=== PATIENT | female | born 2000 | race Caucasian/White ===

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

== ENCOUNTER 2019-06-21 15:04 | Inpatient (IN) | payer OTHER ==
[~2019-06-21] VITALS: Ht 175.3 cm; Wt 56.8 kg
[2019-06-21 15:46] LABS: BASO # 0.1 10^3/uL (0.0-0.2); BASO % 0.6 % (0.0-1.0); EOS % 0.4 % (0.0-3.0); HEMATOCRIT 42.9 % (36.0-47.0); HEMOGLOBIN 14.2 g/dl (12.0-15.5); LYMPH # 2.6 10^3/uL (1.5-5.0); MEAN CORPUSCULAR HEMOGLOBIN 29.5 pg (27.0-33.0); MEAN CORPUSCULAR HGB CONC 33.1 g/dl (32.0-36.5); MEAN CORPUSCULAR VOLUME 89.2 fl (80.0-96.0); MONO # 0.9 10^3/uL (0.0-0.8); MONO % 8.4 % (0.0-5.0); NEUTROPHILS # 6.8 10^3/uL (1.5-8.5); NEUTROPHILS % 65.1 % (36.0-66.0); PLATELET COUNT, AUTOMATED 367 10^3/uL (150-450); RED BLOOD COUNT 4.81 10^6/uL (4.00-5.40); WHITE BLOOD COUNT 10.5 10^3/uL (4.0-10.0)
[2019-06-21] MEDS: NS 1,000 ML IV SCH ×2 (16:05→22:29)
[2019-06-21 16:07] LABS: HCG, SERUM QUALITATIVE NEGATIVE (NEGATIVE)
[2019-06-21 16:08] LABS: AMPHETAMINES LEVEL URINE NEGATIVE (NEGATIVE); BARBITURATES URINE NEGATIVE (NEGATIVE); BENZODIAZEPINES URINE NEGATIVE (NEGATIVE); CANNABINOIDS URINE NEGATIVE (NEGATIVE); COCAINE METABOLITE URINE NEGATIVE (NEGATIVE); METHADONE URINE NEGATIVE (NEGATIVE); OPIATES URINE NEGATIVE (NEGATIVE); PHENCYCLIDINE URINE NEGATIVE (NEGATIVE)
[2019-06-21 16:16] LABS: ACETAMINOPHEN LEVEL 42.1 UG/ML (10.0-30.0); ALBUMIN 4.3 GM/DL (3.2-5.2); ALT/SGPT 31 U/L (12-78); BILIRUBIN,DIRECT 0.1 MG/DL (0.0-0.2); BILIRUBIN,TOTAL 0.5 MG/DL (0.2-1.0); BLOOD UREA NITROGEN 8 MG/DL (7-18); CALCIUM LEVEL 9.6 MG/DL (8.5-10.1); CARBON DIOXIDE LEVEL 18 MEQ/L (21-32); CHLORIDE LEVEL 109 MEQ/L (98-107); CPK CREATINE PHOSPHOKINASE 53 U/L (26-192); CREATININE FOR GFR 1.16 MG/DL (0.55-1.30); ETHYL ALCOHOL (ETHANOL) < 0.003 % (0.000-0.010); GLUCOSE, FASTING 132 MG/DL (70-100); POTASSIUM SERUM 3.2 MEQ/L (3.5-5.1); SALICYLATE LEVEL 22.9 MG/DL (5.0-30.0); SODIUM LEVEL 141 MEQ/L (136-145); TOTAL PROTEIN 8.1 GM/DL (6.4-8.2)
[2019-06-21 17:23] LABS: ACETAMINOPHEN LEVEL 32.8 UG/ML (10.0-30.0); SALICYLATE LEVEL 20.3 MG/DL (5.0-30.0)
[2019-06-21] MEDS ORDERED: POTASSIUM CHLORIDE 10 MEQ SR TABLET PO ONE (17:45)
[2019-06-21] MEDS ORDERED: ONDANSETRON 4MG/2ML VIAL (J2405) As Ordered ONE (18:15)
--- NOTE | 2019-06-21 20:17 | ECGEPIP ---
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
[2019-06-21] MEDS ORDERED: traZODone 50 MG TAB PO PRN (22:30)
[2019-06-21] MEDS ORDERED: ACETAMINOPHEN TAB 650MG DOSE (2X325MG) PO PRN (22:30)
[2019-06-21] MEDS ORDERED: MOM 30ML SUSPENSION UDC PO PRN (22:30)
[2019-06-21] MEDS ORDERED: MAALOX 30 ML SUSP *UDC PO PRN (22:30)
[2019-06-22 00:18] VITALS: BP 132/85
[2019-06-22 06:26] VITALS: BP 146/78
--- NOTE | 2019-06-22 10:50 | MHHPEPDOC ---
[facility] History & Physical History and Physical DATE OF ADMISSION: Jun 21, 2019 at 22:20 New Patient Evelyn Thornton MRN: N/A Date of : N/A Date of Service: 06/22/2019 Chief Complaint "I guess I overdosed." History of Present Illness The patient is a 18-year-old young woman presents after overdosing on ibuprofen, she is unable to identify any stressors other than that she has had an overdose 2 years ago on the same day. She reports that she has not felt necessarily any different than her normal state of health and reports that she wasn't sure what came over her at the time. The patient reports otherwise no stressors and that she had taken it and subsequently sought care. She wasn't sure whether this would injure her, but regretted immediately and sought care. Review Of Systems Depression: The patient denies any episodes of unprovoked depressed mood associated with neurovegetative symptoms lasting longer than 2 weeks with symptoms present nearly everyday. Anxiety: The patient denies any excessive worry associated with physical symptoms. They deny any experience of discreet panic in the past. Leela: The patient denies any episodes of euphoria/dysphoria associated with decreased need for sleep, hedonism, talkatively or impulsivity lasting longer than 5 days. Psychotic: The patient denies any experiences of auditory or visual hallucinations. They deny any episodes of paranoia or delusional thinking in the past Trauma: The patient denies any traumatic events associated with nightmares or intrusive thoughts. Borderline: Screen is positive for some borderline characteristics. Past Psychiatric History Reports an overdose that was not medically treated 2 years ago. Denies any current psychiatric followup, currently is in the process to see Dr. Petty at [facility]. On no current psychiatric medications. Allergies Please see below. Family Psychiatric History Reports father has mental health problems, have been admitted to the in the past. No history of suicide or addiction. Social History The patient is a never woman with no children who identifies as bisexual. She currently resides by herself in her apartment. 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 She reports she graduated high school without issues and did some college. She reports growing up with parents and a good relationship with both her 2 siblings with additional good relationship. Substance Abuse History The patient denies any excessive alcohol use, tobacco or illicit drug use, denies history of substance use treatment. Medical History Patient has no significant past medical history. Mental Status Examination General: Well dressed with good hygiene Speech: Spontaneous and fluid Thought processes: Linear and logical MSK: Smooth and coordinated gait, no signs of tremors or involuntary orofacial movements Thought content: Future orientated Abstract reasoning, and computation: Intact Description of associations: Intact Description of abnormal or psychotic thoughts: Denies any suicidal or homicidal ideation. Denies any auditory or visual hallucinations. Does not appear to be responding to internal stimuli. Does not appear to be endorsing any bizarre or paranoid ideation. Judgment: fair Insight: fair Orientation: Alert and orientated 3 Cognition: Grossly normal Recent and remote memory: Intact Attention span and concentration: Intact Fund of knowledge: Adequate Mood: "okay" Affect: Euthymic with a full range Diagnoses Unspecified depression. Assessment and Plan The patient a 18-year-old young woman presents after reportedly overdosing on ibuprofen. She did not require any significant medical treatment and was subsequently treated on the medical site of the ER before coming to psychiatry. Her situations are unusual and she has no significant signs of depression, she generally denies most symptoms other than depressive thoughts just prior, she does qualify for some cluster B personality traits, but generally denies most symptoms. She will be observed for 48 hours until the 9.39 legal status runs out. If she is no longer citing any suicidal ideation, I will not have cause to continue to hold her against her will. Disposition Discharge tomorrow if continues to exhibit no signs of suicidal thinking or behavioral problems. Problem List 1. Risk for suicide. 2. Ineffective coping. Initial Treatment Plan 1. Patient was admitted on a 9.39 legal status. 2. Complete history was obtained. 3. With patients permission, family will be contacted and database will be expanded. 4. Patients medication regimen will be reviewed and changed accordingly. 5. Patient will be provided with protected environment. 6. Patient will be treated with individual, group, and milieu therapies. 7. Patient will receive supportive psych-education. 8. Discharge planning will commence immediately. 9. Outpatient follow-up treatment will be strongly recommended. 10. The initial treatment plan will focus initially on: Estimated Length Of Stay 2 days. Time Spent 70 minutes with greater than 50% time on counseling/coordination of care. Thursday Vital Signs Vital Signs Date Time Temp Pulse Resp B/P (MAP) Pulse Ox O2 Delivery O2 Flow Rate FiO2 06/22/19 07:57 Room Air 06/22/19 06:26 99.1 75 16 146/78 (100) 06/22/19 00:18 95 Laboratory Data 24H Labs Laboratory Tests 2 06/21/19 15:32: Immature Granulocyte % (Auto) 0.5, Neutrophils (%) (Auto) 65.1, Lymphocytes (%) (Auto) 25.0, Monocytes (%) (Auto) 8.4H, Eosinophils (%) (Auto) 0.4, Basophils (%) (Auto) 0.6, Neutrophils # (Auto) 6.8, Lymphocytes # (Auto) 2.6, Monocytes # (Auto) 0.9H, Eosinophils # (Auto) 0.0, Basophils # (Auto) 0.1, Nucleated Red Blood Cells % (auto) 0.0, Anion Gap 14, Calcium Level 9.6, Total Bilirubin 0.5, Direct Bilirubin 0.1, Aspartate Amino Transf (AST/SGOT) 20, Alanine Aminotransferase (ALT/SGPT) 31, Alkaline Phosphatase 69, Total Creatine Kinase 53, Total Protein 8.1, Albumin 4.3, Albumin/Globulin Ratio 1.13, Thyroid Stimulating Hormone (TSH) 1.430, Human Chorionic Gonadotropin, Qual NEGATIVE, Salicylates Level 22.9, Urine Opiates Screen NEGATIVE, Urine Methadone Screen NEGATIVE, Acetaminophen Level 42.1H, Urine Barbiturates Screen NEGATIVE, Urine Phencyclidine Screen NEGATIVE, Urine Amphetamines Screen NEGATIVE, Urine Benzodiazepines Screen NEGATIVE, Urine Cocaine Metabolite Screen NEGATIVE, Urine Cannabinoids Screen NEGATIVE, Ethyl Alcohol Level < 0.003 06/21/19 15:50: Bedside Glucose (Misc Panel) 109H 06/21/19 16:50: Salicylates Level 20.3, Acetaminophen Level 32.8H 06/21/19 19:40: Salicylates Level 15.1 CBC/BMP Laboratory Tests 06/21/19 15:32 FSBS Laboratory Tests Test 06/21/19 15:50 Range/Units Bedside Glucose (Misc Panel) 109 70-105 MG/DL Medications No Active Prescriptions or Reported Meds Allergies Coded Allergies: No Known Allergies (Verified Allergy, Unknown, 06/21/19) A-FIB/CHADSVASC A-FIB History Current/History of A-Fib/PAF?: No MICHAEL AKERS DO Jun 22, 2019 10:50
--- NOTE | 2019-06-22 12:25 | HPEPDOC ---
General Date of Admission Jun 21, 2019 at 22:20 Date of Service: Jun 22, 2019 Chief Complaint The patient is a 18-year-old female admitted with a reason for visit of Unspecified Depressive Disorder. Source: Patient Exam Limitations: No limitations Associated Symptoms: Denies Symptoms History of Present Illness Patient is a 18-year-old female who was admitted to the behavioral health unit due to suicide attempt. Patient reported that she was brought to the [facility] ED by a friend as she had taken an unknown number of Excedrin. When asked what prompted her to do this, patient reported "because it is two years to the day when I last did it." 2 years ago. Patient had attempted suicide. She reported there hasn't been any upheaval in her personal life, she seems unaware of unwilling to share the reason she recently attempted suicide. At this time she denies any HI/SI. In fact, she states that it was a "stupid thing" for her to have done. Her cousin is coming to spend some time with her on Thursday. Patient denied a history of mental health disorders; has an new patient appointment with psychiatry on 07/03. Home Medications No Active Prescriptions or Reported Meds Allergies Coded Allergies: No Known Allergies (Verified Allergy, Unknown, 06/21/19) Past Medical History Medical History Unremarkable Surgical History None Family History Significant Family History: Hypertension Social History * Smoker: Denies Alcohol: occationally Drugs: marijuana (occasionally) A-FIB/CHADSVASC A-FIB History Current/History of A-Fib/PAF?: No Current PO Anticoag Therapy: No Review of Systems Constitutional: Denies: Chills, Fever, Night Sweats Eyes: Denies: Pain ENT: Denies: Head Aches Skin: Denies: Rash Pulmonary: Denies: Dyspnea, Cough Cardiovascular: Reports: Paroxysmal Noc. Dyspnea; Denies: Chest Pain, Palpitations Gastrointestinal: Denies: Nausea, Vomiting, Abdominal Pain, Diarrhea, Constipation Genitourinary: Denies: Dysuria, Frequency Hematologic: Denies: Bruising Musculoskeletal: Denies: Neck Pain, Back Pain, Joint Pain, Muscle Pain, Spasms Neurological: Denies: Weakness, Numbness Psych: Reports: Thoughts of Self Harm; Denies: Depression, Memory Issues, Thoughts of Harming Other Physical Examination General Exam: Positive: Alert, No Acute Distress Eye Exam: Positive: PERRLA, Conjunctiva & lids normal, EOMI; Negative: Sclera icteric ENT Exam: Positive: Atraumatic, Mucous membr. moist/pink, Pharynx Normal Neck Exam: Positive: Supple, JVD; Negative: thyromegaly Chest Exam: Positive: Clear to auscultation, Normal air movement Heart Exam: Positive: Rate Normal, Regular Rhythm, Normal S1, Normal S2; Negative: Murmurs, Rubs Telemetry: Positive: No significant arrhythmia Abdomen Exam: Positive: Normal bowel sounds, Soft; Negative: Tenderness Extremity Exam: Positive: Normal pulses; Negative: Clubbing, Cyanosis, Edema Skin Exam: Positive: Nl turgor and temperature Neuro Exam: Positive: Normal Gait, Normal Speech, Strength at 5/5 X4 ext, Cranial Nerves 3-12 NL Psych Exam: Positive: Mood NL Vital Signs Vital Signs Date Time Temp Pulse Resp B/P (MAP) Pulse Ox O2 Delivery O2 Flow Rate FiO2 06/22/19 07:57 Room Air 06/22/19 06:26 99.1 75 16 146/78 (100) 06/22/19 00:18 95 Laboratory Data Labs 24H Laboratory Tests 2 06/21/19 15:32: Immature Granulocyte % (Auto) 0.5, Neutrophils (%) (Auto) 65.1, Lymphocytes (%) (Auto) 25.0, Monocytes (%) (Auto) 8.4H, Eosinophils (%) (Auto) 0.4, Basophils (%) (Auto) 0.6, Neutrophils # (Auto) 6.8, Lymphocytes # (Auto) 2.6, Monocytes # (Auto) 0.9H, Eosinophils # (Auto) 0.0, Basophils # (Auto) 0.1, Nucleated Red Blood Cells % (auto) 0.0, Anion Gap 14, Calcium Level 9.6, Total Bilirubin 0.5, Direct Bilirubin 0.1, Aspartate Amino Transf (AST/SGOT) 20, Alanine Aminotransferase (ALT/SGPT) 31, Alkaline Phosphatase 69, Total Creatine Kinase 53, Total Protein 8.1, Albumin 4.3, Albumin/Globulin Ratio 1.13, Thyroid Stimulating Hormone (TSH) 1.430, Human Chorionic Gonadotropin, Qual NEGATIVE, S alicylates Level 22.9, Urine Opiates Screen NEGATIVE, Urine Methadone Screen NEGATIVE, Acetaminophen Level 42.1H, Urine Barbiturates Screen NEGATIVE, Urine Phencyclidine Screen NEGATIVE, Urine Amphetamines Screen NEGATIVE, Urine Benzodiazepines Screen NEGATIVE, Urine Cocaine Metabolite Screen NEGATIVE, Urine Cannabinoids Screen NEGATIVE, Ethyl Alcohol Level < 0.003 06/21/19 15:50: Bedside Glucose (Misc Panel) 109H 06/21/19 16:50: Salicylates Level 20.3, Acetaminophen Level 32.8H 06/21/19 19:40: Salicylates Level 15.1 CBC/BMP Laboratory Tests 06/21/19 15:32 Assessment/Plan Patient is a 18-year-old female who was admitted to the behavioral health unit due to suicide attempt. Patient reported that she was brought to the [facility] ED by a friend as she had taken an unknown number of Excedrin. When asked what prompted her to do this, patient reported "because it is two years to the day when I last did it." 2 years ago. Patient had attempted suicide. She reported there hasn't been any upheaval in her personal life, she seems unaware of unwilling to share the reason she recently attempted suicide. At this time she denies any HI/SI. In fact, she states that it was a "stupid thing" for her to have done. Her cousin is coming to spend some time with her on Thursday. Patient denied a history of mental health disorders; has an new patient appointment with psychiatry on 07/03. #1. Suicide attempt. Management per psychiatry Medicine will sign off on this patient at this time. Please feel free to re- consult as needed. Plan / VTE VTE Prophylaxis Ordered?: No ÓSCAR BILLY PA-C Jun 22, 2019 12:25
[2019-06-22 16:04] VITALS: BP 125/83
[2019-06-23 06:30] VITALS: BP 125/81
--- NOTE | 2019-06-23 11:08 | MHDSPDOC ---
[facility] Discharge Summary Discharge Summary DATE OF ADMISSION: Jun 21, 2019 at 22:20 DATE OF DISCHARGE: 06/23/19 Discharge Evelyn Thornton MRN: N/A Date of : N/A Date of Service: 06/23/2019 Diagnoses Unspecified depression. History of Present Illness The patient is a 18-year-old young woman presents after overdosing on ibuprofen, she is unable to identify any stressors other than that she has had an overdose 2 years ago on the same day. She reports that she has not felt necessarily any different than her normal state of health and reports that she wasn't sure what came over her at the time. The patient reports otherwise no stressors and that she had taken it and subsequently sought care. She wasn't sure whether this would injure her, but regretted immediately and sought care. Consultants Involved Hospitalist/PCP screening Treatment and Progress On The Unit The patient was admitted after reported overdose of Tylenol versus ibuprofen, she was observed for 48 hours where she was friendly and amenable, she did not demonstrate any signs or symptoms of depression. She was not able to identify the exact rationale for her overdose, however was able to improve to some level fair insight into her behavior and her stress management. She attended groups at times and denied any suicidal ideation through the entirety of her 48 hours of observation, where she did not meet involuntary criteria for further extension. Discussed with patient about medications and the patient reported that she was open to the idea but wanted to try it in outpatient after discussion of the risks, benefits and other alternatives. She had no behavioral problems and behaved well. Discharge Assessment 18-year-old young woman with a history of what appears to be depression, possibly cluster B personality traits presents after overdose. She is observed for 48 hours and does not meet criteria in my opinion to be extended past that point and primarily wants to pursue psychotherapy for her treatment after discussion of the risks and benefits related to medications as well as alternatives. The patient at the time of discharge did not meet criteria for involuntary admission/extension due to having a normal mental status exam, fair insight into the situation, They are engaged in the discharge process, as well as being friendly and amenable in behavioral control and havent been engaging in any o bserved concerning behavior or ideation recently. They decline voluntary extension/admission at this time and must be discharged in good liliam, as Im unable to make a case for holding the patient against their will. They may have historical risk factors of admissions and other interactions with psychiatry however, those are not modifiable from a clinical perspective. The patient will need to be discharged in good liliam. Mental Status Examination General: Well dressed with good hygiene Speech: Spontaneous and fluid Thought processes: Linear and logical MSK: Smooth and coordinated gait, no signs of tremors or involuntary orofacial movements Thought content: Future orientated Abstract reasoning, and computation: Intact Description of associations: Intact Description of abnormal or psychotic thoughts: Denies any suicidal or homicidal ideation. Denies any auditory or visual hallucinations. Does not appear to be responding to internal stimuli. Does not appear to be endorsing any bizarre or paranoid ideation. Judgment: fair Insight: fair Orientation: Alert and orientated 3 Cognition: Grossly normal Recent and remote memory: Intact Attention span and concentration: Intact Fund of knowledge: Adequate Mood: "okay" Affect: Euthymic with a full range Follow Up The social work team worked during the predischarge meeting in order to evaluate for further issues of lethality address them fully before discharge. They worked on safety planning with the patient's family members in order to ensure that the patient will have a safe and effective discharge. Time Spent The amount of time spent in the coordination of care for this patient was approximately 40 minutes. Vital Signs/I&Os Vital Signs Date Time Temp Pulse Resp B/P (MAP) Pulse Ox O2 Delivery O2 Flow Rate FiO2 06/23/19 06:30 98.3 71 16 125/81 (96) 06/22/19 07:57 Room Air 06/22/19 00:18 95 Medications No Active Prescriptions or Reported Meds Allergies Coded Allergies: No Known Allergies (Verified Allergy, Unknown, 06/21/19) MICHAEL AKERS DO Jun 23, 2019 11:08
== END 2019-06-23 11:37 | disposition home or self-care (01) | DRG 881 ==
LOC: M ED 15:04 → M ED INP 22:20 → M PSY 23:50
PROVIDERS: ADMIT Psychiatry & Neurology Psychiatry; ATTEND Psychiatry & Neurology Addiction Medicine
DX: F32.9 Major depressive disorder, single episode, unspecified (principal); T39.1X2A Poisoning by 4-Aminophenol derivatives, intentional self-harm, initial encounter; Z91.5 Personal history of self-harm; Z81.8 Family history of other mental and behavioral disorders

== ENCOUNTER 2020-07-15 18:41 | Emergency (ER) | payer OTHER ==
[~2020-07-15] VITALS: Ht 177.8 cm; Wt 63.6 kg
[2020-07-15 18:42] VITALS: BP 163/84
== END 2020-07-15 19:36 | disposition left against medical advice (07) ==
LOC: M ED 18:41
DX: R07.9 Chest pain, unspecified (principal); R06.02 Shortness of breath; Z53.9 Procedure and treatment not carried out, unspecified reason; F41.0 Panic disorder [episodic paroxysmal anxiety]; F32.9 Major depressive disorder, single episode, unspecified

== ENCOUNTER 2020-07-16 10:05 | Emergency (ER) | payer OTHER ==
[~2020-07-16] VITALS: Ht 177.8 cm; Wt 63.6 kg
[2020-07-16 11:15] LABS: HEMATOCRIT 32.8 % (36.0-47.0); HEMOGLOBIN 10.6 g/dl (12.0-15.5); MEAN CORPUSCULAR HEMOGLOBIN 30.9 pg (27.0-33.0); MEAN CORPUSCULAR HGB CONC 32.3 g/dl (32.0-36.5); MEAN CORPUSCULAR VOLUME 95.6 fl (80.0-96.0); PLATELET COUNT, AUTOMATED 210 10^3/uL (150-450); RED BLOOD COUNT 3.43 10^6/uL (4.00-5.40); WHITE BLOOD COUNT 9.4 10^3/uL (4.0-10.0)
[2020-07-16 11:21] LABS: AMORPHOUS SEDIMENT SMALL (NEGATIVE); APPEARANCE, URINE CLOUDY (CLEAR); BACTERIA, URINE AUTO 2+ (NEGATIVE); BILIRUBIN, URINE AUTO NEGATIVE (NEGATIVE); BLOOD, URINE BLOOD NEGATIVE (NEGATIVE); COLOR, URINE YELLOW (YELLOW); GLUCOSE, URINE (UA) AUTO NEGATIVE (NEGATIVE); KETONE, URINE AUTO NEGATIVE (NEGATIVE); LEUKOCYTE ESTERASE, URINE AUTO NEGATIVE (NEGATIVE); MUCUS, URINE SMALL (NEGATIVE); NITRITE, URINE AUTO NEGATIVE (NEGATIVE); PROTEIN, URINE AUTO NEGATIVE (NEGATIVE); RBC, URINE AUTO 2 /HPF (0-3); SPECIFIC GRAVITY URINE AUTO 1.013 (1.002-1.035); SQUAMOUS EPITHELIAL CELL UR AU 5 /HPF (0-6); WBC, URINE AUTO 6 /HPF (0-3)
[2020-07-16 11:27] LABS: INR 0.92; PROTHROMBIN TIME 12.5 SECONDS (12.5-14.3)
[2020-07-16 11:28] LABS: PARTIAL THROMBOPLASTIN TIME 24.8 SECONDS (24.2-38.5)
[2020-07-16 11:59] LABS: ACETAMINOPHEN LEVEL < 2.0 UG/ML (10.0-30.0); ALBUMIN 3.2 GM/DL (3.2-5.2); ALT/SGPT 15 U/L (12-78); BILIRUBIN,DIRECT < 0.1 MG/DL (0.0-0.2); BILIRUBIN,TOTAL 0.4 MG/DL (0.2-1.0); BLOOD UREA NITROGEN 6 MG/DL (7-18); CALCIUM LEVEL 8.6 MG/DL (8.5-10.1); CARBON DIOXIDE LEVEL 25 MEQ/L (21-32); CHLORIDE LEVEL 109 MEQ/L (98-107); CREATININE FOR GFR 0.41 MG/DL (0.55-1.30); ETHYL ALCOHOL (ETHANOL) < 0.003 % (0.000-0.010); GLUCOSE, FASTING 80 MG/DL (70-100); MAGNESIUM LEVEL 2.1 MG/DL (1.8-2.4); POTASSIUM SERUM 3.7 MEQ/L (3.5-5.1); SALICYLATE LEVEL < 1.7 MG/DL (5.0-30.0); SODIUM LEVEL 140 MEQ/L (136-145); THYROID STIMULATING HORMONE 0.948 uIU/ML (0.463-3.98); TOTAL PROTEIN 6.6 GM/DL (6.4-8.2); URIC ACID 2.8 MG/DL (2.6-6.0)
[2020-07-16 11:59] LABS: AMPHETAMINES LEVEL URINE NEGATIVE (NEGATIVE); BARBITURATES URINE NEGATIVE (NEGATIVE); BENZODIAZEPINES URINE NEGATIVE (NEGATIVE); CANNABINOIDS URINE POSITIVE (NEGATIVE); COCAINE METABOLITE URINE NEGATIVE (NEGATIVE); METHADONE URINE NEGATIVE (NEGATIVE); OPIATES URINE NEGATIVE (NEGATIVE); PHENCYCLIDINE URINE NEGATIVE (NEGATIVE)
[2020-07-16 13:38] VITALS: BP 131/69
== END 2020-07-16 13:40 | disposition home or self-care (01) ==
LOC: M ED 10:05
DX: O99.343 Other mental disorders complicating pregnancy, third trimester (principal); F43.0 Acute stress reaction; F33.9 Major depressive disorder, recurrent, unspecified; F41.9 Anxiety disorder, unspecified; Z3A.30 30 weeks gestation of pregnancy

== ENCOUNTER 2021-01-29 16:55 | Inpatient (IN) | payer OTHER ==
[~2021-01-29] VITALS: Ht 177.8 cm; Wt 57.1 kg
--- OUTSIDE RECORDS SUMMARY | 2021-01-29 17:01 | CCD | Continuity of Care Document ---
Author Author Beverly BELLA Organization Unknown Address [address] [place] [id number] Phone [phone] Care Team Providers Care Information Systems Architect Name Role Phone Naif Naranjo M.D. [facility] [phone] Problems Description No Information Available Social History Type Date Description Comments Sex Unknown Allergies and adverse reactions Description No Information Available Medications Description No Information Available Immunizations Description No Information Available Vital Signs Description No Information Available Results Description No Information Available Procedures Description No Information Available Medical Devices Description No Information Available Encounters Description No Information Available Assessments Description No Information Available Plan of Treatment Future Appointment(s):* 02/27/2021 9:00 am - Nestor Delgadillo M.D. at Main office - [place] Functional Status Description No Information Available Mental Status Description No Information Available Referrals Description No Information Available
--- OUTSIDE RECORDS SUMMARY | 2021-01-29 17:01 | CCD ---
Author Author [facility] Organization [facility] Address Unknown Phone Unavailable Care Team Providers Care Electrical Mechanic Name Role Phone SYSTEM IN, NOT IN PROVIDER Unavailable Unavailable JOIS SOLIZ Unavailable Unavailable Bailey VALDIVIA MD Unavailable Unavailable Bailey VALDIVIA MD Unavailable Unavailable Bailey VALDIVIA MD Unavailable Unavailable Bailey VALDIVIA MD Unavailable Unavailable Bailey VALDIVIA MD Unavailable Unavailable Bailey VALDIVIA MD Unavailable Unavailable Bailey VALDIVIA MD Unavailable Unavailable Bailey VALDIVIA MD Unavailable Unavailable Bailey VALDIVIA MD Unavailable Unavailable Bailey VALDIVIA MD Unavailable Unavailable Bailey VALDIVIA MD Unavailable Unavailable Bailey VALDIVIA MD Unavailable Unavailable Bailey VALDIVIA MD Unavailable Unavailable Bailey VALDIVIA MD Unavailable Unavailable Bailey VALDIVIA MD Unavailable Unavailable Bailey VALDIVIA MD Unavailable Unavailable Bailey VALDIVIA MD Unavailable Unavailable Bailey VALDIVIA MD Unavailable Unavailable Bailey VALDIVIA MD Unavailable Unavailable Bailey VALDIVIA MD Unavailable Unavailable Bailey VALDIVIA MD Unavailable Unavailable Bailey VALDIVIA MD Unavailable Unavailable Bailey VALDIVIA MD Unavailable Unavailable Bailey VALDIVIA MD Unavailable Unavailable Bailey VALDIVIA MD Unavailable Unavailable Bailey VALDIVIA MD Unavailable Unavailable Bailey VALDIVIA MD Unavailable Unavailable Bailey VALDIVIA MD Unavailable Unavailable Bailey VALDIVIA MD Unavailable Unavailable BAKARI ROBERTSZABETH Unavailable Unavailable [facility]85, [id number] Unavailable [phone] [facility]85, [id number] Unavailable [phone] [facility], [id number] Unavailable [phone] [facility], [id number] Unavailable [phone] [facility], [id number] Unavailable [phone] [facility], [id number] Unavailable [phone] [facility], [id number] Unavailable [phone] [facility], [id number] Unavailable [phone] [facility], [id number] Unavailable [phone] [facility], [id number] Unavailable [phone] [facility], [id number] Unavailable [phone] [facility]85, [id number] Unavailable [phone] [facility]85, [id number] Unavailable [phone] [facility]85, [id number] Unavailable [phone] [facility]85, [id number] Unavailable [phone] [facility]85, [id number] Unavailable [phone] Mavis SANCHEZ MD Unavailable Unavailable Mavis SANCHEZ MD Unavailable Unavailable Mavis SANCHEZ MD Unavailable Unavailable Mavis SANCHEZ MD Unavailable Unavailable Mavis SANCHEZ MD Unavailable Unavailable Mavis SANCHEZ MD Unavailable Unavailable Mavis SANCHEZ MD Unavailable Unavailable Mavis SANCHEZ MD Unavailable Unavailable Mavis SANCHEZ MD Unavailable Unavailable Mavis SANCHEZ MD Unavailable Unavailable Mavis SANCHEZ MD Unavailable Unavailable Mavis SANCHEZ MD Unavailable Unavailable Mavis SANCHEZ MD Unavailable Unavailable Mavis SANCHEZ MD Unavailable Unavailable Mavis SANCHEZ MD Unavailable Unavailable Mavis SANCHEZ MD Unavailable Unavailable Mavis SANCHEZ MD Unavailable Unavailable Mavis SANCHEZ MD Unavailable Unavailable Mavis SANCHEZ MD Unavailable Unavailable Mavis SANCHEZ MD Unavailable Unavailable Mavis SANCHEZ MD Unavailable Unavailable Mavis SANCHEZ MD Unavailable Unavailable Mavis SANCHEZ MD Unavailable Unavailable Mavis SANCHEZ MD Unavailable Unavailable Mavis SANCHEZ MD Unavailable Unavailable Mavis SANCHEZ MD Unavailable Unavailable Mavis SANCHEZ MD Unavailable Unavailable Mavis SANCHEZ MD Unavailable Unavailable Mavis SANCHEZ MD Unavailable Unavailable Maring, Ciro PA Unavailable Unavailable Maring, Ciro PA Unavailable Unavailable Maring, Ciro PA Unavailable Unavailable Maring, Ciro PA Unavailable Unavailable Maring, Ciro PA Unavailable Unavailable Maring, Ciro PA Unavailable Unavailable Maring, Ciro PA Unavailable Unavailable Maring, Ciro PA Unavailable Unavailable Maring, Ciro PA Unavailable Unavailable Maring, Ciro PA Unavailable Unavailable Maring, Ciro PA Unavailable Unavailable Maring, Ciro PA Unavailable Unavailable Maring, Ciro PA Unavailable Unavailable Maring, Ciro PA Unavailable Unavailable Maring, Ciro PA Unavailable Unavailable Maring, Ciro PA Unavailable Unavailable CHUY RAM Unavailable Unavailable MarMiles PA-C Unavailable Zaid Miles PA-C Unavailable Mar, Miles PA-C Unavailable Mar Miles PA-C Unavailable Mar Miles PA-C Unavailable MINA PELAEZ Unavailable Unavailable ADITI HOBSON Unavailable Unavailable Rosa GUTIERRES JR, MD Unavailable Unavailable Rosa GUTIERRES JR, MD Unavailable Unavailable Rosa GUTIERRES JR, MD Unavailable Unavailable Rosa GUTIERRES JR, MD Unavailable Unavailable Rosa GUTIERRES JR, MD Unavailable Unavailable NOSOVITCH Rosa GAMBINO MD Unavailable Unavailable NOSOVITCH Rosa GAMBINO MD Unavailable Unavailable NOSOVITCH Rosa GAMBINO MD Unavailable Unavailable NOSOVITCH Rosa GAMBINO MD Unavailable Unavailable NOSOVITCH Rosa GAMBINO MD Unavailable Unavailable NOSOVITCH Rosa GAMBINO MD Unavailable Unavailable NOSOVITCH Rosa GAMBINO MD Unavailable Unavailable NOSOVITCH Rosa GAMBINO MD Unavailable Unavailable NOSOVITCH Rosa GAMBINO MD Unavailable Unavailable NOSOVITCH Rosa GAMBINO MD Unavailable Unavailable NOSOVITCH Rosa GAMBINO MD Unavailable Unavailable NOSOVITCH Rosa GAMBINO MD Unavailable Unavailable NOSOVITCH Rosa GAMBINO MD Unavailable Unavailable NOSOVITCH Rosa GAMBINO MD Unavailable Unavailable NOSOVITCH Rosa GAMBINO MD Unavailable Unavailable NOSOVITCH Rosa GAMBINO MD Unavailable Unavailable NOSOVITCH Rosa GAMBINO MD Unavailable Unavailable NOSOVITCH Rosa GAMBINO MD Unavailable Unavailable NOSOVITCH Rosa GAMBINO MD Unavailable Unavailable NOSOVITCH Rosa GAMBINO MD Unavailable Unavailable NOSOVITCH Rosa GAMBINO MD Unavailable Unavailable NOSOVITCH Rosa GAMBINO MD Unavailable Unavailable NOSOVITCH Rosa GAMBINO MD Unavailable Unavailable NOSOVITCH Rosa GAMBINO MD Unavailable Unavailable NOSOVITCH Rosa GAMBINO MD Unavailable Unavailable NOSOVITCH Rosa AGMBINO MD Unavailable Unavailable BYRON, C NIDA TRANSPORTATION SUPERINTENDENT Unavailable Unavailable BYRON, C NIDA TRANSPORTATION SUPERINTENDENT Unavailable Unavailable BYRON, C NIDA TRANSPORTATION SUPERINTENDENT Unavailable Unavailable BYRON, C NIDA TRANSPORTATION SUPERINTENDENT Unavailable Unavailable BYRON, C NIDA TRANSPORTATION SUPERINTENDENT Unavailable Unavailable BYRON, C NIDA TRANSPORTATION SUPERINTENDENT Unavailable Unavailable BYRON, C NIDA TRANSPORTATION SUPERINTENDENT Unavailable Unavailable BYRON, C NIDA TRANSPORTATION SUPERINTENDENT Unavailable Unavailable BYRON, C NIDA TRANSPORTATION SUPERINTENDENT Unavailable Unavailable BYRON, C NIDA TRANSPORTATION SUPERINTENDENT Unavailable Unavailable BYRON, C NIDA TRANSPORTATION SUPERINTENDENT Unavailable Unavailable BYRON, C NIDA TRANSPORTATION SUPERINTENDENT Unavailable Unavailable BYRON, C NIDA TRANSPORTATION SUPERINTENDENT Unavailable Unavailable BYRON, C NIDA TRANSPORTATION SUPERINTENDENT Unavailable Unavailable BYRON, C NIDA TRANSPORTATION SUPERINTENDENT Unavailable Unavailable BYRON, C NIDA TRANSPORTATION SUPERINTENDENT Unavailable Unavailable BYRON, C NIDA TRANSPORTATION SUPERINTENDENT Unavailable Unavailable BYRON, C NIDA TRANSPORTATION SUPERINTENDENT Unavailable Unavailable BYRON, C NIDA TRANSPORTATION SUPERINTENDENT Unavailable Unavailable BYRON, C NIDA TRANSPORTATION SUPERINTENDENT Unavailable Unavailable BYRON, C NIDA TRANSPORTATION SUPERINTENDENT Unavailable Unavailable BYRON, C NIDA TRANSPORTATION SUPERINTENDENT Unavailable Unavailable BYRON, C NIDA TRANSPORTATION SUPERINTENDENT Unavailable Unavailable BYRON, C NIDA TRANSPORTATION SUPERINTENDENT Unavailable Unavailable BYRON, C NIDA TRANSPORTATION SUPERINTENDENT Unavailable Unavailable BYRON C NIDA TRANSPORTATION SUPERINTENDENT Unavailable Unavailable FOLK, J KASI MD Unavailable Unavailable FOLK, J KASI MD Unavailable Unavailable FOLK, J KASI MD Unavailable Unavailable FOLK, J KASI MD Unavailable Unavailable FOLK, J KASI MD Unavailable Unavailable FOLK, J KASI MD Unavailable Unavailable FOLK, J KASI MD Unavailable Unavailable FOLK, J KASI MD Unavailable Unavailable FOLK, J KASI MD Unavailable Unavailable FOLK, J KASI MD Unavailable Unavailable FOLK, J KASI MD Unavailable Unavailable FOLK, J KASI MD Unavailable Unavailable FOLK, J KASI MD Unavailable Unavailable FOLK, J KASI MD Unavailable Unavailable FOLK, J KASI MD Unavailable Unavailable FOLK, J KASI MD Unavailable Unavailable FOLK, J KASI MD Unavailable Unavailable FOLK, J KASI MD Unavailable Unavailable FOLK, J KASI MD Unavailable Unavailable FOLK, J KASI MD Unavailable Unavailable FOLK, J KASI MD Unavailable Unavailable FOLK, J KASI MD Unavailable Unavailable FOLK, J KASI MD Unavailable Unavailable FOLK, J KASI MD Unavailable Unavailable FOLK, J KASI MD Unavailable Unavailable FOLK, J KASI MD Unavailable Unavailable FOLK, J KASI MD Unavailable Unavailable FOLK, J KASI MD Unavailable Unavailable FOLK, J KASI MD Unavailable Unavailable Re-disclosure Warning The records that you are about to access may contain information from federally-assisted alcohol or drug abuse programs. If such information is present, then the following federally mandated warning applies: This information has been disclosed to you from records protected by federal confidentiality rules (42 CFR part 2). The federal rules prohibit you from making any further disclosure of this information unless further disclosure is expressly permitted by the written consent of the person to whom it pertains or as otherwise permitted by 42 CFR part 2. A general authorization for the release of medical or other information is NOT sufficient for this purpose. The Federal rules restrict any use of the information to criminally investigate or prosecute any alcohol or drug abuse patient.The records that you are about to access may contain highly sensitive health information, the redisclosure of which is protected by Article 27-F of the [facility] Public Health law. If you continue you may have access to information: Regarding HIV / AIDS; Provided by facilities licensed or operated by the [facility] Office of Mental Health; or Provided by the [facility] Office for People With Developmental Disabilities. If such information is present, then the following [facility] mandated warning applies: This information has been disclosed to you from confidential records which are protected by state law. State law prohibits you from making any further disclosure of this information without the specific written consent of the person to whom it pertains, or as otherwise permitted by law. Any unauthorized further disclosure in violation of state law may result in a fine or fpc sentence or both. A general authorization for the release of medical or other information is NOT sufficient authorization for further disc losure. Allergies and Adverse Reactions Type Description Substance Reaction Status Data Source(s ) Propensity to adverse reactions NO KNOWN ALLERGIES NO KNOWN ALLERGIES [facility] Encounters Encounter Providers Location Date Indications Data Source(s ) Outpatient Attender: NIDA MATTHEWS NP 10/15/2020 12:00:0 0 AM [facility] Outpatient Attender: NIDA MATTHEWS NP 09/14/2020 12:00:0 0 AM [facility] Outpatient 09/13/2020 12:00:00 AM [facility] Outpatient 09/13/2020 12:00:00 AM [facility] Inpatient Attender: KASI VALDIVIA MD 09/04/2020 12:47:51 AM E DT Lab [facility] Inpatient Attender: KASI VALDIVIA MDAdmitter: KASI VALDIVIA MD 09/04/2020 12:00:00 AM EDT - 09/06/2020 01:57:00 PM EDT 36 WKS WITH RUPTURED MEMBRANES HIGH RISK [facility] 36 WKS WITH RUPTURED MEMBRANES HIGH RISK Patient discharged. Outpatient Referrer: PROVIDER SYSTEM IN 09/03/2020 0 8:44:00 PM EDT 36 week preg, water broke. [facility] 36 week preg, water [place]ake. Emergency Attender: Miles DOBBS-CReferrer: [id number] [facility] 09/03/2020 08:10:00 PM EDT - 09/03/2020 10:20:00 PM EDT [facility] Patient discharged. Outpatient Attender: KASI GUTIERRES JRReferrer: FRANCISCA Gamble ICAMPLI [id number] 08/24/2020 12:00:00 AM EDT - 08/24/2020 03:16:22 PM EDT Maternal care for other (suspected) abnormality and damage, not applicable or unspecified [facility] Maternal care for other (suspected) feta l abnormality and damage, not applicable or unspecified Outpatient Attender: MINA PELAEZ 08/24/2020 12:00:00 AM [facility] Outpatient Attender: NIDA BLUMeferrer: Bailey GUTIERRES JR [id number] 08/22/2020 12:00:00 AM EDT - 08/22/2020 03:36:42 PM [facility] Outpatient Attender: KASI GUTIERRES JRReferrer: FRANCISCA Gamble ICAMPLI [id number] 07/27/2020 12:00:00 AM EDT - 07/27/2020 03:34:51 PM EDT Maternal care for other (suspected) abnormality and damage, not applicable or unspecified [facility] Maternal care for other (suspected) feta l abnormality and damage, not applicable or unspecified Outpatient Attender: ADITI HOBSON 07/27/2020 12:00:00 AM [facility] Outpatient 07/27/2020 12:00:00 AM [facility] Outpatient Attender: CHUY RAM 07/27/2020 12:00:00 AM [facility] Outpatient Attender: KASI Brownerrer: FRANCISCA Gamble ICAMPLI [id number] 06/28/2020 12:00:00 AM EDT - 06/28/2020 04:03:02 PM EDT Maternal care for other (suspected) abnormality and damage, not applicable or unspecified [facility] Maternal care for other (suspected) feta l abnormality and damage, not applicable or unspecified Outpatient Attender: JOSI SOLIZ 06/28/2020 12:00:00 AM [facility] Outpatient Attender: KASI GUTIERRES JRReferrer: FRANCISCA Gamble ICAMPLI [id number] 06/08/2020 12:00:00 AM EST - 06/08/2020 12:22:05 PM EST Maternal care for (suspected) abnormality and damage, unspecified, not applicable or unspecified [facility] Maternal care for (suspected) abno rmality and damage, unspecified, not applicable or unspecified Outpatient Attender: CHUY RAMReferrer: FRANCISCA CALVO YOLIS 06/08/2020 12:00:00 AM [facility] Outpatient Attender: Ciro DOBBS 05/06/19 12:00:54 PM EST - 05/06/2020 12:48:01 PM EST [facility] ([facility] ) Immunizations Vaccine Date Status Description Data Source(s) COVID-19 VACCINE Pfizer 12/24/2020 12:00:00 AM EDT completed [facility] Vaccine Series Complete: YESThis Data wa s Submitted to [facility] Via [employer]. COVID-19 VACCINE Pfizer 12/03/2020 12:00:00 AM EDT completed [facility] Vaccine Series Complete: NOThis Data was Submitted to [facility] Via [employer]. 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 UTERINE CRAMPING TAKE ONE TABLET BY MOUTH EVERY 6 HOURS A S NEEDED FOR UTERINE CRAMPING SOLD: 09/06/2020 [facility] Insurance Providers Payer name Policy type / Coverage type Policy ID Covered constitution party ID Covered constitution party's relationship to resendiz Policy Resendiz Plan Information U [id number] Self [id number] U [id number] Self [id number] [facility] [id number] CHILD [id number] Parent [id number] RPR- Needs Payer Match [id number] Self [id number] U [id number] Self [id number] MEDICAID [id number] [place] [id number] MEDICAID UNAVAILABLE S UNAVAILA BLE HEA [id number] P [id number] [place] WPS [id number] CHILD [id number] [employer] [place] [id number] PARENT [id number] MEDICAID HEA [id number] S [id number] N REGIONAL CLAIMS PANCHO -O/P [id number] 19 [id number] ANSI-Not a Secondary Insurance [id number] Problems, Conditions, and Diagnoses Code Display Name Description Problem Type Effective Dates Data Source(s) 36 week preg, water broke. 36 week preg, water broke. 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 O THER DETENTION (CURRENT) DRUG THERAPY Diagnosis 09/03/2020 08:10:00 PM [facility] Z3A.36 36 weeks gestation of 36 WEEKS GESTATI ON OF Diagnosis 09/03/2020 08:10:00 PM [facility] Z20.822 CONTACT WITH AND (SUSPECTED) EXPOSURE TO COVID-19 CONTACT WITH AND (SUSPECTED) EXPOSURE TO COVID-19 Diagnosis 09/03/2020 08:10:00 PM [facility] O42.113 premature rupture of membranes, onset of labor more than 24 hours following rupture, third trimester PRETRM CHERYLE ROM, ONSET LABOR > 24 HOURS FOL RUPT, THIRD TRI Diagnosis 09/03/2020 08:10:00 PM [facility] l O35.8XX0 Maternal care for other (kerry pected) abnormality and damage, not applicable or unspecified Maternal care for other (suspected) feta l abnormality and damage, not applicable or unspecified Diagnosis 06/08/2020 07:10:1 5 PM [facility] O35.9XX0 Maternal care for (suspected ) abnormality and damage, unspecified, not applicable or unspecified Maternal care for (suspected) abnormality and damage, unspecified, not applicable or unspecified Diagnosis 06/08/2020 09:38:28 AM [facility] Surgeries/Procedures Procedure Description Date Indications Data Source(s) MRI Brain W/O Contrast, Followed By Contrast 12:00:00 AM EDT [facility] ([facility], ) MRI Brain W/O Contrast, Followed By Contrast 12:00:00 AM [facility] Results ID Date Data Source [id number] 09/04/2020 03:42:02 PM EDT [facility] Name Value Range Interpretation Code Description Data Maria Isabel rce(s) Supporting Document(s) Progress Note [facility] RCMOQk5xHfTSGgVb35/BQXnyWWKyz5UaSHbzFQp8JNoqDHYyJ7WsGME8bW8rCKJ6RNsRTnVtJjZsStOd lbm [file] ICAgICAgICAgICAgICAgICAgICAgICAgICAgICAgIC AgICAgICAgICAgICAgICAgICAgICAgICAgICAgICAgICAgICAgICAgICANCiAgICAgICAgICAgICAgIC AgICAgICAgICAgICAgICAgICAgICAgICAgICAgICAgICAgICAgICAgICAgICAgICAgICAgICAgICAgIC AgICAgICAgICAgICAgICAgICAgICAgICANCiAgICAg ICAgICAgICAgICAgICAgICAgICAgICAgICAgICAgICAgICAgICAgICAgICAgICAgICAgICAgICAgICAg ICAgICAgICAgICAgICAgICAgICAgICAgICAgICAgICAgICANCiAgICAgICAgICAgICAgICAgICAgICAg ICAgICAgICAgICAgICAgICAgICAgICAgICAgICAgIC AgICAgICAgICAgICAgICAgICAgICAgICAgICAgICAgICAgICAgICAgICAgICANCiAgICAgICAgICAgIC AgICAgICAgICAgICAgICAgICAgICAgICAgICAgICAgICAgICAgICAgICAgICAgICAgICAgICAgICAgIC AgICAgICAgICAgICAgICAgICAgICAgICAgICANCiAg ICAgICAgICAgICAgICAgICAgICAgICAgICAgICAgICAgICAgICAgICAgICAgICAgICAgICAgICAgICAg ICAgICAgICAgICAgICAgICAgICAgICAgICAgICAgICAgICAgICANCiAgICAgICAgICAgICAgICAgICAg ICAgICAgICAgICAgICAgICAgICAgICAgICAgICAgIC AgICAgICAgICAgICAgICAgICAgICAgICAgICAgICAgICAgICAgICAgICAgICAgICANCiAgICAgICAgIC AgICAgICAgICAgICAgICAgICAgICAgICAgICAgICAgICAgICAgICAgICAgICAgICAgICAgICAgICAgIC AgICAgICAgICAgICAgICAgICAgICAgICAgICAgICAN CiAgICAgICAgICAgICAgICAgICAgICAgICAgICAgICAgICAgICAgICAgICAgICAgICAgICAgICAgICAg ICAgICAgICAgICAgICAgICAgICAgICAgICAgICAgICAgICAgICAgICANCiAgICAgICAgICAgICAgICAg ICAgICAgICAgICAgICAgICAgICAgICAgICAgICAgIC AgICAgICAgICAgICAgICAgICAgICAgICAgICAgICAgICAgICAgICAgICAgICAgICAgICANCjw/eHBhY2 zxuMLozaM7N7cvBp2AMf0CLZ9bb8VqGBVoBTheqtZqBkuZPaQkPSXwAsxSCve0QSiuXS5EeYQvC2ZyT4 PbCTahYU1HPUYhQCBskQYkFXFgXPMbIaK2GISxVXrs XJ6EoNPlHDsjXOLuZXNhHdZuHFWgHJ0WMGVuO761vsQcOu2BYa6WVvAkAM2imm9QTwKsBITtLfaYCnp0 ZImvHN0RrVNdqSIlIzIgHKOJXoYrP7aph6AyZrLqZKTTMBylPN1Xk5SsrHXqPUs+Pr4WYU2lc6HvKNud LgMgAW9sjh8BISpFVoCpA6AbnGtqEQLal0iaDFUbYV 5puYSjBEV9HLaoqk2uNnPvQABbO2KdikfulfgiQEAaGIUnWF9tAT2tSGLwOVFjRjVtVVYDFW4ELITgUN AvxCEjGDZgIEVJFD0VQVfsYKU0TQUjgdZrpNWsPPbdYH3NHEPklkXfWbKiZKIDPMc+Hh5ILG1gm2VeDJ pwOgTwGZ4pht4ZTOqEDpRpA5R6sIMxD0O0PPpyJo2E GWOfOZWsYJgiMJHYQWquGX9DDZ5kaaZ2IH0ZrIWxUYUrDJKdpPAqDXg5O64diLXrULglAE3BSLO+Sayra+ Ao2MPXOcXEGcTSExTuYtPLPFQqWkR0GjL3LNc8TdG5HzJW29vCinnoKcOGvyEC5XMB2kUOXaXZWFHY4C mJFlzJ5fuvEaTIXyISLGSzYjW04kiVLhQNYxWEXsBH TjSw3CSFMhD3BznaIqxUvxlpEjHWRlELCLLV2BBClvaqUvnAAvrPbfTW35jHurKK6KEq7CTgGrSG1ksl 4DkULjZp3UHNAxKN9BLYZhWZIzQDDuRKK2QSLmFuHgSLkaBLXhZAAsSCL2OEQyKCKgGR1RHwQcLPYoTm BfQGTsZTOiEYBfcb8XDNFxIXPdLqL7GjFjNIHlAGHx GFftHGAdDSHaEPC0RIXlAEFsYH3OYkOsPZQmRRT0KfTwFZJyDITzju8PVCHfVQMiHGVnXBLoCVMkXIUj DPibCWYtMSZ0GZO0YTVeUGPnBJ0LIlUnMNZkXQGzFeUpTCBzENTwyv7IRNJhSUScDuMxMDNkKPCsCREz ZTskLMVbNHS1ZDD2KFJrMCWvWV4BKqVqTTEqECI3VG hqWTSvPKCjtc7BDMZuNVBnIgO6RgGuHSDbDNYmCHpzYJUuGTN0RWG4QVGvJFJrAA8ZFeHcUSEuVHfpWU HtUPDoQVYvvr8PYBOeTOOhUNTwXIImAVMfCEOsNNsuSRGkIYB5HbU1ZNHkQHBjQR4YGaSvRNBnOAe8Jj JsREBuYJPmqd3EYFSuFKCjREA8QyCyYQHsCPHsLByx RBCdDZUfKlDcBBJhWYLeMT1AKoHbXKOqJwA4QtDeNXRwTTXnva9TDMUcVFMoWjY9NoViPKIkIFBqNXbh KOKxZPNxCtG0ORUnZOQoGA6FOxUhANRcRnOiRPAiTILwWXSgba9OpBRptUvkyk5HZDrHGb4FqAohMEK4 ZPhzUk2tuAEnQkLiJUNSDt3MtrXyTKYoSXKAGUldQS BnWTHzOGq7EKG6WMBwRBnoUjSwAZl8ZnAwZJIzYYH0VPHsJjK4AIMcSOVkUPbuIxCcTqKxMOWfAMa3QR S0TMXiOOlmTKN+KL9fJOz+Cj6Pv8CmwrN8zcBgMPqkQvQcNW3UVNRVY1KEYm== ID Date Data Source [id number] 09/05/2020 02:47:23 PM EDT [facility] [address] [id number]# SURGICAL PATHOLOGY REPORTPatient Name:SOFIA BEVERLY Roberts:2000Received:09/04/2020ccession #:[id number](s) Received: A: PlacentaClinical Diagnosis and History: Gestational age 36 weeks, PPROM, possible abruption.DIAGNOSIS:PLACENTA 435 GM IMMATURE PLACENTA SHOWING FOCI OF INFARCTION ANDPERIVILLOUS FIBRIN DEPOSITION; THREE VESSEL UMBILICAL CORD. GROSS DESCRIPTION: Placenta, received in formalin: *Weight 435 grams, between 25th and 50th percentile. Measurement 15.5 x 14.0 x up to 4.0 cm. Umbilical cord: Insertion Paracentral, located 6.0 cm from the closestmargin. Measurement 19.0 cm in length, 1.2 cm in diameter. Number of vessels Three. Appearance Hypocoiled right to left twist. Membranes: Insertion Focally circummarginate with up to 3.5 cm ofextrachorialis. Site of rupture Located 6.5 cm from the closest margin. Appearance Slightly thickened, peterson-lawler with anabundant amount of loosely adherent bloodclot. Comments: The amnionic membrane is almost entirely stripped from the fetalsurface. In addition, there is a moderate amount of loosely adherentblood clot within the stripped portion. The surface ranges frompurple to lawler with radiating vasculature to a moderate amount ofsubchorionic fibrin deposition at the periphery. The maternal surfaceranges from intact to slightly fragmented, red to brown spongy lobules andminimal loosely adherent blood clot. The cut surface consists of severalintramural central areas of well circumscribed fibrin. The subchorionicfibrin deposition measures up to 0.4 cm in thickness and the fibrinaccounts for approximately 20% of the total cut surface. Sections aresubmitted for microscopic examination to include based area ofsubchorionic fibrin deposition in block 2. (4 blocks) *Note: Weight given is after formalin fixation. Post fixation weightsare higher than the true wet tissue weight. [email or web address]: 09/05/2020Electronically Signed Out By Yung Leal MD [email or web address] Associates [place] [address]Technical component performed at [facility], Histopathology, [address] [place] [address], [facility].Reported at [facility], [address] [place] [address], [facility].This report may include immunohistochemical or in-situ hybridizationresults. Testing was developed and the performance characteristicsdetermined by [facility], [facility], as required byCLIA '88. The FDA has determined that approval for specific use is notnecessary for clinical use. The quality of Hematoxylin and Eosin stainsand as applicable, for all immunohistochemical and/or special stains,including positive and negative controls, were reviewed and consideredappropriate.ICD codes: O43.292KPN2 codes: A: [id number] Name Value Range Interpretation Code Description Data Maria Isabel rce(s) Supporting Document(s) ID Date Data Source [id number] 09/05/2020 12:17:19 PM EDT [facility] DUMONT SPECIMEN DESCRIPTION VAGINAL/RECT ALCULTURE RESULTS NEGATIVE: BETA HEMOLYTIC STREPTOCOCCI GROUP B B Y PCRREPORT STATUS FINAL 09/05/2020 Name Value Range Interpretation Code Description Data Maria Isabel rce(s) Supporting Document(s) ID Date Data Source [id number] 09/04/2020 10:08:20 AM EDT [facility] JULIA Name Value Range Interpretation Code Description Data Maria Isabel rce(s) Supporting Document(s) TREPONEMA IGG/IGM @ (NEG) Lab [facility] JULIA ID Date Data Source [id number] 09/04/2020 01:36:33 AM EDT [facility] DUMONT SPEC EXP DATE 09/07/2020ATI ENT ABO/Rh O POSITIVEANTIBODY SCREEN NEGATIVETESTING SITE PERFORMED AT [address] [place] [address] Name Value Range Interpretation Code Description Data Maria Isabel rce(s) Supporting Document(s) ID Date Data Source [id number] 09/04/2020 12:47:51 AM EDT [facility] JULIA Name Value Range Interpretation Code Description Data Maria Isabel rce(s) Supporting Document(s) WBC 12.3 10*3/uL (4.1-11.0) H [facility] JULIA RBC 3.44 10*6/uL (4.00-5.40) L [facility] JULIA HGB 9.9 g/dL (12.0-16.0) L [facility] CYNTHIA [place]ongo HCT 30.3 % (36.0-47.0) L [facility] MCV 88.2 fL (80.0-95.0) [facility] MCH 28.7 pg (27.0-32.0) [facility] MCHC 32.6 g/dL (32.0-36.0) [facility] RDW 13.5 % (10.5-14.5) [facility] PLT 185 10*3/uL (150-450) [facility] MPV 10.0 fL (7.1-10.7) [facility] ID Date Data Source [id number] 09/03/2020 10:24:00 PM EDT [facility] BEVERLY THORNTON Observatio n Report - [facility].VisitID: [id number] [place] [address] [phone], FRegistration Date/Time: 09/03/2020 19:06 Weight:65.7 kg (S). Height/Length:70 inches (S). BMI:20.8 PAST HISTORYProblems: Care.Anxiety Reaction.Pineal Cyst .Pharyngitis. Additional Surgeries:no known surgeries. Medications: Formula Oral.busPIRone HCl Oral 20 mg, 2x a day, last dose yesterday. Allergies:No Known Drug Allergy. FAMILY HISTORYNo significant family medical history. (Electronically signed by Miles Mar PA-C 09/03/2020 22:23) Name Value Range Interpretation Code Description Data Maria Isabel rce(s) Supporting Document(s) ID Date Data Source [id number] 09/03/2020 08:10:00 PM EDT [facility] Name Value Range Interpretation Code Description Data Maria Isabel rce(s) Supporting Document(s) COVID-19 NEGATIVE [facility] This lab was ordered by [facility] arlene Lab and reported by [facility]. ID Date Data Source [id number] 09/03/2020 08:34:00 PM EDT [facility] TSYSORDER [id number] Name Value Range Interpretation Code Description Data Maria Isabel rce(s) Supporting Document(s) COVID-19 NEGATIVE NEGATIVE [facility] Negative results should be treated as pr esumptive and, ifinconsistent with clinical signs and symptoms or necessaryfor patient management, should be tested with differentauthorized or cleared molecular tests.Negative results do not preclude SARS-CoV-2 infection andshould not be used as the sole basis for patient managementdecisions.This is a rapid molecular isothermal nucleic acidamplification technology (NAAT) in vitro diagnostic testutilizing a loop mediated isothermal amplification (LAMP)test with nicking endonuclease amplification reaction(NEAR) intended for the qualitative detection of nucleica kylie from the SARS-CoV-2 viral RNA in direct nasal,nasopharyngeal or throat swabs from individuals who aresuspected of COVID-19.Results are for the indentification of SARS-CoV-2 RNA. MkcTPYP-DpD-6 RNA is generally detectable in respiratorysamples during the actue phase of infection. ID Date Data Source [id number] 08/24/2020 05:19:43 PM EDT [facility] Name Value Range Interpretation Code Description [facility] Document(s) Progress Note [facility] WSFEAe9oRdHHNkNd14/WZIlhHYCym4SmTUwzUKg3EZstVKIbW4GjAOE8bQ9gTLI0KDjCWeTwPfTqFNGj [facility] [file] DYZBO0AHHq== ID Date Data Source [id number] 08/03/2020 05:42:46 PM EDT [facility] Name Value Range Interpretation Code Description Data Maria Isabel rce(s) Supporting Document(s) Progress Note [facility] WYXAWq8hBdYUWcNp34/FQAynKZAhy9ZsZFvyWUi0WQelTDYqZ9PhSIR3rF5iWZO7SGpLGqIaPnJrOSYe lbm [file] qIWVSK2JLZQcXPvCyCuCfff1D6XdLF1JSpmg// [file] A1MTQ+LX0tSTr+Zq0Kr3KcieA8pvWxSQcbSPdnJQ2FOCWFC6DLBn== ID Date Data Source [id number] 06/29/2020 06:08:40 PM EDT [facility] Name Value Range Interpretation Code Description Data Maria Isabel rce(s) Supporting Document(s) Progress Note [facility] UWGMSi0hGnRLIxEm40/DFXgtWJJbk2KvYJgyXHe9MAlxAWLhB7UmCKG9lX3lZHO4NPyGHgBwQzKzFoS4 lbm [file] AgICAgICAgICAgICAgICAgICAgICAgICAgICAgICAg CRKnFKKqHLYsBUZlPLTkPWQwDJJvXDOtMPTmWPCiJXEoLMVvBUIbLDRtJNTdDP7PGTHlUBYnPYSjYCGc ICAgICAgICAgICAgICAgICAgICAgICAgICAgICAgICAgICAgICAgICAgICAgICAgICAgICAgICAgICAg AHTfNVSlBAStNIGvDBNkJTRfUWFcPULzVRIvTX9PYL AgICAgICAgICAgICAgICAgICAgICAgICAgICAgICAgICAgICAgICAgICAgICAgICAgICAgICAgICAgIC EmDSGtOQWoOSZlMUQxNIIfOCDiDXClICYlTPZlCJJeSZRgKHVwTD4LDNFcSLBvGPDwNTLhFGNyFESpIA AgICAgICAgICAgICAgICAgICAgICAgICAgICAgICAg WRZfQNAsXQCxOMBvPWKoJSRiZMHvHASkBCExAARcXPBaHELgQAUyZFFkTHGiYUBiLK5HOQIsKMBbOPOy ICAgICAgICAgICAgICAgICAgICAgICAgICAgICAgICAgICAgICAgICAgICAgICAgICAgICAgICAgICAg ICAgICAgICAgICAgICAgICAgICAgICAgICAgICAgIA 0KICAgICAgICAgICAgICAgICAgICAgICAgICAgICAgICAgICAgICAgICAgICAgICAgICAgICAgICAgIC AsHVRwBGOyDSYyUECoBDHvRAXaAHVuBMWtNNQjPUGkMIOqBPVzXHEwRK9EPIRjARXjFIKpRFJaFHOxPG AgICAgICAgICAgICAgICAgICAgICAgICAgICAgICAg PUCrDQFxELFxTWGrQAWqOWYoLVFtCRDsHMTwVLVoMEIrMOSnQGPoIHKpDPDuCIHsWKNjMQ7QQRLwGCEk ICAgICAgICAgICAgICAgICAgICAgICAgICAgICAgICAgICAgICAgICAgICAgICAgICAgICAgICAgICAg ICAgICAgICAgICAgICAgICAgICAgICAgICAgICAgIC IaCH6IGQIiBQKeAOVgGWMeQWVzTJUqAGYgSQRyCAEpZGKeQSJpYMFmPBNmBDWzCMYnGEUyTOQuRLEqFL ShCHKfRHSdJYUoGVKrFGBlMSRzBHJmCBItSYAoXDJtIYInALGzUKRpIRNcQY3BPYCpRTEmBHYpIWCcHG AgICAgICAgICAgICAgICAgICAgICAgICAgICAgICAg LLQjZHErEFNmBRUlOSPjORXoONAgDNBxROMuKFOqWTMfCSGpMXApGKBsMHWoTEKiDNHmFYXsKD5XBB62 uAQdp6H2UPMsRO1rpox/Em7QIJyqrlTgvNCrVA7ALwGsXT0val0EKyCeLO0izh1BOTaKWzIuD0Z9yPFe DOCiMGIXYkQtX12aHNbhNf96PCwsLVQgYkKqURx9Ai 0IOeQqH0wpQASsEoS8XATeLbNjYCkxYN3Ey7EfwSXqOWi+Wf8VRR4zj3JgZZatQbItNC8zms6AZBuQNs MdT0XqqfN4LQVzXPTeUp6VWYVaNWRstSZiRmSrQFOERhJpV0LliR43TDUAMl9+DQplbmRvYmoNCjIzID Foe6JvWEo3DZ8DAJBeSDi6pMStPNDoK0Pwy7QvMx60 RHTuUmcdAg8zrdGGKG2pa629yDVvjFmaTAItJPTkNq6lLS5mXUTqBSJlFiTuEILXVE1RTFVxOTHfnDEj ZUStGPBIUN1TYGhfOFY1LWIboyEnbZBcJIyeWL1ENFImrrIlUlKtBXUKHEd+Bk3XSG6kb6EeONgtHIYq HK1anp2ALRwIMjAkB8O3fTKlQ8I1JJrdAo0XMKDwAE RgHyOxVDLPYRtlZZ3TTS1lczW7CY1EpGUuRBLoNNWqyDRcYKq1F14imVKrQIljRN4ZJZZ+Sayra+Pg0KIC ZmREPwJHTcOmWlSTTAKjLhY0UbC3HZw8OsL9PoPZ81tIfqznNzGEtrCV9QLS0kNEXmLAIIQM1MoBUkrP 3cgzCxSnFdRNPWCuRiT19zmDKpRXTeFYMmPALtTm0O ZZCoY6KoedYibGilbqHdBNAfLFFBLT9ZINprxhYznSXzvHifVR78wVtpGD8EXo0SHsMuPO5gkm6ZcVMh Id0TIGMgPS9XMCWhXGZvZIJpMTZ7RXEjNiYtGAxjRUAeDUSlBWJ8ONVfQNRbKM0DPfOyLQAsJGs7Vxsr HPAwVJTpmt7AVYKgPSUwNVIyVsXwAVWbGGPvSIrgTX HeWCOqXNY3LTPlDHNpRB6JOgZpDIHiIEM0OScsTMZmYZLanc7QZJOlIQAnHkYkHaUlOMPeEGNsZGroME QiIIV1JEarBZFlDGSeSM8ROzIfDCJzPSW9UugkBUIcSSZucx7FJXEzEBCjOGs0OaOfHILmVYQhYTcvDI QkGDN7ESY8NGHiRTGoHE8PNeCtRAUqLQRsYPwbWFHc DCBacc6AHVCzPXXkDxC7CTSmKOMtRIRaZPrtDEUbEAO1RmF4LYMbATXlAX7FOqYjQJOeHUa5JtFeEJGy SXCzem2NXNDkXIVvMZM9NHWtRFVqKMTbZXzwNKWkBCP2BRS1UDNkXVMvLI8SSuGuSLJiWQq5ObZhWWLg RIOosp5SPTUdYWTiYHOdJACsFIQhRBAbQTsxNCVkBA J7Ivn4IPGxOAMeJD6JVcCuYEVePBi9RKBmDRTaVGXyfl4KMPWtCKKvKGZ5ApZqDDHhHRYtICluORRhTG HcCtKyYSLrTNTeGO8RWwVqGRAeYdM5XQVcCQUlUHOrjt1KOSEnEMOgYJqzWxItSAFwCHQzMCv5wkGkxQ LlKWp5PV4MD6RrheOdZvCNNm7Hb705SZS6JXKcRa3O M8epJi6pLSNyRVWVFh1TEXd1AeP5KQidBoUqDGGiE2T4ByNzOoJ6XxQ1CyIfSVLkSIw+YGd0DKudX1Dt QnH7Y1DtMCoqPcItRAT6SlwcOYE7CyAhPf5zKZQKLp7+KMekaOEwtIxkBTZHCyKxCEt1NQktWKZMPz2M ID Date Data Source [id number] 06/08/2020 07:32:[address] [facility] Name Value Range Interpretation Code Description Data Maria Isabel rce(s) Supporting Document(s) Progress Note [facility] XZGRFh2nUoHYXiCn47/QCOsnNZYaw4YvTSimXLa6WCozLNIxX6HbJNN2qS2lEAZ4NMkJSxSvSxXfVcD8 lbm [file] [employer]GET[employer] HARVE[employer] WORKER+La4NQHHnYEx3O9W1ETRaYYb9G6VDJ8LMVPHbPQgtFMkiSVUuALq9H7K9URTdA6QCQ0Dyiqytws2+ SZ7XB35DDSLzPUg9I0E3rPApL5N2dCoRuQO3BY2GOG5IsFa8oGLthK9+XH3CN6ORBdDcISa1D0J9yETy W4H1yObGuHA9QP8WBO6DtDZhQGIcofLtOi6xE4OEAD cQQaKCIUN6OM1GxIWsIJ1ErHOPG2PdfNXsAg1jRIrsmTLzbC8oQx3tUIgxBB7MQqHIAMeFNVN5KU6JpA WrZV7VnBNGC7JzbGQgEb4gJWgcrPTzvv3+AH1OOOOaQn1VUq6+TAodknLgXkkSAvT2RHBkl5AaXEq3JA 7DPT0xdQlbSIP2Ce0PmJG3kAVnS2nZIX9QyUXzN20l aVBaAWJyVa5OXmX3ibHghZ3ZXQ82yQCib0F7BLEbA7lcTBocm73sQBmyVFpWAJ6uQNWPVSgxOLozIYS5 WvYbwndaUUCeIq0MSvTcGHt8hQ8rtMK1HND9DjrxiSKmRJkkYiLyLmHiKnX0tSanuti5LIawRK4xWAiq czptZXRhLyc+OEspGRXfXJJnCvzCLPZgwA4zbwA7pd MjBLmbwCKaWe8ko4c8JnhhQd7pCf1lHIe4IeQsItBpGQAsKn3czD39WEelwlXzKd5DEcTlJMV6U2LuWq pSREY+DBzbQHusdYr5tFSvFNVhEh0NLBCvHQIiANJxGIWnJWWqERNcYPPkYWZbBHJnGHNdDDUcDRYvYY AgICAgICAgICAgICAgICAgICAgICAgICAgICAgICAg ZJZwTZTwQQFlPTMkISZcVXSfSYZtCJYzRHVhCIOxME7IMSKxXSXsEERkGPFrRYMzZKPsENTaRLWiPQLr ICAgICAgICAgICAgICAgICAgICAgICAgICAgICAgICAgICAgICAgICAgICAgICAgICAgICAgICAgICAg WQAbIWDrMJQkIWQjOG1FCEPqBGUxQQZaHVCwBJFvAI AgICAgICAgICAgICAgICAgICAgICAgICAgICAgICAgICAgICAgICAgICAgICAgICAgICAgICAgICAgIC MqKWJzBITqORBfIDIdHWXiGHBvOAChXZ9GXSZiIXBiZZCzSRHgBSCgHLIxQRRjQNVnOSDjBRAtVTCuWF AgICAgICAgICAgICAgICAgICAgICAgICAgICAgICAg LYZfDZEvXJMjUEXgUKRzEOXhONPcPGRgZIGqQZVgUUXwOV5TIBZgAQIsKAMhNBWcQJBvLCNxBAGtRQPx ICAgICAgICAgICAgICAgICAgICAgICAgICAgICAgICAgICAgICAgICAgICAgICAgICAgICAgICAgICAg SMJcXGIdGXHzKCQnJPJtXI7JAAPjWCEkKGZcMXKcAW AgICAgICAgICAgICAgICAgICAgICAgICAgICAgICAgICAgICAgICAgICAgICAgICAgICAgICAgICAgIC ReGKZzEMLsDUSrLKFiQBMaHZGaWVIfRDLuLP4DLFFeIDRiEYHtKHFxKMIxUKAsFRKrZSYgYVRhNFRtJX AgICAgICAgICAgICAgICAgICAgICAgICAgICAgICAg CJLgFATzKESmSRKaEVJxKQPnWXThDZDfPUReJFMrWYLoDFUpMP8KKMXhQIDzNVOxAHVxWHCrKRWySODz ICAgICAgICAgICAgICAgICAgICAgICAgICAgICAgICAgICAgICAgICAgICAgICAgICAgICAgICAgICAg DGCtSNIeSCBcVZYyGTAsUOIlNM2UENSfXJRaPKYtKQ AgICAgICAgICAgICAgICAgICAgICAgICAgICAgICAgICAgICAgICAgICAgICAgICAgICAgICAgICAgIC WzKNSsRFQvSHPcEJAbAQRqYGBxAHXpYXMwUDKeSN6GLCUzOCEkJZDkJUFnLGOrJJMgOIHeYORzIRKvWL AgICAgICAgICAgICAgICAgICAgICAgICAgICAgICAg UUPzWCDaLUKpYMYvLIXmMRQfHMCcNFVtBALpRBSjBXWcNSZcDEMwZA8FYE84mVUwt1R9MDNjFZ2btdm/ Th9MPRithiQdlMAzUZ8JMmPwAF6mtx8AEdDlBN9ytn0KWPtURqVbZ6Y1uCCkABVuHIQQSjMjQ51sPZmt Yd52ZEbhYPWqGcRsAJu2Fr7ZLzYvX5nwWJWnAvL7RD TzAfM1QKDhRqN6XVXxBmGpNTwhIS9Pi5HjyAJfHXu+Fy7QDH4rm9UwNPiqCoEvSH0xyi1ULLhHRnVgV4 AqgjT8ERY5HMCkKj7AUHGnVSKhhNEeFoMaUOSBRoHgI1SbtF34CGSRAc8+KHnicwRoEaoDAiT5JDGdi7 HrTSi0SL9MNMLxUSu0bAPxVYJcZ9Gpd0ZaKt53ZNCa WxttEd0swiWTYU0gt792eKAtgSamWGPuMXQcLl71RqZpLuNnTYZ9GYIiFR1zPSmrYW0JCLY0YYhoCOVh DDPaK5eOPlVhXOQkWWFyxAxxYM0MSbHcS1MhtrXowXKkMfPyVKTUEw9+PNwygvEeTojQJzC2ZZAbl1Iq BTb2DV3NKMCnTQqwJC2CQMRlcC8mVVzjSX7NExLiZA JeABLXXtFsD89sjCKiCRa3G8TaVwBrBLVbQerxGWAjRJicXzMjPQRyTxZaTMfdPY1+ID4+PAwiYL9VFH mhhlHjRVJiTq6JFICbQLCpJQ6fPJTfXQMsM5R4iPtqAUMZUwGnM3ocxioxPD4mCBPcC948kRihqvDfCL V2MXCtYy5EYZDbKYV4WKCziUSmLdEcFTMBCYpyCS7B fXFqBMA8fQ4rIZgcUSZaYNAzQ5pXBmVfuUqeEP26oVuxhvYlsDLyZXq+Pt9SEE0hd6XdQTy9ihJjXUbk GRS5WIrnXCCtYIVrAGFrJZG0CZG7XZGMZvHgDLKdGKPvGVppJZFkFFRxtt6XHLPcQXPaHyZgCaTtSRZr MKHqCGcfKKSoQVT7VNzhQNHsQQTxOW6AMwUuCVOyPO FdEDrcNBZbRHVjxo5PXKMmBGHpQnI0UEOcTIPdVSLdIHecVOGsRKQvRNI8WNCfRCMwVY0ZDaZpYNAdHP s7KaAqUZSvSOOgdv7MUDBdRAYwHWR0DIJhJSJgMBGuHWfkXEWaBWDjEGSsEATnZUOtOK1HWvIqTIRtXD PmCZTgBDIyUNGycw2CRFIgWKXwBgOmMsFmEQEbTAJr VQfsWWAyQCUeLtCbXWZjEKTpAG8JUxZwHRHkZCPiXNTjUDHaPUIrdy8QFBEkZUJlZuD2WGMhLJDrHXVn CZygCOMuGUPjATL9JJChXYLcQQ9LAoZkIYHiCYT3NUXpVKRwHCVgqz6NKEOeFSXtNBG1QFWjENExYAHj LXcbTTIoJQK8TCEtODYtRXOkPN8EVvIiYMEgAyD7SB ylBJFhLUDjau5TLWOjHAGsBHh0UAZyVOEfJSXuQEarACQlNJT8PRQ1CTEwFJJuMI3QLrXiTPWyLhcaNR sdWURwCULkie2SPLDvFHYaUpLxEpQfKZSeZMEmCMvhIORvYBY6MEL4MTXrYZHcLY2JJnNfGVLpYds9Mt JnNTAeZDKyfx4CZVLaXDXuPXN8XaRmBVQvIIKjIXef UJZjEGV0ZqKhRSJnOTGzUP5VOlFkOBXeVgn6BTLqROWsEIKgyu3NsIAjlWntjy1ZWOgNXq8LtBzkKAI6 CGwpBo2roYJnBXRyIKBWXe1MycItBSClVYPXRPrtGBJkPIGwQ3ZiSDUnN7ZyULHaORD2IKXwXESjHIV4 KzF3ZCG1BpO7R2TlXmKbOkN7OdUzNPQ6IYehBOZ1LD ZhZjVmZjRhZjk+LV0iSRs+Rh4Ul8GseuA5opNlPDfyKXh9Fk0ZRRPIM8RMTk== ID Date Data Source [id number] 05/06/2020 12:00:00 AM EST [facility] Name Value Range Interpretation Code Description Data Maria Isabel rce(s) Supporting Document(s) SARS coronavirus 2 RNA [Presence] in Res piratory specimen by SONIDO with probe detection NEGATIVE [facility] This lab was ordered by Deshawn Shay and reported by [facility]. ID Date Data Source [id number] 05/06/2020 12:00:00 AM EST [facility] Name Value Range Interpretation Code Description Data Maria Isabel rce(s) Supporting Document(s) Carestart Rapid COVID Antigen Test Negative [facility] This lab was reported by Deshawn laguerre. Procedure Social History Code Duration Value Status Description Data Source(s ) Smoking 09/04/2020 12:04:00 AM EDT Denies Ever Smoked complete d Denies Ever Smoked [facility] Alcohol intake 08/24/2020 12:00:00 AM EDT Current non-d bianka of alcohol (finding) completed Current non-drinker of alcohol (finding) [facility] Tobacco use and exposure 08/24/2020 12:00:00 AM EDT Never used co mpleted Never used [facility] Smoking 08/24/2020 12:00:00 AM EDT Never smoker completed Never s [facility] Alcohol intake 06/08/2020 12:00:00 AM EST Current non-d bianka of alcohol (finding) completed Current non-drinker of alcohol (finding) [facility] 01/10/2020 12:00:00 AM EDT completed [facility] Vital Signs ID Date Data Source UNK Name Value Range Interpretation Code Description Data Source(s) Systolic blood pressure 118 mm[Hg] Normal (applies t o non-numeric results) 118 mm[Hg] [facility] Diastolic blood pressure 71 mm[Hg] Normal (applies to non-numeric results) 71 mm[Hg] [facility] Heart rate 83 min Normal (applies to non-numeric resul ts) 83 min [facility] Body height 176.784 cm Normal (applies to non-numeric resu lts) 176.784 cm [facility] Respiratory rate 18 min Normal (applies to non-numeric results) 18 min [facility] Body temperature 36.3 rubina Normal (applies to non-numeric results) 36.3 rubina [facility] Body mass index (BMI) [Ratio] 20.81 kg/m2 No rmal (applies to non-numeric results) 20.81 kg/m2 [facility] Body weight Measured 65.771 kg Normal (applies to n on-numeric results) 65.771 kg [facility] ID Date Data Source [id number] 09/03/2020 08:44:18 PM EDT [facility] Name Value Range Interpretation Code Description Data Source(s) TRANSFER FROM [facility] ID Date Data Source [id number] 08/24/2020 05:19:43 PM EDT [facility] Value Range Interpretation Code Description Data Source(s) WEIGHT RECORDED 144.4 lb 144.4 lb [facility] ID Date Data Source [id number] 08/03/2020 05:42:46 PM EDT [facility] Name Value Range Interpretation Code Description Data Source(s) WEIGHT RECORDED 141 lb 141 lb [facility] ID Date Data Source [id number] [facility] Code Description Data Source(s) WEIGHT RECORDED 135 lb 135 lb [facility] ID Date Data Source [id number] 06/08/2020 07:32:10 PM EST [facility] Value Range Interpretation Code Description Data Source(s) Body height Measured 70 in 70 in [facility] WEIGHT RECORDED 132.4 lb 132.4 lb [facility]
--- OUTSIDE RECORDS SUMMARY | 2021-01-29 17:01 | CCD | Continuity of Care Document ---
Author Author Beverly BELLA Organization Unknown Address [address] [place] [address] Phone [phone] Care Team Providers Care Nuclear Physician Name Role Phone Naif Naranjo M.D. AUTM [phone] Problems Description No Information Available Social History Type Date Description Comments Sex Unknown Allergies and adverse reactions Description No Information Available Medications Description No Information Available Immunizations Description No Information Available Vital Signs Description No Information Available Results Description No Information Available Procedures Date Code Description Status 01/21/2021 78196 MRI Brain W/O Contrast, Followed By Contrast Completed 01/21/2021 45347 MRI Brain W/O Contrast, Followed By Contrast Completed Medical Devices Description No Information Available Encounters Description No Information Available Assessments Date Code Description Provider 01/21/2021 R42 Dizziness and giddiness Villa Wills M.D. 01/21/2021 R42 Dizziness and giddiness MRI Plan of Treatment Future Appointment(s):* 02/27/2021 9:00 am - Nestor Delgadillo M.D. at Main office - [place] Functional Status Description No Information Available Mental Status Description No Information Available Referrals Refer to Reason for Referral Status Appt Date Villa Card M.D. Created [facility] [address] [place] [address] [phone]
[2021-01-29] MEDS ORDERED: ZOLO100T (17:05)
[2021-01-29] MEDS ORDERED: CLON0.5T2 (17:05)
[2021-01-29 19:25] LABS: HEMATOCRIT 38.1 % (36.0-47.0); HEMOGLOBIN 11.8 g/dl (12.0-15.5); MEAN CORPUSCULAR HEMOGLOBIN 27.1 pg (27.0-33.0); MEAN CORPUSCULAR VOLUME 87.4 fl (80.0-96.0); PLATELET COUNT, AUTOMATED 341 10^3/uL (150-450); RED BLOOD COUNT 4.36 10^6/uL (4.00-5.40); WHITE BLOOD COUNT 9.8 10^3/uL (4.0-10.0)
[2021-01-29 19:47] LABS: RSV AMPLIFICATION NEGATIVE (NEGATIVE)
--- OUTSIDE RECORDS SUMMARY | 2021-01-29 19:52 | CCD ---
Author Author [facility] Organization [facility] Address Unknown Phone Unavailable Care Team Providers Care Seamer Name Role Phone SYSTEM IN, NOT IN PROVIDER Unavailable Unavailable JOSI SOLIZ Unavailable Unavailable Bailey VALDIVIA MD Unavailable [...] Unavailable Unavailable BAKARI ROBERTSZABETH Unavailable Unavailable [facility]_4785, [id number] Unavailable [phone] [facility]4785, [id number] Unavailable [phone] [facility]4785, [id number] Unavailable [phone] [facility]4785, [id number] Unavailable [phone] [facility]4785, [id number] Unavailable [phone] [facility]4785, [id number] Unavailable [phone] [facility]4785, [id number] Unavailable [phone] [facility]4785, [id number] Unavailable [phone] [facility]_4785, [id number] Unavailable [phone] [facility]4785, [id number] Unavailable [phone] [facility]4785, [id number] Unavailable [phone] [facility]4785, [id number] Unavailable [phone] [facility]4785, [id number] Unavailable [phone] [facility]4785, [id number] Unavailable [phone] [facility]4785, [id number] Unavailable [phone] [facility]_4785, [id number] Unavailable [phone] Mavis SANCHEZ MD Unavailable [...] Unavailable NOSOVITCH Rosa GAMBINO MD Unavailable Unavailable BYRON, C NIDA IRRIGATING PUMP OPERATOR Unavailable Unavailable BYRON, C NIDA IRRIGATING PUMP OPERATOR Unavailable Unavailable BYRON, C NIDA IRRIGATING PUMP OPERATOR Unavailable Unavailable BYRON, C NIDA IRRIGATING PUMP OPERATOR Unavailable Unavailable BYRON, C NIDA IRRIGATING PUMP OPERATOR Unavailable Unavailable BYRON, C NIDA IRRIGATING PUMP OPERATOR Unavailable Unavailable BYRON, C NIDA IRRIGATING PUMP OPERATOR Unavailable Unavailable BYRON, C NIDA IRRIGATING PUMP OPERATOR Unavailable Unavailable BYRON, C NIDA IRRIGATING PUMP OPERATOR Unavailable Unavailable BYRON, C NIDA IRRIGATING PUMP OPERATOR Unavailable Unavailable BYRON, C NIDA IRRIGATING PUMP OPERATOR Unavailable Unavailable BYRON, C NIDA IRRIGATING PUMP OPERATOR Unavailable Unavailable BYRON, C NIDA IRRIGATING PUMP OPERATOR Unavailable Unavailable BYRON, C NIDA IRRIGATING PUMP OPERATOR Unavailable Unavailable BYRON, C NIDA IRRIGATING PUMP OPERATOR Unavailable Unavailable BYRON, C NIDA IRRIGATING PUMP OPERATOR Unavailable Unavailable BYRON, C NIDA IRRIGATING PUMP OPERATOR Unavailable Unavailable BYRON, C NIDA IRRIGATING PUMP OPERATOR Unavailable Unavailable BYRON, C NIDA IRRIGATING PUMP OPERATOR Unavailable Unavailable BYRON, C NIDA IRRIGATING PUMP OPERATOR Unavailable Unavailable BYRON, C NIDA IRRIGATING PUMP OPERATOR Unavailable Unavailable BYRON, C NIDA IRRIGATING PUMP OPERATOR Unavailable Unavailable BYRON, C NIDA IRRIGATING PUMP OPERATOR Unavailable Unavailable BYRON, C NIDA IRRIGATING PUMP OPERATOR Unavailable Unavailable BYRON, C NIDA IRRIGATING PUMP OPERATOR Unavailable Unavailable BYRON C NIDA IRRIGATING PUMP OPERATOR Unavailable Unavailable FOLK, J KASI MD Unavailable [...] is protected by Article 27-F of the [facility] Public Health law. If you continue you may have access to information: Regarding HIV / AIDS; Provided by facilities licensed or operated by the [facility] Office of Mental Health; or Provided by the [facility] Office for People With Developmental Disabilities. If such information is present, then the following [facility] mandated warning applies: This information has been [...] law may result in a fine or retirement sentence or both. A general authorization for the release of medical or other information is NOT sufficient authorization for further disc losure. Allergies and Adverse Reactions Type Description Substance Reaction Status Data Source(s ) Propensity to adverse reactions NO KNOWN ALLERGIES NO KNOWN ALLERGIES [facility] Encounters Encounter Providers Location Date Indications Data Source(s ) Outpatient Attender: NIDA MATTHEWS NP 10/15/2020 12:00:0 0 AM [facility] Outpatient Attender: NIDA MATTHEWS NP 09/14/2020 12:00:0 0 AM [facility] Outpatient 09/13/2020 12:00:00 AM [facility] Outpatient 09/13/2020 12:00:00 AM [facility] Inpatient Attender: KASI VALDIVIA MD 09/04/2020 12:47:51 AM E DT Lab [facility] Inpatient Attender: KASI VALDIVIA MDAdmitter: KASI VALDIVIA MD 09/04/2020 12:00:00 AM EDT - 09/06/2020 01:57:00 PM EDT 36 WKS WITH RUPTURED MEMBRANES HIGH RISK [facility] 36 WKS WITH RUPTURED MEMBRANES HIGH RISK Patient discharged. Outpatient Referrer: PROVIDER SYSTEM IN 09/03/2020 0 8:44:00 PM EDT 36 week preg, water broke. [facility] 36 week preg, water karolinake. Emergency Attender: Miles DOBBS-CReferrer: [id number] [facility] 09/03/2020 08:10:00 PM EDT - 09/03/2020 10:20:00 PM EDT [facility] Patient discharged. Outpatient Attender: KASI GUTIERRES JRReferrer: FRANCISCA Gamble ICAMPLI [id number] 08/24/2020 12:00:00 AM EDT - 08/24/2020 03:16:22 PM EDT Maternal care for other (suspected) abnormality and damage, not applicable or unspecified [facility] Maternal care for other (suspected) feta l abnormality and damage, not applicable or unspecified Outpatient Attender: MINA PELAEZ 08/24/2020 12:00:00 AM [facility] Outpatient Attender: NIDA BLUMeferrer: Bailey GUTIERRES JR [id number] 08/22/2020 12:00:00 AM EDT - 08/22/2020 03:36:42 PM [facility] Outpatient Attender: KASI GUTIERRES JRReferrer: FRANCISCA Gamble ICAMPLI [id number] 07/27/2020 12:00:00 AM EDT - 07/27/2020 03:34:51 PM EDT Maternal care for other (suspected) abnormality and damage, not applicable or unspecified [facility] Maternal care for other (suspected) feta l abnormality and damage, not applicable or unspecified Outpatient Attender: ADITI HOBSON 07/27/2020 12:00:00 AM [facility] Outpatient 07/27/2020 12:00:00 AM [facility] Outpatient Attender: CHUY RAM 07/27/2020 12:00:[address] [facility] Outpatient Attender: KASI Brownerrer: FRANCISCA Gamble ICAMPLI [id number] 06/28/2020 12:00:00 AM EDT - 06/28/2020 04:03:02 PM EDT Maternal care for other (suspected) abnormality and damage, not applicable or unspecified [facility] Maternal care for other (suspected) feta l abnormality and damage, not applicable or unspecified Outpatient Attender: JOSI SOLIZ 06/28/2020 12:00:00 AM [facility] Outpatient Attender: KASI GUTIERRES JRReferrer: FRANCISCA Gamble ICAMPLI [id number] 06/08/2020 12:00:00 AM EST - 06/08/2020 12:22:05 PM EST Maternal care for (suspected) abnormality and damage, unspecified, not applicable or unspecified [facility] Maternal care for (suspected) abno rmality and damage, unspecified, not applicable or unspecified Outpatient Attender: CHUY RAMReferrer: FRANCISCA CALVO YOLIS 06/08/2020 12:00:00 AM [facility] Outpatient Attender: Ciro DOBBS 05/06/19 12:00:54 PM EST - 05/06/2020 12:48:01 PM EST [facility] ([facility] ) Immunizations Vaccine Date Status Description Data Source(s) COVID-19 VACCINE Pfizer 12/24/2020 12:00:00 AM EDT completed [facility] Vaccine Series Complete: YESThis Data wa s Submitted to [facility]. COVID-19 VACCINE Pfizer 12/03/2020 12:00:00 AM EDT completed [facility] Vaccine Series Complete: NOThis Data was Submitted to [facility]. Medications Medication Brand Name Start Date Product [...] type / Coverage type Policy ID Covered republican ID Covered republican's relationship to resendiz Policy Resendiz Plan Information U [id number] Self [id number] U [id number] Self [id number] [facility] [id number] CHILD [id number] / [id number] Parent 00 [id number] RPR- Needs Payer Match [id number] Self [id number] U [id number] Self [id number] MEDICAID [id number] S [id number] N REGIONAL CLAIMS PANCHO -O/P [id number] 19 [id number] [facility] [id number] CHILD [id number] MEDICAID HEA [id number] S [id number] HEA [id number] P [id number] MEDICAID UNAVAILABLE S UNAVAILA BLE [facility] [id number] FA2 [id number] ANSI-Not a Secondary Insurance [id number] [facility]/[place] [id number] [place] [id number] Problems, Conditions, and Diagnoses Code Display Name Description Problem Type Effective Dates Data Source(s) 36 week preg, water broke. 36 week preg, water broke. 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 (current) drug therapy O THER FPC (CURRENT) DRUG THERAPY Diagnosis 09/03/2020 08:10:00 PM [facility] Z3A.36 36 weeks gestation of 36 WEEKS GESTATI ON OF Diagnosis 09/03/2020 08:10:00 PM [facility] Z20.822 CONTACT WITH AND (SUSPECTED) EXPOSURE TO COVID-19 CONTACT WITH AND (SUSPECTED) EXPOSURE TO COVID-19 Diagnosis 09/03/2020 08:10:00 PM [facility] O42.113 premature rupture of membranes, onset of labor more than 24 hours following rupture, third trimester PRETRM CHERYLE ROM, ONSET LABOR > 24 HOURS FOL RUPT, THIRD TRI Diagnosis 09/03/2020 08:10:00 PM [facility] l O35.8XX0 Maternal care for other (kerry pected) abnormality and damage, not applicable or unspecified Maternal care for other (suspected) feta l abnormality and damage, not applicable or unspecified Diagnosis 06/08/2020 07:10:1 5 PM [facility] O35.9XX0 Maternal care for (suspected ) abnormality and damage, unspecified, not applicable or unspecified Maternal care for (suspected) abnormality and damage, unspecified, not applicable or unspecified Diagnosis 06/08/2020 09:38:28 AM [facility] Surgeries/Procedures Procedure Description Date Indications Data Source(s) MRI Brain W/O Contrast, Followed By Contrast 12:00:00 AM EDT [facility] ([facility], ) MRI Brain W/O Contrast, Followed By Contrast 12:00:00 AM EDT [facility] ([facility], ) Results ID Date Data Source [id number] 09/04/2020 03:42:02 PM EDT [facility] Name Value Range Interpretation Code Description Data Maria Isabel rce(s) Supporting Document(s) Progress Note [facility] MVDDAi8iSbEXYzKb77/GZMpyISArd8GnKZtyOMe7XOmwZTWfG1CbDDD3oV1vEDJ5VHbKUhHyJoOfGvLv lbm [file] ICAgICAgICAgICAgICAgICAgICAgICAgICAgICAgIC AgICAgICAgICAgICAgICAgICAgICAgICAgICAgICAgICAgICAgICAgICANCiAgICAgICAgICAgICAgIC AgICAgICAgICAgICAgICAgICAgICAgICAgICAgICAgICAgICAgICAgICAgICAgICAgICAgICAgICAgIC AgICAgICAgICAgICAgICAgICAgICAgICANCiAgICAg ICAgICAgICAgICAgICAgICAgICAgICAgICAgICAgICAgICAgICAgICAgICAgICAgICAgICAgICAgICAg ICAgICAgICAgICAgICAgICAgICAgICAgICAgICAgICAgICANCiAgICAgICAgICAgICAgICAgICAgICAg ICAgICAgICAgICAgICAgICAgICAgICAgICAgICAgIC AgICAgICAgICAgICAgICAgICAgICAgICAgICAgICAgICAgICAgICAgICAgICANCiAgICAgICAgICAgIC AgICAgICAgICAgICAgICAgICAgICAgICAgICAgICAgICAgICAgICAgICAgICAgICAgICAgICAgICAgIC AgICAgICAgICAgICAgICAgICAgICAgICAgICANCiAg ICAgICAgICAgICAgICAgICAgICAgICAgICAgICAgICAgICAgICAgICAgICAgICAgICAgICAgICAgICAg ICAgICAgICAgICAgICAgICAgICAgICAgICAgICAgICAgICAgICANCiAgICAgICAgICAgICAgICAgICAg ICAgICAgICAgICAgICAgICAgICAgICAgICAgICAgIC AgICAgICAgICAgICAgICAgICAgICAgICAgICAgICAgICAgICAgICAgICAgICAgICANCiAgICAgICAgIC AgICAgICAgICAgICAgICAgICAgICAgICAgICAgICAgICAgICAgICAgICAgICAgICAgICAgICAgICAgIC AgICAgICAgICAgICAgICAgICAgICAgICAgICAgICAN CiAgICAgICAgICAgICAgICAgICAgICAgICAgICAgICAgICAgICAgICAgICAgICAgICAgICAgICAgICAg ICAgICAgICAgICAgICAgICAgICAgICAgICAgICAgICAgICAgICAgICANCiAgICAgICAgICAgICAgICAg ICAgICAgICAgICAgICAgICAgICAgICAgICAgICAgIC AgICAgICAgICAgICAgICAgICAgICAgICAgICAgICAgICAgICAgICAgICAgICAgICAgICANCjw/eHBhY2 ixdGPqdmZ1R7owEz5XAh9ZTP7ru9CaHJVyKAsaoiQeOtdYIkKrWSDuWabJZpn2AFnuDW7JlLFkN7YeS6 BrKIqnGE5ZMOSjNNDdoBCzKXKdSVIaRiP7GMTmZFyk TA0XdMUpRJzuJGWcEHAcMmNoOEBcQR9IDCNuD898cfVgJo4VNr4CGlOiUW4zoz6HHqZnPYTlZnlBKrb3 WUwvFU0PrXVkfSGcVdGhBRUQRjGtD9oet2HyJcSlTQKMGTkzDH5Zi6XueRCkFDk+Pr5DHW2ex0TwPZgo JlZyIY6mhh4NGTcUOsOnS8QlvPuiCIAml0yiEWHfFW 4asCZsNHI3AUnslg5aWaBmHWXlA9EqjwkwexvtTRYfEVBhOQ0oII9fJOMkUEDkTuMjUJRGRP2QLOXeQY WunPQmCGStIREOOB8FUBcqRDI8SKXktrTmnBHnLFeaOC2GPNTyjxOwJdLeUJBOXUk+Zd2KHD4ss2XnRA lmVmKqLZ3wsi2EKYzQXtOaB0Y7lHJbY9A8WKpcQq7H UQXzLAIoLOizAYKCIWdhKM2ZYS7jstE4YF8QpAGeUSRfGMKyjSSaOMv4W13xmNUqSJkrBH9BQBC+Sayra+ Vn8PEMNcPSNyVRVuJhPpNCOXMgSeM2YfZ8IFl1FnR8XhIX84vRnbizFyZVhxEM1UWH1xTGEuSCWKCQ6F kQExmH5jhaDyMJFtWOFDOkBxL47xaGSgNUGfFXYdHQ RhAt3KFRHxA4RwfqCffNlrjdJoISNpUXTXMW4FUKpqudYyqGQenDvzZR17aHtsQJ0LUb7ANxIvAA5axz 0KoEUiTa9MDPIbQL3XSQRjLEDeLNKiVXA9LUDaWyOdGAzbKNUvYAYdZFL0PYXlDUPbJQ3DAtKzMHXdPa KxBKJaYJKjVPIoho6TTXGbCRDwPhP1QfZsWZTjSDWe FNyjTTDgTZByLEA4CNDkEGPvIH3ORqBkDONrJEA6BcJpYWOiXUTclr2UOPIiFMAeREXgXCMiLBOwFMHa KSubWBZmJAL4QFP8KPIkGGTnTI8ZVaJaGKKrYYHmChNfJCGiYOUqiz4LMYBuLWYzIpSpYTAnWWCeKRDf ROucHYTvSGL9LUZ6OXUlUYWzRS2GPqEmDYKfDKF0UP rzRWZyEPGspw1RSKApILJeOnZ0EvIfINVcADKlXMxiPAWaCLW2BTP4MPZeGWWeSO0NCoTcKAXfWIftYT XrNCFfGZMvda8NAAUaIYJlTIBrRJCkFFTjSIImWWtvKRYvJAU4PzM6BPOhDSOoWB9YDlVxSJYtQCm8Jw EqXDGaLQMkpf9JDGQdAYNyEHR3CrGbTRRvTBAfDEsp HRBtYXCpZeBnHXKpFQIwXB2NSiQkTCLgUwB6EwNzDAMbZBGezc0JDMHlWDJfKrW4XyYhPTTuGDZbZLyn IEHlPZCxZyT3WFXtPMYoGO9LZqUyVILqElZdYENaCVNrKKMhlu1UlKFziZewbm7CPHkNSm7WpRbhPZL9 GHvtDy5qqFPaYwOqOBLMOm9QpkMtUNOoMMQGGSrrYG MsSVQpOEb9XNP8ESLrVGsjIvBmOXz2YpYcBUOfVUB1DQGxVmE1PETvBPGpSAijXgDkCuDjTTQpJZn1HS T9VSOkEUylIJC+MW1tNBq+Wj6Te9EzlbJ7xqXlZKpiVuBxGU7AWKFPP7OSAw== ID Date Data Source [id number] 09/05/2020 02:47:23 PM EDT Lab [facility] [address] [address]Rom# SURGICAL PATHOLOGY REPORTPatient Name:SOFIA AIDAN Roberts:2000Received:09/04/2020ccession #:[id number](s) Received: A: PlacentaClinical Diagnosis [...] By Yung Leal MD jzwPathology Associates [place] [address]Technical component performed at [facility], Histopathology, [address] [place] [address], [facility].Reported at [facility], [address] [place] [address], [facility].This report may include immunohistochemical or in-situ hybridizationresults. Testing was developed and the performance characteristicsdetermined by [facility], [facility], as required byCLIA '88. The FDA has determined that approval for specific use is notnecessary for clinical use. The quality of Hematoxylin and Eosin stainsand as applicable, for all immunohistochemical and/or special stains,including positive and negative controls, were reviewed and consideredappropriate.ICD codes: O43.981HJN1 codes: A: 75200R Name Value Range Interpretation Code Description Data Maria Isabel rce(s) Supporting Document(s) ID Date Data Source [id number] 09/05/2020 12:17:19 PM EDT [facility]en DUMONT SPECIMEN DESCRIPTION VAGINAL/RECT ALCULTURE RESULTS NEGATIVE: BETA HEMOLYTIC STREPTOCOCCI GROUP B B Y PCRREPORT STATUS FINAL 09/05/2020 Name Value Range Interpretation Code Description Data Maria Isabel rce(s) Supporting Document(s) ID Date Data Source [id number] 09/04/2020 10:08:20 AM EDT [facility] JULIA Name Value Range Interpretation Code Description Data Maria Isabel rce(s) Supporting Document(s) TREPONEMA IGG/IGM @ (NEG) Lab [facility] JULIA ID Date Data Source [id number] 09/04/2020 01:36:33 AM EDT [facility] eden DUMONT SPEC EXP DATE 09/07/2020ATI ENT ABO/Rh O POSITIVEANTIBODY SCREEN NEGATIVETESTING SITE PERFORMED AT [address] [place] [address] Name Value Range Interpretation Code Description Data Maria Isabel rce(s) Supporting Document(s) ID Date Data Source [id number] 09/04/2020 12:47:51 AM EDT [facility] JULIA Name Value Range Interpretation Code Description Data Maria Isabel rce(s) Supporting Document(s) WBC 12.3 10*3/uL (4.1-11.0) H [facility] JULIA RBC 3.44 10*6/uL (4.00-5.40) L [facility] JULIA HGB 9.9 g/dL (12.0-16.0) L [facility] CYNTHIA [place] HCT 30.3 % (36.0-47.0) L [facility] MCV 88.2 fL (80.0-95.0) [facility] MCH 28.7 pg (27.0-32.0) [facility] MCHC 32.6 g/dL (32.0-36.0) [facility] RDW 13.5 % (10.5-14.5) [facility] PLT 185 10*3/uL (150-450) [facility] MPV 10.0 fL (7.1-10.7) [facility] ID Date Data Source [id number] 09/03/2020 10:24:00 PM [facility]IDAN BLACK Observatio n Report - [facility].VisitID: [id number] [place] [address] [phone], FRegistration Date/Time: 09/03/2020 19:06 Weight:65.7 kg (S). [...] rce(s) Supporting Document(s) ID Date Data Source [id number] 09/03/2020 08:10:00 PM EDT [facility] Name Value Range Interpretation Code Description Data Maria Isabel rce(s) Supporting Document(s) COVID-19 NEGATIVE [facility] This lab was ordered by [facility] arlene Lab and reported by [facility] Laboratory. ID Date Data Source [id number] 09/03/2020 08:34:00 PM EDT [facility] [id number] Name Value Range Interpretation Code Description Data Maria Isabel rce(s) Supporting Document(s) COVID-19 NEGATIVE NEGATIVE [facility] Negative results should be treated as pr [...] are for the indentification of SARS-CoV-2 RNA. FenJMEE-NcP-0 RNA is generally detectable in respiratorysamples during the actue phase of infection. ID Date Data Source [id number] 08/24/2020 05:19:43 PM EDT [facility] Name Value Range Interpretation Code Description Data [facility] Supporting Document(s) Progress Note [facility] PKTUYd6zMvGMWxWy95/TIEepMBVco8MgEDqlSVo5WMplGNAhT3SlDLE6rD1pGDI1MEwZPtZvRuBuNDQi [facility] [file] FJDHJ3UOCj== ID Date Data Source [id number] 08/03/2020 05:42:46 PM EDT [facility] Name Value Range Interpretation Code Description Data Maria Isabel rce(s) Supporting Document(s) Progress Note [facility] INKXVs5vOqDNYiFx25/HEXbwAJLva2PzDHlcMKy6CLyeYBAqU0EcTDF6aN0iJJB7XNiAFlFkEsNnWUTv lbm [file] rCHSQY9WRSAqHKbXxBnAwet3I0HdXR3DFnuw// [file] A1MTQ+FS7hOCq+Dg9Kl8TpagE9fmPuYPyoUPehFH8SPDDKG1ZZNw== ID Date Data Source [id number] 06/29/2020 06:08:40 PM EDT [facility] Name Value Range Interpretation Code Description Data Maria Isabel rce(s) Supporting Document(s) Progress Note [facility] FLPZQk2kQxSTIrDm16/PBDfeCTSna8OpPKhbCGg9RYciZTOrS0YgRFB7aI7mKQU5ZXvOQrOrLvLiJgE8 lbm [file] AgICAgICAgICAgICAgICAgICAgICAgICAgICAgICAg VUFfRPDuCREvYIQsUTEqAIJzUFHiZENaPPRzBYWrUXMxKQDiEVGfHMBgCWWuMS2PJVJqHMAyVNGrWPWq ICAgICAgICAgICAgICAgICAgICAgICAgICAgICAgICAgICAgICAgICAgICAgICAgICAgICAgICAgICAg JGDvUWLsWDAeEMZwSMUoOYFtOFXkBUOwTKGxGZ3DXO AgICAgICAgICAgICAgICAgICAgICAgICAgICAgICAgICAgICAgICAgICAgICAgICAgICAgICAgICAgIC QmCJYePPAyEDVlYKZsDLFmAIQsABWnKSGhJJAeGLSnTVOwDSAtWN5BIJMmPMVpWJZfIUNfBHVvSTUrWH AgICAgICAgICAgICAgICAgICAgICAgICAgICAgICAg FQXzSAWbZLSoWZRpGFUrNJDjRVTeUXQlDDVnSQVeWFRnJUYuWPTvOMGlFZSbYCRmTH5TLWKdNQDkDRGo ICAgICAgICAgICAgICAgICAgICAgICAgICAgICAgICAgICAgICAgICAgICAgICAgICAgICAgICAgICAg ICAgICAgICAgICAgICAgICAgICAgICAgICAgICAgIA 0KICAgICAgICAgICAgICAgICAgICAgICAgICAgICAgICAgICAgICAgICAgICAgICAgICAgICAgICAgIC MaNUCvUZNlXICsZKPpYJTyYUHpHOQtBVZsORXrVDYuMFOaCAWkKMAyZY0CAEAjJELsBTUvRNQeXJKfSV AgICAgICAgICAgICAgICAgICAgICAgICAgICAgICAg BEZgXOCkPVNnOKHcKZWnUZDhRMYhLUPaCPSqVQBjRFVxAXNhAMQwWQQrENFdOHBbOPCqCD6XRASxDAAy ICAgICAgICAgICAgICAgICAgICAgICAgICAgICAgICAgICAgICAgICAgICAgICAgICAgICAgICAgICAg ICAgICAgICAgICAgICAgICAgICAgICAgICAgICAgIC AwUX9IUGKhSQKqJJCvBPAyEXOsHHLqPHNcJIDsJCUbDOToAFGxBJVbXYJzTTJuPDCuYKUlWWBmZRJzFR BlAAShIJGmKUWcDZNpIWWzNBBpZGSrXYFvWCKeLFZiTNRpROBrRNEbLTSjNJ3DJSOhMAXnTVCtLGSfGU AgICAgICAgICAgICAgICAgICAgICAgICAgICAgICAg WFGdKQBqRLWsPJQuSAYkEPMuNTGlIAFyAPEwATAuPLPrJILfJOXwKFOeOCEiJCKyBHFvWCMzOQ7MYY98 xFHha4Z7MUDdFZ2qodu/Zt4VTXnxarRxmZTyCU2YGzPfOG5ehi0ZGnGuFN9ufm4JTFsNQmKhL5Y5gJKy TVQuAPTJUcBsW50uECxjWa09MOkzKSAhOxAyGYg8Dw 3MSkNzO1ntZMQdGnG3SRTpAjDaPSgtCD1Yq2UskERvZSv+Wx5NAS3sk2GnNGgcYhVuIJ3ehb4NWAeYEy ZhD2HxgzF4GPJiPJWaXs0TSIRuXMPcrNOnXsLqCVLEOmTiI2UioH95FFHQPz1+DQplbmRvYmoNCjIzID Jdk3IsPHc9SP1MKEMhPLq2sZKkUOMoK4Oth4JcMd62 PCIkKxauLr0tpsGQKX5qp491cSZjxKlsXJZfNSNoMy3fKD4aOJYiUIFrBgHdAYFRCC8YCQJbVNMhdWCh RIUtMHRRIP6RYFicJAG1QQPtklOpxDUaTUgpYU8QZRImicPfQzZcGQOXSGz+Qt7ZOT6eq5VnMYmbXRQe BW0maj6YHGwWCcKoA1F2uTBfX1I1ZCdjNl7NEGLlXO PrHwWhAUGCAUswCW9WMJ8wrvG7HH0ArVGhWUKmXABryYFqAAl3A60krFLqXTtmHB3JDOM+Sayra+Pg0KIC HxORIoNTGnEaQqGSIKEoAvI2EzL6DFu2DrI3VdYU33iIdmuzGjCBtaXY1SLX1tBZBaNUIBKS4IgWMplA 8zdwQdTgGeFZAWWaAnF27dcOLvWXIxHOSaGBNqBg7Z JPSaP9VahmQckTvjabLvOEWtQKAJHT0PINbzapPydEHqkDxpNG09nAymWO6QTy1HRsJlTT3ojk8DjKIt Jp3WMGLqRK5PEANbBLYuCCIzJDW7IFFlApNbSBglZWWzLQTxZQM7ZBIlYPLgON2FFfMiOYRtROg1Rfew RBNvSCVxej9YEQAhNYNjGKRwNeDnZKZbZMWcGCaqNI YzQHWyPJX2GDIkPVAxLJ4NDnFxOVBoPOK1QIsgQDTkTEKbdl3MFZPpYHWpIfPoYkRtDPJzUREoTGmoPL NmQTE4KQejJJBmUMSjYW1HFrQlEXMeDKM8WmgeHAWjUIYhjs0YVUHwQWRsWVa5HdMqLPCrMYYrBElyQR IrSLD1LQF3KUXmIBHiEJ5CEsGkFNPqVDCdUFbgKOUd XJGczd7BDVBcWIKrYfB1JXAuSKXdJVUsKMkfPZXhBBS0UfH7UDJeDENwKG6FXbSdGTGpAEv3QbXbTNJq ONHwtz2USVSaXNCkWXQ5UDXjNQYvYMObHPfhQLXhBEG3IYI6TPSyYTGdJO1PSgSdBFZhNHo3RrHuUQYr GISnkn7NGJAqSGAdRBJoSXGgFLEbICQaZWufGXRjIS J4Dio6SDMuXIJeHA1CEsFyWROdIRs9DZZsGWTvBERtrw7FTHSiKBNuJWG6KuPuLPUlAHZaAHuvIRYpHT ElYwQmQNIaTEYkHO3HApNbFZAgCsU6WXOySENiMUJgfv0ECEEtSVDlNCptBaSpCBNtLDSwUJp6ueIuqB NqRTh9SW6RS7ZcirLoOjEZYl4Vp123EHS8UJDhQy4Q F9rhDv9sQUBnZTVAUv5QZZq6BiQ1UGcxKnKkCEWjE0B0IbRiQmU0HaF9AxQrQSOzBOt+BTt9PZpqO3Lm ArK2F1KqYAktNvXmRNS4HvedEWN8XuGrQc5gSCXQVf8+OLwtfUAayBtqUFIHLeRyJCe7OLvtIHSJHv3F ID Date Data Source [id number] 06/08/2020 07:32:[address] [facility] Name Value Range Interpretation Code Description Data Maria Isabel rce(s) Supporting Document(s) Progress Note [facility] WKIGJd6mWxTSHaDz74/AEZedOWDpe2TvYXalBBo2SBacUXTxK8CgQAB0aK0wYRM4ASmBCeXrDnPeHsD5 lbm [file] SENIOR AUDIT MANAGER+Mo7JSYIkRHi7E3V2GAMeJYd1R1WAP6OSQDKuAUkfKXpvVBJuSPp9F3A4OWEfS8HNQ5Rphcorrc0+ OT0GY35MWVNaZBo3I5Q1lGBoI8Z0pWgHjAR1JX7JPQ5KvXa6gJAjzL6+CS4PP6COCdHuHOt1V3U7zFKr W8D1qKoHsCW0JG2WON1RfNFoCZBofdJlAb1cG6DDLX yMXgNPWRH3RO4ChEDlAS1KhHUPV7RktOFmZn2xFDobeAKmsW1cZn0vERmmIR0OGgBFIJsTEWF5MI8QpN XfRI1VkIVSF1SqaAUaEl6xUKfkkXGmcu8+HU6TSIGeQt4QYs7+UHgecgFmIuvDLbZ1XQEzb1QiCYa7FT 7NAR0hmGoiNTA5Oe1BxXJ1kWWkO3bSYG3TcCOwX69q bJJiHCWfMb8QCjH0dqKysU0IFB00cYQkh9L1PNCrD4zcSZfbn04vQPczLCaGJK5pMXCYGDudEFmhNNJ6 PyEvedxfYRVlZt2EHbHuDKs6tL7qeBG9HYT6QuvdtAJlXOyzMgJrPoZiIcJ1iCtdtih1SJjjQK2tDTfy czptZXRhLyc+BPuoVHKlKGJgCavDIXMfiD5fvnU9zh CwFYrkoUEhXw3rp3j7WpkaLo8hPd6dOJm2TjPhOjIhXDFnKi0xpU68DRgvybMwVv1VSfWvDDA1C0UxTx pSREY+WGtaLKhudEf4xIEbDPXaZy1FTTHtJVAiWUIhTHLoZUGlGXRlTAXlKMDhVNFaVGYlPMXnJLNgXD AgICAgICAgICAgICAgICAgICAgICAgICAgICAgICAg IMPeTQOkFEVtFBPcJSQhMAFuTVXeNYTxDWKcBZTtBH7QCFXxNZIvBCShWMGlTYTkAWNpKUPxVUNhKSEj ICAgICAgICAgICAgICAgICAgICAgICAgICAgICAgICAgICAgICAgICAgICAgICAgICAgICAgICAgICAg AJZuITViCADdPDWmEM3ZAKVdUIOuDGFeKOSqNMScLP AgICAgICAgICAgICAgICAgICAgICAgICAgICAgICAgICAgICAgICAgICAgICAgICAgICAgICAgICAgIC HiHSPnBZKuGVPtOIAdMQKiAMJdNVUvOU0ZDBRlUWNmDRWfOKHwJVWtZFPyJDDhOUPgYZHgPIFyIVSrDB AgICAgICAgICAgICAgICAgICAgICAgICAgICAgICAg CQQoJLSmYHRcURKhIGIdGGVoVHEuXQLtTASfCVJsQQMhGN0CMHWdIJSvGOCySFRvPSYpYQMzQGQpOWGo ICAgICAgICAgICAgICAgICAgICAgICAgICAgICAgICAgICAgICAgICAgICAgICAgICAgICAgICAgICAg YNXvAOOjRRKqLFTwWRBqKA0CFMXyRIIcIFAzTGVfGB AgICAgICAgICAgICAgICAgICAgICAgICAgICAgICAgICAgICAgICAgICAgICAgICAgICAgICAgICAgIC HsTNCsCHDnGYHhYFVbCNYtYUKcSWVzRCXcZT2ZMPVmLCFkVPUuYUDqSIXvDOXnWVMoWGMhKKBmYEAsVJ AgICAgICAgICAgICAgICAgICAgICAgICAgICAgICAg DBObOKUtGLUuIGGaHBXyXZRiENKsQWNvAWOmOMWtCZOwBSMqNZ8SYVKlCBJkZOYcLAToWLDuWNLxKCNn ICAgICAgICAgICAgICAgICAgICAgICAgICAgICAgICAgICAgICAgICAgICAgICAgICAgICAgICAgICAg DRUhTUVwXCCgPWLoLKEuFJHhOV2DCAHfTYDbUQIeLL AgICAgICAgICAgICAgICAgICAgICAgICAgICAgICAgICAgICAgICAgICAgICAgICAgICAgICAgICAgIC FjZYPuZXSdNFGdMIMhTDBnEVHsFKMaAXAmYSRqWE3HEMQtHPEhTAMvNZNkTTQrKQEmSNTwBJTdALRzVW AgICAgICAgICAgICAgICAgICAgICAgICAgICAgICAg DJVzBUVjUOQdFZAgGWNnDGIzBNVeGAOqJFUuEIKsPFCfSSSdOAVuAW8GVJ43jOXqg9J8GZIsQB8arde/ Rl1OOJycarKcsOLjBI2JUpCaTD7uqo5KLjKhRN0zox6ONFqCHdWzF4A5qZObHAOhWZDNHwPoD71uABge Ww74RPevBXYzClXaHMc2Tl5SYeXwZ8oqFLNaNcE4ZQ InGhZ1WDBzCbA9GXFkVrJvTUdsSL6Bm2RzfOIdJPq+On9TRT5ob8YoUTicCpZgVA4nxa4OCYiULqUiS8 AffgL5WPD2DGBnSz4VRVDmAGQaoZLjKfBfCHKLJqEwW6ZrzA40JPFWVc5+VPwyikNqKblFGhH1WUUtj6 YtBGw6UQ0CTIQaQMx0vNFfYXPhI1Jro4RoKu24GPCe YnpeRh1omwJAPO1ta111qITraZmpJKTyQWErRl92YlKkZtXlRXZ2BHBqNL2cPYsoSE8JWLV9ARslJTYv SJOrC8qHLcQtDOGzLNVfwTslUN7XZnOzO8FrnuTjvBAoBuOzYQEKFa8+YYrhgiKuGfkOZvS4NEBtw5An LHn7TG0PLQVjRTdmXL9QGNLsbG3uRUchHC6GWsVsGD NlOYNNYdBcB62fmXEsJNo6Z1KjUlEbAJSsKslfTCUhRNkrYaHkVZKjIdOgTXwpEL6+ID4+DSnrYH2UFX hdhsZzBYLoLy8ATKJnBRKiKX6lNLDePZSbN1T0gJcqKMCTRcJdX1hyfaecUS4eJRIoT021gNpxqbCdTO W3MGBgOp4YRLVjJBL0JROtdWVeRyEjMRYAUHqpJE5I cPQfKPW0zC4oMCrbWTMaCENmG5bLTeChqNaiLI39qPnyaaAlyHRqYOe+Zm0XSA2gw8PhJLe1qiEpGNbo NHQ2WQsqGXTcOFQlUVMyQNM5WYW2IEIFYeBwFQXeRVVoLFqeATFxZKUgei1WYNDkMWLaQfTtMhCqXUQz XLUbYOkrKKEaALD3CMqpLLHpALMaFF4KLcWhEIRlED IgNCjsVXKnQKBoqr1PVCOfDQIsRzI9GSCzMNGgCCPaGLhxLQCsRDDcCEH6VOCjJENkHG9UGoWcOCSnYT g7XaPfAAFzJACxng9BWBUbCVLcKII3YQQaKQMbAISfVKbnEZInFPCySEQmYAYuSUYnDC4XBdEsTDXmGA RrMCRhMEGiMAMjkc5KYCIaOLZxFbWzZdJpVQYbPMDu PFtaXTLlKVPpLoLmDRKnTZLnTH1FHtQlPHBvRLWfLYErARSsTHZvmu2DHSDiLLVvJtD2QAAwEYLmXWLl NKulGXZjBARlCOJ6IWJjHINoWH6DKdVhARDmAEZ8CVKqIWNzQRTgqu3VQDCjYOWlOQK3CLGwOWHaEUAa SOlwFYKtKOB7PQNfQJVfBVHxNC5QIpJkWKYvZvB8RF fwPCNiKCJimb0UPCCtELIxCTx1HONkYGPmREPdJMtwPBNxLIF3PQV5OIXxVZFvEV7JNiBcUXLkDxyvIT hjOMRzOVCklw3MLZZbYVQqDfPbBkMnCLQiQHQqQYcuJAOiEBQ9QVD5OEKbHYLqKQ5PJgClIZLvLlz7Jj UsSCFhTCApqw2RXROpFIOlIFG4IgEoGGFyGKOwOEaw GBUdGST7XcJdIWCaLPIcNK6FYzBzCPSsQce8GHVyCSApOIYboo6TmGDtuJumvn4RVDoRBe1KlPjhJHH2 QZqhBc1cxAFnPXVmACMGCt5VncXeYFTvPLCMIUhfPGFbFVUgA4JxTZToL7VgCVNrXXI3CLDaOZXgFKQ1 UeG4XYC2XpG7I1KqDfUzZzI8IeWtJHA0REsuAAA8VZ ZhZjVmZjRhZjk+TO6mWGp+[id number]== ID Date Data Source [id number] 05/06/2020 12:00:00 AM EST [facility] Name Value Range Interpretation Code Description Data Maria Isabel rce(s) Supporting Document(s) SARS coronavirus 2 RNA [Presence] in Res piratory specimen by SONIDO with probe detection NEGATIVE [facility] This lab was ordered by Deshawn Shay and reported by [facility]. ID Date Data Source [id number] 05/06/2020 12:00:00 AM EST [facility] Name Value Range Interpretation Code Description Data Maria Isabel rce(s) Supporting Document(s) [facility] Rapid COVID Antigen Test Negative [facility] This lab was reported by Deshawn laguerre. Procedure Social History Code Duration Value Status Description Data Source(s ) Smoking 09/04/2020 12:04:00 AM EDT Denies Ever Smoked complete d Denies Ever Smoked [facility] Alcohol intake 08/24/2020 12:00:00 AM EDT Current non-d bianka of alcohol (finding) completed Current non-drinker of alcohol (finding) [facility] Tobacco use and exposure 08/24/2020 12:00:00 AM EDT Never used co mpleted Never used [facility] Smoking 08/24/2020 12:00:00 AM EDT Never smoker completed Never s [facility] Alcohol intake 06/08/2020 12:00:00 AM EST Current non-d bianka of alcohol (finding) completed Current non-drinker of alcohol (finding) [facility] 01/10/2020 12:00:00 AM EDT completed [facility] Vital Signs ID Date Data Source UNK Name Value Range Interpretation Code Description Data Source(s) Systolic blood pressure 118 mm[Hg] Normal (applies t o non-numeric results) 118 mm[Hg] [facility] Diastolic blood pressure 71 mm[Hg] Normal (applies to non-numeric results) 71 mm[Hg] [facility] Heart rate 83 min Normal (applies to non-numeric resul ts) 83 min [facility] Body height 176.784 cm Normal (applies to non-numeric resu lts) 176.784 cm [facility] Respiratory rate 18 min Normal (applies to non-numeric results) 18 min [facility] Body temperature 36.3 rubina Normal (applies to non-numeric results) 36.3 rubina [facility] Body mass index (BMI) [Ratio] 20.81 kg/m2 No rmal (applies to non-numeric results) 20.81 kg/m2 [facility] Body weight Measured 65.771 kg Normal (applies to n on-numeric results) 65.771 kg [facility] ID Date Data Source [id number] 09/03/2020 08:44:18 PM EDT [facility] Name Value Range Interpretation Code Description Data Source(s) TRANSFER FROM [facility] ID Date Data Source [id number] 08/24/2020 05:19:43 PM EDT [facility] Value Range Interpretation Code Description Data Source(s) WEIGHT RECORDED 144.4 lb 144.4 lb [facility] ID Date Data Source [id number] 08/03/2020 05:42:46 PM EDT [facility] Name Value Range Interpretation Code Description Data Source(s) WEIGHT RECORDED 141 lb 141 lb [facility] ID Date Data Source [id number] [facility] Description Data Source(s) WEIGHT RECORDED 135 lb 135 lb [facility] ID Date Data Source [id number] 06/08/2020 07:32:10 PM EST [facility] Value Range Interpretation Code Description Data Source(s) Body height Measured 70 in 70 in [facility] WEIGHT RECORDED 132.4 lb 132.4 lb [facility]
[2021-01-29 19:56] LABS: AMPHETAMINES LEVEL URINE NEGATIVE (NEGATIVE); BARBITURATES URINE NEGATIVE (NEGATIVE); BENZODIAZEPINES URINE NEGATIVE (NEGATIVE); CANNABINOIDS URINE POSITIVE (NEGATIVE); COCAINE METABOLITE URINE NEGATIVE (NEGATIVE); METHADONE URINE NEGATIVE (NEGATIVE); OPIATES URINE NEGATIVE (NEGATIVE); PHENCYCLIDINE URINE NEGATIVE (NEGATIVE)
[2021-01-29 20:01] LABS: HCG, SERUM QUALITATIVE NEGATIVE (NEGATIVE)
[2021-01-29] MEDS ORDERED: VITATAB74 PO (20:19)
[2021-01-29 20:20] LABS: ACETAMINOPHEN LEVEL < 2.0 UG/ML (10.0-30.0); ALBUMIN 4.2 GM/DL (3.2-5.2); ALT/SGPT 20 U/L (12-78); BILIRUBIN,DIRECT 0.1 MG/DL (0.0-0.2); BILIRUBIN,TOTAL 0.5 MG/DL (0.2-1.0); BLOOD UREA NITROGEN 14 MG/DL (7-18); CALCIUM LEVEL 9.5 MG/DL (8.5-10.1); CARBON DIOXIDE LEVEL 26 MEQ/L (21-32); CHLORIDE LEVEL 105 MEQ/L (98-107); CREATININE FOR GFR 0.85 MG/DL (0.55-1.30); ETHYL ALCOHOL (ETHANOL) < 0.003 % (0.000-0.010); GLOMERULAR FILTRATION RATE > 60.0 (>60); GLUCOSE, FASTING 85 MG/DL (70-100); SALICYLATE LEVEL < 1.7 MG/DL (5.0-30.0); SODIUM LEVEL 138 MEQ/L (136-145); TOTAL PROTEIN 7.7 GM/DL (6.4-8.2)
[2021-01-29] MEDS ORDERED: MOM 30ML SUSPENSION UDC PO PRN (21:00)
[2021-01-29] MEDS ORDERED: ACETAMINOPHEN TAB 650MG DOSE (2X325MG) PO PRN (21:00)
[2021-01-29] MEDS ORDERED: MAALOX 30 ML SUSP *UDC PO PRN (21:00)
[2021-01-29] MEDS ORDERED: clonazePAM 0.5 MG TAB PO ONE (21:10)
--- OUTSIDE RECORDS SUMMARY | 2021-01-29 21:12 | CCD ---
Author Author [facility] Organization [facility] Address Unknown Phone Unavailable Care Team Providers Care Clinic Office Coordinator Name Role Phone SYSTEM IN, NOT IN [...] Unavailable Unavailable BAKARI ROBERTSZABETH Unavailable Unavailable [facility]_4785, [id number] Unavailable [phone] [facility]4785, [id number] Unavailable [phone] [facility]85, [id number] Unavailable [phone] [facility]85, [id number] Unavailable [phone] [facility]4785, [id number] Unavailable [phone] [facility]85, [id number] Unavailable [phone] [facility]4785, [id number] Unavailable [phone] [facility]85, [id number] Unavailable [phone] [facility]4785, [id number] Unavailable [phone] [facility]85, [id number] Unavailable [phone] [facility]85, [id number] Unavailable [phone] [facility]4785, [id number] Unavailable [phone] [facility]4785, [id number] Unavailable [phone] [facility]4785, [id number] Unavailable [phone] [facility]4785, [id number] Unavailable [phone] [facility]4785, [id number] Unavailable [phone] Mavis SANCHEZ MD Unavailable [...] Unavailable NOSOVITCH Rosa GAMBINO MD Unavailable Unavailable BYORN, C NIDA FELT HAT STEAMER Unavailable Unavailable BYRON, C NIDA FELT HAT STEAMER Unavailable Unavailable BYRON, C NIDA FELT HAT STEAMER Unavailable Unavailable BYRON, C NIDA FELT HAT STEAMER Unavailable Unavailable BYRON, C NIDA FELT HAT STEAMER Unavailable Unavailable BYRON, C NIDA FELT HAT STEAMER Unavailable Unavailable BYRON, C NIDA FELT HAT STEAMER Unavailable Unavailable BYRON, C NIDA FELT HAT STEAMER Unavailable Unavailable BYRON, C NIDA FELT HAT STEAMER Unavailable Unavailable BYRON, C NIDA FELT HAT STEAMER Unavailable Unavailable BYRON, C NIDA FELT HAT STEAMER Unavailable Unavailable BYRON, C NIDA FELT HAT STEAMER Unavailable Unavailable BYRON, C NIDA FELT HAT STEAMER Unavailable Unavailable BYRON, C NIDA FELT HAT STEAMER Unavailable Unavailable BYRON, C NIDA FELT HAT STEAMER Unavailable Unavailable BYRON, C NIDA FELT HAT STEAMER Unavailable Unavailable BYRON, C NIDA FELT HAT STEAMER Unavailable Unavailable BYRON, C NIDA FELT HAT STEAMER Unavailable Unavailable BYRON, C NIDA FELT HAT STEAMER Unavailable Unavailable BYRON, C NIDA FELT HAT STEAMER Unavailable Unavailable BYRON, C NIDA FELT HAT STEAMER Unavailable Unavailable BYRON, C NIDA FELT HAT STEAMER Unavailable Unavailable BYRON, C NIDA FELT HAT STEAMER Unavailable Unavailable BYRON, C NIDA FELT HAT STEAMER Unavailable Unavailable BYRON, C NIDA FELT HAT STEAMER Unavailable Unavailable BYRON C NIDA FELT HAT STEAMER Unavailable Unavailable FOLK, J KASI MD Unavailable [...] J KASI MD Unavailable Unavailable FOLK, J AKSI MD Unavailable Unavailable FOLK, J KASI MD [...] is protected by Article 27-F of the [facility] Public Health law. If you continue you may have access to information: Regarding HIV / AIDS; Provided by facilities licensed or operated by the [facility] Office of Mental Health; or Provided by the [facility] Office for People With Developmental Disabilities. If such information is present, then the following [facility] mandated warning applies: This information has [...] law may result in a fine or intermediate sentence or both. A general authorization for the release of medical or other information is NOT sufficient authorization for further disc losure. Allergies and Adverse Reactions Type Description Substance Reaction Status Data Source(s ) Propensity to adverse reactions NO KNOWN ALLERGIES NO KNOWN ALLERGIES [facility] Encounters Encounter Providers Location Date Indications Data Source(s ) Outpatient Attender: NIDA MATTHEWS NP 10/15/2020 12:00:0 0 AM [facility] Outpatient Attender: NIDA MATTHEWS NP 09/14/2020 12:00:0 0 AM [facility] Outpatient 09/13/2020 12:00:00 AM [facility] Outpatient 09/13/2020 12:00:00 AM [facility] Inpatient Attender: KASI VALDIVIA MD 09/04/2020 12:47:51 AM E DT Lab [facility] Inpatient Attender: KASI VALDIVIA MDAdmitter: KASI VALDIVIA MD 09/04/2020 12:00:00 AM EDT - 09/06/2020 01:57:00 PM EDT 36 WKS WITH RUPTURED MEMBRANES HIGH RISK [facility] 36 WKS WITH RUPTURED MEMBRANES HIGH RISK Patient discharged. Outpatient Referrer: PROVIDER SYSTEM IN 09/03/2020 0 8:44:00 PM EDT 36 week preg, water broke. [facility] 36 week preg, water [place]. Emergency Attender: Miles DOBBS-CReferrer: [phone] [facility] BILOX[facility]85 EMERGENCY ROOM-ER 09/03/2020 08:10:00 PM EDT - 09/03/2020 10:20:00 PM EDT [facility] Patient discharged. Outpatient Attender: KASI GUTIERRES JRReferrer: FRANCISCA Gamble ICAMPLI [id number] 08/24/2020 12:00:00 AM EDT - 08/24/2020 03:16:22 PM EDT Maternal care for other (suspected) abnormality and damage, not applicable or unspecified [facility] Maternal care for other (suspected) feta l abnormality and damage, not applicable or unspecified Outpatient Attender: MINA PELAEZ 08/24/2020 12:00:00 AM [facility] Outpatient Attender: NIDA BLUMeferrer: Bailey GUTIERRES JR [id number] 08/22/2020 12:00:00 AM EDT - 08/22/2020 03:36:42 PM [facility] Outpatient Attender: KASI GUTIERRES JRReferrer: FRANCISCA Gamble ICAMPLI [id number] 07/27/2020 12:00:00 AM EDT - 07/27/2020 03:34:51 PM EDT Maternal care for other (suspected) abnormality and damage, not applicable or unspecified [facility] Maternal care for other (suspected) feta l abnormality and damage, not applicable or unspecified Outpatient Attender: ADITI HOBSON 07/27/2020 12:00:00 AM [facility] Outpatient 07/27/2020 12:00:00 AM [facility] Outpatient Attender: CHUY RAM 07/27/2020 12:00:00 AM [facility] Outpatient Attender: KASI Brownerrer: FRANCISCA Gamble ICAMPLI [id number] 06/28/2020 12:00:00 AM EDT - 06/28/2020 04:03:02 PM EDT Maternal care for other (suspected) abnormality and damage, not applicable or unspecified [facility] Maternal care for other (suspected) feta l abnormality and damage, not applicable or unspecified Outpatient Attender: JOSI SOLIZ 06/28/2020 12:00:00 AM [facility] Outpatient Attender: KASI GUTIERRES JRReferrer: FRANCISCA Gamble ICAMPLI [id number] 06/08/2020 12:00:00 AM EST - 06/08/2020 12:22:05 PM EST Maternal care for (suspected) abnormality and damage, unspecified, not applicable or unspecified [facility] Maternal care for (suspected) abno rmality and damage, unspecified, not applicable or unspecified Outpatient Attender: CHUY RAMReferrer: FRANCISCA CALVO YOLIS 06/08/2020 12:00:00 AM [facility] Outpatient Attender: Ciro DOBBS 05/06/19 12:00:54 PM EST - 05/06/2020 12:48:01 PM EST [facility] ([facility] ) Immunizations Vaccine Date Status Description Data Source(s) COVID-19 VACCINE Pfizer 12/24/2020 12:00:00 AM EDT completed [facility] Vaccine Series Complete: YESThis Data wa s Submitted to [facility] Via Apportable. COVID-19 VACCINE Pfizer 12/03/2020 12:00:00 AM EDT completed [facility] Vaccine Series Complete: NOThis Data was Submitted to [facility] Via Apportable. Medications Medication Brand Name Start Date Product [...] type / Coverage type Policy ID Covered alliance party ID Covered alliance party's relationship to resendiz Policy Resendiz Plan Information U [id number] Self [id number] U [id number] Self [id number] [facility] [id number] CHILD [id number] Parent 00 [id number] RPR- Needs Payer Match [id number] Self [id number] U [id number] Self [id number] MEDICAID [id number] S [id number] N REGIONAL CLAIMS PANCHO -O/P [id number] 19 [id number] [facility] [id number] CHILD [id number] MEDICAID HEA [id number] S [id number] HEA [id number] P [id number] MEDICAID UNAVAILABLE S UNAVAILA BLE [facility] [id number] FA2 [id number] ANSI-Not a Secondary Insurance [id number] [facility] [id number] PARENT [id number] Problems, Conditions, and Diagnoses Code Display Name Description Problem Type Effective Dates Data Source(s) 36 week preg, water broke. 36 week preg, water broke. 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 THER USP (CURRENT) DRUG THERAPY Diagnosis 09/03/2020 08:10:00 PM [facility] Z3A.36 36 weeks gestation of 36 WEEKS GESTATI ON OF Diagnosis 09/03/2020 08:10:00 PM [facility] Z20.822 CONTACT WITH AND (SUSPECTED) EXPOSURE TO COVID-19 CONTACT WITH AND (SUSPECTED) EXPOSURE TO COVID-19 Diagnosis 09/03/2020 08:10:00 PM [facility] O42.113 premature rupture of membranes, onset of labor more than 24 hours following rupture, third trimester PRETRM CHERYLE ROM, ONSET LABOR > 24 HOURS FOL RUPT, THIRD TRI Diagnosis 09/03/2020 08:10:00 PM [facility] O35.8XX0 Maternal care for other (kerry pected) abnormality and damage, not applicable or unspecified Maternal care for other (suspected) feta l abnormality and damage, not applicable or unspecified Diagnosis 06/08/2020 07:10:1 5 PM [facility] O35.9XX0 Maternal care for (suspected ) abnormality and damage, unspecified, not applicable or unspecified Maternal care for (suspected) abnormality and damage, unspecified, not applicable or unspecified Diagnosis 06/08/2020 09:38:28 AM [facility] Surgeries/Procedures Procedure Description Date Indications Data Source(s) MRI Brain W/O Contrast, Followed By Contrast 12:00:00 AM EDT [facility] ([facility], ) MRI Brain W/O Contrast, Followed By Contrast 12:00:00 AM EDT [facility] ([facility], ) Results ID Date Data Source [id number] 09/04/2020 03:42:02 PM EDT [facility] Name Value Range Interpretation Code Description Data Maria Isabel rce(s) Supporting Document(s) Progress Note [facility] AHAIUu0rMeDDWuVb23/VDZtrTKRsl2BwNOjpRVo3RLobMQVaW4WhWNI7kN0uQMY0MOnZAqFcOpFtMxEo lbm [file] ICAgICAgICAgICAgICAgICAgICAgICAgICAgICAgIC AgICAgICAgICAgICAgICAgICAgICAgICAgICAgICAgICAgICAgICAgICANCiAgICAgICAgICAgICAgIC AgICAgICAgICAgICAgICAgICAgICAgICAgICAgICAgICAgICAgICAgICAgICAgICAgICAgICAgICAgIC AgICAgICAgICAgICAgICAgICAgICAgICANCiAgICAg ICAgICAgICAgICAgICAgICAgICAgICAgICAgICAgICAgICAgICAgICAgICAgICAgICAgICAgICAgICAg ICAgICAgICAgICAgICAgICAgICAgICAgICAgICAgICAgICANCiAgICAgICAgICAgICAgICAgICAgICAg ICAgICAgICAgICAgICAgICAgICAgICAgICAgICAgIC AgICAgICAgICAgICAgICAgICAgICAgICAgICAgICAgICAgICAgICAgICAgICANCiAgICAgICAgICAgIC AgICAgICAgICAgICAgICAgICAgICAgICAgICAgICAgICAgICAgICAgICAgICAgICAgICAgICAgICAgIC AgICAgICAgICAgICAgICAgICAgICAgICAgICANCiAg ICAgICAgICAgICAgICAgICAgICAgICAgICAgICAgICAgICAgICAgICAgICAgICAgICAgICAgICAgICAg ICAgICAgICAgICAgICAgICAgICAgICAgICAgICAgICAgICAgICANCiAgICAgICAgICAgICAgICAgICAg ICAgICAgICAgICAgICAgICAgICAgICAgICAgICAgIC AgICAgICAgICAgICAgICAgICAgICAgICAgICAgICAgICAgICAgICAgICAgICAgICANCiAgICAgICAgIC AgICAgICAgICAgICAgICAgICAgICAgICAgICAgICAgICAgICAgICAgICAgICAgICAgICAgICAgICAgIC AgICAgICAgICAgICAgICAgICAgICAgICAgICAgICAN CiAgICAgICAgICAgICAgICAgICAgICAgICAgICAgICAgICAgICAgICAgICAgICAgICAgICAgICAgICAg ICAgICAgICAgICAgICAgICAgICAgICAgICAgICAgICAgICAgICAgICANCiAgICAgICAgICAgICAgICAg ICAgICAgICAgICAgICAgICAgICAgICAgICAgICAgIC AgICAgICAgICAgICAgICAgICAgICAgICAgICAgICAgICAgICAgICAgICAgICAgICAgICANCjw/eHBhY2 thgEIuteQ8H2kdKs0CJx7CGG1ua7OzMWLbQDpqsbQlHsoUBiFlEVMvGoiVWjy9MRrkMZ5YsODlN6GeW9 SxLYocLS6PQAIiFOCmsUCkEXRaMVQaBjK3OTZwUVch IR5GbRScXEiaESHlRCWoGiWhPBCaOT6LAEZhI024giYwZx4TCw3IWaCbXU8yua0VHjQdJXGsFdbYMpz7 AUlnOX0PqXZktQOmNeJwVOCFYzTbG3lfs0ZxNnGzLKFNHCdlZF7Ne7DvqZMxOVb+Rl8PRE8bb5CkFIxf ArAkPN5ybs0AYLyWUvQkT1KhlQebCFRoq6byPEMlPW 3mlTIgHYZ6VZffns7nZqPjBBDkX7PsxpiftcziDCSiOPNhDK7tCE2pAFMvTBSuGjXgSOAAAN0HNGOlIE IoeHQqMAZmQCXRAE0YFDcrFFS8ZQAvfpXjwRPcJMmwVE5GYHRnukYwQyMkBMSRHFl+Dy4EKM5ha5RuMA lkDjBvKU5nlg3UMXuSFsBqV3O0yNYrX3X0ZCgiOk9Q HOOfBJIvNBzhSKOPDJipAL0YPD1xluA7XZ5YpBJrZUSpVLPowIWoXBq7M17jbLTkMTkqUV8QFUE+Sayra+ Qy6LJZJxAGLjOWMlAtDcXVBCQvSnS8TiO4QMc1CrY7CiQH97qHoxaiLyINpoLA6NAI8vAFEpXVTXAZ7R nKAbjR9saoZwPHAmGZNBAmVhU88qkGGjHOEjOUVtNW WzXm1JJJHcA9VppsNwlUbadoGnQNYnCWWMBI3VIEmdsyFllZAynPfxRC17pZoxHB9FWf4ZIyAbUS2ukr 3JoLYdSv2YXXXkWX3IXKWqGTLsFUStACN8FKSrNrRsZAluLGKwTOXbDFO6IWMoPNFtDX1SMsPbPIGbVy KxVELcDRGtWQWlwv7QATEiWORaKoM1SvAaSTLmZLJs LEidXVFtOPAbXCU0DIMgHUAcWW6ISyBvXWXsGQC5LvJfBQXxKKEcoz7USZFlZBPaGFMwGCPoSUZiPMBv IXcbTRExFYI1KAM7ODBpMOUkNP0EKiXzXWWpDQHmMvJiOSEuNYEzfv0XSDFwBRExDzDnHMQkUUXrKSPk SPjsTBTgPLK9ZZF2BEUfDHHpLH2IIhLnVKLjSZP0EP vyQJUhROTxcp2UYMCzWCKcXnF4SgTbOVTtETItLFxuWCCdBTQ7GNV6LYWgGWFyFO4KJgVnJNEnXOdqYB EjPXVxDEObhy1YUZOhHTPvNTHyPLBrTZRxTRAbEEsjLGXcRSL1McK5PYIkQGCaXA2PYbQvEOQjZNu8An FoIXShOEPwem0KRCXqVTWjQYC2XdRzJBIxXIMsUGyb BIBaXESyDyByXHWcSZOjAW5ARsCeGXVjMmV7OqRtOBTtRFRhwv1HZJKiCUWbZdJ5LsTpYRRzPGFnLNqy WPBaUEOzPwS5DVSaGTSnFZ9DPwZpKXQwEgOcKCVfFDJnGEEist5JtFZwzSowmt4QUVvZHv9AwEqmTDQ4 ENtpGj7xdLJdXhSqFJADWu7BtaPaDGNlOBWAFQdfME ZjLEMvJMq0OMY0WYVxLNinBgSzGVo6CtTdNNBjWGH2BFFvKbD6HTYtYFJuUZxvYlRuHdGsJAQoIAo6IJ F1BVLqWJygWGJ+TX4wPIc+Tq5Rk8DftrE1obCaBSteXrHgDM2XYULGF3ZMZr== ID Date Data Source [id number] 09/05/2020 02:47:23 PM EDT [facility] [address] [address]Y[place]# SURGICAL PATHOLOGY REPORTPatient Name:SOFIA AIDAN Roberts:2000Received:09/04/2020ccession #:[id number] By Yung Leal MD jzwPathology Associates of [place], [place] [address]Technical component performed at ,[facility], Histopathology, [address] [place] [address], [facility].Reported at [facility], [address] [place] [address], [facility].This report may include immunohistochemical or in-situ hybridizationresults. Testing was developed and the performance characteristicsdetermined by , [facility], as required byCLIA '88. The FDA has determined that approval for specific use is notnecessary for clinical use. The quality of Hematoxylin and Eosin stainsand as applicable, for all immunohistochemical and/or special stains,including positive and negative controls, were reviewed and consideredappropriate.ICD codes: O43.959HSL8 codes: A: 72644E Name Value Range Interpretation Code Description Data Maria Isabel rce(s) Supporting Document(s) ID Date Data Source [id number] 09/05/2020 12:17:19 PM EDT [facility] [place] DUMONT SPECIMEN DESCRIPTION VAGINAL/RECT ALCULTURE RESULTS NEGATIVE: BETA HEMOLYTIC STREPTOCOCCI GROUP B B Y PCRREPORT STATUS FINAL 09/05/2020 Name Value Range Interpretation Code Description Data Maria Isabel rce(s) Supporting Document(s) ID Date Data Source [id number] 09/04/2020 10:08:20 AM EDT [facility] JULIA Name Value Range Interpretation Code Description Data Maria Isabel rce(s) Supporting Document(s) TREPONEMA IGG/IGM @ (NEG) Lab [facility] JULIA ID Date Data Source [id number] 09/04/2020 01:36:33 AM EDT [facility] [place] DUMONT SPEC EXP DATE 09/07/2020ATI ENT ABO/Rh O POSITIVEANTIBODY SCREEN NEGATIVETESTING SITE PERFORMED AT [address] [place] [address] Name Value Range Interpretation Code Description Data Maria Isabel rce(s) Supporting Document(s) ID Date Data Source [id number] 09/04/2020 12:47:51 AM EDT [facility] JULIA Name Value Range Interpretation Code Description Data Maria Isabel rce(s) Supporting Document(s) WBC 12.3 10*3/uL (4.1-11.0) H [facility] JULIA RBC 3.44 10*6/uL (4.00-5.40) L [facility] JULIA HGB 9.9 g/dL (12.0-16.0) L [facility] CYNTHIA Montelongo HCT 30.3 % (36.0-47.0) L [facility] MCV 88.2 fL (80.0-95.0) [facility] MCH 28.7 pg (27.0-32.0) [facility] MCHC 32.6 g/dL (32.0-36.0) [facility] RDW 13.5 % (10.5-14.5) [facility] PLT 185 10*3/uL (150-450) [facility] MPV 10.0 fL (7.1-10.7) [facility] ID Date Data Source [id number] 09/03/2020 10:24:[facility] PM [facility]ID[facility] BLACK Observatio n Report - [facility]VisitID: [id number] [place] [address] [id number], FRegistration Date/Time: 09/03/2020 19:06 Weight:65.7 kg (S). [...] rce(s) Supporting Document(s) ID Date Data Source [id number] 09/03/2020 08:10:00 PM EDT [facility] Name Value Range Interpretation Code Description Data Maria Isabel rce(s) Supporting Document(s) COVID-19 NEGATIVE [facility] This lab was ordered by [facility] arlene Lab and reported by [facility]. ID Date Data Source [id number] 09/03/2020 08:34:00 PM EDT [facility] [id number] Name Value Range Interpretation Code Description Data Maria Isabel rce(s) Supporting Document(s) COVID-19 NEGATIVE NEGATIVE [facility] Negative results should be treated as [...] are for the indentification of SARS-CoV-2 RNA. PmdHGXP-HmU-3 RNA is generally detectable in respiratorysamples during the actue phase of infection. ID Date Data Source [id number] 08/24/2020 05:19:43 PM EDT [facility] Name Value Range Interpretation Code Description Data [facility](s) Progress Note [facility] NMKUPa1qUxRPGvWe85/OZCltAJSxa5OmAYzwGGm9IUywMDKkJ2MnDJK4aM3dTIO0FUoZMwLoSdCnFGYu [facility] [file] VVKCS3BCAu== ID Date Data Source [id number] 08/03/2020 05:42:46 PM EDT [facility] Name Value Range Interpretation Code Description Data Maria Isabel rce(s) Supporting Document(s) Progress Note [facility] SOOKZo4aEnJJAeFn63/ABMddSRWuv2DnXBnzDMs3XHsoUBCtP5LkPII7iB5bEQG2RAsUZjRaOrBtYSQp lbm [file] wGJITM5KLHMdZKgUtImIqxa7V5IeIY3YZhzh// [file] A1MTQ+OJ9lZEz+Ev7Xg4AzodB0meUbGDtzBNreXY8SCEROV1SLGf== ID Date Data Source [id number] 06/29/2020 06:08:40 PM EDT [facility] Name Value Range Interpretation Code Description Data Maria Isabel rce(s) Supporting Document(s) Progress Note [facility] NVWMId2gFxIPDhYb69/OZFpoLHLsu5UrVIfgYUv1QFaiVDUoN9AdUYO9oC4yJEB5GXhCIiQsQpJzWoI9 lbm [file] AgICAgICAgICAgICAgICAgICAgICAgICAgICAgICAg TLJaAERaOMGcSLWcKIApOJRiPHBbVGGqNEZxFXDrOXScCQUrUXTsHALwAAOnGT8MMZRdPNFjXBLdKSHi ICAgICAgICAgICAgICAgICAgICAgICAgICAgICAgICAgICAgICAgICAgICAgICAgICAgICAgICAgICAg JLAeLNAeCJLzIFDiXKDaKYRkJDWpYOSfIRYiQC2GKT AgICAgICAgICAgICAgICAgICAgICAgICAgICAgICAgICAgICAgICAgICAgICAgICAgICAgICAgICAgIC DxZFIbGVXnDYYlWRMkUFYjBEKyENMgKTMhNDTsUDMzTKQcAYTzVP0CZZZsDECuNRAsEGBbFWPeSGEnWA AgICAgICAgICAgICAgICAgICAgICAgICAgICAgICAg NWQjANNpEPWrQYUsUPDfNPTyYCIoNFJxVDGlUMUhVXMeTLGaAMJfVGZhNYKbUUReYU3IQOQlCQXuCAAz ICAgICAgICAgICAgICAgICAgICAgICAgICAgICAgICAgICAgICAgICAgICAgICAgICAgICAgICAgICAg ICAgICAgICAgICAgICAgICAgICAgICAgICAgICAgIA 0KICAgICAgICAgICAgICAgICAgICAgICAgICAgICAgICAgICAgICAgICAgICAgICAgICAgICAgICAgIC OhSKQeDMUiJDWyCYZySQAxIRKwZSXhHCQdXDEuUDHlUXFrMLBdWHVyBR6FPVNsIRAhLZHgIGDdYIOsLM AgICAgICAgICAgICAgICAgICAgICAgICAgICAgICAg PVBnIXAlAIEsOCJnBBDjPQCiBKKhJYPrIBAbUCDjFJGmRWJmOLKnXHJsDMNyUDFjBBEvGX0JPIXjPHZy ICAgICAgICAgICAgICAgICAgICAgICAgICAgICAgICAgICAgICAgICAgICAgICAgICAgICAgICAgICAg ICAgICAgICAgICAgICAgICAgICAgICAgICAgICAgIC HiST7GUTSyTOUnMSGaYSAbKKQgCQHsZBYzEEZdTALgHUOrDCOeVMBbFZGoZKNrTFIpPTDwPPDeRJGuYE XaUESbZVKrTHXgPGDiPIBkUXZmVKLnRALdAVDlKDHhQWYmPCLdLQZeEBHlAV4KHTFbJAVnZJIhCBJjGW AgICAgICAgICAgICAgICAgICAgICAgICAgICAgICAg FHTzOLDoTAFhZMEaLYVrAWRjXOTzYXHlDHHdXJHeNTOnJCCcPYZyDPDbHZUpLMBgSZTeRKFtRP6FUA85 xHFzw4N3FELmWK9ozfb/Tx9ZTUndjrFkkIUtVM7NXtAkUI5ril9HFiRbXB3ith6VQHwCUuBdZ2R1iXSx DGYvQBYUKdOuZ55uLXjnEp48JImqGKQeQdPuFLy3Ah 6TAxPsT0sjLBUnZtM3ASCkLzVwNBtlLZ0Qb3CjgGYfODa+Uz5IYZ9ga1RjBRrpXpMaBD2dtb8UYFlINc SdM8PsjwC0WJCxFUJcYv3UPMJsHNUchBRcBtJvDEMVFxElD6VjzS15ZAWCMa6+DQplbmRvYmoNCjIzID Qzy4DiKEf5HD3VKZJdEDb3lAYgQWIrD0Bpl9TyBt79 BHBiNgzuYm3qasROCJ5mz895jXLgtXbtCNIaVNLbJa6iJA9eDUVcTQWhPrEnLCORUW0VZEMfWMBonUAf AXNwBTQNLH4FJNbxBFN9GJVcghUmnULkUHgjGB9LIXNvkmPhObFnZUTKJDa+Rh0FUS0yv8QiOIqyJNNp RG9msz9OTFlIIdWyD8V7rDZrB2W8WOgkKd6MYZVmOA DzRvCwBLJIOYhoRX4PCC4apeG2WE2QjPHbPMObMMMwpCWgBRc6H96rqJRvEZouTS8IETK+Sayra+Pg0KIC WhDMTsCXAhQbItDIGRBzMfK2LwR6VQo0JqG8EfRK31bEtaahHkNAevEF8PVL3xPXVpFLGIGI7XiRKxkX 2uzbObBsPsQBSLViMkA00icEQnUUNlQLSkTRFmWc2Z TOSzL9HnzkMuaRveodZzIAVrVTNOUM6PHFeqfdKeiAYlnDcuVN66mZilZB7ZZr1TPmRyFL0xuc1IlPNf Jm6OCGPwPB6UQYJiLVRuIMEvIYA4YTXfApOkHEhrKWDpHTClJWL6MEAfASQuKT8QVlRaTHTwUFm5Lpdz STGmMGBcrf1SOYKzJTSbBTIyEuAqESRmHMTdSSowGD DzOCOiATY7GNMmECUyUC5OHaAkFRZcPDA1NHuuKLVlXLRzjt9BEGEhIZFqVfLqVnElFQBpEWClDGhmXG SfCPF2ACezLTQmLXZhRT8WPbTcXECeTPW5IxokYQXoTYWxdg8RUUNyYTAxCIn4MkQaQWCtIJAjSZboWW JuGVS9KWC1GJFsEPRzWI1NXcYfWBGwNENfMVmsNEBb XBKdru0JHBIgWEJqFjG0PADgVQFgDCLnYRwbOFZcVHJ9EnA2VCXgOQAdNX3WTiKeZQMmRXm2XiPpTXEm CLRerd7HNTFyJDHzECS6UVWoEJDhDUBiYPnqUTIfSQA0ZMT0PHPpASVkPG7OGsQtVFIyRHl3ToTjRJFz HDYfjm4DFXJfHBAiZMOwXXXrQMNlZBZqXAdzZPSbMV L4Ita4HPXpMZBoIR2AYqOvPXCnSHo2QIJkCLMqIVPmzf8QUEDtNSMcIQU7XdCpHJXyAKFeZQmhHQRkRP GoUsKwRCGlDQNpSE9POvYdJMNwVzG1UZEhWQBvBHHvma1YDLPlYCCuANkyLuExIUZpCADbFAz6uuXsyC QbKZp3FV1SQ6EofsNlYoZYHk5Ty807BMR8SQKsFk7R B4rfCy7fRWTzSJCOFy4FVCe0NiW3GBkvNxUwUPAlZ0D9DgAjAhR5FtW7JbTaFMPbUFv+SIz9MNspP5Vk LgC4Z8RhLDltMpMpAMU9OxigCCP5NxQnBu5zDHXEDq2+THacnWMlfCfbICVJKvOpMJf0NRrjEBHFHq2P ID Date Data Source [id number] 06/08/2020 07:32:[address] [facility] Name Value Range Interpretation Code Description Data Maria Isabel rce(s) Supporting Document(s) Progress Note [facility] NBGDBe4dViSJQjOr00/JEQlqKSPcy8FeTWdlJIi6RMljUTHdG7MoGRE5eK5fKGO4EEcUMvAqOvZpNwE7 lbm [file] BODILY INJURY ADJUSTER+Vu2BIDXaMKe0D8V2TNWtIJw2Y4SQY2RIXENfYApaFVzfPSJoGJz7D6H7ZHQaK3OEO0Qfqggvrv7+ ML4TJ16WXPLfNXk7J7S1zJTnN3W7xCoOnZR1ZE6PQQ9CqCx2nSXvlG8+JL6XE6RONbIzRKh4U0N3iYHt L1E3hXjZiDN6IQ8HYT0FwPYcDZHvawEiMm7pL6JFME oCKtALGCB7ZG3VuESsJX1NcSCWF7VndDVdEj1zHFvzfVMxgD3iCx5cWYjqJO9DWtIAAVhDWTF2UM7FxR BvCK1XmGHUD4RylQEjOe8aVSldrAMcyx8+WV6IEZXcDv0DHd2+PHtejaFmErfJJsH1CNNbx0SjVBz1EA 4RYF7fzAxfPBO9Tq6MzKA9gJObX8mRVC2OjQSqV41g mABrFYAyCw8DXaG3krMnnW1YOO89iFXrt7S1FAZeZ5daQAfxg03mYLpgRSuVSD6ySYZUNQakCJovGSH3 DnXnexhcFSBqLj9BRhRhECm7mP7nhZJ6DFR4SuegjTSxXSpfUnSnRmBnUmD3hHezgdr0CJgoYE5oLGxq czptZXRhLyc+ZRflSRNpYYCnNidDPTHwoF8gigT3rr GpDErndEFaBh8ih4h0OdesWl6qRh0lFIz4FyPlRlTjIVIaAi7maG64NOtkpbRqHh4DUuYbYGX7Q5GeNt pSREY+WYqyDZxhhXs3mIYeHTDqUl8FDBOoHDDrYFDkTBAxYRNtSFYkHOKmBGKkXATtFGTaIMDaCONdCW AgICAgICAgICAgICAgICAgICAgICAgICAgICAgICAg ELXsXYUoCLQtTODkCPSkSTEeEHIjFNFyTPPiJPOlDZ1KDNHgZTYmPDQqNVCvJKXbWEZxPXHnZPDbOASm ICAgICAgICAgICAgICAgICAgICAgICAgICAgICAgICAgICAgICAgICAgICAgICAgICAgICAgICAgICAg SVDtPAWhAHHuWHTbCL8OZWUyLWZjIBPyPPLiXNWiQT AgICAgICAgICAgICAgICAgICAgICAgICAgICAgICAgICAgICAgICAgICAgICAgICAgICAgICAgICAgIC SkFRQuQXDpTUOnJQDjFMApSCVhHNMsOY5FLYCgYYQcULYfHZUjLVJuFFTiLLQyQOVoGOSoOSWjGBNlUK AgICAgICAgICAgICAgICAgICAgICAgICAgICAgICAg EHEzTLYiCWEdKVWhMTZeIYEdOUFeBIIrPNGnQGEmNAYuNG9YUIKbRVGwLBBaPEVpTBAqBTEpYNGqYRSm ICAgICAgICAgICAgICAgICAgICAgICAgICAgICAgICAgICAgICAgICAgICAgICAgICAgICAgICAgICAg VSVpCGIwMQPjPDPcCYQcVC0HCOKcUJLbFEOkADLmLO AgICAgICAgICAgICAgICAgICAgICAgICAgICAgICAgICAgICAgICAgICAgICAgICAgICAgICAgICAgIC BjQYRvEKXsNGUvCLNiRYGwZWRyFKDcSXGsRO2UDDYuCBTiDRBjBYTnCPRuXINuZXYlQOAaMGRqUFLvZG AgICAgICAgICAgICAgICAgICAgICAgICAgICAgICAg CQPkIGMtZSBcHHNfISQaJFBbKCPjTMQnLQJcCBNuMFNfTZPiKX8FXCRjSLUcIEEiMWIxPJZmEJNnKCCg ICAgICAgICAgICAgICAgICAgICAgICAgICAgICAgICAgICAgICAgICAgICAgICAgICAgICAgICAgICAg LXErBFAqNWXyMYRbSUOlLNDfKL0YBDJwYRSiLNQoGH AgICAgICAgICAgICAgICAgICAgICAgICAgICAgICAgICAgICAgICAgICAgICAgICAgICAgICAgICAgIC KvFNRbSLMjOIFwTBQdDIFlALSrKXDtTOOzFZQmMR8GVALfOJZtMHZpYDSnVCObDUBcIKLxIKNuUTPoOZ AgICAgICAgICAgICAgICAgICAgICAgICAgICAgICAg FZDdWQHxMGXgTJAdSSSvNAKfVWIrSQGjWQDcZIXqRCKpOUYkKYCfBZ9TKK47pEFql4I3IPFyTQ1rnql/ Mu2NZJqranJngZRnWE5ZCiXxNP9akz0UWmXsRL1cys6AFHnPVnViD6M0fFZvDYJlMTMGSgIoB68eSNxd Uw88EGhdOONjJpDeSPx2Ro3YFdZvG8znZFHeAnH5IJ HgAoQ7JZDrAdO7NGCcRuCjFMbxIR8Mc4JcvAMhDSc+Yl2DFU4gt2DwLPbiZfUqIR8fjd9JSSlPTeHoP6 WmkcP1JHB0PMLaIl9DAKXdHWHtfTPoCoMeQSNDHrOiB4EzgR17KZIAAe5+OKxhqxYwTgpRBsL0GCGeh8 BwIXe5WU8OHYPtKOn2lABiFYSaV4Gmi3FfKe43ILWp QhrkWz3nkdLEQQ1mv729aBYxzTkaMVQcMOSfGm22KnNjNkRwGEL9TYAcUT2kVZbeEX2TOWU9DXwgPYGl TZWmX4lCDuUdLKGnOLGztWbrII2WNgCeD2UclnHoiNCxMfLkBWBGIm1+FVyrqdXvKziYOeU9UNWve6Xu OOy6NV4VZOUrCNbbJA0TUGQkxF1wVCezXS0RZtCoCT RjCSSEFeAsK82zkPJuWVl0X0OgOnTdERJjIdziNXFlPJajDuAfVCQlTgGoIEbjIE5+ID4+VEnjJT4IXC haazMrAOBaTh6NXMXwOEEeAZ1bEFGnKIPvI6I3zHjmUAUIWeUpU8fxpjjyUK6jJEKpI085fFwjcmOyPG N9XBIkPs6NTIMdWRB0ZBAlcDGkNwQaZYAELOwxKD0S nODdRXP3xD6xAFnpSHJwWILkQ5lYQjSuqPajKN66fFrpyuNpiNLqWPs+Vh3DAS3bm8JbCQq4paUeSLcx NWZ9CAjlEDOaBLTcFMJdHHL7YAA1KGTNSgSlKLRjLZHsCJhfIALcOZEjwo8IUHPhBRLePzKzAgClBGKl JDDeGDkxMNBrWKS1OLrfXIYoUOQoDA1VCqXhFESaXL JcPNdqDYYbUHNefh2WEVZvKIZvWwZ9IUEqTYHjRTDjUNkyTNKxIELcEYB7CHEtDYZdKR1TWdFmBOCiSI p4XiQpMRAaYIJfxm8RUURoROWaINI0EFFcMCCePLIeNTwkLEUhVDFoZOPrMIKpKUFsMI4BWrAxAYRxAU WeVFCvJUUzTOTdfe2HNNVnYSViTiAgXtStFCCqOAJe HHbkSCNfLKDbXuXtSWTzWNYnLF5MAhEeIFVxVHKkDRRfVGRzOMGklm2FFGUpCSZeUxC3RPNzCPIuXMYr JOdzSZXuYABsTPY8LBEbYTEkUK5JLuYpQUNaZKW7COTeRFBlDPHatt6YEPUnTQUmVUV1ELGoLBImYZRt TAieWUVhALN0WYTfETOiRPHpWN5QCxHuQNAyGhO6WY jdZNCgOOXdff3TXVQnTEXyCBa5XLYiSMPiJLRdBLybTFSlEGO7TRV1RCOpJTVqZK3UNzLzGICpMgpeNX oiZCReHUFtgz2QSRYbYSFiZyUuNcMwPYXzZHSeGCijPXCmNGD3FYV1RRPqQAZbXU1WEsScSNFdMdj6Bq ZbEIWsFDQyjk4CGUTsLGMtFNH9LfQaCPLgFTPbNGlh UPNxAFP2FuRkIPWsLSLhCB4CXoTqXJIkWzx2YZCfMGEvRMLeic4FiWOgoHeetw8RYMfFRn0BvIrnZPX7 LXgiNh2nbNYjQZBaHZQKRt5FeaBbFQFmUCRBFUisGJKvNOXxX7MvWUNpH0CcSKZpVTC9MOPjXVAiDRL1 SfQ5JZJ6OaI7O6OqJaHrLkX8VkDiYEY3DBmtFRD9UB ZhZjVmZjRhZjk+AZ3pXGx+Vw2Bj6LpufT0ldQeOXxxCMj6Ke3LHASNI1EWTu== ID Date Data Source [id number] 05/06/2020 12:00:00 AM EST [facility] Name Value Range Interpretation Code Description Data Maria Isabel rce(s) Supporting Document(s) SARS coronavirus 2 RNA [Presence] in Res piratory specimen by SONIDO with probe detection NEGATIVE [facility] This lab was ordered by Deshawn Shay and reported by [employer]. ID Date Data Source [id number] 05/06/2020 12:00:00 AM EST [facility] Name Value Range Interpretation Code Description Data Maria Isabel rce(s) Supporting Document(s) Carestart Rapid COVID Antigen Test Negative [facility] This lab was reported by Deshawn laguerre. Procedure Social History Code Duration Value Status Description Data Source(s ) Smoking 09/04/2020 12:04:00 AM EDT Denies Ever Smoked complete d Denies Ever Smoked [facility] Alcohol intake 08/24/2020 12:00:00 AM EDT Current non-d bianka of alcohol (finding) completed Current non-drinker of alcohol (finding) [facility] Tobacco use and exposure 08/24/2020 12:00:00 AM EDT Never used co mpleted Never used [facility] Smoking 08/24/2020 12:00:00 AM EDT Never smoker completed Never s [facility] Alcohol intake 06/08/2020 12:00:00 AM EST Current non-d bianka of alcohol (finding) completed Current non-drinker of alcohol (finding) [facility] 01/10/2020 12:00:00 AM EDT completed [facility] Vital Signs ID Date Data Source UNK Name Value Range Interpretation Code Description Data Source(s) Systolic blood pressure 118 mm[Hg] Normal (applies t o non-numeric results) 118 mm[Hg] [facility] Diastolic blood pressure 71 mm[Hg] Normal (applies to non-numeric results) 71 mm[Hg] [facility] Heart rate 83 min Normal (applies to non-numeric resul ts) 83 min [facility] Body height 176.784 cm Normal (applies to non-numeric resu lts) 176.784 cm [facility] Respiratory rate 18 min Normal (applies to non-numeric results) 18 min [facility] Body temperature 36.3 rubina Normal (applies to non-numeric results) 36.3 rubina [facility] Body mass index (BMI) [Ratio] 20.81 kg/m2 No rmal (applies to non-numeric results) 20.81 kg/m2 [facility] Body weight Measured 65.771 kg Normal (applies to n on-numeric results) 65.771 kg [facility] ID Date Data Source [id number] 09/03/2020 08:44:18 PM EDT [facility] Name Value Range Interpretation Code Description Data Source(s) TRANSFER FROM [facility] ID Date Data Source [id number] 08/24/2020 05:19:43 PM EDT [facility] Value Range Interpretation Code Description Data Source(s) WEIGHT RECORDED 144.4 lb 144.4 lb [facility] ID Date Data Source [id number] 08/03/2020 05:42:46 PM EDT [facility] Name Value Range Interpretation Code Description Data Source(s) WEIGHT RECORDED 141 lb 141 lb [facility] ID Date Data Source [id number] [facility] Interpret[facility] Code Description Data Source(s) WEIGHT RECORDED 135 lb 135 lb [facility] ID Date Data Source [id number] 06/08/2020 07:32:10 PM EST [facility] Value Range Interpretation Code Description Data Source(s) Body height Measured 70 in 70 in [facility] WEIGHT RECORDED 132.4 lb 132.4 lb [facility]
[2021-01-29] MEDS ORDERED: CLON0.5T2 PO (21:20)
[2021-01-29] MEDS ORDERED: ZOLO100T PO (21:20)
[2021-01-29] MEDS ORDERED: D31000TA2 PO (21:20)
[2021-01-29] MEDS ORDERED: HOME MED LIST COMPLETE! XX SCH (21:25)
[2021-01-29 23:12] VITALS: BP 140/88
[2021-01-29] MEDS ORDERED: NICOTINE 21MG/24HR 1 EA TRANSDERMAL TD PRN (23:20)
[2021-01-30] MEDS: traZODone 50 MG TAB PO PRN ×2 (00:18→20:10)
[2021-01-30] MEDS: clonazePAM 0.5 MG TAB PO PRN ×2 (00:18→20:10)
[2021-01-30] MEDS ORDERED: INFLUENZA QUADRIVALENT PF VACCINE 0.5ML SYRINGE IM ONE (09:00)
[2021-01-30] MEDS: VITAMIN D 1,000 INTERNATIONAL UNITS TABLET PO SCH (09:18)
[2021-01-30] MEDS: SERTRALINE 100 MG TAB PO SCH (09:19)
--- NOTE | 2021-01-30 14:41 | MHHPEPDOC ---
General Date Of Admission: Jan 29, 2021 Legal Status: 9.39 Chief Complaint "Have High Anxiety." History of Present Illness HISTORY OF THE PRESENT ILLNESS: This is the first psychiatric admission for a patient who is 20 -year-old Single, Unemployed, Domiciled, , female, who reports anxiety increasing over the past week. She states, "I fixed most of the problems yesterday because school was a big stressor and I decided to take the semester off. " Patient has the paperwork to fill out the withdrawal from school. She reports recently having of daughter 4 months ago. Stated that she had some depression for short period of time was started back on Zoloft a little over a month ago currently sees Dr. Nixon at [facility]. She reports that she had mild depressive symptoms but was not suicidal at the time. Per ED REPORT: Pt was brought to the ED by Dr. Saucedo(Psychologist at [facility])after she contacted him while she was in the [facility] parking lot and expressed SI. Yesterday, she informed him she was feeling suicidal, no plan or intent and planned to come to the ED today. Pt allegedly had been in her car for the past hour and couldn't get out due to her anxiety, therefore contacted Dr. Saucedo for help. During phone conversation today, pt. felt she could not keep herself safe and would attempt suicide "soon" if she did not come into the ED. Pt denies SI and HI upon arrival... Pt states, "I'm not suicidal, I just had an anxiety attack." Pt reports suffering from high anxiety for the past week, no specific stressors but felt she needed to come to the ED to "get some help for my anxiety." While waiting in the ED she reports feeling silly and states "maybe I thought it was more severe in the moment.' Currently, she is smiling and is requesting to be discharged at this time. Spoke to Dr. Thompson who reports pt has a hx of Depression, Anxiety, and Rule out Borderline Personality Disorder. He reports feeling very concerned regarding her safety. States he met with her in the office about one week ago where she expressed vague SI due to feeling overwhelmed with some recent stressors. 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 She also has a 4 month old son at home who is in the care of her boyfriend currently. Pt contacted him yesterday and expressed SI, but denied a plan or intent and assured Dr. Saucedo she would present to the ED today. Dr. Saucedo spoke to pt again today while pt was sitting in her vehicle in the parking garage and she s tated she was unable to keep herself safe and she feared she would attempt suicide again if she did come get treated. Pt does have a previous suicide attempt by OD about one year ago. Psychiatric Review of Systems Depression (2 or more weeks): insomnia/hypersomnia (always had had insomnia but has a 4 month) Leela (4 or more days of): denies Psychosis: denies PTSD: denies Anxiety: gen/non-specific anxiety, situational anxiety, stressor related anxiety, panic attacks Anxiety/ 6 months or more of: restlessness, keyed up, difficulty concentrating, sleep disturbance Past Psychiatric History Previous Psychiatric Diagnosis: Panic Disorder, Anxiety and Depression. Previous Psychiatric Admissions: Was hospitalized a year ago in [facility] Suicide Attempts: Overdose on Excedrin on last hospitalization Psychiatric Follow-up: Dr. Nixon Psychiatric medications: Zoloft, Clonazepam Vitamin D. Past Medical History Medical Problems Had Baby 4 months ago - vaginal delivery Surgeries - NOne cyst on pineal gland - current No Drug allergies, no food allergies Head Injury: No Seizures: No Hospitalizations: Yes Surgeries: No Family Medical/Psychiatric HX Medical Problems No contributory medical issues Psychiatric Disorders: Yes (Fatherbipolar) Addiction: Yes (Dad, history of EtOH) Suicide Attemps/Completions: No Addiction History nicotine (Occasional), alcohol (Occasional), other (Cannabissometimes) Social History Childhood: Born in [facility] to both parents still , has 2 younger brothers. Did well in school. 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 Social Support: Boyfriend and best friend Legal: Denies Marital: Single currently living with boyfriend has a 4-month-old baby Mental Status Examination General Appearance: well groomed, appears stated age, hospital scubs/clothing Build: thin, tall Demeanor: average Eye Contact: average Activity: average Behavior: cooperative Speech: clear Mood: anxious Affect: full Thought Process: logical/linear Thought Content (Delusions): none reported Thought Content (Other): none reported Thought Content (Aggressive): none reported Perception (Hallucinations): none reported Perception (Other): none reported Cognition (Impairment of): none reported Cognition(Intelligence Est.): above average Oriented: Awake, Alert, Oriented times three Insight: good Judgment: Good Psychosis: Denies Diagnoses Unspecified depressive disorder Generalized anxiety Disorder Panic disorder A-FIB/CHADSVASC A-FIB History Current/History of A-Fib/PAF?: No Current PO Anticoag Therapy: No Assessment This is the first psychiatric admission for a patient who is 20 -year-old Sin gle, Unemployed, Domiciled, , female, who reports anxiety increasing over the past week. She states, "I fixed most of the problems yesterday because school was a big stressor and I decided to take the semester off. " On interview patient denied suicidal ideations, per the ED she had made statements about not being able to stay safe. The patient to be afforded the following treatment modalities : 1) Individual Therapy 2) Group Therapy 3) Medication Management 4) Milieu Therapy 5) Safe Environment The patient reporting that her crisis is over today today states she is in need of continued hospitalization is requesting that she be discharged tomorrow. Initial Treatment Plan 1. Patient was admitted on a [9.39] status. 2. Complete history was obtained. 3. With patients permission, family will be contacted and database will be expa nded. 4. Patients medication regimen will be reviewed and changed accordingly. 5. Patient will be provided with protected environment. 6. Patient will be treated with individual, group, and milieu therapies. 7. Patient will receive supportive psych-education. 8. Discharge planning will commence immediately. 9. Outpatient follow-up treatment will be strongly recommended. 10. The initial treatment plan will focus initially on: * Depression. * Risk for suicide * Anxiety ESTIMATED LENGTH OF STAY: 3-5 DAYS. TIME SPENT COUNSELING AND COORDINATING INITIAL CARE: 60 minutes. Tobacco Cessation Screen If Patient is a Smoker Patient smokes occasionally Tobacco Cessation Tx Ordered?: Yes N/A-No Antipsychotics Vital Signs Vital Signs Date Time Temp Pulse Resp B/P (MAP) Pulse Ox O2 Delivery O2 Flow Rate FiO2 01/29/21 23:12 97.6 86 16 140/88 (105) 100 Room Air Laboratory Data 24H Labs Laboratory Tests 2 01/29/21 18:09: Nucleated Red Blood Cells % (auto) 0.0, Anion Gap 7L, Glomerular Filtration Rate > 60.0, Calcium Level 9.5, Total Bilirubin 0.5, Direct Bilirubin 0.1, Aspartate Amino Transf (AST/SGOT) 12, Alanine Aminotransferase (ALT/SGPT) 20, Alkaline Phosphatase 65, Total Protein 7.7, Albumin 4.2, Albumin/Globulin Ratio 1.2, Thyroid Stimulating Hormone (TSH) 1.570, Human Chorionic Gonadotropin, Qual NEGATIVE, Salicylates Level < 1.7L, Urine Opiates Screen NEGATIVE, Urine Methadone Screen NEGATIVE, Acetaminophen Level < 2.0L, Urine Barbiturates Screen NEGATIVE, Urine Phencyclidine Screen NEGATIVE, Urine Amphetamines Screen NEGATIVE, Urine Benzodiazepines Screen NEGATIVE, Urine Cocaine Metabolite Screen NEGATIVE, Urine Cannabinoids Screen POSITIVEH, Ethyl Alcohol Level < 0.003, Coronavirus (COVID-19)(PCR) NEGATIVE, Influenza Type A (RT-PCR) NEGATIVE, Influenza Type B (RT-PCR) NEGATIVE, Respiratory Syncytial Virus (PCR) NEGATIVE CBC/BMP Laboratory Tests 01/29/21 18:09 Medications Scheduled Cholecalciferol (Vitamin D3) (Vitamin D3) 1,000 Unit Tablet, 1,000 UNITS PO DAILY, (Reported) Sertraline Hcl (Zoloft) 100 Mg Tablet, 100 MG PO DAILY, (Reported) Scheduled PRN Clonazepam (Clonazepam) 0.5 Mg Tablet, 0.5 MG PO DAILY PRN for ANXIETY, (Reported) Allergies Coded Allergies: No Known Allergies (Verified Allergy, Unknown, 06/21/19) JAISON LEON NP Jan 30, 2021 11:43
[2021-01-30] MEDS ORDERED: clonazePAM 0.5 MG TAB PO ONE (16:00)
--- NOTE | 2021-01-30 16:16 | HPEPDOC ---
[facility] Medical History & Physical Date of Admission Jan 29, 2021 Date of Service: Jan 30, 2021 History and Physical CHIEF COMPLAINT: Anxiety depression HISTORY OF PRESENT ILLNESS: 20-year-old female admitted to the inpatient mental health unit due to depression and anxiety. Patient otherwise denies weight gain weight loss headaches changes in vision ear discharge tinnitus vertigo chest pain pressure tightness lightheadedness dizziness shortness of breath cough fever chills sputum production hematemesis bright red blood per rectum melena black tarry stools nausea vomiting diarrhea abdominal pain dysuria urgency frequency flank pain polyuria polyphagia polydipsia joint pains muscle pains rash. She admits to having insomnia depressive mood and severe anxiety. PAST MEDICAL HISTORY: Depression Anxiety PAST SURGICAL HISTORY: None Vaginal delivery SOCIAL HISTORY: Denies alcohol recreational drug use Admits to smoking once or twice a month FAMILY HISTORY: Father: Bipolar disorder, alcohol abuse Mother: Alive and well ALLERGIES: Please see below. REVIEW OF SYSTEMS: 10 point system negative aside from positive findings in HPI HOME MEDICATIONS: Please see below. PHYSICAL EXAMINATION: VITAL SIGNS: See below GENERAL APPEARANCE: Awake alert oriented to person place and time answering questions appropriately no pallor cyanosis or icterus HEENT: Moist mucous membranes no thyromegaly or cervical lymphadenopathy no stridor CARDIOVASCULAR: S1-S2 regular rate rhythm LUNGS: Clear to auscultation no wheezing rales or rhonchi ABDOMEN: Positive bowel sounds soft nontender nondistended no rebound or guardi ng no CVA tenderness EXTREMITIES: No cyanosis clubbing or pitting edema LABORATORY DATA: See below. MICROBIOLOGY: Please see below. ASSESSMENT: 20-year-old female admitted for severe anxiety depression. Anxiety/depression: -Management per primary psychiatric team Tobacco abuse: -Tobacco cessation counseling. Nicotine gum as needed Hospitalist will sign off please reconsult for any acute medical issues Vital Signs Vital Signs Date Time Temp Pulse Resp B/P (MAP) Pulse Ox O2 Delivery O2 Flow Rate FiO2 01/29/21 23:12 97.6 86 16 140/88 (105) 100 Room Air Laboratory Data Labs 24H Laboratory Tests 2 01/29/21 18:09: Nucleated Red Blood Cells % (auto) 0.0, Anion Gap 7L, Glomerular Filtration Rate > 60.0, Calcium Level 9.5, Total Bilirubin 0.5, Direct Bilirubin 0.1, Aspartate Amino Transf (AST/SGOT) 12, Alanine Aminotransferase (ALT/SGPT) 20, Alkaline Phosphatase 65, Total Protein 7.7, Albumin 4.2, Albumin/Globulin Ratio 1.2, Thyroid Stimulating Hormone (TSH) 1.570, Human Chorionic Gonadotropin, Qual NEGATIVE, Salicylates Level < 1.7L, Urine Opiates Screen NEGATIVE, Urine Met hadone Screen NEGATIVE, Acetaminophen Level < 2.0L, Urine Barbiturates Screen NEGATIVE, Urine Phencyclidine Screen NEGATIVE, Urine Amphetamines Screen NEGATIVE, Urine Benzodiazepines Screen NEGATIVE, Urine Cocaine Metabolite Screen NEGATIVE, Urine Cannabinoids Screen POSITIVEH, Ethyl Alcohol Level < 0.003, Coronavirus (COVID-19)(PCR) NEGATIVE, Influenza Type A (RT-PCR) NEGATIVE, Influenza Type B (RT-PCR) NEGATIVE, Respiratory Syncytial Virus (PCR) NEGATIVE CBC/BMP Laboratory Tests 01/29/21 18:09 Home Medications Scheduled Cholecalciferol (Vitamin D3) (Vitamin D3) 1,000 Unit Tablet, 1,000 UNITS PO DAILY Sertraline Hcl (Zoloft) 100 Mg Tablet, 100 MG PO DAILY Scheduled PRN Clonazepam (Clonazepam) 0.5 Mg Tablet, 0.5 MG PO DAILY PRN for ANXIETY Allergies Coded Allergies: No Known Allergies (Verified Allergy, Unknown, 06/21/19) A-FIB/CHADSVASC A-FIB History Current/History of A-Fib/PAF?: No Current PO Anticoag Therapy: No Age/Risk Factor Scoring CHADSVASC: CHADSVASC Response (Comments) Value Age Risk Factor Age < 65 years old 0 Gender Risk Factor Female 1 Hx of CHF No 0 Hx of HTN No 0 Hx of Stroke/TIA/or VTE No 0 Hx of Diabetes No 0 Hx of Vascular Disease No 0 Total 1 Treatment Treatment ordered: NONE KYRIE MENDOZA MD Jan 30, 2021 16:16
[2021-01-30 16:31] VITALS: BP 117/79
[2021-01-31 07:12] VITALS: BP 105/62
[2021-01-31] MEDS ORDERED: NICO21PAT TD (08:26)
[2021-01-31] MEDS: SERTRALINE 100 MG TAB PO SCH (09:22)
[2021-01-31] MEDS: VITAMIN D 1,000 INTERNATIONAL UNITS TABLET PO SCH (09:22)
--- NOTE | 2021-01-31 12:35 | MHDSPDOC ---
[facility] Discharge Summary Discharge Summary DATE OF ADMISSION: Jan 29, 2021 at 20:57 DATE OF DISCHARGE: Jan 31, 2021 at 11:35 DISCHARGE DIAGNOSES: Unspecified depressive disorder Generalized anxiety Disorder Panic disorder REASON FOR ADMISSION: This is the first psychiatric admission for a patient who is 20 -year-old Single, Unemployed, Domiciled, , female, who reports anxiety increasing over the past week. She states, "I fixed most of the problems yesterday because school was a big stressor and I decided to take the semester off. " Patient has the paperwork to fill out the withdrawal from school. She reports recently having of daughter 4 months ago. Stated that she had some depression for short period of time was started back on Zoloft a little over a month ago currently sees Dr. Nixon at [facility]. She reports that she had mild depressive symptoms but was not suicidal at the time. Per ED REPORT: Pt was brought to the ED by Dr. Saucedo(Psychologist at [facility])after she contacted him while she was in the [facility] parking lot and expressed SI. Yesterday, she inform ed him she was feeling suicidal, no plan or intent and planned to come to the ED today. Pt allegedly had been in her car for the past hour and couldn't get out due to her anxiety, therefore contacted Dr. Saucedo for help. During phone conversation today, pt. felt she could not keep herself safe and would attempt suicide "soon" if she did not come into the ED. Pt denies SI and HI upon arrival... Pt states, "I'm not suicidal, I just had an anxiety attack." Pt reports suffering from high anxiety for the past week, no specific stressors but felt she needed to come to the ED to "get some help for my anxiety." While waiting in the ED she reports feeling silly and states "maybe I thought it was more severe in the moment.' Currently, she is smiling and is requesting to be discharged at this time. Spoke to Dr. Thompson who reports pt has a hx of Depression, Anxiety, and Rule out Borderline Personality Disorder. He reports feeling very concerned regarding her safety. States he met with her in the office about one week ago where she expressed vague SI due to feeling overwhelmed with some recent stressors. 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 She also has a 4 month old son at home who is in the care of her boyfriend currently. Pt contacted him yesterday and expressed SI, but denied a plan or intent and ass ured Dr. Saucedo she would present to the ED today. Dr. Saucedo spoke to pt again today while pt was sitting in her vehicle in the parking garage and she stated she was unable to keep herself safe and she feared she would attempt suicide again if she did come get treated. Pt does have a previous suicide attempt by OD about one year ago. REASON FOR ADMISSION VITAL SIGNS: See below. CONSULTANTS INVOLVED: See Medical H + P by Hospitalist TREATMENT AND PROGRESS ON THE UNIT: Patient was admitted to the [facility] on a legal status was afforded the following treatment modalities: 1) Individual Therapy 2) Group Therapy 3) Medication Management 4) Milieu Therapy 5) Safe Environment HOSPITAL COURSE: Patient was admitted to [facility] on a legal status. Patient was resumed on her home medication - she found medications beneficial and tolerated them well. She reported no side effects or adverse reactions. Her mood, anxiety, and intrusive thoughts improved with treatment. Pt attended groups during stay. Pts symptoms improved with treatment. On day of discharge pt. denied depression, anxiety, insomnia, SI/HI, hallucinations, delusions. Pt was discharged home with follow-up with [facility]. Pt felt safe for discharge. DISCHARGE ASSESSMENT: In today's interview, patient is alert and oriented, pt.s dress is appropriate. Hygiene and grooming is well-kempt. In today's discharge interview patient appeared mildly blunted and flat. Reviewed with patient her discharge diagnoses. Provider reviewed with her that her diagnosis was unclear as she had denied most depressive symptoms the day before. She also had denied suicidal ideations, but reported to the ED that she did. Provider attempted to clarify this and patient appeared to vacillate between ignoring the conversation or telling the truth. She stated that she was not suicidal at the time that she was interviewed by this provider and currently denies depression and anxiety. Denies suicidal and homicidal ideation, planning or intent. Denies and is not observed with lexi, psychotic symptoms of delusions, bizarre thinking, obsessions, paranoia, ruminations illogical thoughts, flight of ideas or having poor insight and judgement. Reinforced with patient need to abstain from alcohol and drugs. At discharge patient has normal mentation, declines further hospitalization on a voluntary status and meets criteria for discharge today. Discussed indications of medications, potential benefits and risks, alternatives (including no treatment) and questions were encouraged and answered. Patient encouraged to return to hospital if symptoms worsen or change and encouraged to call unit if he/she/they needs to speak to provider for questions regarding medications or care. Later in the morning patient asked to speak to the provider again. The patient admitted that she had suicidal ideations yesterday. When asked if she has them today she denies. When asked what would stop her from hurting herself, she states "I would never hurt myself because of my baby. "She again denied any further suicidal thinking or planning and denies any intent of self-harm. States that her biggest stressor was school and that since she has withdrawn from the semester she feels much better about her decision, has less anxiety, her depression is improving. MENTAL STATUS EXAMINATION ON DISCHARGE: This is the first psychiatric admission for a patient who is 20 -year-old Single, Unemployed, Domiciled, , female, who reports anxiety increasing over the past week. Speech: Is fluid, conversant, normal rate, tone and volume Language skills are intact Thought processes including: linear and goal oriented Thought content: denies depression and anxiety. Denies suicidal/homicidal ideation, planning or intent. Abstract reasoning, and computation: fair Description of associations: denies, none observed Description of abnormal or psychotic thoughts: denies, none observed. Judgment: fair Insight: fair Orientation: alert and oriented to person, place, time and situation Recent and remote memory: intact Attention span and concentration: good Language: expansive Fund of knowledge: average Mood: Euthymic Mood Affect: reactive Suicide Risk Assessment: 1) Does the patient wish to be ? Sometimes 2) Since your admission, have you had any actual thought of killing yourself? Sometimes 3) Since your admission, have you been thinking about how you might do this? No 4) Since your admission, have you had these thoughts and had some intention of acting on them? No 5) Since your admission, have you started to work out or worked out the details of how to kill yourself? No 5A) Do you intent to carry out this plan? No and NA 6) Have you ever done anything, started anything, or prepared to do anything with any intent to ? No 6A) How long since your admission did you do any of these? NA MEDICATIONS ON DISCHARGE: See Medication Reconciliation PLAN/FOLLOWUP ARRANGEMENTS: Pt was discharged home with follow-up with [facility]. Pt felt safe for discharge. The amount of time spent in the coordination of care for this patient was approximately 25 minutes. ETOH/Disorder Med Rx ETOH/DRUG DISORDER RX: N/A Vital Signs/I&Os Vital Signs Date Time Temp Pulse Resp B/P (MAP) Pulse Ox O2 Delivery O2 Flow Rate FiO2 01/31/21 07:12 98.5 70 18 105/62 (76) 99 Room Air Medications Scheduled Cholecalciferol (Vitamin D3) (Vitamin D3) 1,000 Unit Tablet, 1,000 UNITS PO DAILY, (Reported) Sertraline Hcl (Zoloft) 100 Mg Tablet, 100 MG PO DAILY, (Reported) Scheduled PRN Clonazepam (Clonazepam) 0.5 Mg Tablet, 0.5 MG PO DAILY PRN for ANXIETY, (Reported) Nicotine (Nicotine Patch) 21 Mg Patch.td24, 1 PATCH TD DAILYPRN PRN for NICOTINE WITHDRAWAL, #7 Allergies Coded Allergies: No Known Allergies (Verified Allergy, Unknown, 06/21/19) JAISON LEON NP Jan 31, 2021 12:35
== END 2021-01-31 11:35 | disposition home or self-care (01) | DRG 881 ==
LOC: M ED 16:55 → M ED INP 20:57 → M PSY 23:28
PROVIDERS: ADMIT Psychiatry & Neurology Psychiatry; ATTEND Psychiatry & Neurology Psychiatry
DX: F32.9 Major depressive disorder, single episode, unspecified (principal); R45.851 Suicidal ideations; F41.1 Generalized anxiety disorder; F41.0 Panic disorder [episodic paroxysmal anxiety]; Z56.0 Unemployment, unspecified; F17.200 Nicotine dependence, unspecified, uncomplicated; Z79.899 Other long term (current) drug therapy; Z20.822 Contact with and (suspected) exposure to COVID-19

== ENCOUNTER 2021-02-13 16:36 | Inpatient (IN) | payer OTHER ==
[~2021-02-13] VITALS: Ht 177.8 cm; Wt 51.2 kg
[~2021-02-13 16:36] MED LIST: CLON0.5T2; CLON0.5T2 PO; D31000TA2 PO; NICO21PAT TD; VITATAB74 PO; ZOLO100T; ZOLO100T PO
--- OUTSIDE RECORDS SUMMARY | 2021-02-13 16:42 | CCD ---
Author Author [facility] Organization [facility] Address Unknown Phone Unavailable Care Team Providers Care Watch Repairer Apprentice Name Role Phone SYSTEM IN, NOT IN PROVIDER Unavailable Unavailable JOSI SOLIZ Unavailable Unavailable Bailey VADLIVIA MD Unavailable Unavailable Bailey VALDIVIA MD Unavailable [...] Unavailable Unavailable BAKARI ROBERTSZABETH Unavailable Unavailable [facility]_4785, [id number] Unavailable [phone] [facility]4785, [id number] Unavailable [phone] [facility]4785, [id number] Unavailable [phone] [facility]4785, [id number] Unavailable [phone] [facility]4785, [id number] Unavailable [phone] [facility]4785, [id number] Unavailable [phone] [facility]4785, [id number] Unavailable [phone] [facility]4785, [id number] Unavailable [phone] [facility]4785, [id number] Unavailable [phone] [facility]4785, [id number] Unavailable [phone] [facility]4785, [id number] Unavailable [phone] [facility]4785, [id number] Unavailable [phone] [facility]4785, [id number] Unavailable [phone] [facility]4785, [id number] Unavailable [phone] [facility]4785, [id number] Unavailable [phone] [facility]4785, [id number] Unavailable [phone] Mavis SANCHEZ MD Unavailable [...] Unavailable Unavailable Mavis SANCHEZ MD Unavailable Unavailable Mavsi SANCHEZ MD Unavailable Unavailable Mavis SANCHEZ MD [...] GAMBINO MD Unavailable Unavailable BYRON, C NIDA VIDEOGAME DESIGNER Unavailable Unavailable BYRON, C NIDA VIDEOGAME DESIGNER Unavailable Unavailable BYRON, C NIDA VIDEOGAME DESIGNER Unavailable Unavailable BYRON, C NIDA VIDEOGAME DESIGNER Unavailable Unavailable BYRON, C NIDA VIDEOGAME DESIGNER Unavailable Unavailable BYRON, C NIDA VIDEOGAME DESIGNER Unavailable Unavailable BYRON, C NIDA VIDEOGAME DESIGNER Unavailable Unavailable BYRON, C NIDA VIDEOGAME DESIGNER Unavailable Unavailable BYRON, C NIDA VIDEOGAME DESIGNER Unavailable Unavailable BYRON, C NIDA VIDEOGAME DESIGNER Unavailable Unavailable BYRON, C NIDA VIDEOGAME DESIGNER Unavailable Unavailable BYRON, C NIDA VIDEOGAME DESIGNER Unavailable Unavailable BYRON, C NIDA VIDEOGAME DESIGNER Unavailable Unavailable BYRON, C NIDA VIDEOGAME DESIGNER Unavailable Unavailable BYRON, C NIDA VIDEOGAME DESIGNER Unavailable Unavailable BYRON, C NIDA VIDEOGAME DESIGNER Unavailable Unavailable BYRON, C NIDA VIDEOGAME DESIGNER Unavailable Unavailable BYRON, C NIDA VIDEOGAME DESIGNER Unavailable Unavailable BYRON, C NIDA VIDEOGAME DESIGNER Unavailable Unavailable BYRON, C NIDA VIDEOGAME DESIGNER Unavailable Unavailable BYRON, C NIDA VIDEOGAME DESIGNER Unavailable Unavailable BYRON, C NIDA VIDEOGAME DESIGNER Unavailable Unavailable BYRON, C NIDA VIDEOGAME DESIGNER Unavailable Unavailable BYRON, C NIDA VIDEOGAME DESIGNER Unavailable Unavailable BYRON, C NIDA VIDEOGAME DESIGNER Unavailable Unavailable BYRON C NIDA VIDEOGAME DESIGNER Unavailable Unavailable FOLK, J KASI MD Unavailable [...] is protected by Article 27-F of the [facility] Public Health law. If you continue you may have access to information: Regarding HIV / AIDS; Provided by facilities licensed or operated by the [facility] Office of Mental Health; or Provided by the [facility] Office for People With Developmental Disabilities. If such information is present, then the following [facility] mandated warning applies: This information has [...] law may result in a fine or shelter sentence or both. A general authorization for the release of medical or other information is NOT sufficient authorization for further disc losure. Allergies and Adverse Reactions Type Description Substance Reaction Status Data Source(s ) Propensity to adverse reactions NO KNOWN ALLERGIES NO KNOWN ALLERGIES [facility] Encounters Encounter Providers Location Date Indications Data Source(s ) Outpatient Attender: NIDA MATTHEWS NP 10/15/2020 12:00:0 0 AM [facility] Outpatient Attender: NIDA MATTHEWS NP 09/14/2020 12:00:0 0 AM [facility] Outpatient 09/13/2020 12:00:00 AM [facility] Outpatient 09/13/2020 12:00:00 AM [facility] Inpatient Attender: KASI VALDIVIA MD 09/04/2020 12:47:51 AM E DT Lab [facility] Inpatient Attender: KASI VALDIVIA MDAdmitter: KASI VALDIVIA MD 09/04/2020 12:00:00 AM EDT - 09/06/2020 01:57:00 PM EDT 36 WKS WITH RUPTURED MEMBRANES HIGH RISK [facility] 36 WKS WITH RUPTURED MEMBRANES HIGH RISK Patient discharged. Outpatient Referrer: PROVIDER SYSTEM IN 09/03/2020 0 8:44:00 PM EDT 36 week preg, water broke. [facility] 36 week preg, water karolinake. Emergency Attender: Miles DOBBS-CReferrer: [phone] [facility] 09/03/2020 08:10:00 PM EDT - 09/03/2020 10:20:00 PM EDT [facility] Patient discharged. Outpatient Attender: KASI GUTIERRES JRReferrer: FRANCISCA Gamble ICAMPLI [id number] 08/24/2020 12:00:00 AM EDT - 08/24/2020 03:16:22 PM EDT Maternal care for other (suspected) abnormality and damage, not applicable or unspecified [facility] Maternal care for other (suspected) feta l abnormality and damage, not applicable or unspecified Outpatient Attender: MINA PELAEZ 08/24/2020 12:00:00 AM [facility] Outpatient Attender: NIDA BLUMeferrer: Bailey GUTIERRES JR [id number] 08/22/2020 12:00:00 AM EDT - 08/22/2020 03:36:42 PM [facility] Outpatient Attender: KASI GUTIERRES JRReferrer: FRANCISCA Gamble ICAMPLI [id number] 07/27/2020 12:00:00 AM EDT - 07/27/2020 03:34:51 PM EDT Maternal care for other (suspected) abnormality and damage, not applicable or unspecified [facility] Maternal care for other (suspected) feta l abnormality and damage, not applicable or unspecified Outpatient Attender: ADITI HOBSON 07/27/2020 12:00:00 AM [facility] Outpatient 07/27/2020 12:00:00 AM [facility] Outpatient Attender: CHUY RAM 07/27/2020 12:00:00 AM [facility] Outpatient Attender: KASI Brownerrer: FRANCISCA Gamble ICAMPLI [id number] 06/28/2020 12:00:00 AM EDT - 06/28/2020 04:03:02 PM EDT Maternal care for other (suspected) abnormality and damage, not applicable or unspecified [facility] Maternal care for other (suspected) feta l abnormality and damage, not applicable or unspecified Outpatient Attender: JOSI SOLIZ 06/28/2020 12:00:00 AM [facility] Outpatient Attender: KASI GUTIERRES JRReferrer: FRANCISCA Gamble ICAMPLI [id number] 06/08/2020 12:00:00 AM EST - 06/08/2020 12:22:05 PM EST Maternal care for (suspected) abnormality and damage, unspecified, not applicable or unspecified [facility] Maternal care for (suspected) abno rmality and damage, unspecified, not applicable or unspecified Outpatient Attender: CHUY RAMReferrer: FRANCISCA CALVO YOLIS 06/08/2020 12:00:00 AM [facility] Outpatient Attender: Ciro DOBBS 05/06/19 12:00:54 PM EST - 05/06/2020 12:48:01 PM EST [facility] ([facility] ) Immunizations Vaccine Date Status Description Data Source(s) COVID-19 VACCINE Pfizer 12/24/2020 12:00:00 AM EDT completed [facility] Vaccine Series Complete: YESThis Data wa s Submitted to [facility] Via [employer]. COVID-19 VACCINE Pfizer 12/03/2020 12:00:00 AM EDT completed [facility] Vaccine Series Complete: NOThis Data was Submitted to [facility] Via [employer]. Medications Medication Brand Name Start Date [...] to resendiz Policy Resendiz Plan Information U [id number] Self [id number] U [id number] Self [id number] [facility] [id number] CHILD [id number] / [id number] Parent [id number] RPR- Needs Payer Match [id number] Self [id number] U [id number] Self [id number] MEDICAID [id number] S [id number] N REGIONAL CLAIMS PANCHO -O/P [id number] 19 [id number] [facility] [id number] CHILD [id number] MEDICAID HEA [id number] S [id number] HEA [id number] P [id number] MEDICAID UNAVAILABLE S UNAVAILA BLE [facility] [id number] FA2 [id number] ANSI-Not a Secondary Insurance [id number] [facility]/[place] [id number] [facility] [id number] Problems, Conditions, and Diagnoses Code Display Name Description Problem Type Effective Dates Data Source(s) 36 week preg, water broke. 36 week preg, water broke. 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 O THER CORRECTION (CURRENT) DRUG THERAPY Diagnosis 09/03/2020 08:10:00 PM [facility] Z3A.36 36 weeks gestation of 36 WEEKS GESTATI ON OF Diagnosis 09/03/2020 08:10:00 PM [facility] Z20.822 CONTACT WITH AND (SUSPECTED) EXPOSURE TO COVID-19 CONTACT WITH AND (SUSPECTED) EXPOSURE TO COVID-19 Diagnosis 09/03/2020 08:10:00 PM [facility] O42.113 premature rupture of membranes, onset of labor more than 24 hours following rupture, third trimester PRETRM CHERYLE ROM, ONSET LABOR > 24 HOURS FOL RUPT, THIRD TRI Diagnosis 09/03/2020 08:10:00 PM [facility] l O35.8XX0 Maternal care for other (kerry pected) abnormality and damage, not applicable or unspecified Maternal care for other (suspected) feta l abnormality and damage, not applicable or unspecified Diagnosis 06/08/2020 07:10:1 5 PM [facility] O35.9XX0 Maternal care for (suspected ) abnormality and damage, unspecified, not applicable or unspecified Maternal care for (suspected) abnormality and damage, unspecified, not applicable or unspecified Diagnosis 06/08/2020 09:38:28 AM [facility] Surgeries/Procedures Procedure Description Date Indications Data Source(s) MRI Brain W/O Contrast, Followed By Contrast 12:00:00 AM EDT [facility] ([facility], ) MRI Brain W/O Contrast, Followed By Contrast 12:00:00 AM EDT [facility] ([facility], ) Results ID Date Data Source [id number] 01/29/2021 06:09:00 PM EDT [facility] Name Value Range Interpretation Code Description Data Maria Isabel rce(s) Supporting Document(s) SARS coronavirus 2 RNA [Presence] in Res piratory specimen by SONIDO with probe detection NEGATIVE [facility] This lab was ordered by [facility] a nd reported by [facility]. ID Date Data Source [id number] 09/04/2020 03:42:02 PM EDT [facility] Name Value Range Interpretation Code Description Data Maria Isabel rce(s) Supporting Document(s) Progress Note [facility] PZFKRq7hCvKSKuQp27/JJOisFLJio5XtKIxwAMn7GHeeKMYmP7RsRCU0aO0hNQE0NXaXNrSiPhXwPsXu lbm [file] ICAgICAgICAgICAgICAgICAgICAgICAgICAgICAgIC AgICAgICAgICAgICAgICAgICAgICAgICAgICAgICAgICAgICAgICAgICANCiAgICAgICAgICAgICAgIC AgICAgICAgICAgICAgICAgICAgICAgICAgICAgICAgICAgICAgICAgICAgICAgICAgICAgICAgICAgIC AgICAgICAgICAgICAgICAgICAgICAgICANCiAgICAg ICAgICAgICAgICAgICAgICAgICAgICAgICAgICAgICAgICAgICAgICAgICAgICAgICAgICAgICAgICAg ICAgICAgICAgICAgICAgICAgICAgICAgICAgICAgICAgICANCiAgICAgICAgICAgICAgICAgICAgICAg ICAgICAgICAgICAgICAgICAgICAgICAgICAgICAgIC AgICAgICAgICAgICAgICAgICAgICAgICAgICAgICAgICAgICAgICAgICAgICANCiAgICAgICAgICAgIC AgICAgICAgICAgICAgICAgICAgICAgICAgICAgICAgICAgICAgICAgICAgICAgICAgICAgICAgICAgIC AgICAgICAgICAgICAgICAgICAgICAgICAgICANCiAg ICAgICAgICAgICAgICAgICAgICAgICAgICAgICAgICAgICAgICAgICAgICAgICAgICAgICAgICAgICAg ICAgICAgICAgICAgICAgICAgICAgICAgICAgICAgICAgICAgICANCiAgICAgICAgICAgICAgICAgICAg ICAgICAgICAgICAgICAgICAgICAgICAgICAgICAgIC AgICAgICAgICAgICAgICAgICAgICAgICAgICAgICAgICAgICAgICAgICAgICAgICANCiAgICAgICAgIC AgICAgICAgICAgICAgICAgICAgICAgICAgICAgICAgICAgICAgICAgICAgICAgICAgICAgICAgICAgIC AgICAgICAgICAgICAgICAgICAgICAgICAgICAgICAN CiAgICAgICAgICAgICAgICAgICAgICAgICAgICAgICAgICAgICAgICAgICAgICAgICAgICAgICAgICAg ICAgICAgICAgICAgICAgICAgICAgICAgICAgICAgICAgICAgICAgICANCiAgICAgICAgICAgICAgICAg ICAgICAgICAgICAgICAgICAgICAgICAgICAgICAgIC AgICAgICAgICAgICAgICAgICAgICAgICAgICAgICAgICAgICAgICAgICAgICAgICAgICANCjw/eHBhY2 vmqQWtdwM7O2omSk0JWv5FLE6zh2JcTXFeAToyiwSiAufMDcJbMVQrDgrXIku5OLeeKY9XtSJdM4ScT0 NaMLmvRE1FPPPnVFPlvNVsUBLrLNZgQuU0YWXfRSjl UQ3CtMFcCLjjISFhNSKrTvVsEICvNU4PRHJaY801idNfMl4FTz3LHnPjWE1wor8YIaIhYGQiNorOQew2 ACkwVF8KrZUqaKZuQbGdRFGOHfAkT0umv6UfSsWbHAVBPZdpTC5Xn4ZexVBmSOn+Hq7WTG3qt9TwTFwh BhQhWA5hzz9HIBuNFeSkI2EtuDlhAMEsl6uoIZVpSI 8dyJTdFUC1CTeobt1tFjHwRZGwL5FrrvbfthjeMAEjZQDkUL1yYR7xZYSnTNFaMpUxVSOHWT4WDTHvTW LxjITiXVBuZQKJJY6XBVqzXDJ7GFNjglSwjWGcKWsiET1XZVCgcmGlOqBjMAZDKXf+Da7ACV5yg6IxFI scKbMcRY0hxh0JRMkVUmZwY2F5uTZvK9K4HGbdHo6Q BLLlOAEwTWvuLFILDAsxTI6BVE4ujsB2RH3ExFTmQIHpWJSduUWrOGn4I32pjDPdRNioCR9WNKG+Sayra+ Zy4AZXVtRWSpYZNqGlPpYAEUDtRfN7McX8QWn2ZfI7QwYS53oQtddtKfHRxrNY7HTF6nHQZeBGEMYM1P mKPddS5exrXeAUGhIEIFPzWnF38xcAVwNNSxHBRzUP RxAo4AWMZwC1HsnvBpzCddrcKkRTByERNJWK8OYWtpmrVedRSzaUhbES11iSahDD8BSj2KDpPwPC5for 1UzKKpBx7XPZFrZH5XBIFkBEVvOWOdYHA2YEJmGwReTRpbHJEqAMPsRTL3IJMqRZYuIE6BDaNoQTJzWs UiAXByNEUjLCTxxg7HUMIhYDByLdW7FwYwOWBgWYVt FMrwADQuJTDyKFV1PRIsOYMfEV0ZUaBlIBYtJKB6AdEoBQVcDBSnov0DXRMhLMSvUNSiHMUaMDTyYMZe NNcdUOPbWEV9JYB1FLLqIGEiJJ1CNcXsFAJlCPNeEwQaBOOcXZVnrl6YTLCuKCOpEoChBJFeDDGxJWYj IRosEDVeJWM1RBH7OCTdADWuLQ3SMsExAHJxLQK2XS keYGWiPVKdrc8MRVHhIIVsWfW0RnIaLLHnOKEtWHhzRAWuYLC9CSW4JAUaNSHdEZ6WTxKqZWYlLSnhUD GtIDUtGMVobb7FWOMxSVTiCTVqCNGrOBOsIIYmGFzpAKVyPRQ8EtA4PZLmPPKbXK2ETyPxUIQkROy4Be FaMKRpRPTtai3NFRLbDCZsIJY3DyJcDLQjQRIgXNpj HTXmVOXrShLbHKToFRVrBS9LFhBhMHJuNzV9GsWdZLAhANUmuz5TEYJiVNYlHfG2RyBcCEHrCKHjLTzn HDZaDVOtGkS7KLGyEBUlDC0QGlZdLSVdOnKuGXNdDWTdEDGsvc6BpOUpkPidsi9PMIqFAf5DpVocAHQ3 SPwaKw9wvJZpFvOaQKMALq8JcfNvKIUuLCJRXEzgLL XmTNEcYGv5KMG7ULGwDIypGuJtSIy7RvTeMVLvBRR0FLMrZzG4KQRqRXEbGSmrJxJhFmHnRNVaBZh6YH Y6UDLkXVorYLR+OB9mCRq+Lx0Ig0JyocN6dsNcTKrfBvGnWW9WHVLRG8ISKi== ID Date Data Source [id number] 09/05/2020 02:47:23 PM EDT [facility] [place] [address] [address] [place], [place] [address]Cjw# SURGICAL PATHOLOGY REPORTPatient Name:AIDAN LBACK:2000Received:09/04/2020ccession #:[id number](s) Received: A: PlacentaClinical Diagnosis and [...] By Yung Leal MD [facility]zw[facility] [place], [place] [address]Technical component performed at [facility], Histopathology, [address] [place] [address], [id number].Reported at [facility], [address] [place] [address], [facility].This report may include immunohistochemical or in-situ hybridizationresults. Testing was developed and the performance characteristicsdetermined by [facility] Center[facility], as required byCLIA '88. The FDA has determined that approval for specific use is notnecessary for clinical use. The quality of Hematoxylin and Eosin stainsand as applicable, for all immunohistochemical and/or special stains,including positive and negative controls, were reviewed and consideredappropriate.ICD codes: O43.449DQA0 codes: A: 96852U Name Value Range Interpretation Code Description Data Maria Isabel rce(s) Supporting Document(s) ID Date Data Source [id number] 09/05/2020 12:17:19 PM EDT Lab [facility] SPECIMEN DESCRIPTION VAGINAL/RECT ALCULTURE RESULTS NEGATIVE: BETA HEMOLYTIC STREPTOCOCCI GROUP B B Y PCRREPORT STATUS FINAL 09/05/2020 Name Value Range Interpretation Code Description Data Maria Isabel rce(s) Supporting Document(s) ID Date Data Source [id number] 09/04/2020 10:08:20 AM EDT [facility] Name Value Range Interpretation Code Description Data Maria Isabel rce(s) Supporting Document(s) TREPONEMA IGG/IGM @ (NEG) Lab [facility] ID Date Data Source [id number] 09/04/2020 01:36:33 AM EDT [facility] SPEC EXP DATE 09/07/2020ATI ENT ABO/Rh O POSITIVEANTIBODY SCREEN NEGATIVETESTING SITE PERFORMED AT [address] [place] [address] Name Value Range Interpretation Code Description Data Maria Isabel rce(s) Supporting Document(s) ID Date Data Source [id number] 09/04/2020 12:47:51 AM EDT Lab [facility] Name Value Range Interpretation Code Description Data Maria Isabel rce(s) Supporting Document(s) WBC 12.3 10*3/uL (4.1-11.0) H [facility] RBC 3.44 10*6/uL (4.00-5.40) L [facility] HGB 9.9 g/dL (12.0-16.0) [facility] HCT 30.3 % (36.0-47.0) [facility] MCV 88.2 fL (80.0-95.0) [facility] MCH 28.7 pg (27.0-32.0) [facility] MCHC 32.6 g/dL (32.0-36.0) [facility] RDW 13.5 % (10.5-14.5) [facility] PLT 185 10*3/uL (150-450) [facility] MPV 10.0 fL (7.1-10.7) [facility] ID Date Data Source [id number] 09/03/2020 10:24:00 PM EDT [facility] Patient: AIDAN BLACKatio n Report - [facility].VisitID: [id number] [place] [address] [phone], FRegistrabeebe healthcare Date/Time: 09/03/2020 19:06 Weight:65.7 kg (S). Height/Length:70 inches (S). BMI:20.8 PAST HISTORYProblems: Care.Anxiety Reaction.Pineal Cyst .Pharyngitis. Additional Surgeries:no known surgeries. Medications: Formula Oral.busPIRone HCl Oral 20 mg, 2x a day, last dose yesterday. Allergies:No Known Drug Allergy. FAMILY HISTORYNo significant family medical history. (Electronically signed by Miels Mar PA-C 09/03/2020 22:23) Name Value Range Interpretation Code Description Data Maria Isabel rce(s) Supporting Document(s) ID Date Data Source [id number] 09/03/2020 08:10:00 PM EDT [facility] Name Value Range Interpretation Code Description Data Maria Isabel rce(s) Supporting Document(s) COVID-19 NEGATIVE [facility] This lab was ordered by [facility] Lab and reported by [facility]. ID Date Data Source [id number] 09/03/2020 08:34:00 PM EDT [facility]ALLEGOSORDER [id number] Name Value Range Interpretation Code Description Data Maria Isabel rce(s) Supporting Document(s) COVID-19 NEGATIVE NEGATIVE [facility] Negative results should be treated as pr [...] are for the indentification of SARS-CoV-2 RNA. RdeLKZB-DpS-2 RNA is generally detectable in respiratorysamples during the actue phase of infection. ID Date Data Source [id number] 08/24/2020 05:19:43 PM EDT [facility] Name Value Range Interpretation Code Description Data Maria Isabel rce(s) Supporting Document(s) Progress Note [facility] MMMOKn3lQgSSBvPv16/YYLsfCRBgg9FpYQmzAGw3WKhqHOYxZ2ZuYXT1aL8wMGP4QPtODoIkYwGmGLIx lbm [file] RWFCN9RKZw== ID Date Data Source [id number] 08/03/2020 05:42:46 PM EDT [facility] Name Value Range Interpretation Code Description Data Maria Isabel rce(s) Supporting Document(s) Progress Note [facility] RWHLJg8dIbKCXgZy98/ZCMinJRBkn2EkICxlHDa0RUooSXDdN6KeOCF7fZ6aOZO1CVzQQqOtYyYuCTNl lbm [file] jTOTPO7UTTFyKFzSeTlDplx6E4ZvLH6BPbpn// [file] A1MTQ+KH3tJOc+Wl3Dr8TxxfU7rtEdPTcoTYvyBN3DPPGDS1JNEz== ID Date Data Source [id number] 06/29/2020 06:08:40 PM EDT [facility] Name Value Range Interpretation Code Description Data Maria Isabel rce(s) Supporting Document(s) Progress Note [facility] ZJDWWk2nZkQGCfRt09/GIWpqNFUyn3MbLTkqKXk5TMxrQSCzR7CmOAC1qA4jBXT3DTeYAfPaClJdQfX3 lbm [file] AgICAgICAgICAgICAgICAgICAgICAgICAgICAgICAg SSLeVPZcFVFuYQJbSSJuHTZoTWDnPLPaXIJpEQMnOBOcSIQwIHWtVOXbJWWxVO6TDIHqFKGsUEKoZAXq ICAgICAgICAgICAgICAgICAgICAgICAgICAgICAgICAgICAgICAgICAgICAgICAgICAgICAgICAgICAg COQtSKObCLTxFBHlDTXiKAEvFOAqLAHfOHJxFT7PLE AgICAgICAgICAgICAgICAgICAgICAgICAgICAgICAgICAgICAgICAgICAgICAgICAgICAgICAgICAgIC MiIXOtRKUnSNNqYOFwGOMjLMQeFFAvWBJgIYFrQQBcZHCzVUJbBZ9XUSIoMIBmHURyLHQmGIUbPRPvRJ AgICAgICAgICAgICAgICAgICAgICAgICAgICAgICAg YFYxRMZzOZPkTRWdYJRvUJZtFLMwNVYrAGTlAMTiJBKnZFMgBFBxETEtULEjIAWrBA9TKNMhXEEfKQAx ICAgICAgICAgICAgICAgICAgICAgICAgICAgICAgICAgICAgICAgICAgICAgICAgICAgICAgICAgICAg ICAgICAgICAgICAgICAgICAgICAgICAgICAgICAgIA 0KICAgICAgICAgICAgICAgICAgICAgICAgICAgICAgICAgICAgICAgICAgICAgICAgICAgICAgICAgIC XtSOVpWCWeZZUxJWCmWGGxQKVdAQFmRPBrAWNkIDXrRKEmBDEdLWGnEY4OMAVjSBSzUPCaBIWjBKJxAS AgICAgICAgICAgICAgICAgICAgICAgICAgICAgICAg EFTbXAFnAWDkNBQmZIUsJVRiGDOnZTOlBCDbDMSpIDOmZFJtMIYaUMLeYOJoAYYlODBgAO4VRFRcFCDm ICAgICAgICAgICAgICAgICAgICAgICAgICAgICAgICAgICAgICAgICAgICAgICAgICAgICAgICAgICAg ICAgICAgICAgICAgICAgICAgICAgICAgICAgICAgIC UbXT3YNWLfQOHpQMOrWKJwXAMjGJQtSADkKIPyISHeMUPnJXUqABYiWQHnHUDqFXHdSDEvAOCfQJBkLH TdEMMjXRYrGMRtPUYhZRWcIPSiEVIiPZEiYGHfHUIiBVDuXLPeMPYfULQhPK1UJSVnMDVlCASyAZZzRU AgICAgICAgICAgICAgICAgICAgICAgICAgICAgICAg FNTiNYJkUQMaNJCxKAFdZHUlMVAqGDTkBMOeENPhXPYeZIVfZFTvHNQiHMJoJTHrISXsMSKkRM8LLQ12 qOKtu5F2ICOuIF0ebcr/Hy8KYBxgugIgpENcWS7IUcYmQC0pua0MWmVcDB1xrd4LZStCKbSrR7Q9oFOv ZCPvIUWSTqRhD67dUAkzUv86RDloRCHrKtYjGTa9Fn 6LXcWxZ3exMETzLvP0YEWoOaIfTJnjNV7Rf4VduKLeUDx+Cb7DLH0rr3YlRAajYuHaCA4exx2DMQeWHi HnI1YicxI9SWOsGZMuNf2EAWZvYIRhvQKaScTdBZZECxGaQ3LjuX41DIGEOk1+DQplbmRvYmoNCjIzID Pqn7TfORl1XL5TZDFvAJr3zKSpKLPmV7Jfp8ShBm56 XYLwVeskAi5jguKHGL1je174xDPucMsrRPMgKDWqHv9pMQ4vBRZfRSFrBvOqUNITCV5TKGEhAAYefMVs GMAaSERREX6OITudSVF4ZBVxmlOlvVFtDLhvOO1VHRRahrDnXsUaHCQUSFn+Us3VYZ7wc0UdEKvaIXNr EB7euy6TBPbYIbSgD4O5jAIxN6I9HZskVh7FCDZsTJ GjJeAlNMLLILxfRW2SWA3fmjN7QU9PcURmBXFwOGZbkJYeFWm7C94akJAvYFqdUX7QEGV+Sayra+Pg0KIC HfLCDcDCXgUsOxJJFJSpBvQ3WzN8XBx6KlG4TcNY38kAdfhgLzYVhhHU9WBS9oGBYiYWTARJ6XbFEjbR 1ronZxHiVoEPCWUnSpQ72frPOzQVCqFDWeKHZaAr2D PBHjC9WhxjTzsWkhouWuYTQzVOWMIG3ZRYdszbCjaVLirYsiAA74yBzwVA6OKc4LHzSlDV2llu9XjSNl Gn9RAPCuIJ0JOIQuCFEhTXBnVDG7LIRkDiFsJBrcTJErSLCfOMW9FJDoCJVzJY0QPfNqBDWuFRe4Inpc AHOhHOAgrv3KYDTsERLiPDMyQqKqUNAwAFFeVBnuHA HkTFWsZEX0DOIvXTBkBX5WKtXgAEJjZON5TMwcRUFoHSIxwk3RPECuMKPbOuXdIcCuAAGrBIJpNDkgQA UuDIL3XBbjGKKuSOEhDL7RJmLtKGUoCXD3SosyKMTwHUIaod9LWGDiAABkDTt6EiZqBFIuJRLeGFxhJB ScHEE1UIK5LKWhYXQoGZ4JJfMlVYAeIACtYXoqLVZx TVBkel7BKGSiQUCwIqU4OHZlPJCmDXHgNVerFOQvYPW2OkH4FKTsVMHoOB6YNyEaAGMlWCr5EtXiVCUs FOPpoj3RFCUhLXRwRGS5KLBdSCSaRVOmOTkyOXErHCK2ONS2ECXaQWVlRN8MXvOmNKDtGLv0OuZhVGRi AROgti0ZUIGqQNRlQZTwKXDiXQZdFVSkCPzqOGHkSC S8Uum5VHYeSFKdXI1KRdXbOMHpRIn7YLVoFXQpSWDads6PLAKmNPWkPGQ1TbUoHEWtHCBaVAboBNMoFW WlMiHkKQOoIGJkPT2SMuBgZPEdQrY0CKFqIAVaFGYwet8RFZJbMXPoWZigLgPkEOLlZEXySAh5faVygW FcRHu6QU9GO4YbkvCmWiEAPh7Tk601CLZ2ZZAgKs4U G5koDo9hYMUkDOFYIp4NBAs8GzK0MAraPkAwVUFnX4Q2DxFuCgJ4PeR3FsDqGQTaUUs+NQo0UCbzP4Ap BdK8V1LdBKyeGuIqATA6EudbZOA5XcPnGl7nZEOFHc2+FGshzZAwcJuzFYSHPxMxEGo0LDacAYQOPf0Y ID Date Data Source [id number] 06/08/2020 07:32:10 PM [facility] Name Value Range Interpretation Code Description Data Maria Isabel rce(s) Supporting Document(s) Progress Note [facility] EUDEEo9nJcWSVmAr40/WEBnqSQJpc3BrUVtqLOf6UFpjSATmP6SjZUV5wS2uUUK0LExFRcDeKmRmNoX9 lbm [file] HEALTH CARE TECHNICIAN+Aj1FAYFrPRi7G6L1VRUtANm0C5XZM4TOITMcCGymHQgrBVZuDWp5R4E1NRItX4PXO4Rzujwgsv0+ RF6RD22YWWSyYBl7V7B7mMGhA7R8sZbJnGM5WS8SDP7DoNh6xMZoaU0+JH2TJ2VSWaIyCGt4Q3L1yIZu W1T1aIwEfIH0AO9DCG2WnXDrBHSnciUxUj9oI9HGUJ sXIgOCIKX8SL2OjXJpGA6EsVTUO4QzoBMdKa4lQUwyvMHnqJ9nAb8wTPkxLZ5LTxLCRSqXIKD8XP4KdW AzTL0JpWHHU4XmlCYsZq8mVHecoOMerz3+QB4EUUWhBp2LFr2+WIpxfdGpOgfKSyK7BYIhh6LlZIn1LK 7APP6yyTmzPME1Ox5DzSF5sCRfM1eRYM6MoVAzK02r eZRpXSCfHy3ZMlL7emMfdC6ZCI91tQKky4O4KGNhP4vwFZtgg13eGMhbPHzCPL8iMGCLLDyqTIepDXQ9 HhFjbjldQYPpHe3XWfBaZDh6xS6qrQW7ZNX1XklghNXwORxnLdVaMsTcIpX9kBcsdzh8QNgiIZ1qYMjj czptZXRhLyc+OCouRFUcOUIzHivWSGBvgY4alfO0kn MkSEancXWqYx5ld9l9BxynHa7eSu7oYJv0BcJwHnMjNVQjRy2gtN17BUxgasVdTm7HUiPlNRH7Z8MsSg pSREY+ZTzmPHwrgOa2gOOtBRRxRn2QYYOsZMIkENXkABCpLQTbLGSuIETmDYBoJXDoFHEcJQRpEFYrCA AgICAgICAgICAgICAgICAgICAgICAgICAgICAgICAg FLGiRRPlAPEkUUEsTEOcLUHiESJqMHTmYLPgJRCsGG6EGHVdZUDtNJMzNQEySNKzSJWzAHWnCAMfIYZy ICAgICAgICAgICAgICAgICAgICAgICAgICAgICAgICAgICAgICAgICAgICAgICAgICAgICAgICAgICAg IQSfVJIbNZExTZJcKR0BFIKjIROuCOItDKLhJFCkWR AgICAgICAgICAgICAgICAgICAgICAgICAgICAgICAgICAgICAgICAgICAgICAgICAgICAgICAgICAgIC KxKGSwOPTbIATuGEHdOYUhHYYaLBInMK4AVDNsLVSrFBKbUAVzPMZvKXAkROKdFTEnKCVcMHKzEWKkZR AgICAgICAgICAgICAgICAgICAgICAgICAgICAgICAg QSHeXTEnFUUrACDkSVNzHEHaKHDrQKAbZGPdSRPkKFDdON7YFIGjQAGlBOQgUFUqMTRkXAYdGTYpTEEi ICAgICAgICAgICAgICAgICAgICAgICAgICAgICAgICAgICAgICAgICAgICAgICAgICAgICAgICAgICAg UUPiYOFjKHZgNGOcAMMtMN5MFZAcTNQrIPJoCTBzNX AgICAgICAgICAgICAgICAgICAgICAgICAgICAgICAgICAgICAgICAgICAgICAgICAgICAgICAgICAgIC QeKSPsAXAnXBWkQOOxTDTiMNGvDOFtCCJhUL3POLTuHPGxGZOcKTUeCDRmYERjXESaIUOuNXVcTPQoTD AgICAgICAgICAgICAgICAgICAgICAgICAgICAgICAg WFVpGANmBVVkKNWpNTOjHVVmWLEiRWCqPNSuHBYyDUCvZZJmUO4SSCTdEDLyJQKyJMIoHQNpJCRvKEOr ICAgICAgICAgICAgICAgICAgICAgICAgICAgICAgICAgICAgICAgICAgICAgICAgICAgICAgICAgICAg MTYrQFKkTQXkPOJpFLMyBWWzVX7BUYLnWGRoDMHyBI AgICAgICAgICAgICAgICAgICAgICAgICAgICAgICAgICAgICAgICAgICAgICAgICAgICAgICAgICAgIC YiTRWbQRGkNWNhOMLqVXCyQENgGIQePRNvVNNeNY6XZZZjAIWzXYIbTGMdNIOaJBInTEDhORVdFMHmGG AgICAgICAgICAgICAgICAgICAgICAgICAgICAgICAg UNHlHNKiVRRcAOQvBCZnAWQcCOSyHGWySHOpUHAfPZEvQCOgSAOzMB2FXD03tRZuz1K3CSWtMO5eghm/ Ii1AEVpzvzPjlHXvCT6CSgFmVA3khh7BPbPmWH6bhg8TNLxXHnQcE7O2tTRlBUXuJMMJZnUkG61mLVtu Ek16LFuaBLCnUbTqXJh3Uw1ZYdPdJ6qbNHKrKnD7NR CdXvC9LCCfRmZ1LMFjCbPtDWixQX1Hs2QqfWUyLKc+Qh6YSH3ix8JpGPohYsOjQF0slx6CTNeSWrZbV2 DuecC4FBB1LSFaYp6QTOIqJOGnvSAdVvUyDCDKEdScW8NyvK79WMTVHr7+GJdqpkEuLzaYXqT4WXMyk1 YmWRr5EF6RQTCwYIc7lTQjNHTbZ5Xog8BlWa58JDBp MymuBv8vqgYRIE4ve381bHUibJuxPSPsCHBmJj18EdRjYeXdREU2BLLfOT5pAXscPD1ZZHS2ADeqGWHs SBHzN7tHUvQeYDKnLXGxbGlxJG4VThZyC9OtyyOrbWKaGrDlLFLSLv2+SGopegHhDjeOUaI5ECZye1Zv VVy3PS1SAUBwSCyoZX6KNTOieR9uPBgwPS7AHcNoNH BlBGURCtCyY43mvSIoAEl1W1TuIdVyWMZxWpplCCAlOKgmDzKlFZTvPuIwALahEI4+ID4+UJtsHZ5LZB vxaqDnVVIlGu3NQIVrQAQyFM9kKULbXVSxF1Y2eAtnLZGDBaNlH9ymvllkFS9bKAQdH158vFhnpzMyTO F7TDBhZg1KINCrGXM4YHTpeEYeSdUjXBBURVmyFB5Z bGPeFGU1rF9sQQggSQThSGRyL4oKHvEzuNdmFG07bDtymoPzoEDoYTx+Rv6GPS1fh1KjIZt8uyVzZXvn DFL3ZPpsBVNcWAVrWSHlGVG9VUH4SUXMFyEkCBOlTYOwVXnsEHAiBOMfdt2FOUOwIPFsOyPfLmQtVIHm NLYmRBzuQMShCUD1ZKpnKOBnPKCrPR0WGwVuJSSmBV YpDPyuVLCuEPPofw7FKYGfTDHxKoS2NDMeQZUqGDZoZIifARVsWQTyJPC1VIGgQJEhZX1GBtZmOLEhKV y1FdAlBBLcVTNkaw8NXXGhDNSwDIQ8CKPpAAGcRREdHVnbQQUlLBVuVMNiZZOrHSJqPR5NVqFlTOHcOY XjYHQoTGHfYFQjkp9GGZLsXUZuHbGhXrGtUGMmGRJg HBscIYJgNDJhDzTqXYLpBSPaND6NRwKjYHVxDQCgZZMjTNEcRXCywd4TUUBbGMOwGzG9YVYeZGPkDAUn VYzrVUZbFKKvVFI5SMWgTMHuLZ0EAvErVPMvQJH0YLOtLNNmPLYdes1TKSZqXRBtQOG6NIChAETwKRVy AXdqMJElSDG4DSYpHYEyJZAcIW8LTrEqKUPqWbA5PO fwTAZrADAajk1NAFVoVBOqUYl0KCGqDRFrXRHrPIxvLDZoDBT6HMC5ZUIdVHGvBN4DQoYbWSAbRqkvSP kjOWQsMTUyhd5BVFKrFKJhXzFdHhCxXDCoCYDcIWtsMHWzEXA8MFM2BYAwCZXyLI1UExZuGRSqEfe8Om FuFKBqQUSujn6RFVIwSPQuBIC6HxRfEKWyFRCgSRwk ZNWeOVD9QfMbSNGbZQOhEK6GGyAjGEUfWdq7VPThSBCmCOFdce8CqPAztRgcwm1HIVoSRj5DpPpbHNK6 ITzsOr0khYHqKJXwZHMHFs6CdkZqUVSvXRWCXZjhDEZaVPGcX5QuRMEdK2PqNUJzJZU8NEPnHENqVMT5 NmP9RGL1RkC4Y2WqJyBrLhX4ZuYiCCH5IFqhQHX1MA ZhZjVmZjRhZjk+WI6vTAm+Gw4Zo7GvxyJ0vzNqKVbmVXj5Vt8ZIFNEV0ZPFw== ID Date Data Source [id number] 05/06/2020 12:00:00 AM EST [facility] Name Value Range Interpretation Code Description Data Maria Isabel rce(s) Supporting Document(s) SARS coronavirus 2 RNA [Presence] in Res piratory specimen by SONIDO with probe detection NEGATIVE [facility] This lab was ordered by Deshawn Shay and reported by [email or web address]. ID Date Data Source [id number] 05/06/2020 12:00:00 AM EST [facility] Name Value Range Interpretation Code Description Data Maria Isabel rce(s) Supporting Document(s) [facility] Rapid COVID Antigen Test Negative [facility] This lab was reported by Deshawn laguerre. Procedure Social History Code Duration Value Status Description Data Source(s ) Smoking 09/04/2020 12:04:00 AM EDT Denies Ever Smoked complete d Denies Ever Smoked [facility] Alcohol intake 08/24/2020 12:00:00 AM EDT Current non-d bianka of alcohol (finding) completed Current non-drinker of alcohol (finding) [facility] Tobacco use and exposure 08/24/2020 12:00:00 AM EDT Never used co mpleted Never used [facility] Smoking 08/24/2020 12:00:00 AM EDT Never smoker completed Never s vtker [facility] Alcohol intake 06/08/2020 12:00:00 AM EST Current non-d bianka of alcohol (finding) completed Current non-drinker of alcohol (finding) [facility] 01/10/2020 12:00:00 AM EDT completed [facility] Vital Signs ID Date Data Source UNK Name Value Range Interpretation Code Description Data Source(s) Systolic blood pressure 118 mm[Hg] Normal (applies t o non-numeric results) 118 mm[Hg] [facility] Diastolic blood pressure 71 mm[Hg] Normal (applies to non-numeric results) 71 mm[Hg] [facility] Heart rate 83 min Normal (applies to non-numeric resul ts) 83 min [facility] Body height 176.784 cm Normal (applies to non-numeric resu lts) 176.784 cm [facility] Respiratory rate 18 min Normal (applies to non-numeric results) 18 min [facility] Body temperature 36.3 rubina Normal (applies to non-numeric results) 36.3 rubina [facility] Body mass index (BMI) [Ratio] 20.81 kg/m2 No rmal (applies to non-numeric results) 20.81 kg/m2 [facility] Body weight Measured 65.771 kg Normal (applies to n on-numeric results) 65.771 kg [facility] ID Date Data Source [id number] 09/03/2020 08:44:18 PM EDT [facility] Name Value Range Interpretation Code Description Data Source(s) TRANSFER FROM [facility] ID Date Data Source [id number] 08/24/2020 05:19:43 PM EDT [facility] Name Value Range Interpretation Code Description Data Source(s) WEIGHT RECORDED 144.4 lb 144.4 lb [facility] ID Date Data Source [id number] 08/03/2020 05:42:46 PM EDT [facility] Value Range Interpretation Code Description Data Source(s) WEIGHT RECORDED 141 lb 141 lb [facility] ID Date Data Source [id number] 06/29/2020 06:08:40 PM EDT [facility] Name Value Range Interpretation Code Description Data Source(s) WEIGHT RECORDED 135 lb 135 lb [facility] ID Date Data Source [id number] 06/08/2020 07:32:10 PM EST [facility] Value Range Interpretation Code Description Data Source(s) Body height Measured 70 in 70 in [facility] WEIGHT RECORDED 132.4 lb 132.4 lb [facility]
[2021-02-13] MEDS ORDERED: QUET50TA4 PO (16:51)
[2021-02-13 17:55] LABS: HEMATOCRIT 40.2 % (36.0-47.0); HEMOGLOBIN 12.7 g/dl (12.0-15.5); MEAN CORPUSCULAR HEMOGLOBIN 27.5 pg (27.0-33.0); MEAN CORPUSCULAR HGB CONC 31.6 g/dl (32.0-36.5); MEAN CORPUSCULAR VOLUME 87.2 fl (80.0-96.0); PLATELET COUNT, AUTOMATED 322 10^3/uL (150-450); RED BLOOD COUNT 4.61 10^6/uL (4.00-5.40); WHITE BLOOD COUNT 8.7 10^3/uL (4.0-10.0)
[2021-02-13 18:31] LABS: ACETAMINOPHEN LEVEL < 2.0 UG/ML (10.0-30.0); ALBUMIN 4.5 GM/DL (3.2-5.2); ALT/SGPT 19 U/L (12-78); BILIRUBIN,DIRECT 0.1 MG/DL (0.0-0.2); BILIRUBIN,TOTAL 0.3 MG/DL (0.2-1.0); BLOOD UREA NITROGEN 6 MG/DL (7-18); CALCIUM LEVEL 9.8 MG/DL (8.5-10.1); CARBON DIOXIDE LEVEL 23 MEQ/L (21-32); CHLORIDE LEVEL 110 MEQ/L (98-107); CREATININE FOR GFR 0.81 MG/DL (0.55-1.30); ETHYL ALCOHOL (ETHANOL) 0.113 % (0.000-0.010); GLOMERULAR FILTRATION RATE > 60.0 (>60); GLUCOSE, FASTING 62 MG/DL (70-100); POTASSIUM SERUM 3.4 MEQ/L (3.5-5.1); SALICYLATE LEVEL < 1.7 MG/DL (5.0-30.0); SODIUM LEVEL 142 MEQ/L (136-145)
[2021-02-13 18:54] LABS: HCG, SERUM QUALITATIVE NEGATIVE (NEGATIVE)
[2021-02-13 18:57] LABS: AMPHETAMINES LEVEL URINE NEGATIVE (NEGATIVE); BARBITURATES URINE NEGATIVE (NEGATIVE); BENZODIAZEPINES URINE NEGATIVE (NEGATIVE); CANNABINOIDS URINE POSITIVE (NEGATIVE); COCAINE METABOLITE URINE NEGATIVE (NEGATIVE); METHADONE URINE NEGATIVE (NEGATIVE); OPIATES URINE NEGATIVE (NEGATIVE); PHENCYCLIDINE URINE NEGATIVE (NEGATIVE)
[2021-02-13] MEDS ORDERED: HOME MED LIST COMPLETE! XX SCH (22:05)
[2021-02-13] MEDS ORDERED: POTASSIUM CHLORIDE 10MEQ SR TABLET PO ONE (23:50)
[2021-02-13] MEDS ORDERED: QUEtiapine FUMARATE 50MG TAB PO ONE (23:55)
[2021-02-13] MEDS ORDERED: SERTRALINE 100 MG TAB PO ONE (23:55)
--- OUTSIDE RECORDS SUMMARY | 2021-02-14 00:13 | CCD ---
Author Author [facility] Organization [facility] Address Unknown Phone Unavailable Care Team Providers Care Cleaning Matron Name Role Phone SYSTEM IN, NOT IN [...] Unavailable Unavailable BAKARI ROBERTSZABETH Unavailable Unavailable [facility]_4785, [id number] Unavailable [phone] [facility]4785, [id number] Unavailable [phone] [facility]4785, [id number] Unavailable [phone] [facility]4785, [id number] Unavailable [phone] [facility]_4785, [id number] Unavailable [phone] [facility]4785, [id number] Unavailable [phone] [facility]_4785, [id number] Unavailable [phone] [facility]_4785, [id number] Unavailable [phone] [facility]4785, [id number] Unavailable [phone] [facility]_4785, [id number] Unavailable [phone] [facility]_4785, [id number] Unavailable [phone] [facility]4785, [id number] Unavailable [phone] [facility]4785, [id number] Unavailable [phone] [facility]_4785, [id number] Unavailable [phone] [facility]_4785, [id number] Unavailable [phone] [facility]_4785, [id number] Unavailable [phone] Mavis SANCHEZ MD Unavailable Unavailable Mavis SANCHEZ MD Unavailable Unavailable Mavis SANCHEZ MD Unavailable Unavailable Mavis SANCHEZ MD Unavailable Unavailable Mavis SANCHEZ MD Unavailable Unavailable Mavis SANCHEZ MD Unavailable Unavailable Mavis SANCHEZ MD Unavailable Unavailable Mavis SANCHEZ MD Unavailable Unavailable Mvais SANCHEZ MD Unavailable Unavailable Mavis SANCHEZ MD [...] GAMBINO MD Unavailable Unavailable BYRON, C NIDA OVEREDGER Unavailable Unavailable BYRON, C NIDA OVEREDGER Unavailable Unavailable BYRON, C NIDA OVEREDGER Unavailable Unavailable BYRON, C NIDA OVEREDGER Unavailable Unavailable BYRON, C NIDA OVEREDGER Unavailable Unavailable BYRON, C NIDA OVEREDGER Unavailable Unavailable BYRON, C NIDA OVEREDGER Unavailable Unavailable BYRON, C NIDA OVEREDGER Unavailable Unavailable BYRON, C NIDA OVEREDGER Unavailable Unavailable BYRON, C NIDA OVEREDGER Unavailable Unavailable BYRON, C NIDA OVEREDGER Unavailable Unavailable BYRON, C NIDA OVEREDGER Unavailable Unavailable BYRON, C NIDA OVEREDGER Unavailable Unavailable BYRON, C NIDA OVEREDGER Unavailable Unavailable BYRON, C NIDA OVEREDGER Unavailable Unavailable BYRON, C NIDA OVEREDGER Unavailable Unavailable BYRON, C NIDA OVEREDGER Unavailable Unavailable BYRON, C NIDA OVEREDGER Unavailable Unavailable BYRON, C NIDA OVEREDGER Unavailable Unavailable BYRON, C NIDA OVEREDGER Unavailable Unavailable BYRON, C NIDA OVEREDGER Unavailable Unavailable BYRON, C NIDA OVEREDGER Unavailable Unavailable BYRON, C NIDA OVEREDGER Unavailable Unavailable BYRON, C NIDA OVEREDGER Unavailable Unavailable BYRON, C NIDA OVEREDGER Unavailable Unavailable BYRON C NIDA OVEREDGER Unavailable Unavailable FOLK, J KASI MD Unavailable [...] is protected by Article 27-F of the [employer] Public Health law. If you continue you may have access to information: Regarding HIV / AIDS; Provided by facilities licensed or operated by the [employer] Office of Mental Health; or Provided by the [employer] Office for People With Developmental Disabilities. If such information is present, then the following [employer] mandated warning applies: This information has been [...] law may result in a fine or usp sentence or both. A general authorization for the release of medical or other information is NOT sufficient authorization for further disc losure. Allergies and Adverse Reactions Type Description Substance Reaction Status Data Source(s ) Propensity to adverse reactions NO KNOWN ALLERGIES NO KNOWN ALLERGIES [facility] Encounters Encounter Providers Location Date Indications Data Source(s ) Outpatient Attender: NIDA MATTHEWS NP 10/15/2020 12:00:0 0 AM [facility] Outpatient Attender: NIDA MATTHEWS NP 09/14/2020 12:00:0 0 AM [facility] Outpatient 09/13/2020 12:00:00 AM [facility] Outpatient 09/13/2020 12:00:00 AM [facility] Inpatient Attender: KASI VALDIVIA MD 09/04/2020 12:47:51 AM E DT Lab [facility] Inpatient Attender: KASI VALDIVIA MDAdmitter: KASI VALDIVIA MD 09/04/2020 12:00:00 AM EDT - 09/06/2020 01:57:00 PM EDT 36 WKS WITH RUPTURED MEMBRANES HIGH RISK [facility] 36 WKS WITH RUPTURED MEMBRANES HIGH RISK Patient discharged. Outpatient Referrer: PROVIDER SYSTEM IN 09/03/2020 0 8:44:00 PM EDT 36 week preg, water broke. [facility] 36 week preg, water karolinake. Emergency Attender: Miles DOBBS-CReferrer: [id number] [facility] 09/03/2020 08:10:00 PM EDT - 09/03/2020 10:20:00 PM EDT [facility] Patient discharged. Outpatient Attender: KASI GUTIERRES JRReferrer: FRANCISCA Gamble ICAMPLI [id number] 08/24/2020 12:00:00 AM EDT - 08/24/2020 03:16:22 PM EDT Maternal care for other (suspected) abnormality and damage, not applicable or unspecified [facility] Maternal care for other (suspected) feta l abnormality and damage, not applicable or unspecified Outpatient Attender: MINA PELAEZ 08/24/2020 12:00:00 AM [facility] Outpatient Attender: NIDA BLUMeferrer: Bailey GUTIERRES JR [id number] 08/22/2020 12:00:00 AM EDT - 08/22/2020 03:36:42 PM [facility] Outpatient Attender: KASI GUTIERRES JRReferrer: FRANCISCA Gamble ICAMPLI [id number] 07/27/2020 12:00:00 AM EDT - 07/27/2020 03:34:51 PM EDT Maternal care for other (suspected) abnormality and damage, not applicable or unspecified [facility] Maternal care for other (suspected) feta l abnormality and damage, not applicable or unspecified Outpatient Attender: ADITI HOBSON 07/27/2020 12:00:00 AM [facility] Outpatient 07/27/2020 12:00:00 AM [facility] Outpatient Attender: CHUY RAM 07/27/2020 12:00:00 AM [facility] Outpatient Attender: KASI Brownerrer: FRANCISCA Gamble ICAMPLI [id number] 06/28/2020 12:00:00 AM EDT - 06/28/2020 04:03:02 PM EDT Maternal care for other (suspected) abnormality and damage, not applicable or unspecified [facility] Maternal care for other (suspected) feta l abnormality and damage, not applicable or unspecified Outpatient Attender: JOSI SOLIZ 06/28/2020 12:00:00 AM [facility] Outpatient Attender: KASI GUTIERRES JRReferrer: FRANCISCA Gamble ICAMPLI [id number] 06/08/2020 12:00:00 AM EST - 06/08/2020 12:22:05 PM EST Maternal care for (suspected) abnormality and damage, unspecified, not applicable or unspecified [facility] Maternal care for (suspected) abno rmality and damage, unspecified, not applicable or unspecified Outpatient Attender: CHUY RAMReferrer: FRANCISCA ACLVO YOLIS 06/08/2020 12:00:00 AM [facility] Outpatient Attender: Ciro DOBBS 05/06/19 12:00:54 PM EST - 05/06/2020 12:48:01 PM EST [facility] ([facility] ) Immunizations Vaccine Date Status Description Data Source(s) COVID-19 VACCINE Pfizer 12/24/2020 12:00:00 AM EDT completed [facility] Vaccine Series Complete: YESThis Data wa s Submitted to [facility] Via [facility]. COVID-19 VACCINE Pfizer 12/03/2020 12:00:00 AM EDT completed [facility] Vaccine Series Complete: NOThis Data was Submitted to [facility] Via [facility]. Medications Medication Brand Name Start Date Product [...] type / Coverage type Policy ID Covered libertarian ID Covered libertarian's relationship to resendiz Policy Resendiz Plan Information U [id number] Self [id number] U [id number] Self [id number] [facility] [id number] CHILD [id number] / [id number] Parent [id number] RPR- Needs Payer Match [id number] Self [id number] U [id number] Self [id number] MEDICAID [id number] S [id number] N REGIONAL CLAIMS PANCHO -O/P [id number] 19 [id number] [facility] [id number] CHILD [id number] MEDICAID HEA [id number] S [id number] HEA [id number] P [id number] MEDICAID UNAVAILABLE S [facility] [id number] FA2 [id number] ANSI-Not a Secondary Insurance [id number] [facility]/MD [id number] [place] [id number] Problems, Conditions, and Diagnoses Code Display Name Description Problem Type Effective Dates Data Source(s) 36 week preg, water broke. 36 week preg, water broke. Diagnosis 09/03/2020 08:44:00 PM [facility] Z79.899 Other bed bug exterminator (current) drug therapy O THER PENITENTIARY (CURRENT) DRUG THERAPY Diagnosis 09/03/2020 08:10:00 PM [facility] Z3A.36 36 weeks gestation of 36 WEEKS GESTATI ON OF Diagnosis 09/03/2020 08:10:00 PM [facility] Z20.822 CONTACT WITH AND (SUSPECTED) EXPOSURE TO COVID-19 CONTACT WITH AND (SUSPECTED) EXPOSURE TO COVID-19 Diagnosis 09/03/2020 08:10:00 PM [facility] O42.113 premature rupture of membranes, onset of labor more than 24 hours following rupture, third trimester PRETRM CHERYLE ROM, ONSET LABOR > 24 HOURS FOL RUPT, THIRD TRI Diagnosis 09/03/2020 08:10:00 PM [facility] l O35.8XX0 Maternal care for other (kerry pected) abnormality and damage, not applicable or unspecified Maternal care for other (suspected) feta l abnormality and damage, not applicable or unspecified Diagnosis 06/08/2020 07:10:1 5 PM [facility] O35.9XX0 Maternal care for (suspected ) abnormality and damage, unspecified, not applicable or unspecified Maternal care for (suspected) abnormality and damage, unspecified, not applicable or unspecified Diagnosis 06/08/2020 09:38:28 AM [facility] Surgeries/Procedures Procedure Description Date Indications Data Source(s) MRI Brain W/O Contrast, Followed By Contrast 12:00:00 AM EDT [facility] ([facility], ) MRI Brain W/O Contrast, Followed By Contrast 12:00:00 AM EDT [facility] ([facility], ) Results ID Date Data Source [id number] 01/29/2021 06:09:00 PM EDT [facility] Name Value Range Interpretation Code Description Data Maria Isabel rce(s) Supporting Document(s) SARS coronavirus 2 RNA [Presence] in Res piratory specimen by SONIDO with probe detection NEGATIVE [facility] This lab was ordered by [facility] a nd reported by [facility]. ID Date Data Source [id number] 09/04/2020 03:42:02 PM EDT [facility] Name Value Range Interpretation Code Description Data Maria Isabel rce(s) Supporting Document(s) Progress Note [facility] LXAWXw3yHjPYTvHe75/GMOdaRRXmp2MtWSkuBXo2XAuwCNNsJ3PrEPS5bG9rQTK9SReULnLxWxBlUaLn lbm [file] ICAgICAgICAgICAgICAgICAgICAgICAgICAgICAgIC AgICAgICAgICAgICAgICAgICAgICAgICAgICAgICAgICAgICAgICAgICANCiAgICAgICAgICAgICAgIC AgICAgICAgICAgICAgICAgICAgICAgICAgICAgICAgICAgICAgICAgICAgICAgICAgICAgICAgICAgIC AgICAgICAgICAgICAgICAgICAgICAgICANCiAgICAg ICAgICAgICAgICAgICAgICAgICAgICAgICAgICAgICAgICAgICAgICAgICAgICAgICAgICAgICAgICAg ICAgICAgICAgICAgICAgICAgICAgICAgICAgICAgICAgICANCiAgICAgICAgICAgICAgICAgICAgICAg ICAgICAgICAgICAgICAgICAgICAgICAgICAgICAgIC AgICAgICAgICAgICAgICAgICAgICAgICAgICAgICAgICAgICAgICAgICAgICANCiAgICAgICAgICAgIC AgICAgICAgICAgICAgICAgICAgICAgICAgICAgICAgICAgICAgICAgICAgICAgICAgICAgICAgICAgIC AgICAgICAgICAgICAgICAgICAgICAgICAgICANCiAg ICAgICAgICAgICAgICAgICAgICAgICAgICAgICAgICAgICAgICAgICAgICAgICAgICAgICAgICAgICAg ICAgICAgICAgICAgICAgICAgICAgICAgICAgICAgICAgICAgICANCiAgICAgICAgICAgICAgICAgICAg ICAgICAgICAgICAgICAgICAgICAgICAgICAgICAgIC AgICAgICAgICAgICAgICAgICAgICAgICAgICAgICAgICAgICAgICAgICAgICAgICANCiAgICAgICAgIC AgICAgICAgICAgICAgICAgICAgICAgICAgICAgICAgICAgICAgICAgICAgICAgICAgICAgICAgICAgIC AgICAgICAgICAgICAgICAgICAgICAgICAgICAgICAN CiAgICAgICAgICAgICAgICAgICAgICAgICAgICAgICAgICAgICAgICAgICAgICAgICAgICAgICAgICAg ICAgICAgICAgICAgICAgICAgICAgICAgICAgICAgICAgICAgICAgICANCiAgICAgICAgICAgICAgICAg ICAgICAgICAgICAgICAgICAgICAgICAgICAgICAgIC AgICAgICAgICAgICAgICAgICAgICAgICAgICAgICAgICAgICAgICAgICAgICAgICAgICANCjw/eHBhY2 ptvOOyrgF8C3ebLc4QXx2FLU9rp5CaYLObHQyvpsRlHkoKNbZfOBOsOvfXTsg0ZEmnYV9UgERhK5EhP6 FfGYzzNX9JPEBqCMAqbSChAVJfUWYfQhY1NXIoRWsz KC6KeOUgHVmdVYBdHADtCbBeKDIuFU6XBCWkM037qkPkBu6BFz6BNtWlZP8twq9QNaHdCVAnEisTEjf2 SCceGA5HcOZvzUYxEcJlPPNJXmPzE2yaf5GnBtEjICFFCPddQD7Xe4FitBOlBCt+Sw7UDS5oq5ZxOOch LpMgZW3rir0CJAnSVcXnF8ErlJxgSHUhk3bmIVSjVW 5qlHTvDLO5ODzdms2tRxBfFYXfK1OevymjbljjFKNcTMMaCC1jRA0cKVJoTWDcUtZmEWHCKS8IIAXpLB HhrJZwDMEbSZRCKM5DWDwpWUB2KUUribTkwKDmFBxuBD4VQXBytvFtIuSvEPEVWMk+Dn8QMT4dx5WkCM pkTpOyWP0kqq8ERTuNBbTdJ4E1eKJbG3L0ZXfwAx1Z PHIlDINnYQnpDQKYOQlfHS2PPZ8mfxZ4JB9JfKUfVWMeCEMeuLPzIAx6E11vjWQfFCwxBZ8ODVM+Sayra+ Rl4TXBKaGFMbSZUvQmCwPPSXHhXgZ5LfI6OAa4AdM1AvVL65hJydafAgPYejRE3HJY1nWAWiKUKBVS6S kLQiyT9hmyClPBGvOIAQZnUsW41hbLPxYNQuJRRgVW AqMx6ZBOFqO8TklfYuhSirnyNiEPGkSLWAKJ4LJBgwtcWfpANfuEbdEI90fYpnAV9VHn0RBcNcXE7hjs 5FfSYsIk2NOPKqCS7SCPAdIICfEMByVMJ2ZVKdUyDeXWwxJRFkHGFoZXH9PNHhRJGwBI3UZqMzINZcOm ByDXEzBCWxNMOxuf2PUHThNBZeEqZ1BkUkLNEyAHWf UWcyKLIwEMTvVKO5CCSeQQHiJG8YOtVuHXHvKMD7BuLsOEFoKLLikl9XVKTaOHDrWIJnRGYoUTRgBQJk GYjoORFjYHO1ERW4SMRmUPSyPY5KPsFyFUTzJJUiUhEpJFQpVFHqrq1HWXOuVWGkUxPeOHIuWMTiRUWc ZQgoIIZcSSU1LDU4XGTrZHWhIS7MXoOfLOMuWUG4BM edBZNlIMPkvu5QKBAcGVTzWcV8DqZxWNXgUBYnQHpoSMZsSMW0UNR5XSDrQRHlVB0HRwTtBOFgNWyrWQ PtSHWmFKXypn9WVFCrKSVoZVVtWBNxPYBdJGXbSIunXADiAJP2VpP2DSGgQVSrYL7ODnDiTUExYGb8Yf FaTJNbUBMcsj6NHWGpMEBpLDJ6HxScFDFiSGSbKAdi DHYqNADdCoYvFSDmCJOtJX7AMmAoJYHzUyC8MyJvLIQaETNyfc2CZXNuINQkPzS9LjUhBCXoLYMxXJkj QXLuZQRjYpL2XRMyIZKyAB9BObPvODIxSlKkOLMdHPBePVHpdp8HnPQjaRjkrn7OSDwQBf5UmZawZHB5 TAefTi9grOQjYvHbHSDWXj5RwfFtWXYqZGMEUBjfFW IdHJUvSZg4XNR4YJBjQDnxAwPgPXb5XfAxIGFsXZF6ZRKbJsK9CCKkRJLuOHhhFdAkVkYgYOSoBOx4TE N0FYHoVRwzPXD+KU7gFSy+Lg4Eu7PjcrL7wnTsHVfuKrAzMN9LULNGT9WRAc== ID Date Data Source [id number] 09/05/2020 02:47:23 PM EDT Lab [place] [facility] [place] [address] [address] [place], [place] [address]Lcm# SURGICAL PATHOLOGY REPORTPatient Name:AIDAN BLACK:2000Received:09/04/2020ccession #:[id number](s) Received: A: PlacentaClinical Diagnosis and [...] By Yung Leal MD jzwPathology Associates of NormanJigna[address] [place], [place] [address]Technical component performed at [facility], Histopathology, [address] [place] [address], [address].Reported at [facility], [address] [place] [address], [facility].This report may include immunohistochemical or in-situ hybridizationresults. Testing was developed and the performance characteristicsdetermined by [facility], as required byCLIA '88. The FDA has determined that approval for specific use is notnecessary for clinical use. The quality of Hematoxylin and Eosin stainsand as applicable, for all immunohistochemical and/or special stains,including positive and negative controls, were reviewed and consideredappropriate.ICD codes: O43.244SPT1 codes: A: 33825R Name Value Range Interpretation Code Description Data Maria Isabel rce(s) Supporting Document(s) ID Date Data Source [id number] 09/05/2020 12:17:19 PM EDT Lab [facility] SPECIMEN DESCRIPTION VAGINAL/RECT ALCULTURE RESULTS NEGATIVE: BETA HEMOLYTIC STREPTOCOCCI GROUP B B Y PCRREPORT STATUS FINAL 09/05/2020 Name Value Range Interpretation Code Description Data Maria Isabel rce(s) Supporting Document(s) ID Date Data Source [id number] 09/04/2020 10:08:20 AM EDT [facility] CYNTHIA Name Value Range Interpretation Code Description Data Maria Isabel rce(s) Supporting Document(s) TREPONEMA IGG/IGM @ (NEG) Lab [facility] CYNTHIA ID Date Data Source [id number] 09/04/2020 01:36:33 AM EDT [facility] SPEC EXP DATE 09/07/2020ATI ENT ABO/Rh O POSITIVEANTIBODY SCREEN NEGATIVETESTING SITE PERFORMED AT [address] [place] [address] Name Value Range Interpretation Code Description Data Maria Isabel rce(s) Supporting Document(s) ID Date Data Source [id number] 09/04/2020 12:47:51 AM EDT Lab [facility] Name Value Range Interpretation Code Description Data Maria Isabel rce(s) Supporting Document(s) WBC 12.3 10*3/uL (4.1-11.0) H [facility] [place] [facility] RBC 3.44 10*6/uL (4.00-5.40) L [facility] [place] [facility] HGB 9.9 g/dL (12.0-16.0) L [facility] [place] [facility] HCT 30.3 % (36.0-47.0) L [facility] [place] [facility] MCV 88.2 fL (80.0-95.0) [facility] [place] [facility] MCH 28.7 pg (27.0-32.0) [facility] [place] [facility] MCHC 32.6 g/dL (32.0-36.0) [facility] [place] [facility] RDW 13.5 % (10.5-14.5) [facility] [place] [facility] PLT 185 10*3/uL (150-450) [facility] [place] [facility] MPV 10.0 fL (7.1-10.7) [facility] [place] [facility] ID Date Data Source [id number] 09/03/2020 10:24:00 PM EDT [facility] Patient: AIDAN BLACKatio n Report - Physicians/[facility] Healthcare.VisitID: [id number] [place] [address] [phone], FRegistrabayhealth [facility], [facility] Date/Time: 09/03/2020 19:06 Weight:65.7 kg (S). Height/Length:70 [...] rce(s) Supporting Document(s) ID Date Data Source [id number] 09/03/2020 08:10:00 PM EDT [facility] Name Value Range Interpretation Code Description Data Maria Isabel rce(s) Supporting Document(s) COVID-19 NEGATIVE [facility] This lab was ordered by [facility] arlene Lab and reported by [facility]. ID Date Data Source [id number] 09/03/2020 08:34:00 PM EDT [place] [facility] [id number] Name Value Range Interpretation Code Description Data Maria Isabel rce(s) Supporting Document(s) COVID-19 NEGATIVE NEGATIVE [facility] Negative results should be treated [...] are for the indentification of SARS-CoV-2 RNA. CuxFQNU-UyO-0 RNA is generally detectable in respiratorysamples during the actue phase of infection. ID Date Data Source [id number] 08/24/2020 05:19:43 PM EDT [facility] Name Value Range Interpretation Code Description Data Maria Isabel rce(s) Supporting Document(s) Progress Note [facility] OJDOFq7zShPDFaSe34/PKSdaZAJva8EfWKkwHSk0YSszQAFlT2TgOZH9dV4xHLZ3FTyUUzGlIjEuMHAz lbm [file] SYBFT0FMMa== ID Date Data Source [id number] 08/03/2020 05:42:46 PM EDT [facility] Name Value Range Interpretation Code Description Data Maria Isabel rce(s) Supporting Document(s) Progress Note [facility] SUUSLz6cBhHGMfQt85/EYUzbBZLzw4IqWVyqQJy5TBuhHRZbW6ZcEAY8wR5rMRY8RAxUHsZkTbDhWFFq lbm [file] pTXRXE3VUCAwDOwGoDgTimu7X8WbND1BGdhz// [file] A1MTQ+JR3dIZd+Yg0Ov4WmrbP6syKlFYwtYZygQP9DRHSPL8VZYq== ID Date Data Source [id number] 06/29/2020 06:08:40 PM EDT [facility] Name Value Range Interpretation Code Description Data Maria Isabel rce(s) Supporting Document(s) Progress Note [facility] YSCFUs0pQpMPJmCo95/VQZpzEZQnw7RpCTlvBNl3EBbtQEPsL8JfNHE6nR8lBUB4XXaJKtHmHvTaDxC7 lbm [file] AgICAgICAgICAgICAgICAgICAgICAgICAgICAgICAg UVBeLQJeJYSmCXCdKEPcRRYgDTVvQYBeYMMvAXBiWCQuZECtHOGbIZFjFMAqUF8SAIFuCRRtUAUqOZCx ICAgICAgICAgICAgICAgICAgICAgICAgICAgICAgICAgICAgICAgICAgICAgICAgICAgICAgICAgICAg FBDlPVGwYMWhYWHbHWIlDPPyCMMtMIZmOTHgUX1WLT AgICAgICAgICAgICAgICAgICAgICAgICAgICAgICAgICAgICAgICAgICAgICAgICAgICAgICAgICAgIC QkXDJyXRVdXUAqXTYaYICmBOPhHZHuVBZuDVIqMJNjDZXhQMZsMG7SIBLkFGFbPTYnCEKwAALyNQPrHK AgICAgICAgICAgICAgICAgICAgICAgICAgICAgICAg TLQuSJGdADHfUOGhULOzFPRmCOLsKREnPZNzMBTnLWUqJJPgXMRpPCOjGYDbKHDgTV1PAQSbEZZiTHIj ICAgICAgICAgICAgICAgICAgICAgICAgICAgICAgICAgICAgICAgICAgICAgICAgICAgICAgICAgICAg ICAgICAgICAgICAgICAgICAgICAgICAgICAgICAgIA 0KICAgICAgICAgICAgICAgICAgICAgICAgICAgICAgICAgICAgICAgICAgICAgICAgICAgICAgICAgIC AmYNReRZElUTUuFQPfFOHtGFLjSPJxVLFeTYVbFHWmVXQkAFWjXBPfVW1MYGGwYNThNAYmENMfQRAbTN AgICAgICAgICAgICAgICAgICAgICAgICAgICAgICAg SNLyGQYjEMMoXFTeNVOoKFCmAULgQHDvAOUzQGAvRMYxQBCdXJNiDCWaXAVcMMRyIDFvZA3JYVBrUBMg ICAgICAgICAgICAgICAgICAgICAgICAgICAgICAgICAgICAgICAgICAgICAgICAgICAgICAgICAgICAg ICAgICAgICAgICAgICAgICAgICAgICAgICAgICAgIC AhLW0UBTPcFQHoDLUgEHHzVKLpUXQpBFBuCXYwYMZwLLBdNDSmMLCgNNPoYOZpZBTqGQQmHSGhOMTnHM LtFNUvJJEfYBPfPDFdKWPrVAQcKKWgZRCyNZPwCHMpGIPrXZDdZJWdQFTuCM0BYNPoJXDkQBAaBKHiXZ AgICAgICAgICAgICAgICAgICAgICAgICAgICAgICAg RFNcQOQaBUIhLDDnNPOeEBHiHXTuPKHyBKYmABHhQQElSMMyFZObALKtJPAzLTIbMLWlCMJxCG9NJG67 tWPmv0Z6EMYlDF3vkbe/Mu7CGQzafdLfgRVsRG1ZSoNeNM7dfk0OAfQpFI7scf1ZCLeMLqIoD7B0pZQx ILPdUROTNxXxY07aGDgqZl55BIdsGHXbNkFiMAp6Vy 2SFsOfI6bhRTVmWcE5RNEbWfGkPQmdIE7Gu1DkiLZcSUh+Of6LTF5fl9HlXLczKdLfKV0jlq9HYAjZRr VlZ6AamcT9UCYnKQWmYy4IQPIyNUSanNTdGcSwBKZDRaInU8AtmU89JHODXg5+DQplbmRvYmoNCjIzID Dnt9NwTQo8RW2IWQNhIHd3ePOuWORbY9Dli1BjPi07 ITIyIzodOo7txxVHYI3dr992yRBpbSfvMIWgIVUoQh2dEQ8pKHMzTYLfOlIfYLUYYR3CXLHtZSGznXSl AEOmXOSKFM3ZYZdlOWI7XGUyknPjiDZpPKgaZU1FLWRlmxEfGaMeXCDXCZj+Zf5QFE5qh9MvSFlfVDTy CY7ark1TBTnMPyFlI9C5rRCrR7M9ENijDh4HVVGoJH AwOiXyFYHAXBjfEC1DCV5sueX1CN6NuSYtAOXzGYSzgEJaMGm9N11pqHSbFDetLJ9JSVD+Sayra+Pg0KIC HyNZGqAKSzOlEuYSXEHvLrU8ZfP5ESj0MbN3SuCV33oUetqqCfIEwqHY9JVX4yKGPwOHYPLC4AcIFisQ 7oatRpPkGjUUGRIjEoT93dnMGnQSKsHJBwHLPgHp6J BRExS3GuqcRwmInejdLhLUCcSTDKKI7PFGayetGmeIExiDctYH07lSnoNC7HCy5TVeBkCF5hgv6JnHGe Eh0OJRFuLJ6KOMSiJTYsZKHnMDX2NYNuYfFwYYzhTAZlIDFhYGU9NWOdGRDhRY2ZGoFnRQZmYCn2Juvo WRZtFAUhyq7LXMGrTIKnFMPjHcJmUCSuWLDnFLamHO LiBTWjTMZ1PMVnXGJpNK8BYtAsOWIbZQR5FKcgVRBaQBQpne3JDRAqSAKgUdFmYfEtVKTyCNTsCChcEO BxWIV7GYwiLDVsEZRzXC4ILbFrHKQwIBN8OqidVQIuMOXlwp0ZPTSgHASbYCm5TcTdHAEpOXKzWOgiKW RkWOS4BIK9DTUqGJIxRU7KIiKxURPnTYNtRRnvPGKf PHJmlu3QHKHcHCOiYpD2XOOiYVKmCDAaPWjfPQTcDEU9UyP9TYFbTJLoDC5ATmXuLMGuVOh1OfHxXAPg HSAiri4QGONkMCMqRDK3XPYiFYYuYUGxLHkcNSEuEGD1NTQ4XTAxPGTcRY9IQiDsVJIiDPu0TsBvSCWx XRJhry6ZXKHlCAArWXIyNUUbOODzXVWfSDbeGPYiCC M0Crz8YDDeIAUaJE9KNbNrUESbPTd2HAAgWKFgAKUksm1HICRdXEKnIAI8XcLyAZMcCFNfLLfgIKNaJY DxLhOuXWEbBSDoUX1LXgNxRYClAqL0VUDaJSYgPFNjcb9MXEBdEXFkOXkwMkFcAWPeEACwHZd6ccPepN YeBKg9MA2EM0EbrkWjPwZQTs2Gn640AVM0ECPyUo1C C4bpEu4cJQTaAPCQAk3EIBl9AnD5XIqxDaYpJHEmR7H6AsJlSuI7GdG2TsOgJATrTRj+XGd0TAzcJ5Kv WzA6X3CgTIloNlEgGKQ7FmpbOBL6OlNiFw2nXXMUDu7+NBvsjMQyqPscCJYCQlDsMSq2WSapKCWPGw2C ID Date Data Source [id number] 06/08/2020 07:32:10 PM [facility] Name Value Range Interpretation Code Description Data Maria Isabel rce(s) Supporting Document(s) Progress Note [facility] OCTQEe2jUwZTRmBo59/TQRfoHHCju3QzAUojVEo6HNncDTJfJ6OiHHR0zN0lDXH1ZJbPUoUiRgGyIsL8 lbm [file] FLOORING MACHINE FEEDER+Yg4QZYRjIRa7Y7I9WWLgZNe7G4WCC6NUYSNsRHozSMpqOTKdGUy3P5Q6GWBgJ2LWJ7Hibavpiu5+ IC6JR83ENZHqGKg1Z8O4kAZuL6T7nTiOcBQ8IE8OET7JeUh6xIWrbG4+AA8SS8RUOmGjYVc5X9K2vKMi G4K9fCvExJS6YU8SPF2PgUVuMXXvxdIaTb5vS1UDXL sYWfUTCPF6SN4FmAOdQG8NxKSWO5QdaIGvAj3tJOnjaJYlhE0pBa0zVCeiKB9XJjZGPHdSZRM8FN0LcQ HjZY2MnFZGO1IywEAvJa5nDGwopBFaqc0+PW6PPJKeCg2CJj2+EZzewdFmVpwFWmI6ZUCoz6YqGXc5QE 2ASV9ckYtiIFA8Ze1MrVO3iRWaO3eILK2IjQKcN63o qUYwFSLdYe6EYcH5etJcjX0FBD06cCUwr6X0ZQWzS7pzMHjvs10wIDabXZiSQI5kAHBQYAupBCzpJOR0 YyYiwgomUGOaCo6QMeEiTIf8kX4udBL0BGT5QyxuoPZjFKjeAjLwDzKoXyI6zLrpbyz1EBppXV1eFWvn czptZXRhLyc+WWyvVDDbWCVaVtyRQVRfiF6dyeN2ox LuRUuxpSVrEu5bm0s1VjfbKj1uUn6nHXc9ZsRhEmCgVPBePx5zxL85DZlpjoOnUt4CZrZqKLE2P4ViHx pSREY+KXfvJHkljZu1sRYoTGTxGb1TKSCmOSNmOXOiZIQoOEOyYZLcTAMoGLWoPIMwSIOfHHFvZFJzHL AgICAgICAgICAgICAgICAgICAgICAgICAgICAgICAg MQEkVGOiQBNsESZvXGFxJKInSWMuOGQkCNLxIVRpPE9HOPMhPGZbWUDeTRAtHLMyUDCrWZRuHMBaKBZc ICAgICAgICAgICAgICAgICAgICAgICAgICAgICAgICAgICAgICAgICAgICAgICAgICAgICAgICAgICAg NYTqUJZqBQOfZUBzWW9ONHAtKOPhQDYoBGWiYYCxAO AgICAgICAgICAgICAgICAgICAgICAgICAgICAgICAgICAgICAgICAgICAgICAgICAgICAgICAgICAgIC UiDPZcZIGlQWXkNEIiBGTaKZIfLNDyVG0LYSKzQMDwVCKsCSBbKTQoWVBqEOAaMDCcKQIgZPIsHJMmTC AgICAgICAgICAgICAgICAgICAgICAgICAgICAgICAg URLlMLNiGZQzXHQjIEEgQDVyXSUuBRRxWVPcAVPcWBYdCT5EKQVoIDLmPKEtGITaDELlLKUyEOGfGDSk ICAgICAgICAgICAgICAgICAgICAgICAgICAgICAgICAgICAgICAgICAgICAgICAgICAgICAgICAgICAg DSKoNBKjBJMxAENsGEDcXO2ASCXzAJPzTYNvXGGtTO AgICAgICAgICAgICAgICAgICAgICAgICAgICAgICAgICAgICAgICAgICAgICAgICAgICAgICAgICAgIC BgLWCrNRHbRLMwVYYbAFJzOKUdZMWnUQQlAS9CEZLxVVIqMNHdKAUhFGGyFHWbUNSsGYLvENNvDMWuYE AgICAgICAgICAgICAgICAgICAgICAgICAgICAgICAg VJXuKOZaIIJsJQZrPGDjTVOdSSYwUNVaRZIlQUPbNSZzJLPxHM2KUMMjVEHxNRBfSLIfNWWeAJDvKCEn [facility]ICAgICAgICAgICAgICAgICAgICAgICAgICAgICAgICAgICAgICAgICAgICAgICAgICAgICAgICAg XUYfJAHtMHScCJBhALOiFURoCO4DKFBkBLVcQKQmVU AgICAgICAgICAgICAgICAgICAgICAgICAgICAgICAgICAgICAgICAgICAgICAgICAgICAgICAgICAgIC MqKOEqSVWwHIAiDTMxSYPxTGYaKSSjQXCnBNIwLH0DJKOcYXGfBXHuLFNgIFLbWCNpPLOwONPfIITzNM AgICAgICAgICAgICAgICAgICAgICAgICAgICAgICAg NOCuGWStRWXbAOLbJQPxYCYoDRWpNDJpJNCwWMZhNKIcFOZzVXFwUG4DBO86vPHjx3D5DONzIA3jikp/ Me6QAHzhccRrlLEwUN9GXqBmIX8yya2UTfBbEN8dlf5CUOjPWzWmO4R4aTGlPBMuYKIYDsJbJ62hNXpw Er59YDgkJLWfQmAlHZc5De2GBhXwE1muDKEqRoH0CV WiVkT0AEKtCoE8JZKeTrLvGCtsHT1Ha0IubGPcCGo+Co5ABG9ub9NoFWupFtAqVN6aur8HIRyWRxPaE9 MqwjW5SAR0PSQlAo1AJFNtFPXciEPoNcMqOCTHMoUiR1ZixZ29YXDQBj4+VEiktuJeThyNJlO3INKvg4 QoCEd2SI5RYDWcBBh3rEBiUUVcU2Nqn4GpLt70KVRt TfnpBi8whdEYMW3sg044sEEnwOsqJHRhKSTxLn05WwScYrBtDOJ5MMRiTW9mXLuxOW9MBKQ0THakEXVw FXFbZ4oSWxNeDGRhVKKhcPdtFU5SZlDdM0CgkfVezXLjUeNlXGWEKg8+SDoxrcWgKllWXdU5WPWuz7Tf FZr8MH4BXVSeUMgxJA3CZSSxwI3dYNilQL2ULpPxGB NpPECFZoRhF61znZXmCHh9T3YfMnLpGTAaHzzdWDPfVHcvUyMkXHPhEwOeESbkMO7+ID4+WXpxXH4WEE emipJhTFLuSd4VPSGaMMAyXL0iWXUeLXUnH8U5iDemCNBYEiBfB2kwbadaLK8aRBRbE323xYgebbGeFP M8MGHfBi1AOLZuUBJ2ZQCjhNXfFnJpQSFDWIhvIE4Z hIClNCR4mF1wJElsWUKxPFAqJ0tFBwCfcUuzDF95hKcdclFlkDRiXLw+Bs5RXY2aa9CaXUx5xoQeCMvd SSH4LJlxOLKnIVGvKCNoHDG8QGF3BQMNKvAiXQFjNRRmDMyaSAXgKGGext1KBETwACUfZdXzStBvGVRa XLUzDOrsEZWqDSG8SKliSPBlTKRoLG3ZKyRsFDOuFI UpTZwkCYEnZDArpk0WPSBuHVNjQhW7NGZfFTCvSUQnMTrdMOPgGBZnDEL4JWKxPYFcLE5WXxFfQEYkMV m6YpRpWLOsIRIngj8HHXMxTFOzBUP1XPFaXTKdFRAnOTzcUQNjDFOvEHPbRAJiYLSnWQ1IQxMeODFpIT CeJAQhNSSqUPAlug2VADJkTWEnRcJuXtJwCPOpRZIe SOlwNUCqWIPvGbVwIMOwDGIaQM0NIhNyMEKzCLLtSGVqIYQdAYRhhh8XWAYgSDIsMfZ6GSImLWDwSELp QUplALNjDYCqBFC5CCHvRCMdIK7QFcZrHCPcPNZ4HVHyHSUdSQItml5YEYCwHKEcJXG0LFVzNIRgFGDt RTkuAGZeRXJ1PGIhUQEzPIGwQR2ZXrGgLDEjKvJ2ZC mxXPDkJTIhjt7SILZxTNZwKDb1FTEbYVQmPEGvPJjiAVQyBJJ3DJU7EPQuBUDiOI2XHjNbOGVgAtjvOY idQSGnWUVugm5TEPFsDVPpXbGnYiSiRRUtMLZzNFowBPXhYPV5ZQH4YNYuVHFzBS2HXjHaQUKjRdf3Wn FzLXCyBVAuue0JGDMtHEYiBPW2XwHiGVWuAGRlGKjj BHGaBQM9MdQjYDXmEVAsRQ9KVyOeQNIjAdx4IGLiCRGqWYVenr1VkBKitYfjuv9MWOgFVo4XpTpjGCD3 DOcoMu8swYKwIRIfVWUKIl7TfqJdUEXzOOWOHWebIPSfWDFhD6YaCSJzY7CrVPUePMX9QBAqILGsAUW1 PfG3DTP3OeD2N9LzYhUvRbY1JrRsGQF0SLspNFI4ZV ZhZjVmZjRhZjk+MN9uOMq+Wx3Tf3MihrR8niVzCVcrGEu5Cz4OUCWGG3VJLs== ID Date Data Source [id number] 05/06/2020 12:00:00 AM EST [facility] Name Value Range Interpretation Code Description Data Maria Isabel rce(s) Supporting Document(s) SARS coronavirus 2 RNA [Presence] in Res piratory specimen by SONIDO with probe detection NEGATIVE [facility] This lab was ordered by Deshawn Shay and reported by [employer]. ID Date Data Source [id number] 05/06/2020 12:00:00 AM EST [facility] Name Value Range Interpretation Code Description Data Maria Isabel rce(s) Supporting Document(s) [facility] Rapid COVID Antigen Test Negative [facility] This lab was reported by Deshawn laguerre. Procedure Social History Code Duration Value Status Description Data Source(s ) Smoking 09/04/2020 12:04:00 AM EDT Denies Ever Smoked complete d Denies Ever Smoked [facility] Alcohol intake 08/24/2020 12:00:00 AM EDT Current non-d bianka of alcohol (finding) completed Current non-drinker of alcohol (finding) [facility] Tobacco use and exposure 08/24/2020 12:00:00 AM EDT Never used co mpleted Never used [facility] Smoking 08/24/2020 12:00:00 AM EDT Never smoker completed Never s dcker [facility] Alcohol intake 06/08/2020 12:00:00 AM EST Current non-d bianka of alcohol (finding) completed Current non-drinker of alcohol (finding) [facility] 01/10/2020 12:00:00 AM EDT completed [facility] Vital Signs ID Date Data Source UNK Name Value Range Interpretation Code Description Data Source(s) Systolic blood pressure 118 mm[Hg] Normal (applies t o non-numeric results) 118 mm[Hg] [facility] Diastolic blood pressure 71 mm[Hg] Normal (applies to non-numeric results) 71 mm[Hg] [facility] Heart rate 83 min Normal (applies to non-numeric resul ts) 83 min [facility] Body height 176.784 cm Normal (applies to non-numeric resu lts) 176.784 cm [facility] Respiratory rate 18 min Normal (applies to non-numeric results) 18 min [facility] Body temperature 36.3 rubina Normal (applies to non-numeric results) 36.3 rubina [facility] Body mass index (BMI) [Ratio] 20.81 kg/m2 No rmal (applies to non-numeric results) 20.81 kg/m2 [facility] Body weight Measured 65.771 kg Normal (applies to n on-numeric results) 65.771 kg [facility] ID Date Data Source [id number] 09/03/2020 08:44:18 PM EDT [facility] Name Value Range Interpretation Code Description Data Source(s) TRANSFER FROM [facility] ID Date Data Source [id number] 08/24/2020 05:19:43 PM EDT [facility] Name Value Range Interpretation Code Description Data Source(s) WEIGHT RECORDED 144.4 lb 144.4 lb [facility] ID Date Data Source [id number] 08/03/2020 05:42:46 PM EDT [facility] Value Range Interpretation Code Description Data Source(s) WEIGHT RECORDED 141 lb 141 lb [facility] ID Date Data Source [id number] 06/29/2020 06:08:40 PM EDT [facility] Name Value Range Interpretation Code Description Data Source(s) WEIGHT RECORDED 135 lb 135 lb [facility] ID Date Data Source [id number] 06/08/2020 07:32:10 PM EST [facility] Value Range Interpretation Code Description Data Source(s) Body height Measured [address] [facility] WEIGHT RECORDED 132.4 lb 132.4 lb [facility]
[2021-02-14 01:46] LABS: RSV AMPLIFICATION NEGATIVE (NEGATIVE)
[2021-02-14] MEDS ORDERED: MOM 30ML SUSPENSION UDC PO PRN (02:50)
[2021-02-14] MEDS ORDERED: traZODone 50 MG TAB PO PRN (02:50)
[2021-02-14] MEDS ORDERED: MAALOX 30 ML SUSP *UDC PO PRN (02:50)
[2021-02-14] MEDS ORDERED: LORazepam 2 MG TAB PO PRN (03:05)
--- OUTSIDE RECORDS SUMMARY | 2021-02-14 03:10 | CCD ---
Author Author [facility] Organization [facility] Address Unknown Phone Unavailable Care Team Providers Care Lobster Fisherman Name Role Phone SYSTEM IN, NOT IN PROVIDER Unavailable Unavailable JOSI SOLIZ Unavailable Unavailable Bailey VALDIVIA MD Unavailable Unavailable Bailey VALDIVIA MD Unavailable Unavailable Bailey VALDIVIA MD Unavailable Unavailable Bailey VALDIVIA MD Unavailable Unavailable Bialey VALDIVIA MD Unavailable Unavailable Bailey VALDIVIA MD [...] Unavailable Unavailable BAKARI ROBERTSZABETH Unavailable Unavailable [facility]_4785, [id number] Unavailable [phone] [facility]4785, [id number] Unavailable [phone] [facility]4785, [id number] Unavailable [phone] [facility]4785, [id number] Unavailable [phone] [facility]4785, [id number] Unavailable [phone] [facility]4785, [id number] Unavailable [phone] [facility]_4785, [id number] Unavailable [phone] [facility]4785, [id number] Unavailable [phone] [facility]4785, [id number] Unavailable [phone] [facility]_4785, [id number] Unavailable [phone] [facility]4785, [id number] Unavailable [phone] [facility]_4785, [id number] Unavailable [phone] [facility]_4785, [id number] Unavailable [phone] [facility]_4785, [id number] Unavailable [phone] [facility]4785, [id number] Unavailable [phone] [facility]4785, [id number] Unavailable [phone] Mavis SANCHEZ MD Unavailable [...] Rosa GAMBINO MD Unavailable Unavailable NOSOVITCH Rosa GABMINO MD Unavailable Unavailable NOSOVITCH Rosa GAMBINO MD [...] GAMBINO MD Unavailable Unavailable BYRON, C NIDA CASE LINER Unavailable Unavailable BYRON, C NIDA CASE LINER Unavailable Unavailable BYRON, C NIDA CASE LINER Unavailable Unavailable BYRON, C NIDA CASE LINER Unavailable Unavailable BYRON, C NIDA CASE LINER Unavailable Unavailable BYRON, C NIDA CASE LINER Unavailable Unavailable BYRON, C NIDA CASE LINER Unavailable Unavailable BYRON, C NIDA CASE LINER Unavailable Unavailable BYRON, C NIDA CASE LINER Unavailable Unavailable BYRON, C NIDA CASE LINER Unavailable Unavailable BYRON, C NIDA CASE LINER Unavailable Unavailable BYRON, C NIDA CASE LINER Unavailable Unavailable BYRON, C NIDA CASE LINER Unavailable Unavailable BYRON, C NIDA CASE LINER Unavailable Unavailable BYRON, C NIDA CASE LINER Unavailable Unavailable BYRON, C NIDA CASE LINER Unavailable Unavailable BYRON, C NIDA CASE LINER Unavailable Unavailable BYRON, C NIDA CASE LINER Unavailable Unavailable BYRON, C NIDA CASE LINER Unavailable Unavailable BYRON, C NIDA CASE LINER Unavailable Unavailable BYRON, C NIDA CASE LINER Unavailable Unavailable BYRON, C NIDA CASE LINER Unavailable Unavailable BYRON, C NIDA CASE LINER Unavailable Unavailable BYRON, C NIDA CASE LINER Unavailable Unavailable BYRON, C NIDA CASE LINER Unavailable Unavailable BYRON C NIDA CASE LINER Unavailable Unavailable FOLK, J KASI MD Unavailable [...] is protected by Article 27-F of the [facility] Public Health law. If you continue you may have access to information: Regarding HIV / AIDS; Provided by facilities licensed or operated by the [facility] Office of Mental Health; or Provided by the [facility] Office for People With Developmental Disabilities. If such information is present, then the following [facility] mandated warning applies: This information [...] law may result in a fine or mcc sentence or both. A general authorization for the release of medical or other information is NOT sufficient authorization for further disc losure. Allergies and Adverse Reactions Type Description Substance Reaction Status Data Source(s ) Propensity to adverse reactions NO KNOWN ALLERGIES NO KNOWN ALLERGIES [facility] Encounters Encounter Providers Location Date Indications Data Source(s ) Outpatient Attender: NIDA MATTHEWS NP 10/15/2020 12:00:0 0 AM [facility] Outpatient Attender: NIDA MATTHEWS NP 09/14/2020 12:00:0 0 AM [facility] Outpatient 09/13/2020 12:00:00 AM [facility] Outpatient 09/13/2020 12:00:00 AM [facility] Inpatient Attender: KASI VALDIVIA MD 09/04/2020 12:47:51 AM E DT Lab [facility] Inpatient Attender: KASI VALDIVIA MDAdmitter: KASI VALDIVIA MD 09/04/2020 12:00:00 AM EDT - 09/06/2020 01:57:00 PM EDT 36 WKS WITH RUPTURED MEMBRANES HIGH RISK [facility] 36 WKS WITH RUPTURED MEMBRANES HIGH RISK Patient discharged. Outpatient Referrer: PROVIDER SYSTEM IN 09/03/2020 0 8:44:00 PM EDT 36 week preg, water broke. [facility] 36 week preg, water karolinake. Emergency Attender: Miles DOBBS-CReferrer: [phone] [facility] EMERG[facility]Y ROOM-ER 09/03/2020 08:10:00 PM EDT - 09/03/2020 10:20:00 PM EDT [facility] Patient discharged. Outpatient Attender: KASI GUTIERRES JRReferrer: FRANCISCA Gamble ICAMPLI [id number] 08/24/2020 12:00:00 AM EDT - 08/24/2020 03:16:22 PM EDT Maternal care for other (suspected) abnormality and damage, not applicable or unspecified [facility] Maternal care for other (suspected) feta l abnormality and damage, not applicable or unspecified Outpatient Attender: MINA PELAEZ 08/24/2020 12:00:00 AM [facility] Outpatient Attender: NIDA BLUMeferrer: Bailey GUTIERRES JR [id number] 08/22/2020 12:00:00 AM EDT - 08/22/2020 03:36:42 PM [facility] Outpatient Attender: KASI GUTIERRES JRReferrer: FRANCISCA Gamble ICAMPLI [id number] 07/27/2020 12:00:00 AM EDT - 07/27/2020 03:34:51 PM EDT Maternal care for other (suspected) abnormality and damage, not applicable or unspecified [facility] Maternal care for other (suspected) feta l abnormality and damage, not applicable or unspecified Outpatient Attender: ADITI HOBSON 07/27/2020 12:00:00 AM [facility] Outpatient 07/27/2020 12:00:00 AM [facility] Outpatient Attender: CHUY RAM 07/27/2020 12:00:00 AM [facility] Outpatient Attender: KASI Brownerrer: FRANCISCA Gamble ICAMPLI [id number] 06/28/2020 12:00:00 AM EDT - 06/28/2020 04:03:02 PM EDT Maternal care for other (suspected) abnormality and damage, not applicable or unspecified [facility] Maternal care for other (suspected) feta l abnormality and damage, not applicable or unspecified Outpatient Attender: JOSI SOLIZ 06/28/2020 12:00:00 AM [facility] Outpatient Attender: KASI GUTIERRES JRReferrer: FRANCISCA Gamble ICAMPLI [id number] 06/08/2020 12:00:00 AM EST - 06/08/2020 12:22:05 PM EST Maternal care for (suspected) abnormality and damage, unspecified, not applicable or unspecified [facility] Maternal care for (suspected) abno rmality and damage, unspecified, not applicable or unspecified Outpatient Attender: CHUY RAMReferrer: FRANCISCA CALVO YOLIS 06/08/2020 12:00:00 AM [facility] Outpatient Attender: Ciro DOBBS 05/06/19 12:00:54 PM EST - 05/06/2020 12:48:01 PM EST [facility] ([facility] ) Immunizations Vaccine Date Status Description Data Source(s) COVID-19 VACCINE Pfizer 12/24/2020 12:00:00 AM EDT completed [facility] Vaccine Series Complete: YESThis Data wa s Submitted to [facility] Via [employer]. COVID-19 VACCINE Pfizer 12/03/2020 12:00:00 AM EDT completed [facility] Vaccine Series Complete: NOThis Data was Submitted to [facility] Via [employer]. Medications Medication Brand Name Start Date Product [...] to resendiz Policy Resendiz Plan Information U [id number] Self [id number] U [id number] Self [id number] [facility] [id number] CHILD [id number] / [id number] Parent [id number] RPR- Needs Payer Match [id number] Self [id number] U [id number] Self [id number] MEDICAID [id number] S [id number] N REGIONAL CLAIMS PANCHO -O/P [id number] 19 [id number] [facility] [id number] CHILD [id number] MEDICAID HEA [id number] S [id number] HEA [id number] P [id number] MEDICAID UNAVAILABLE S UNAVAILA BLE [facility] [id number] FA2 [id number] ANSI-Not a Secondary Insurance [id number] [facility] [id number] [facility] [id number] Problems, Conditions, and Diagnoses Code Display Name Description Problem Type Effective Dates Data Source(s) 36 week preg, water broke. 36 week preg, water broke. Diagnosis 09/03/2020 08:44:00 PM [facility] Z79.899 Other rodent exterminator (current) drug therapy O THER LONGTERM (CURRENT) DRUG THERAPY Diagnosis 09/03/2020 08:10:00 PM [facility] Z3A.36 36 weeks gestation of 36 WEEKS GESTATI ON OF Diagnosis 09/03/2020 08:10:00 PM [facility] Z20.822 CONTACT WITH AND (SUSPECTED) EXPOSURE TO COVID-19 CONTACT WITH AND (SUSPECTED) EXPOSURE TO COVID-19 Diagnosis 09/03/2020 08:10:00 PM [facility] O42.113 premature rupture of membranes, onset of labor more than 24 hours following rupture, third trimester PRETRM CHERYLE ROM, ONSET LABOR > 24 HOURS FOL RUPT, THIRD TRI Diagnosis 09/03/2020 08:10:00 PM [facility] O35.8XX0 Maternal care for other (kerry pected) abnormality and damage, not applicable or unspecified Maternal care for other (suspected) feta l abnormality and damage, not applicable or unspecified Diagnosis 06/08/2020 07:10:1 5 PM [facility] O35.9XX0 Maternal care for (suspected ) abnormality and damage, unspecified, not applicable or unspecified Maternal care for (suspected) abnormality and damage, unspecified, not applicable or unspecified Diagnosis 06/08/2020 09:38:28 AM [facility] Surgeries/Procedures Procedure Description Date Indications Data Source(s) MRI Brain W/O Contrast, Followed By Contrast 12:00:00 AM EDT [facility] ([facility], ) MRI Brain W/O Contrast, Followed By Contrast 12:00:00 AM EDT [facility] ([facility] ) Results ID Date Data Source [id number] 01/29/2021 06:09:00 PM EDT [facility] Name Value Range Interpretation Code Description Data Maria Isabel rce(s) Supporting Document(s) SARS coronavirus 2 RNA [Presence] in Res piratory specimen by SONIDO with probe detection NEGATIVE [facility] This lab was ordered by [facility] a nd reported by [facility]. ID Date Data Source [id number] 09/04/2020 03:42:02 PM EDT [facility] Name Value Range Interpretation Code Description Data Maria Isabel rce(s) Supporting Document(s) Progress Note [facility] CKAHSy1uBxJMYxVa39/XJJxiIVHvl0YgSJprGBb9TKpqUMHsJ7VzLTW6xS4cZDC7NFlMHlGrQvOiVgQt lbm [file] ICAgICAgICAgICAgICAgICAgICAgICAgICAgICAgIC AgICAgICAgICAgICAgICAgICAgICAgICAgICAgICAgICAgICAgICAgICANCiAgICAgICAgICAgICAgIC AgICAgICAgICAgICAgICAgICAgICAgICAgICAgICAgICAgICAgICAgICAgICAgICAgICAgICAgICAgIC AgICAgICAgICAgICAgICAgICAgICAgICANCiAgICAg ICAgICAgICAgICAgICAgICAgICAgICAgICAgICAgICAgICAgICAgICAgICAgICAgICAgICAgICAgICAg ICAgICAgICAgICAgICAgICAgICAgICAgICAgICAgICAgICANCiAgICAgICAgICAgICAgICAgICAgICAg ICAgICAgICAgICAgICAgICAgICAgICAgICAgICAgIC AgICAgICAgICAgICAgICAgICAgICAgICAgICAgICAgICAgICAgICAgICAgICANCiAgICAgICAgICAgIC AgICAgICAgICAgICAgICAgICAgICAgICAgICAgICAgICAgICAgICAgICAgICAgICAgICAgICAgICAgIC AgICAgICAgICAgICAgICAgICAgICAgICAgICANCiAg ICAgICAgICAgICAgICAgICAgICAgICAgICAgICAgICAgICAgICAgICAgICAgICAgICAgICAgICAgICAg ICAgICAgICAgICAgICAgICAgICAgICAgICAgICAgICAgICAgICANCiAgICAgICAgICAgICAgICAgICAg ICAgICAgICAgICAgICAgICAgICAgICAgICAgICAgIC AgICAgICAgICAgICAgICAgICAgICAgICAgICAgICAgICAgICAgICAgICAgICAgICANCiAgICAgICAgIC AgICAgICAgICAgICAgICAgICAgICAgICAgICAgICAgICAgICAgICAgICAgICAgICAgICAgICAgICAgIC AgICAgICAgICAgICAgICAgICAgICAgICAgICAgICAN CiAgICAgICAgICAgICAgICAgICAgICAgICAgICAgICAgICAgICAgICAgICAgICAgICAgICAgICAgICAg ICAgICAgICAgICAgICAgICAgICAgICAgICAgICAgICAgICAgICAgICANCiAgICAgICAgICAgICAgICAg ICAgICAgICAgICAgICAgICAgICAgICAgICAgICAgIC AgICAgICAgICAgICAgICAgICAgICAgICAgICAgICAgICAgICAgICAgICAgICAgICAgICANCjw/eHBhY2 nccAUagaL2S2aoKu3UVk5DLA4zh4FfXKSnMTsywmQaDctTWmNxTBIqPbjHHsc4HNkaOY9SyYMjQ1VqN5 CsGNsfXV8MNDZiDTWnyPNfUQAvWOGjNoC7AOGyOIdx JV0IzOByWInpKEEvTKPhEoYvNRZwMK5KVMLiZ432hyEzXn6CIc1UQkXnOY3kjw0VKsXbKOKmXcrHCle0 BCepGX6UpQGbgDYxSoVjXTFMKbSuJ3bfv5QhDmAaGBDLRWuuAK7Wq5BkmJUfEYo+Ft9EKZ8lz0CoYRcq VuMyVO2oqt6AJXcQRzHqN4PcvYndZQDaz9ybFVCzGM 2bdZToQZE0AOapvt7nOaRpHUEmN2GsqxyrhovvNYNmBCLtHV1uIH1oJGZfOVDcHdHgJHCMNT3BWZYeII GwqWDfCVYgTCNKYD1LHYotFIZ1NBUgeyFudAXaDBraZP5YIJFzzjXbSwHvWWQXVVs+Yr0KYV7aq9EbTN xhHqVvSM1koc5KHWpXGbStW9I1kRVjL7Y5UXseRw5Y ZDWbVZJtWXxcBJFYYEdhIK4APO5yasB9CD7UkIVhSVDhQUNkcMWgVIg3N20xaCOqMIjkCH8JNHC+Sayra+ Wi1UPVImFTUtRHFtLdYbSQOFHiHkZ7VcK2THi3RbF7XpJO52vKdfnbZrSZiuBV3HWU7gJFUkRNFXIK4Z vTAphZ0jnnSiCSSjQCCPOwUrU77stQEhHPFbFHLoRN PuNf8JNPAzB1PzvcBkiDxamyHiNOLzMNQULL6QGVlrdpXetQMxfNggSZ39tNyhBV3FZm2YUqXnSO5pti 3GuFRjCd1SUNJuAW5CWTWfGMNjDMLmNSC5GHYeWzOzKRnsPVNdKHUnMJI7JMNcZQNuSQ3KOmFqFKLuUk MoRYMgMSJrGCCrrs5JVXOwALYjWkR1ArHeUIFqRKGe GRllJGYbMSIvIPM0MEVbINNfCD2UUkLqJNGlQPT5EdMkMNQcLQFhmu2AEUKlXKVeSDWrPYDvNGGxMDVk CLlnRCYuRJI5UPV4CUJsXXHwFH0ETwLhRBErOSUqMuPqHNZxRXGcak7KKGEvCMRtKtInBVZwMIOgSUCy WHcdMJSdVBZ9BKG3SJEuXHDnUH2BJbYjFALvDVU8VT seGIIhPNWhnl7MQNQnWOSqGcI2DcNpXDEtRHXtZFisEFEvKVG8WBI4VBIvRQKrLV1JQiSjHTXvRLroKK XfZVRxNTVmfi8HVQRbSFWaXVGcBWVnRITjZYMzKFhfCXSyNDI2HzG2WBBaDGIiNW1TJnLbYDLaNIj6Ky AkNBZcTEHlde7RSMHpPXXyZEM0RxBnDIZcHSMpAXot XMFiGZVlDqQbAMJnTIItLQ7HQzZiJNGyTcG0DoFnFSQaBUChir0MSRAvOIEzCyO5ZtDuEBBuDDHwMAvl TIJxMRAuYwP9ZDDxRPSgRJ4FDpTyQDTyNgWmFVRzFDVuMIHyas0IyDPkoKdugn8JQQxMRp7QwGbuANY9 ITluLz6qhDIoCdXhQZRWHj6PlxBoSGIqMSGFMUkxVF DcVKPqUPh8RMA7NYEhZPwzXqMwWKe4WqIhACLbUGT9XSHvNoE3WBUxUSQjVWpwOlSyArUwGORfEYq4BM H8UEOcVMdqSAW+YX5dFVu+We2Ly5OtzdZ6yqVjRNmjWlCjGS1LFNIIA0YFEo== ID Date Data Source [id number] 09/05/2020 02:47:23 PM EDT Lab [place] [facility] [address] [place], [place] [address]Flp# SURGICAL PATHOLOGY REPORTPatient Name:AIDAN BLACK:2000Received:09/04/2020ccession #:[id number](s) [...] By Yung Leal MD jzwPath[facility] JayJigna[address] [place], [place] [address]Technical component performed at [facility], Histopathology, [address] [place] [address], [phone].Reported at [facility], [address] [place] [address], [facility].This report may include immunohistochemical or in-situ hybridizationresults. Testing was developed and the performance characteristicsdetermined by [facility], as required byCLIA '88. The FDA has determined that approval for specific use is notnecessary for clinical use. The quality of Hematoxylin and Eosin stainsand as applicable, for all immunohistochemical and/or special stains,including positive and negative controls, were reviewed and consideredappropriate.ICD codes: O43.261GCT4 codes: A: 00040O Name Value Range Interpretation Code Description Data Maria Isabel rce(s) Supporting Document(s) ID Date Data Source [id number] 09/05/2020 12:17:19 PM EDT Lab [facility] SPECIMEN DESCRIPTION VAGINAL/RECT ALCULTURE RESULTS NEGATIVE: BETA HEMOLYTIC STREPTOCOCCI GROUP B B Y PCRREPORT STATUS FINAL 09/05/2020 Name Value Range Interpretation Code Description Data Maria Isabel rce(s) Supporting Document(s) ID Date Data Source [id number] 09/04/2020 10:08:20 AM EDT [facility] CYNTHIA Name Value Range Interpretation Code Description Data Maria Isabel rce(s) Supporting Document(s) TREPONEMA IGG/IGM @ (NEG) Lab [facility] CYNTHIA ID Date Data Source [id number] 09/04/2020 01:36:33 AM EDT [facility] SPEC EXP DATE 09/07/2020ATI ENT ABO/Rh O POSITIVEANTIBODY SCREEN NEGATIVETESTING SITE PERFORMED AT [address] [place] [address] Name Value Range Interpretation Code Description Data Maria Isabel rce(s) Supporting Document(s) ID Date Data Source [id number] 09/04/2020 12:47:51 AM EDT Lab [facility] Name Value Range Interpretation Code Description Data Maria Isabel rce(s) Supporting Document(s) WBC 12.3 10*3/uL (4.1-11.0) H [facility] [place] [facility] RBC 3.44 10*6/uL (4.00-5.40) L [facility] [place] [facility] HGB 9.9 g/dL (12.0-16.0) L [facility] [place] [facility] HCT 30.3 % (36.0-47.0) L [facility] MCV 88.2 fL (80.0-95.0) [facility] MCH 28.7 pg (27.0-32.0) [facility] MCHC 32.6 g/dL (32.0-36.0) [facility] RDW 13.5 % (10.5-14.5) [facility] [place] [facility] PLT 185 10*3/uL (150-450) [facility] [place] [facility] MPV 10.0 fL (7.1-10.7) [facility] [place] [facility] ID Date Data Source [id number] 09/03/2020 10:24:00 PM EDT [facility] Patient: AIDAN BLACKatio n Report - Physicians/Mid Levels [facility].VisitID: [id number] [place] [address] [phone], FRegistradelaware hospital for the chronically ill Date/Time: 09/03/2020 19:06 Weight:65.7 kg (S). Height/Length:70 [...] rce(s) Supporting Document(s) ID Date Data Source [id number] 09/03/2020 08:10:00 PM EDT [facility] Name Value Range Interpretation Code Description Data Maria Isabel rce(s) Supporting Document(s) COVID-19 NEGATIVE [facility] This lab was ordered by [facility]lene Lab and reported by [facility]. ID Date Data Source [id number] 09/03/2020 08:34:00 PM EDT [facility] [id number] Name Value Range Interpretation Code Description Data Maria Isabel rce(s) Supporting Document(s) COVID-19 NEGATIVE NEGATIVE [facility] Negative results should be treated as [...] are for the indentification of SARS-CoV-2 RNA. GpnXBRV-VdE-1 RNA is generally detectable in respiratorysamples during the actue phase of infection. ID Date Data Source [id number] 08/24/2020 05:19:43 PM EDT [facility] Name Value Range Interpretation Code Description Data Maria Isabel rce(s) Supporting Document(s) Progress Note [facility] OWKMHw6pNuUVLvOv87/CLGtfJURwt1XeIVjbOGm9FMigLKYsW7TdTNQ8hH7cTXE3JAdRYrQwMrAjDQAc lbm [file] PIPED0HMRw== ID Date Data Source [id number] 08/03/2020 05:42:46 PM EDT [facility] Name Value Range Interpretation Code Description Data Maria Isabel rce(s) Supporting Document(s) Progress Note [facility] DQECOl0uQdWTEeTv34/ZKWqpWIBqd5ClRFxqMKc4FRjdIUJsE4KeYSJ8oE8cVKO4NKvZJtQfNsUuFZAp lbm [file] vFXZOZ0QAOBeIQqYxDsNnei2W4ZjDH2GYjib// [file] A1MTQ+AI5pXTn+Sv4Yu3BenbI7dzTeJNwtSXcmGS6QBGCWG5LKXh== ID Date Data Source [id number] 06/29/2020 06:08:40 PM EDT [facility] Name Value Range Interpretation Code Description Data Maria Isabel rce(s) Supporting Document(s) Progress Note [facility] SLKSAy2gWbLFRlVs97/MWStnHPJan6EzRUrnSNc9UXhaXHGjD5NrGTY2tZ8fPTJ1GRaUMlOfJvQqTbQ5 lbm [file] AgICAgICAgICAgICAgICAgICAgICAgICAgICAgICAg LKZvMFGsZSGwGSHcSJXaSDAbBCPeWTDgFVHoWTRdJPWjHIIvVOYrCARjTLUsCO2LBEFyFORcLCJuSFFm ICAgICAgICAgICAgICAgICAgICAgICAgICAgICAgICAgICAgICAgICAgICAgICAgICAgICAgICAgICAg BTNtXWTtCCXzNJWrQOLwBMKqPKGrDRGuMRUnTS8TAY AgICAgICAgICAgICAgICAgICAgICAgICAgICAgICAgICAgICAgICAgICAgICAgICAgICAgICAgICAgIC PwQXLgXROjVBXyNKXiLOJgOXWxTRMvHXVaRVCeKBWnSEIcZXGaZZ2ESNYuVSKwXQVcRKBjQRCgKIItWI AgICAgICAgICAgICAgICAgICAgICAgICAgICAgICAg TXVrIZAaXYUcFBKqJDHdSXPiBXTjJGCmIDWlAWNpYEQfYVQbJRZqGDQtTJWvIGAcZG2DWRJqKDAnVGEv ICAgICAgICAgICAgICAgICAgICAgICAgICAgICAgICAgICAgICAgICAgICAgICAgICAgICAgICAgICAg ICAgICAgICAgICAgICAgICAgICAgICAgICAgICAgIA 0KICAgICAgICAgICAgICAgICAgICAgICAgICAgICAgICAgICAgICAgICAgICAgICAgICAgICAgICAgIC WqIMLqPTGjJHXqLFPhSJJtTAVaKSWcPETrKDBoZXVrBEJvSFJaUVLjJG9WIAAkPMZlNKIkNYOgSFYrCX AgICAgICAgICAgICAgICAgICAgICAgICAgICAgICAg AUDsVHMnSIKyBVCyDVLxQWJfQSVtLVBhCWXnSAKqZNAeNAOtZMOdURYbTSSsWYJkWZJuTM7RXZYrTYBw ICAgICAgICAgICAgICAgICAgICAgICAgICAgICAgICAgICAgICAgICAgICAgICAgICAgICAgICAgICAg ICAgICAgICAgICAgICAgICAgICAgICAgICAgICAgIC ZgWN0DBJFlRLXyPZFlLYNfPELoNDAdBYSfXYBuJZJpSKOcPSHtBSYrUSWvTQZcIWWeQECoLNRwWVPdOS ZdFTFjJVIbJWCnDPFkJKUxHKPuTWPpWJRpOWMlTAYtWMObPAJtXERsBIToJX6PPHEtZXJmHPAtRRIlYD AgICAgICAgICAgICAgICAgICAgICAgICAgICAgICAg DKWqGOHdLNDsLEYmYHEiSCQeCYRdGOAmZEXgXCFvFMFnAYOgMJYjBFTcZLRvHFQvSMFeALOjWF8DDB84 cKGor0K5ZMMtNQ5zerm/Kk3VZJoeonTmxJPhAI7KXqYbUG5ish4QJjZeSJ6zbx9JCDkPEmVjP8P9vKFj BFAtVBYGBsFyC95lNHbwBa21UOtrLMIyLjNrHNs9Yt 5VZpOqK9vqJGMxNdA2AZKgWrVmTZreGT1Cu0XioEHgVGk+Vu7PTI0zd9LrWKebOnCkJY6ult4TQOhZBq XzJ8UtgmN8UOFoVSGzUg9ZNTEqLOHxwQFhOwAxMODARhNuU8AjgT79LDRYKi7+DQplbmRvYmoNCjIzID Gde7QsXBf2XT0SQXQgPEe1qFXhAHBwS2Bww3FlBc88 VXKaYwpsFj0mrwZNUL9qf314yZPnaXztQZImCGYlEq4zES0gYIZkBTTxRpTnYRZNVI2QXWLpSFAdrXFv JSFlRFLRHY8QGMdcILO1WILmcgVisECvBWftEP8AJKSmefUuGgMfFJJIAGc+Hn9NWO0jd0FbVQteNEBi WR3nno8XJEfIIkHsC5F3lFWjR9X6GXcaUi9AXVDpUL MuBoLwNJEDJDlmMV4FKI1epgB4YU5AqPFsSUUvHKJehIQcKKu1U32nrQQtDGwgIE7YZOF+Sayra+Pg0KIC HzRQWvXYPiDnTyCESNEnKpU9HaP4JNa3IpE3ExVL17nShboiJbFVcvZD8OPF3wFIByFSLGWF7UfSCggP 0ottUoRtLzRULBPhCsG78apYTiJNNzAHWsITJoXd2P APWlF1NkznVnsGppgeLfXUObLXQRUM0XYNzcfcRwzSUpqAfjHJ67aLfuRS4ZPr4ZPkYsHP6bof1AjUJr Al0LSVFsQA8BILMfGAFiMJYiHPN7ZAAiXeSnTAufOSQwZCJrUGQ1ZQUoFRIfUZ9GLmZaIXLaTJe3Dwal LPHoRGFjaf4UWNHuNUFjOPUqWxMjSYFrKPQqQJjvDK FjWQThYRM4SLHpCIHoLB5LPaMjERKgPFI6CNqsVHMvSLHuiz3QRFMcBUUxZhTmBaLbFIRlOTUoCRkpEP JmTWM3VJprPIRsDUQoMA1VSlDyCTLnYBW2XslfKENgEDGbox8AYHZqBOBlDVc6XyDlCMIxXRJtEIrhBI GkSUO8NRJ6HTImVZIwYD8UQnFsFMOuOFThAFfyDEAb SGLoqk0PLTNoTXVnHdO8HFRoMSMdWVWuDSeoAQSvEKE0EgT2UVUyIWAtGE9TDiLrJKBlGPd9KiPpJDDn QBWfcn2RJPBeQUIuQHC2OJJqRHOnTGJbSKybZKRgINX1FJZ3OYYoWYLfMQ2GCyWdXIZuSQq7NbDtTRXj UDOvyk9ZUAUvNOYjDSLtJTTgMGXbUFMgAYsyGQRgML R7Zxi5JJKoPQCqCW4BHqDjGCMoLKm1IAEvOXIpWAUkwe1EPOGjPTCtOPP7UeDmYFHvDJFlXEzuLOPjAX GeBbOfGCZtTGPtRE0YTxRzNRRkIcA1WNHsPAUqIRAwfd8XSOFlWEDcTXqoEcRqQQHeSOPdJTu2igXxzI QrKGs2JC8QO8TdevKaCwLWHd4Cn320DIU9LOKxBe4Z E0atVu1lMJBcBDEYQl4PUGt7KhC6DEpkGdByEKKqI6U3SpYcFqM9HlX3MzVrLMNrYKr+LYj1XNyaQ7Qu LgT4S8QrBQhrSnWvFXJ7AmyhDJT4SjFwSk3iGELCVx9+WEfnrBYxuGdvDVAZNnUkYTc1QBmfBTHYHo8P ID Date Data Source [id number] 06/08/2020 07:32:10 PM [facility] Name Value Range Interpretation Code Description Data Maria Isabel rce(s) Supporting Document(s) Progress Note [facility] UCDFKk5dSuMWQxIq01/KGUtuSZBin7AcKBioCTq6QZnmNILqJ8OkOKC2aC3vNCW3MWiVSaYmFiGiTpI3 lbm [file] DOUGH RAISER+Ps3NHDCrNWa8M5T5ZDKhPSj0T6HWF5ZNDQRaNNrcFHnwEWIhSSx7V0R4FNNcM5KIQ9Gueckxuq1+ WI1OK04GOZFfVXx0L0A7lATeZ1G5yAsXrFK0YO4QGE2HgHx4eFRlkF3+VM8IJ3SPCuQlDZb5X8W9uVBr Q4C3uMgRuRD3WP4FOX6CsUDxUHCfexYbKp3qI6LZQP gKWkUVQZL1JC5CtLHbEN2OzTLUJ2YtlBHhOw8lQSriwSOffA5qQr9kEFkrVC4MRaSTJJaUGQP5OL4DhR XpXC1GsGCBJ7FypHVbWi8uJEfaoEQnoq4+IK5LIDQxWs1DJj0+HMthvbDbYvzPDhZ1ZKUkn2LiHYf5QP 8UHJ4xbQzyJZS4Xh2CyCH8nONyL4zUHC4ArLFoB69p hDBrSOIoGt9OUaV8etCkeU0ODX70bRVfi6F8MCRuL2tiPVfxu13sESbmESgJLJ8sJFAJYLvhGNpdIHK9 FzQmczzuTLRaFx5RChEuLUz5jB4icZX0FPV8DzrgjIZjQRugDkZiIcVuOsU0zHsmmaf7DHqqWD0rYFry czptZXRhLyc+UGzjDYKyPTInYvnXLLLejN5rhlJ3gv DuKKetsCUpWh2yq8b9WfofVn2eNw3wJMn2YtAcXdYgGPGkIm2kqK08QDialbUsPt7LObNoAWF0F9GmYi pSREY+OVmdEBjfxPo9zIHcBHZcMa8EDJLvZXPaAZMxBCPjLZIcVMDnXBYoWEFbHKWaTGUyHMAqMWXkEL AgICAgICAgICAgICAgICAgICAgICAgICAgICAgICAg OTQwNJJnSLTfOUQaVJAeJBKiKQQcCSLpXENvTAHgJQ7OMMFmLSCqFLHaFUQqSJAdNFLgINNzVMBqMKAc ICAgICAgICAgICAgICAgICAgICAgICAgICAgICAgICAgICAgICAgICAgICAgICAgICAgICAgICAgICAg EGRgRGYtYRZbRYNeWZ5UADFzLUUjJTNdUJHePYMlDC AgICAgICAgICAgICAgICAgICAgICAgICAgICAgICAgICAgICAgICAgICAgICAgICAgICAgICAgICAgIC KpZUJgWYVkFUTmPNAqREEsEFHwBOFtPY0YZORdDNTxTJEpDNMlBTTdSPTwKTLsFKUrTHOmBRItKBWzIV AgICAgICAgICAgICAgICAgICAgICAgICAgICAgICAg XQSgKFNrBLDfEERhUGWkIVGfDQBwRVYeLDRbOKCcQGZvBV7MNOQsRMIeMOPcCGGbGAOiSJMwCBUbPYVe ICAgICAgICAgICAgICAgICAgICAgICAgICAgICAgICAgICAgICAgICAgICAgICAgICAgICAgICAgICAg XYMkVRCoIMTvMMSfWKUuEI1NIXCqSRRhHVCxHYLmAL AgICAgICAgICAgICAgICAgICAgICAgICAgICAgICAgICAgICAgICAgICAgICAgICAgICAgICAgICAgIC QcIYNqQJLnGSHbILAoHDNtNQUdUUSiREPyTC0LFNYhXDLbCYZzKGYpFDBgTGAqCQHjIDZrGXHcVORqCG AgICAgICAgICAgICAgICAgICAgICAgICAgICAgICAg QZJwBTYvDVSkBOWrVMRmLNAkICSqUDBzCICvFBRqSWPyIJFvNU0EMLJnTQMxEXMqUSAaSVEiBHEjVSRz ICAgICAgICAgICAgICAgICAgICAgICAgICAgICAgICAgICAgICAgICAgICAgICAgICAgICAgICAgICAg ZCSnWHPzSBXxBXGfHLBePYKkCS4IRCVvNJWuSMOvRM AgICAgICAgICAgICAgICAgICAgICAgICAgICAgICAgICAgICAgICAgICAgICAgICAgICAgICAgICAgIC BaYTEfGNHiTEKnSYJsRFJmLHQqBNPtUCOgJKCaHV1RVSDxVZRpQXXuMFFzAMMxSJEuZGQrDJEbFVZtLC AgICAgICAgICAgICAgICAgICAgICAgICAgICAgICAg HLCcFODwJCDjWETiCVBtVDRwUFTrPYDfEENwJZRgOPAdOPSjPZSfSX5LYP82vUTjr4G3QFFaJP6dbvv/ Ij0XKMiqokAemXAdVD9DYrFzPV5onh8MZhYdMC5xrk9RUEnNMyLbU4U4aRWaCYXhKOLSSmIpO74dNAea Ag78TNvpMXDzOvBrRPn3Ao8RAcNmW4liRNVjCxY7MD LrTpS9ZVTuKoQ4HBQeTwAsLMyaYN3Ks3QdaHCkZBd+Rg9SXX8vq2OwZGelScHbGZ2axy7OAJbGHaYhT5 TxjcI4VEK9NNFeFv0UXEYzHWMjqVMwQpQlOPKBJnTfV7UayM16RTBESn4+TMndfjLrCjgAKaL5NMUhr1 OqEVu5BS0CULVwTCs7fLZmZAXiG2Etn0VlYm60YAOa MwuaOx2mvxFRWH3xv631dWPlbQnuBFKdNAVvZe54CfFwJuNaIWM8TQMyPP9oIArcSC2EXKX4IJbyRZFc THDxY2bDHjVbRXNwGZFgwJvcXO0XOoSuW4UoqiCbhSKwToVpLRBMKd3+BGwoniZzZqlGAbP0HLDyx6Fn FBt5FJ8LLDAjCGffWE8DHWOzeE1oTOxsEC3KUaSiWK MnRXTRKiFnS01xqVZrDCy3S7IwReIqEPSfTvjtKSSbTOnvHqCoDGSuJjZpSQmoVG9+ID4+KOrsBQ5UYG xariAfRJKyTf6BHHFoDWPdZA9lQTDeYJWzU0C4kAthCMDUKsKeT4vqcjrjZC4bPKWiS120wUbmolGkDT U2BGPyFl6VPWKyOLE5ATDfuLBmSnKuTYBWKFznAL2K yKJlOYH6eZ6lTGduHGNcYSQyK0zRSnEwzSbrUS02zGorhuOjwPYwNKo+Oy1HLD0tv3FiJAq5byMgWOow RQK6PBwePPDoOFXnVLWmMEW6HRN1CTRHGtSkABYkOPCbTGdtAGNzAZHdds1KTNGnQDOcTjDbEkTfHOCx TBNfKXwbJMQyRIM5JYxkKFDyIIOtVN7WUnQcDYCeRL WpTAjbLLHmXDAmhz9NVOLqKQTaCwU6RKReILHbBGIqHKvmDXTxSFRiXXU6ZJBeAZSoYO6MFcBrMPPeKT x6LiLbAAFjHQHqyw1HHUVwEDQeVPE6BPVuDYFzQXTzTHrfJJVdLEFmFQUcHQDrQLLiGK8NNnNxNBCvQN MoRUIkQRRgSSBtxo3QXRZbCIFwNlGxAoLqTBPwIULd WNycYODdJTFhFwAlCQQvBCKsFT1RAyLbHCSwCATsOIWpPIMuTVBcsc8HCNBqLRIsQeS6MXOlALSoDOGu BFulTNBbJXDpCNP2FNOzOJEgFT2LNsUgVMOqHNN9WZZlMDEwXZRfdm9EYNYjTFUqQUC5ZIGxNOKxVOUf NPemUIEhDES8XHDwLFTiPPIcVV3LKuAyRZSfMoN3DZ giXFGbBQAxpb8TLFHhQDQgAFs3OXQhIFPsJGUlOUkcNIDlEQI8JPG3LFCpYTFiXX4ZKrGhMSPwUmwoVI boJLUkRIGrak2KOEOnRPYgWoQcUvHmTVSjKZObCEboSKEoNAY6IOQ3DWBhJCAkVX9ZOlLsDBLsUjo4Vj CuKMYeABUrdn8AUYJcBLTiRCD1BdNjOCAsFWYrDMuo CODhAPS0AxBbIEMsMRDwDV6ISiRfPHPqHeb6PTWeUQUeGNXisy5UlWStfNqexm3DDVdFBx8RaCgfHXG6 IYdqPd0zqJFyJBWhZZDYXa2DlsQeHCYzZTRWRVxkHIJrSBEbA4MzGMWxQ7NhCVQdBJO8QHUxFTUcKCU9 HcX5SNP4BhO4L5XgNxLtHuR2XeWqLAL4DWcpDPW6OC ZhZjVmZjRhZjk+TN1pYAs+Mu2Kp9KjwhB5hjQiJCxiHKj7Iy9WYFGRW2VLQd== ID Date Data Source [id number] 05/06/2020 12:00:00 AM EST [facility] Name Value Range Interpretation Code Description Data Maria Isabel rce(s) Supporting Document(s) SARS coronavirus 2 RNA [Presence] in Res piratory specimen by SONIDO with probe detection NEGATIVE [facility] This lab was ordered by Deshawn Shay and reported by [facility]. ID Date Data Source [id number] 05/06/2020 12:00:00 AM EST [facility] Name Value Range Interpretation Code Description Data Maria Isabel rce(s) Supporting Document(s) Carestart Rapid COVID Antigen Test Negative [facility] This lab was reported by Deshawn laguerre. Procedure Social History Code Duration Value Status Description Data Source(s ) Smoking 09/04/2020 12:04:00 AM EDT Denies Ever Smoked complete d Denies Ever Smoked [facility] Alcohol intake 08/24/2020 12:00:00 AM EDT Current non-d bianka of alcohol (finding) completed Current non-drinker of alcohol (finding) [facility] Tobacco use and exposure 08/24/2020 12:00:00 AM EDT Never used co mpleted Never used [facility] Smoking 08/24/2020 12:00:00 AM EDT Never smoker completed Never s sdker [facility] Alcohol intake 06/08/2020 12:00:00 AM EST Current non-d bianka of alcohol (finding) completed Current non-drinker of alcohol (finding) [facility] 01/10/2020 12:00:00 AM EDT completed [facility] Vital Signs ID Date Data Source UNK Name Value Range Interpretation Code Description Data Source(s) Systolic blood pressure 118 mm[Hg] Normal (applies t o non-numeric results) 118 mm[Hg] [facility] Diastolic blood pressure 71 mm[Hg] Normal (applies to non-numeric results) 71 mm[Hg] [facility] Heart rate 83 min Normal (applies to non-numeric resul ts) 83 min [facility] Body height 176.784 cm Normal (applies to non-numeric resu lts) 176.784 cm [facility] Respiratory rate 18 min Normal (applies to non-numeric results) 18 min [facility] Body temperature 36.3 rubina Normal (applies to non-numeric results) 36.3 rubina [facility] Body mass index (BMI) [Ratio] 20.81 kg/m2 No rmal (applies to non-numeric results) 20.81 kg/m2 [facility] Body weight Measured 65.771 kg Normal (applies to n on-numeric results) 65.771 kg [facility] ID Date Data Source [id number] 09/03/2020 08:44:18 PM EDT [facility] Name Value Range Interpretation Code Description Data Source(s) TRANSFER FROM [facility] ID Date Data Source [id number] 08/24/2020 05:19:43 PM EDT [facility] Name Value Range Interpretation Code Description Data Source(s) WEIGHT RECORDED 144.4 lb 144.4 lb [facility] ID Date Data Source [id number] 08/03/2020 05:42:46 PM EDT [facility] Value Range Interpretation Code Description Data Source(s) WEIGHT RECORDED 141 lb 141 lb [facility] ID Date Data Source [id number] 06/29/2020 06:08:40 PM EDT [facility] Name Value Range Interpretation Code Description Data Source(s) WEIGHT RECORDED 135 lb 135 lb [facility] ID Date Data Source [id number] 06/08/2020 07:32:10 PM EST [facility] Value Range Interpretation Code Description Data Source(s) Body height Measured 70 in 70 in [facility] WEIGHT RECORDED 132.4 lb 132.4 lb [facility]
[2021-02-14 06:11] VITALS: BP 118/76
[2021-02-14] MEDS ORDERED: FOLIC ACID 1 MG TAB PO SCH (09:00)
[2021-02-14] MEDS ORDERED: MULTIVITAMINS/MINERALS THERAP 1 TAB PO SCH (09:00)
[2021-02-14] MEDS: VITAMIN D 1,000 INTERNATIONAL UNITS TABLET PO SCH (09:55)
[2021-02-14] MEDS: THIAMINE 100 MG TAB PO SCH ×2 (09:56→20:34)
[2021-02-14] MEDS ORDERED: NICOTINE 21MG/24HR 1 EA TRANSDERMAL TD ONE (11:30)
--- NOTE | 2021-02-14 12:23 | MHHPEPDOC ---
General Date Of Admission: Feb 13, 2021 Legal Status: 9.39 Chief Complaint "I am struggling with anxiety." History of Present Illness HISTORY OF THE PRESENT ILLNESS: Patient is a 20 -year-old Single, Unemployed, Domiciled , female, who reports an exacerbation of her anxiety over the past week. Patient was recently admitted and discharge January 29, 2021Oct2020. This is her second admission to the hospital for depression and anxiety. Patient reporting feelings of being overwhelmed, suicidal ideations for the past 2 days, states "I am tired of being tired." She has a 5-month-old child, stated that her anxiety and feelings of hopelessness started about 2 months ago. In the interview she has minimal responses and appears very nervous and is withdrawn and guarded PER ED REPORT: Patient presented of her own accord, although there was also an active 9.45 order picker order issued to law enforcement at 3:45 pm. This marketing copywriter received a TCF Dr. Saucedo this morning, stating that he'd received a message on his voicemail from patient, which was suggestive of being unsafe. He then spoke with patient on the telephone & she continued to verbalize hopelessness and some SI. They agreed that she would come to the hospital for admission, and Dr. Saucedo advised this marketing copywriter that she was expected to arrive within a couple of hours. At that time she was with her significant other, and he had agreed to stay with her until transporting her here. Throughout the later morning and into the afternoon Dr. Saucedo phoned this marketing copywriter to confirm patient's arrival, however patient never arrived. During the last contact between this marketing copywriter and Dr. Saucedo (approximately 3:45 pm), he reported that he'd phoned patient's s.o. (You Trinh: [phone]). The s.o. would not provide his address, stating that patient had gone to the hospital a couple of hours ago, and then he terminated the call. It was at that time that the 9.45 was issued to [place] [id number] dispatch. Pt states that she called her therapist earlier today & left him a VM. She states that the VM must have been misinterpreted because he thought that she was suicidal, but pt. denies being suicidal. However, pt. admits that she has had SI within the past couple of days. When asked whether or not she has a plan for how she would kill herself she states that she has thought about it but has no concrete plan. Pt reports a Hx of three suicide attempts, two via OD & one via cutting. Her last attempt was over a year ago. Pt has a Hx of cutting & states she last cut yesterday. Pt denies HI. Pt denies both AH & VH. She does not appear to be psychotic. Pt c/o depressed mood, anxiety, poor concentration, decreased energy levels, poor sleep, & poor appetite. When asked about stress ors pt. states "Everything has already been taken care of." She states that she was having issues with housing but yesterday the housing issues were resolved. She states that she was having px's at school, but last week she filled out paperwork to take the semester off. Pt has a Hx of depression, BULMARO, & panic d/o with one admission to [facility]. She was just DC from [facility] on 01/31/21. She has OP tx at [facility]. Pt reports that she drinks once a month. Her MELL was 0.113 upon arrival. She reports daily MJ use & her tox screen was positive for cannabis. Psychiatric Review of Systems Depression (2 or more weeks): depressed mood, anhedonia, insomnia/hypersomnia, decreased energy, difficulty concentrating, suicidal thoughts (denies a plan - but has had two overdoses in the past), other Leela (4 or more days of): denies Psychosis: denies PTSD: denies Anxiety: gen/non-specific anxiety, situational anxiety, stressor related anxiety, panic attacks Anxiety/ 6 months or more of: restlessness, keyed up, difficulty concentrating, sleep disturbance Past Psychiatric History Previous Psychiatric Diagnosis: Panic Disorder, Anxiety, Depression, Unspecified Depressive Disorder Previous Psychiatric Admissions: This is the third psychiatric admission for this patient, last hospitalization at this facility was 01/29/2021 - 01/31/21. Suicide Attempts: History of 2 overdoses Psychiatric Follow-up: Dr. Saucedo is her therapist, was seen Dr. Nixon Psychiatric medications: Zoloft, clonazepam, vitamin D Past Medical History Medical Problems Had a baby 5 months ago, vaginal delivery Surgeriesnone cyst on pineal glandcurrent issue No drug allergies, no food allergies Head Injury: No Seizures: No Hospitalizations: Yes Surgeries: No Family Medical/Psychiatric HX Medical Problems No contributory medical issues Psychiatric Disorders: Yes (Fatherbipolar) Addiction: Yes (Father, history of EtOH) Suicide Attemps/Completions: No Addiction History nicotine (Occasional), alcohol (Occasional), other (Positive for cannabis on this hospitalization) Social History Childhood: Born in [facility] to both parents who are still , has 2 younger brothers. Did well in school. Describes her childhood "okay " Abuse/Trauma: Denies. 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 Social Support: Boyfriend and best friend Legal: Denies Marital: Single currently living with boyfriend and 5-month-old daughter Mental Status Examination General Appearance: well groomed, appears stated age, hospital scubs/clothing Build: thin Demeanor: withdrawn, guarded Eye Contact: average Activity: anxious Behavior: cooperative Speech: clear, reg/rate,rhythm,volume Mood: depressed, anxious Affect: flat, anxious Thought Process: logical/linear Thought Content (Delusions): none reported Thought Content (Other): none reported Thought Content (Aggressive): none reported Perception (Hallucinations): none reported Perception (Other): none reported Cognition (Impairment of): none reported Cognition(Intelligence Est.): average Oriented: Awake, Alert, Oriented times three Insight: fair Judgment: Fair Psychosis: Denies Diagnoses Major depression disorder onset Panic disorder Generalized anxiety disorder Cannabis use disorder A-FIB/CHADSVASC A-FIB History Current/History of A-Fib/PAF?: No Current PO Anticoag Therapy: No Assessment This is the third admission for a patient who is 20-year-old single, unemployed, domiciled, female who reports increasing anxiety since her discharge on January 31. She states that she is struggling having difficulty with anxiety, depression, sleep, having suicidal ideation for the past 2 days. States that she has ongoing exhaustion, feeling hopeless, feeling detached, poor concentration depressed and suicidal. At this time she is reporting that she doesn't feel safe to return home. On her last admission this was diagnosed unspecified depressive disorder, on this hospitalization I will diagnose patient with major depressive disorder with onset. Will start patient on her home medications and titrate to therapeutic levels, may augment with Abilify. Will increase clonazepam to twice daily. Patient to be afforded the following treatment modalities individual therapy, group therapy, medication management, milieu therapy, safe environment. When patient is reporting stability we will discharge to appropriate outpatient services Initial Treatment Plan 1. Patient was admitted on a [9.39] status. 2. Complete history was obtained. 3. With patients permission, family will be contacted and database will be expanded. 4. Patients medication regimen will be reviewed and changed accordingly. 5. Patient will be provided with protected environment. 6. Patient will be treated with individual, group, and milieu therapies. 7. Patient will receive supportive psych-education. 8. Discharge planning will commence immediately. 9. Outpatient follow-up treatment will be strongly recommended. 10. The initial treatment plan will focus initially on: * Depression. * Risk for suicide. ESTIMATED LENGTH OF STAY: 5-7 DAYS. TIME SPENT COUNSELING AND COORDINATING INITIAL CARE: 60 minutes. Tobacco Cessation Screen Tobacco Cessation Tx Ordered?: Yes N/A-No Antipsychotics Vital Signs Vital Signs Date Time Temp Pulse Resp B/P (MAP) Pulse Ox O2 Delivery O2 Flow Rate FiO2 02/14/21 06:11 97.9 69 16 118/76 (90) 100 Room Air Laboratory Data 24H Labs Laboratory Tests 2 02/13/21 17:36: Nucleated Red Blood Cells % (auto) 0.0, Anion Gap 9, Glomerular Filtration Rate > 60.0, Calcium Level 9.8, Total Bilirubin 0.3, Direct Bilirubin 0.1, Aspartate Amino Transf (AST/SGOT) 15, Alanine Aminotransferase (ALT/SGPT) 19, Alkaline Phosphatase 67, Total Protein 8.0, Albumin 4.5, Albumin/Globulin Ratio 1.3, Thyroid Stimulating Hormone (TSH) 1.190, Human Chorionic Gonadotropin, Qual NEGATIVE, Salicylates Level < 1.7L, Acetaminophen Level < 2.0L, Ethyl Alcohol Level 0.113H 02/13/21 18:19: Urine Opiates Screen NEGATIVE, Urine Methadone Screen NEGATIVE, Urine Barbiturates Screen NEGATIVE, Urine Phencyclidine Screen NEGATIVE, Urine Amph etamines Screen NEGATIVE, Urine Benzodiazepines Screen NEGATIVE, Urine Cocaine Metabolite Screen NEGATIVE, Urine Cannabinoids Screen POSITIVEH 02/14/21 01:01: Coronavirus (COVID-19)(PCR) NEGATIVE, Influenza Type A (RT-PCR) NEGATIVE, Influenza Type B (RT-PCR) NEGATIVE, Respiratory Syncytial Virus (PCR) NEGATIVE CBC/BMP Laboratory Tests 02/13/21 17:36 Medications Scheduled Cholecalciferol (Vitamin D3) (Vitamin D3) 1,000 Unit Tablet, 1,000 UNITS PO DAILY, (Reported) Quetiapine Fumarate (Quetiapine Fumarate) 50 Mg Tablet, 50 MG PO QHS, (Reported) Sertraline Hcl (Zoloft) 100 Mg Tablet, 100 MG PO QHS, (Reported) Scheduled PRN Clonazepam (Clonazepam) 0.5 Mg Tablet, 0.5 MG PO DAILY PRN for ANXIETY, (R eported) Allergies Coded Allergies: No Known Allergies (Verified Allergy, Unknown, 06/21/19) JAISON LEON NP Feb 14, 2021 12:23
[2021-02-14 18:42] VITALS: BP 146/86
--- NOTE | 2021-02-14 18:43 | HPEPDOC ---
General Date of Admission Feb 14, 2021 at 02:49 Date of Service: Feb 14, 2021 Chief Complaint The patient is a 20-year-old female admitted with a reason for visit of Unspecified Depressive Disorder. Source: Patient History of Present Illness Patient is 20 years old female without significant past medical history presented to hospital with suicidal ideation. . She states that she is struggling having difficulty with anxiety, depression, sleep, having suicidal ideation for the past 2 days. States that she has ongoing exhaustion, feeling hopeless, feeling detached, poor concentration depressed and suicidal. During my interview patient denies fever, chills, chest pain, palpitations, diarrhea dysuria Home Medications Scheduled Cholecalciferol (Vitamin D3) (Vitamin D3) 1,000 Unit Tablet, 1,000 UNITS PO DAILY, (Reported) Quetiapine Fumarate (Quetiapine Fumarate) 50 Mg Tablet, 50 MG PO QHS, (Reported) Sertraline Hcl (Zoloft) 100 Mg Tablet, 100 MG PO QHS, (Reported) Scheduled PRN Clonazepam (Clonazepam) 0.5 Mg Tablet, 0.5 MG PO DAILY PRN for ANXIETY, (Reported) Allergies Coded Allergies: No Known Allergies (Verified Allergy, Unknown, 06/21/19) Past Medical History Medical History Major depression disorder onset Panic disorder Generalized anxiety disorder Cannabis use disorder Family History I personally reviewed family history and found not pertinent Social History * Smoker: current smoker Alcohol: occationally Drugs: marijuana A-FIB/CHADSVASC A-FIB History Current/History of A-Fib/PAF?: No Current PO Anticoag Therapy: No Review of Systems Constitutional: Denies: Chills Eyes: Denies: Pain ENT: Denies: Head Aches Skin: Denies: Rash Pulmonary: Denies: Dyspnea Cardiovascular: Denies: Chest Pain Gastrointestinal: Denies: Nausea Genitourinary: Denies: Dysuria Hematologic: Denies: Bruising Endocrine: Denies: Polydipsia Musculoskeletal: Denies: Neck Pain Neurological: Denies: Weakness Psych: Reports: Anxiety, Depression Physical Examination General Exam: Positive: Alert, Cooperative Eye Exam: Positive: PERRLA ENT Exam: Positive: Atraumatic Neck Exam: Positive: Supple; Negative: JVD Chest Exam: Positive: Clear to auscultation Heart Exam: Positive: Rate Normal Telemetry: Positive: No significant arrhythmia Abdomen Exam: Positive: Normal bowel sounds Extremity Exam: Negative: Clubbing, Cyanosis Skin Exam: Positive: Nl turgor and temperature Neuro Exam: Positive: Normal Gait Psych Exam: Positive: Oriented x 3 Vital Signs Vital Signs Date Time Temp Pulse Resp B/P (MAP) Pulse Ox O2 Delivery O2 Flow Rate FiO2 02/14/21 06:11 97.9 69 16 118/76 (90) 100 Room Air Laboratory Data Labs 24H Laboratory Tests 2 02/14/21 01:01: Coronavirus (COVID-19)(PCR) NEGATIVE, Influenza Type A (RT-PCR) NEGATIVE, Influ misty Type B (RT-PCR) NEGATIVE, Respiratory Syncytial Virus (PCR) NEGATIVE Assessment/Plan Patient is 20 years old female without significant past medical history presented to hospital with suicidal ideation. . She states that she is struggling having difficulty with anxiety, depression, sleep, having suicidal ideation for the past 2 days. States that she has ongoing exhaustion, feeling hopeless, feeling detached, poor concentration depressed and suicidal. During my interview patient denies fever, chills, chest pain, palpitations, diarrhea dysuria Problems (1) Suicidal ideation Status: Acute Problem Text: Defer treatment to psych team Plan / VTE VTE Prophylaxis Ordered?: No VTE Exclusion Mechanical Proph: Low Risk for VTE NICOLE GALVIN DO Feb 14, 2021 18:43
[2021-02-14] MEDS: clonazePAM 0.5 MG TAB PO PRN (20:33)
[2021-02-14] MEDS: SERTRALINE 100 MG TAB PO SCH (20:33)
[2021-02-14] MEDS: QUEtiapine FUMARATE 50MG TAB PO SCH (20:34)
[2021-02-14 20:53] VITALS: BP 128/69
[2021-02-15 06:31] VITALS: BP 104/63
[2021-02-15 06:37] VITALS: BP 104/63
[2021-02-15] MEDS: NICOTINE 21MG/24HR 1 EA TRANSDERMAL TD SCH (09:20)
[2021-02-15] MEDS: VITAMIN D 1,000 INTERNATIONAL UNITS TABLET PO SCH (09:20)
[2021-02-15] MEDS: ACETAMINOPHEN TAB 650MG DOSE (2X325MG) PO PRN (09:21)
--- NOTE | 2021-02-15 16:35 | MHIPNPDOC ---
[facility] Progress Note Progress Note DATE OF SERVICE: 02/15/21 HISTORY: Patient is a 20 -year-old Single, Unemployed, Domiciled , female, who reports an exacerbation of her depression, anxiety with suicidal ideations over the past week. Patient was recently admitted and discharge January 29, [id number]. This is her second admission to the hospital for depression and anxiety. Patient reporting feelings of being overwhelmed, suicidal ideations for the past 2 days, states "I am tired of being tired." She has a 5-month-old child, stated that her anxiety and feelings of hopelessness started about 2 months ago. In the interview she has minimal responses and appears very nervous and is withdrawn and guarded PER ED REPORT: Patient presented of her own accord, although there was also an active 9.45 worm picker order issued to law enforcement at 3:45 pm. This expert medical writer received a TCF Dr. Saucedo this morning, stating that he'd received a message on his voicemail from patient, which was suggestive of being unsafe. He then spoke with patient on the telephone & she continued to verbalize hopelessness and some SI. They agreed that she would come to the hospital for admission, and Dr. Saucedo advised this expert medical writer that she was expected to arrive within a couple of hours. At that time she was with her significant other, and he had agreed to stay with her until transporting her here. Throughout the later morning and into the afternoon Dr. Saucedo phoned this expert medical writer to confirm patient's arrival, however patient never arrived. During the last contact between this expert medical writer and Dr. Saucedo (ap proximately 3:45 pm), he reported that he'd phoned patient's s.o. (You Tsang: [phone]). The s.o. would not provide his address, stating that patient had gone to the hospital a couple of hours ago, and then he terminated the call. It was at that time that the 9.45 was issued to [place] [id number] dispatch. Pt states that she called her therapist earlier today & left him a VM. She states that the VM must have been misinterpreted because he thought that she was suicidal, but pt. denies being suicidal. However, pt. admits that she has had SI within the past couple of days. When asked whether or not she has a plan for how she would kill herself she states that she has thought about it but has no concrete plan. Pt reports a Hx of three suicide attempts, two via OD & one via cutting. Her last attempt was over a year ago. Pt has a Hx of cutting & states she last cut yesterday. Pt denies HI. Pt denies both AH & VH. She does not appear to be psychotic. Pt c/o depressed mood, anxiety, poor concentration, decreased energy levels, poor sleep, & poor appetite. When asked about stressors pt. states "Everything has already been taken care of." She states that she was having issues with housing but yesterday the housing issues were resolved. She states that she was having px's at school, but last week she filled out paperwork to take the ester off. Pt has a Hx of depression, BULMARO, & panic d/o with one admission to [facility]. She was just DC from [facility] on 01/[facility]21. She has OP tx at [facility]. Pt reports that she drinks once a month. Her MELL was 0.113 upon arrival. She reports daily MJ use & her tox screen was positive for cannabis. VITAL SIGNS: See below. NEW TEST RESULTS: None CURRENT MEDICATIONS: See below. MENTAL STATUS EXAMINATION: Patient is a 20 -year-old Single, Unemployed, Domiciled , female, who reports an exacerbation of her depression, anxiety with suicidal ideations over the past week. Speech: Is slow rate, low tone and volume, minimal responses Language skills are intact Thought processes including: linear and coherent Thought content: Reports depression and anxiety. Fleeting suicidal's ideations but no planning or intent - reports no homicidal ideation, planning or intent. Abstract reasoning, and computation: fair Description of associations: denies, none observed Description of abnormal or psychotic thoughts: denies, none observed. Judgment: fair Insight: fair Orientation: alert and oriented to person, place, time and situation Recent and remote memory: intact Attention span and concentration: Fair Language: expansive Fund of knowledge: average Mood: Depressed mood Affect: Constricted, congruent with mood (guarded, withdrawn) DIAGNOSES: Major depression disorder onset Panic disorder Generalized anxiety disorder Cannabis use disorder Rule out unspecified eating disorder (restricting calories) ASSESSMENT: Per staff patient has had little to no intake x3 days. Patient reports that she is not hungry, discussed this further she reports that she has in the past restricted her caloric intake. She denies purging, denies any reasons for her restriction but states when she has more anxiety and stress that she does restrict her food intake. Reports continued depression. Complains of a headache. Further reports continued "struggling "but unable to elaborate on this. She does report PTSD, currently having nightmares and flashbacks. Remains very guarded and withdrawn. Staff reports that she is isolative to her room. Attempts to have patient elaborate on her depression, stressors, triggers, PTSDpatient states she has difficulty talking about these things. Reports that she has a better rapport with her therapist at [facility], when asked about suicidal ideations she states that she continues to have thoughts of wanting to but not necessarily take action to self-harm herself. MANAGEMENT PLAN: Continue all medications, started gabapentin 100 mg 3 times daily for anxiety, prazosin 2 mg at at bedtime for her reports of nightmares and intrusive triggers at night (PTSD) TIME SPENT: 25 minutes. Vital Signs Vital Signs Date Time Temp Pulse Resp B/P (MAP) Pulse Ox O2 Delivery O2 Flow Rate FiO2 02/15/21 06:37 64 104/63 02/15/21 06:31 97.9 15 100 Room Air Current Medications Current Medications Medications (Trade) Dose Ordered Sig/Linda Route PRN Reason Start Time Stop Time Status Last Admin Dose Admin Acetaminophen (Tylenol Tab) 650 mg Q6HP PRN PO HEADACHE or MILD DISCOMFORT 02/14/21 02:50 02/15/21 09:21 Al Hydrox/Mg Hydrox/Simethicone (Mylanta) 30 ml Q4HP PRN PO HEARTBURN/INDIGESTION 02/14/21 02:50 Clonazepam (KlonoPIN) 0.5 mg DAILY PRN PO ANXIETY 02/14/21 02:50 02/14/21 20:33 Folic Acid (Folic Acid) 1 mg DAILY PO 02/14/21 09:00 02/15/21 06:42 DC 02/14/21 09:56 Gabapentin (Neurontin) 100 mg TID PO 02/15/21 16:00 Home Med (Home Med List Complete!) ASDIRECTED XX 02/13/21 22:05 02/13/21 22:08 DC Lorazepam (Ativan) 2 mg ASDIRECTED PRN PO SEE PROTOCOL 02/14/21 03:05 Cancel Magnesium Hydroxide (Milk Of Magnesia) 30 ml DAILYPRN PRN PO CONSTIPATION 02/14/21 02:50 Multivitamins (Theragram-M) 1 tab DAILY PO 02/14/21 09:00 02/15/21 06:42 DC 02/14/21 09:56 Nicotine (Nicoderm Cq 21mg) 1 patch DAILY TD 02/15/21 09:00 02/15/21 09:20 Prazosin HCl (Minipress) 2 mg QHS PO 02/15/21 21:00 Quetiapine Fumarate (SEROquel) 50 mg QHS PO 02/14/21 21:00 02/14/21 20:34 Sertraline HCl (Zoloft) 100 mg QHS PO 02/14/21 21:00 02/14/21 20:33 Thiamine HCl (Thiamine HCl) 100 mg BID PO 02/14/21 09:00 02/15/21 06:42 DC 02/14/21 20:34 Trazodone HCl (Desyrel) 50 mg QHSP PRN PO INSOMNIA 02/14/21 02:50 02/15/21 14:25 DC Vitamin D (Vitamin D) 1,000 units DAILY PO 02/14/21 09:00 02/15/21 09:20 Allergies Coded Allergies: No Known Allergies (Verified Allergy, Unknown, 06/21/19) JAISON LEON NP Feb 15, 2021 16:35
[2021-02-15] MEDS: GABAPENTIN 100 MG CAP PO SCH ×2 (16:53→20:25)
[2021-02-15 18:28] VITALS: BP 133/96
[2021-02-15] MEDS: QUEtiapine FUMARATE 50MG TAB PO SCH (20:25)
[2021-02-15] MEDS: SERTRALINE 100 MG TAB PO SCH (20:25)
[2021-02-15] MEDS: PRAZOSIN 1 MG CAP PO SCH (20:26)
[2021-02-16] MEDS: ACETAMINOPHEN TAB 650MG DOSE (2X325MG) PO PRN ×2 (04:56→16:42)
[2021-02-16 06:22] VITALS: BP 119/62
[2021-02-16] MEDS: NICOTINE 21MG/24HR 1 EA TRANSDERMAL TD SCH (09:00)
[2021-02-16] MEDS: GABAPENTIN 100 MG CAP PO SCH ×3 (09:05→22:14)
[2021-02-16] MEDS: VITAMIN D 1,000 INTERNATIONAL UNITS TABLET PO SCH (09:05)
[2021-02-16] MEDS ORDERED: hydrOXYzine 50 MG TAB PO PRN (13:55)
--- NOTE | 2021-02-16 13:59 | MHIPNPDOC ---
[facility] Progress Note Progress Note DATE OF SERVICE: 02/16/21 HISTORY: Patient is a 20 -year-old Single, Unemployed, Domiciled , female, who reports an exacerbation of her depression, anxiety with suicidal ideations over the past week. Patient was recently admitted and discharge January 29, [id number]. This is her second admission to the hospital for depression and anxiety. Patient reporting feelings of being overwhelmed, suicidal ideations for the past 2 days, states "I am tired of being tired." She has a 5-month-old child, stated that her anxiety and feelings of hopelessness started about 2 months ago. In the interview she has minimal responses and appears very nervous and is withdrawn and guarded INTERVAL HISTORY: Reports feeling a little less depressed and less anxious since being admitted. Sleeping better with the addition of prazosin at nighttime. Discussed with her the idea of continuing to increase her Zoloft in order to better address her anxiety. She notes that she is having difficult time eating while she is here as well due to some anxiety around consumption of food. We discussed strategies to manage this as well as reviewed her history of disordered eating to determine if there was additional reasons that may be impacting her ability to eat. VITAL SIGNS: See below. NEW TEST RESULTS: None at present. CURRENT MEDICATIONS: See below. MENTAL STATUS EXAMINATION: Patient is a 20-year old female, who is dressed in hospital clothing. Speech: Is speech was spontaneous, clear, with regular rate, rhythm, and volume. Language skills are intact. Thought processes including: Logical, linear, goal oriented. Thought content: Focused on her anxiety, feeling less depressed, denies suicidal ideation. Abstract reasoning, and computation: Intact. Description of associations: Linear. Description of abnormal or psychotic thoughts: Denies AVH, paranoia, delusions. Judgment: Good. Insight: Fair. Orientation: X3. Recent and remote memory: Intact. Attention span and concentration: Intact. Mood: "A little better". Affect: Euthymic, congruent to stated mood. DIAGNOSES: Major depression disorder onset Panic disorder Generalized anxiety disorder Cannabis use disorder Rule out unspecified eating disorder (restricting calories) ASSESSMENT: Her insight is been improving with the addition of prazosin which is also help with sleep. We discussed that her Zoloft is likely still under dosed and agreed to try and increase this medication or to better help her anxiety. After reviewing her history of disordered eating it appears that this may be due more to anxiety than to any desire to restrict her weight. She does knowledge that seeing what her weight was when she entered the unit triggered the thoughts of holding back on her food. We discussed how utilization of hydroxyzine may help improve appetite as well as reduce anxiety around eating which may help her to better improve her consumption. Kati agreed to try this and we will continue to follow-up and see how she does. Made plans for how she will be addressed outpatient as well as discussing whether or not the Zoloft will be increased to 20 mg here during this hospitalization or when she returns to my clinic in the outpatient setting. MANAGEMENT PLAN: Continue medications as prescribed, Zoloft was increased to 150 mg starting tonight, addition of 50 mg of hydroxyzine every 4 hours as needed for anxiety and appetite. TIME SPENT: 15 minutes. Vital Signs Vital Signs Date Time Temp Pulse Resp B/P (MAP) Pulse Ox O2 Delivery O2 Flow Rate FiO2 02/16/21 06:22 98.4 100 12 119/62 (81) 99 Room Air Current Medications Current Medications Medications (Trade) Dose Ordered Sig/Linda Route PRN Reason Start Time Stop Time Status Last Admin Dose Admin Acetaminophen (Tylenol Tab) 650 mg Q6HP PRN PO HEADACHE or MILD DISCOMFORT 02/14/21 02:50 02/16/21 04:56 Al Hydrox/Mg Hydrox/Simethicone (Mylanta) 30 ml Q4HP PRN PO HEARTBURN/INDIGESTION 02/14/21 02:50 Clonazepam (KlonoPIN) 0.5 mg DAILY PRN PO ANXIETY 02/14/21 02:50 02/14/21 20:33 Folic Acid (Folic Acid) 1 mg DAILY PO 02/14/21 09:00 02/15/21 06:42 DC 02/14/21 09:56 Gabapentin (Neurontin) 100 mg TID PO 02/15/21 16:00 02/16/21 09:05 Home Med (Home Med List Complete!) ASDIRECTED XX 02/13/21 22:05 02/13/21 22:08 DC Lorazepam (Ativan) 2 mg ASDIRECTED PRN PO SEE PROTOCOL 02/14/21 03:05 Cancel Magnesium Hydroxide (Milk Of Magnesia) 30 ml DAILYPRN PRN PO CONSTIPATION 02/14/21 02:50 Multivitamins (Theragram-M) 1 tab DAILY PO 02/14/21 09:00 02/15/21 06:42 DC 02/14/21 09:56 Nicotine (Nicoderm Cq 21mg) 1 patch DAILY TD 02/15/21 09:00 02/15/21 09:20 Prazosin HCl (Minipress) 2 mg QHS PO 02/15/21 21:00 02/15/21 20:26 Quetiapine Fumarate (SEROquel) 50 mg QHS PO 02/14/21 21:00 02/15/21 20:25 Sertraline HCl (Zoloft) 100 mg QHS PO 02/14/21 21:00 02/15/21 20:25 Thiamine HCl (Thiamine HCl) 100 mg BID PO 02/14/21 09:00 02/15/21 06:42 DC 02/14/21 20:34 Trazodone HCl (Desyrel) 50 mg QHSP PRN PO INSOMNIA 02/14/21 02:50 02/15/21 14:25 DC Vitamin D (Vitamin D) 1,000 units DAILY PO 02/14/21 09:00 02/16/21 09:05 Allergies Coded Allergies: No Known Allergies (Verified Allergy, Unknown, 06/21/19) BETTY HOLLINGSWORTH MD Feb 16, 2021 13:59
[2021-02-16 16:36] VITALS: BP 140/88
[2021-02-16] MEDS: PRAZOSIN 1 MG CAP PO SCH (22:13)
[2021-02-16] MEDS: SERTRALINE HCL 50 MG TAB PO SCH (22:14)
[2021-02-16] MEDS: QUEtiapine FUMARATE 50MG TAB PO SCH (22:14)
[2021-02-17 06:34] VITALS: BP 127/82
[2021-02-17] MEDS: NICOTINE 21MG/24HR 1 EA TRANSDERMAL TD SCH (07:55)
[2021-02-17] MEDS: GABAPENTIN 100 MG CAP PO SCH ×3 (07:56→20:31)
[2021-02-17] MEDS: VITAMIN D 1,000 INTERNATIONAL UNITS TABLET PO SCH (07:56)
[2021-02-17] MEDS: ACETAMINOPHEN TAB 650MG DOSE (2X325MG) PO PRN (11:28)
[2021-02-17] MEDS ORDERED: IBUPROFEN 400MG TAB PO PRN (14:10)
--- NOTE | 2021-02-17 14:57 | MHIPNPDOC ---
[facility] Progress Note Progress Note DATE OF SERVICE: 02/17/21 HISTORY: Patient is a 20 -year-old Single, Unemployed, Domiciled , female, who reports an exacerbation of her depression, anxiety with suicidal ideations over the past week. Patient was recently admitted and discharge January 29, [id number]. This is her second admission to the hospital for depression and anxiety. Patient reporting feelings of being overwhelmed, suicidal ideations for the past 2 days, states "I am tired of being tired." She has a 5-month-old child, stated that her anxiety and feelings of hopelessness started about 2 months ago. In the interview she has minimal responses and appears very nervous and is withdrawn and guarded INTERVAL HISTORY: Did not take medications last night due to a migraine which prevented her from wanting to leave her room. We reviewed her headache which is been occurring over the past several days in the unit and discussed that it may likely be due to her caffeine consumption outside the hospital. Her a one-time dose of Fioricet in order to help mitigate the headache which she agreed to. Will provide at dinnertime to avoid overloading her with acetaminophen as she is already had a dose previously in the day. Overall Kati feels that she is much better, and feels no need to make further changes to her medications. She is interested in the able to leave the hospital and she can she feels much calmer and more stable. We reviewed her outpatient appointments and discussed with her she will to come back and see me in the clinic earlier or until her neck scheduled appointment with me in a few weeks. VITAL SIGNS: See below. NEW TEST RESULTS: None at present. CURRENT MEDICATIONS: See below. MENTAL STATUS EXAMINATION: Patient is a 20-year old female, who is dressed in hospital clothing. Speech: Is speech was spontaneous, clear, with regular rate, rhythm, and volume. Language skills are intact. Thought processes including: Logical, linear, goal oriented. Thought content: Focused on her anxiety, feeling less depressed, denies suicidal ideation. Abstract reasoning, and computation: Intact. Description of associations: Linear. Description of abnormal or psychotic thoughts: Denies AVH, paranoia, delusions. Judgment: Good. Insight: Fair. Orientation: X3. Recent and remote memory: Intact. Attention span and concentration: Intact. Mood: "A little better". Affect: Euthymic, congruent to stated mood. DIAGNOSES: Major depression disorder onset Panic disorder Generalized anxiety disorder Cannabis use disorder Rule out unspecified eating disorder (restricting calories) ASSESSMENT: Her insight is been improving with the addition of prazosin which is also help with sleep. We discussed that her Zoloft is likely still under dosed and agreed to try and increase this medication or to better help her anxiety. After reviewing her history of disordered eating it appears that this may be due more to anxiety than to any desire to restrict her weight. She does knowledge that seeing what her weight was when she entered the unit triggered the thoughts of holding back on her food. We discussed how utilization of hydroxyzine may help improve appetite as well as reduce anxiety around eating which may help her to better improve her consumption. Kati agreed to try this and we will continue to follow-up and see how she does. Made plans for how she will be addressed outpatient as well as discussing whether or not the Zoloft will be increased to 20 mg here during this hospitalization or when she returns to my clinic in the outpatient setting. MANAGEMENT PLAN: Continue medications as prescribed. Hydroxyzine was changed to scheduled before meals to help reduce nausea and anxiety around eating. We will give a one-time dose of Fioricet tonight around dinnertime. TIME SPENT: 15 minutes. Vital Signs Vital Signs Date Time Temp Pulse Resp B/P (MAP) Pulse Ox O2 Delivery O2 Flow Rate FiO2 02/17/21 06:34 98.7 103 16 127/82 (97) 97 Room Air Current Medications Current Medications Medications (Trade) Dose Ordered Sig/Linda Route PRN Reason Start Time Stop Time Status Last Admin Dose Admin Acetaminophen (Tylenol Tab) 650 mg Q6HP PRN PO HEADACHE or MILD DISCOMFORT 02/14/21 02:50 02/17/21 11:28 Al Hydrox/Mg Hydrox/Simethicone (Mylanta) 30 ml Q4HP PRN PO HEARTBURN/INDIGESTION 02/14/21 02:50 Clonazepam (KlonoPIN) 0.5 mg DAILY PRN PO ANXIETY 02/14/21 02:50 02/14/21 20:33 Folic Acid (Folic Acid) 1 mg DAILY PO 02/14/21 09:00 02/15/21 06:42 DC 02/14/21 09:56 Gabapentin (Neurontin) 100 mg TID PO 02/15/21 16:00 02/17/21 07:56 Home Med (Home Med List Complete!) ASDIRECTED XX 02/13/21 22:05 02/13/21 22:08 DC Hydroxyzine HCl (Atarax) 50 mg AC PO 02/17/21 17:30 Hydroxyzine HCl (Atarax) 50 mg Q4HP PRN PO Anxiety and Appetite 02/16/21 13:55 02/17/21 14:11 DC 02/16/21 15:32 Ibuprofen (Advil) 400 mg Q6HP PRN PO PAIN LEVEL 4-7 02/17/21 14:10 Lorazepam (Ativan) 2 mg ASDIRECTED PRN PO SEE PROTOCOL 02/14/21 03:05 Cancel Magnesium Hydroxide (Milk Of Magnesia) 30 ml DAILYPRN PRN PO CONSTIPATION 02/14/21 02:50 Multivitamins (Theragram-M) 1 tab DAILY PO 02/14/21 09:00 02/15/21 06:42 DC 02/14/21 09:56 Nicotine (Nicoderm Cq 21mg) 1 patch DAILY TD 02/15/21 09:00 02/15/21 09:20 Prazosin HCl (Minipress) 2 mg QHS PO 02/15/21 21:00 02/15/21 20:26 Quetiapine Fumarate (SEROquel) 50 mg QHS PO 02/14/21 21:00 02/17/21 14:23 DC 02/15/21 20:25 Quetiapine Fumarate (SEROquel) 75 mg QHS PO 02/17/21 21:00 Sertraline HCl (Zoloft) 100 mg QHS PO 02/14/21 21:00 02/16/21 13:55 DC 02/15/21 20:25 Sertraline HCl (Zoloft) 150 mg QHS PO 02/16/21 21:00 Thiamine HCl (Thiamine HCl) 100 mg BID PO 02/14/21 09:00 02/15/21 06:42 DC 02/14/21 20:34 Trazodone HCl (Desyrel) 50 mg QHSP PRN PO INSOMNIA 02/14/21 02:50 02/15/21 14:25 DC Vitamin D (Vitamin D) 1,000 units DAILY PO 02/14/21 09:00 02/17/21 07:56 Allergies Coded Allergies: No Known Allergies (Verified Allergy, Unknown, 06/21/19) BETTY HOLLINGSWORTH MD Feb 17, 2021 14:57
[2021-02-17] MEDS: clonazePAM 0.5 MG TAB PO PRN (16:11)
[2021-02-17 16:27] VITALS: BP 138/82
[2021-02-17] MEDS: hydrOXYzine 50 MG TAB PO SCH (16:54)
[2021-02-17] MEDS ORDERED: FIORICET TAB PO ONE (17:30)
[2021-02-17 20:31] VITALS: BP 138/82
[2021-02-17] MEDS: PRAZOSIN 1 MG CAP PO SCH (20:31)
[2021-02-17] MEDS: SERTRALINE HCL 50 MG TAB PO SCH (20:32)
[2021-02-17] MEDS ORDERED: QUEtiapine FUMARATE 25 MG TAB PO SCH (21:00)
--- NOTE | 2021-02-18 05:32 | ECGEPIP ---
[facility] Test Date: 2021-02-17 Pat Name: AIDAN BLACK Department: Room: [place] [address] Gender: Female Account Service Associate: miranda : 2000 Requested By: NICOLE GALVIN Order Number: [id number] Reading MD: Li Buckley Measurements Intervals [place] Rate: 75 P: 2 [place]: 122 QRS: 61 QRSD: 88 T: 29 QT: 410 QTc: 457 Interpretive Statements Normal sinus rhythm RATE SLOWER IMPROVED STTABN NONSPECIFIC ST ABN REMAINS C/W 06/21/19 Electronically Signed on 02-18-2021 5:32:29 EST by Li Buckley
[2021-02-18 06:31] VITALS: BP 107/63
[2021-02-18] MEDS: hydrOXYzine 50 MG TAB PO SCH ×2 (06:45→12:00)
[2021-02-18] MEDS: GABAPENTIN 100 MG CAP PO SCH (08:13)
[2021-02-18] MEDS: VITAMIN D 1,000 INTERNATIONAL UNITS TABLET PO SCH (08:13)
[2021-02-18] MEDS: NICOTINE 21MG/24HR 1 EA TRANSDERMAL TD SCH (08:14)
[2021-02-18] MEDS ORDERED: PRAZ2CAP PO (09:56)
[2021-02-18] MEDS ORDERED: GABA-1171 PO (09:56)
[2021-02-18] MEDS ORDERED: SERT50TA29 PO (09:56)
[2021-02-18] MEDS ORDERED: NICO21PAT TD (09:56)
[2021-02-18] MEDS ORDERED: QUET1TAB17 PO (09:56)
[2021-02-18] MEDS ORDERED: HYDR50TA70 PO (09:56)
--- NOTE | 2021-02-18 14:48 | MHDSPDOC ---
[facility] Discharge Summary Discharge Summary DATE OF ADMISSION: Feb 14, 2021 at 02:49 DATE OF DISCHARGE: February 18, 2021 at 1425 DISCHARGE DIAGNOSES: Major depression disorder onset Panic disorder Generalized anxiety disorder Cannabis use disorder Rule out unspecified eating disorder (restricting calories) REASON FOR ADMISSION: Patient is a 20 -year-old Single, Unemployed, Domiciled , female, who reports an exacerbation of her depression, anxiety with suicidal ideations over the past week. Patient was recently admitted and discharge January 29, [id number]. This is her second admission to the hospital for depression and anxiety. Patient reporting feelings of being overwhelmed, suicidal ideations for the past 2 days, states "I am tired of being tired." She has a 5-month-old child, stated that her anxiety and feelings of hopelessness started about 2 months ago. In the interview she has minimal responses and appears very nervous and is withdrawn and guarded INTERVAL HISTORY: Did not take medications last night due to a migraine which prevented her from wanting to leave her room. We reviewed her headache which is been occurring over the past several days in the unit and discussed that it may likely be due to her caffeine consumption outside the hospital. Her a one-time dose of Fioricet in order to help mitigate the headache which she agreed to. Will provide at dinnertime to avoid overloading her with acetaminophen as she is already had a dose previously in the day. Overall Kati feels that she is much better, and feels no need to make further changes to her medications. She is interested in the able to leave the hospital and she can she feels much c almer and more stable. We reviewed her outpatient appointments and discussed with her she will to come back and see me in the clinic earlier or until her neck scheduled appointment with me in a few weeks. VITAL SIGNS: See below. CONSULTANTS INVOLVED: See Medical H + P by Hospitalist TREATMENT AND PROGRESS ON THE UNIT: Patient was admitted to the [facility] on a legal status was afforded the following treatment modalities: 1) Individual Therapy 2) Group Therapy 3) Medication Management 4) Milieu Therapy 5) Safe Environment HOSPITAL COURSE: Patient was admitted to [facility] on a legal status. Patient was admitted for her depressive and anxiety symptoms along with her fleeting suicidal ideations. She was started on her home medications with an increase to therapeutic levels. She had reported nightmares and was agreeable to Prazosin, had reported improved sleep with Seroquel. She continued to have anxiety throughout the day - Gabapentin 100 mg three times daily was included. During this hospitalization, she had reported restricting her eating and hydroxyzine 50 mg before meals was effective. Pt found medications beneficial and tolerated them well. Mood, anxiety, and intrusive thoughts improved with treatment. Pt attended groups daily during stay. She was observed social with her peers, involved in the milieu, caring for her ADLs and had a return of her appetite. Much of her individual therapy encompassed her anxiety, discussed post self care and education of depressive symptoms during post onset. Pts symptoms improved with treatment. On day of discharge pt. denied depression, anxiety, insomnia, SI/HI, hallucinations, delusions. Pt was discharged home with follow-up with [facility]. Pt felt safe for discharge. DISCHARGE ASSESSMENT: In today's interview, patient is alert and oriented, pt.s dress is appropriate. Hygiene and grooming is well-kempt. Smiles on approach and is pleasant and engaged in the interview. Denies depression and anxiety. Denies suicidal and homicidal ideation, planning or intent. Denies and is not observed with lexi, psychotic symptoms of delusions, bizarre thinking, obsessions, paranoia, ruminations illogical thoughts, flight of ideas or having poor insight and judgement. Reinforced with patient need to abstain from alcohol and drugs. She is requesting discharge at this time, states that she is feeling improved and denies that she is a harm to herself or baby or others. She At discharge patient has normal mentation, declines further hospitalization on a voluntary status and meets criteria for discharge today. Discussed indications of medications, potential benefits and risks, alternatives (including no treatment) and questions were encouraged and answered. Patient encouraged to return to hospital if symptoms worsen or change and encouraged to call unit if he/she/they needs to speak to provider for questions regarding medications or care. MENTAL STATUS EXAMINATION ON DISCHARGE: Patient is a 20 -year-old Single, Unemployed, Domiciled , female, who reports an exacerbation of her depression, anxiety with suicidal ideations over the past week. Speech: Is fluid, conversant, normal rate, tone and volume Language skills are intact Thought processes including: linear and goal oriented Thought content: denies depression and anxiety. Denies suicidal/homicidal ideation, planning or intent. Abstract reasoning, and computation: fair Description of associations: denies, none observed Description of abnormal or psychotic thoughts: denies, none observed. Judgment: fair Insight: fair Orientation: alert and oriented to person, place, time and situation Recent and remote memory: intact Attention span and concentration: good Language: expansive Fund of knowledge: average Mood: Bright Mood Affect: Bright Affect Suicide Risk Assessment: 1) Does the patient wish to be ? No 2) Since your admission, have you had any actual thought of killing yourself? No 3) Since your admission, have you been thinking about how you might do this? No 4) Since your admission, have you had these thoughts and had some intention of acting on them? No 5) Since your admission, have you started to work out or worked out the details of how to kill yourself? No 5A) Do you intent to carry out this plan? No and NA 6) Have you ever done anything, started anything, or prepared to do anything with any intent to ? No 6A) How long since your admission did you do any of these? NA MEDICATIONS ON DISCHARGE: See Medication Reconciliation PLAN/FOLLOWUP ARRANGEMENTS: Mental Health Appt 1 * Mental Health [facility] * Established With This Provider Yes * Therapist TATY * Date Feb 22, 2021 * Time 12:00 * Address of Clinic or Practice [address] [place] [address] * * Additional information THIS IS A [facility] APPOINTMENT. Follow Up Care Education Label * Mental Health Appt 2 * Mental Health [facility] * Established With This Provider Yes * Therapist DR. HOLLINGSWORTH * Date Mar 05, 2021 * Time 13:20 * Address of Clinic or Practice [address] [place] [address] * Follow Up Care Education Label * Medical * Medical Follow Up [facility] * Established With This Provider Yes * Therapist DR. FINN * Date Mar 15, 2021 * Time 10:00 * Address of Clinic or Practice [facility]/ [address] * The amount of time spent in the coordination of care for this patient was approximately 25 minutes. ETOH/Disorder Med Rx ETOH/DRUG DISORDER RX: N/A Vital Signs/I&Os Vital Signs Date Time Temp Pulse Resp B/P (MAP) Pulse Ox O2 Delivery O2 Flow Rate FiO2 02/18/21 06:31 97.9 84 18 107/63 (78) 99 Room Air Medications Scheduled Cholecalciferol (Vitamin D3) (Vitamin D3) 1,000 Unit Tablet, 1,000 UNITS PO DAILY, (Reported) Gabapentin (Gabapentin) 100 Mg Capsule, 100 MG PO TID for Anxiety, #21 Hydroxyzine HCl (Hydroxyzine HCl) 50 Mg Tablet, 50 MG PO AC for Anxiety, #21 Nicotine (Nicotine Patch) 21 Mg Patch.td24, 1 PATCH TD DAILY for Nicotine Withdrawal , #7 Prazosin Hcl (Prazosin HCl) 2 Mg Capsule, 2 MG PO QHS for Nightmares, #7 Quetiapine Fumarate (Quetiapine Fumarate) 25 Mg Tablet, 75 MG PO QHS for Sleep, #21 Sertraline HCl (Sertraline HCl) 50 Mg Tablet, 150 MG PO QHS for Depression, #21 Allergies Coded Allergies: No Known Allergies (Verified Allergy, Unknown, 06/21/19) JAISON LEON NP Feb 18, 2021 14:47
== END 2021-02-18 14:43 | disposition home or self-care (01) | DRG 881 ==
LOC: M ED 16:36 → M ED INP 02-14 02:49 → M PSY 02-14 05:17
PROVIDERS: ADMIT Psychiatry & Neurology Psychiatry; ATTEND Psychiatry & Neurology Psychiatry
DX: F53.0 Postpartum depression (principal); R45.851 Suicidal ideations; F41.1 Generalized anxiety disorder; F41.0 Panic disorder [episodic paroxysmal anxiety]; F12.90 Cannabis use, unspecified, uncomplicated; Z79.899 Other long term (current) drug therapy; F17.200 Nicotine dependence, unspecified, uncomplicated

== ENCOUNTER 2021-07-29 15:24 | Emergency (ER) | payer OTHER, MEDICAID ==
[~2021-07-29] VITALS: Ht 177.8 cm; Wt 51.4 kg
[2021-07-29 15:24] VITALS: BP 131/76
[~2021-07-29 15:24] MED LIST changes: -D31000TA2 PO; +GABA-1171 PO; +HYDR50TA70 PO; +PRAZ2CAP PO; +QUET1TAB17 PO; +QUET50TA4 PO; +SERT50TA29 PO; +VITA100093 PO
== END 2021-07-29 19:26 | disposition left against medical advice (07) ==
LOC: M ED 15:24
DX: Z53.21 Procedure and treatment not carried out due to patient leaving prior to being seen by health care provider (principal)

== ENCOUNTER 2021-09-24 11:28 | Inpatient (IN) | payer BC, MEDICAID ==
[~2021-09-24] VITALS: Ht 177.8 cm; Wt 49.5 kg
[2021-09-24] MEDS ORDERED: MIRT-10 PO (11:37)
[2021-09-24 12:50] LABS: HEMATOCRIT 35.9 % (36.0-47.0); HEMOGLOBIN 11.1 g/dl (12.0-15.5); MEAN CORPUSCULAR HEMOGLOBIN 26.4 pg (27.0-33.0); MEAN CORPUSCULAR HGB CONC 30.9 g/dl (32.0-36.5); MEAN CORPUSCULAR VOLUME 85.5 fl (80.0-96.0); PLATELET COUNT, AUTOMATED 268 10^3/uL (150-450); WHITE BLOOD COUNT 6.8 10^3/uL (4.0-10.0)
[2021-09-24 13:05] LABS: AMPHETAMINES LEVEL URINE NEGATIVE (NEGATIVE); BARBITURATES URINE NEGATIVE (NEGATIVE); BENZODIAZEPINES URINE NEGATIVE (NEGATIVE); CANNABINOIDS URINE POSITIVE (NEGATIVE); COCAINE METABOLITE URINE NEGATIVE (NEGATIVE); METHADONE URINE NEGATIVE (NEGATIVE); OPIATES URINE NEGATIVE (NEGATIVE); PHENCYCLIDINE URINE NEGATIVE (NEGATIVE)
[2021-09-24 13:08] LABS: HCG, SERUM QUALITATIVE NEGATIVE (NEGATIVE)
[2021-09-24 13:15] LABS: ALBUMIN 3.5 GM/DL (3.2-5.2); ALT/SGPT 13 U/L (12-78); BILIRUBIN,DIRECT 0.1 MG/DL (0.0-0.2); BILIRUBIN,TOTAL 0.4 MG/DL (0.2-1.0); BLOOD UREA NITROGEN 15 MG/DL (7-18); CALCIUM LEVEL 9.1 MG/DL (8.5-10.1); CARBON DIOXIDE LEVEL 25 MEQ/L (21-32); CHLORIDE LEVEL 108 MEQ/L (98-107); CREATININE FOR GFR 0.76 MG/DL (0.55-1.30); ETHYL ALCOHOL (ETHANOL) < 0.003 % (0.000-0.010); GLOMERULAR FILTRATION RATE > 60.0 (>60); GLUCOSE, FASTING 83 MG/DL (70-100); POTASSIUM SERUM 4.5 MEQ/L (3.5-5.1); SALICYLATE LEVEL < 1.7 MG/DL (5.0-30.0); SODIUM LEVEL 143 MEQ/L (136-145); TOTAL PROTEIN 6.3 GM/DL (6.4-8.2)
[2021-09-24 13:24] LABS: RSV AMPLIFICATION NEGATIVE (NEGATIVE)
[2021-09-24 15:18] LABS: ACETAMINOPHEN LEVEL < 2.0 UG/ML (0.0-30.0)
[2021-09-24] MEDS ORDERED: HOME MED LIST COMPLETE! XX SCH (15:55)
[2021-09-24] MEDS ORDERED: MOM 30ML SUSPENSION UDC PO PRN (16:10)
[2021-09-24] MEDS ORDERED: MAALOX 30 ML SUSP *UDC PO PRN (16:10)
[2021-09-24 17:19] VITALS: BP 131/84
[2021-09-24 17:30] VITALS: BP 131/84
[2021-09-24] MEDS ORDERED: MIRTAZAPINE 7.5MG PER 1/2 TABLET PO SCH (21:00)
[2021-09-25 06:35] VITALS: BP 126/80
[2021-09-25] MEDS: VENLAFAXINE **XR** 37.5 MG CAPSULE PO SCH (12:50)
[2021-09-25 16:12] VITALS: BP 133/90
[2021-09-25] MEDS: MIRTAZAPINE 15 MG TAB PO SCH (21:31)
[2021-09-26 06:39] VITALS: BP 120/77
[2021-09-26] MEDS: VENLAFAXINE **XR** 37.5 MG CAPSULE PO SCH (08:46)
[2021-09-26] MEDS: VITAMIN D 1,000 INTERNATIONAL UNITS TABLET PO SCH (13:09)
[2021-09-26] MEDS: MULTIVITAMINS/MINERALS THERAP 1 TAB PO SCH (13:09)
[2021-09-26 17:05] VITALS: BP 135/86
[2021-09-26] MEDS: hydrOXYzine 50 MG TAB PO PRN (18:40)
[2021-09-26] MEDS: MIRTAZAPINE 15 MG TAB PO SCH (20:22)
[2021-09-27 06:08] VITALS: BP 105/60
[2021-09-27] MEDS: ACETAMINOPHEN TAB 650MG DOSE (2X325MG) PO PRN ×2 (06:57→21:42)
[2021-09-27 08:06] VITALS: BP 124/91
[2021-09-27] MEDS: VITAMIN D 1,000 INTERNATIONAL UNITS TABLET PO SCH (09:25)
[2021-09-27] MEDS: VENLAFAXINE **XR** 37.5 MG CAPSULE PO SCH (09:25)
[2021-09-27] MEDS: MULTIVITAMINS/MINERALS THERAP 1 TAB PO SCH (09:25)
[2021-09-27] MEDS: IBUPROFEN 600MG TAB PO PRN (12:34)
[2021-09-27 12:57] LABS: BLOOD UREA NITROGEN 14 MG/DL (7-18); CALCIUM LEVEL 10.1 MG/DL (8.5-10.1); CARBON DIOXIDE LEVEL 27 MEQ/L (21-32); CHLORIDE LEVEL 105 MEQ/L (98-107); CREATININE FOR GFR 0.88 MG/DL (0.55-1.30); GLOMERULAR FILTRATION RATE > 60.0 (>60); GLUCOSE, FASTING 122 MG/DL (70-100); POTASSIUM SERUM 4.7 MEQ/L (3.5-5.1); SODIUM LEVEL 137 MEQ/L (136-145)
[2021-09-27 13:27] LABS: VITAMIN B12 LEVEL 330 PG/ML (247-911)
[2021-09-27] MEDS: MIRTAZAPINE 15 MG TAB PO SCH (20:51)
[2021-09-27] MEDS: traZODone 50 MG TAB PO PRN (21:42)
[2021-09-28 06:00] VITALS: BP 113/60
[2021-09-28] MEDS: VENLAFAXINE **XR** 37.5 MG CAPSULE PO SCH (08:13)
[2021-09-28] MEDS: VITAMIN D 1,000 INTERNATIONAL UNITS TABLET PO SCH (08:13)
[2021-09-28] MEDS: MULTIVITAMINS/MINERALS THERAP 1 TAB PO SCH (08:13)
[2021-09-28] MEDS: IBUPROFEN 600MG TAB PO PRN (09:08)
[2021-09-28 16:53] VITALS: BP 131/90
[2021-09-28] MEDS: MIRTAZAPINE 15 MG TAB PO SCH (20:38)
[2021-09-29 06:23] VITALS: BP 111/58
[2021-09-29] MEDS: MULTIVITAMINS/MINERALS THERAP 1 TAB PO SCH (08:37)
[2021-09-29] MEDS: VITAMIN D 1,000 INTERNATIONAL UNITS TABLET PO SCH (08:37)
[2021-09-29] MEDS: VENLAFAXINE **XR** 37.5 MG CAPSULE PO SCH (08:37)
[2021-09-29 16:12] VITALS: BP 119/62
[2021-09-29] MEDS: MIRTAZAPINE 15 MG TAB PO SCH (20:51)
[2021-09-29] MEDS: traZODone 50 MG TAB PO PRN (20:51)
[2021-09-30 07:11] VITALS: BP 120/79
[2021-09-30] MEDS ORDERED: VITAD1000T PO (08:28)
[2021-09-30] MEDS ORDERED: MIRT-10 PO (08:28)
[2021-09-30] MEDS ORDERED: VITMTA PO (08:28)
[2021-09-30] MEDS ORDERED: TRAZ-252 PO (08:28)
[2021-09-30] MEDS ORDERED: VENL37.598 PO (08:28)
[2021-09-30] MEDS: VITAMIN D 1,000 INTERNATIONAL UNITS TABLET PO SCH (09:56)
[2021-09-30] MEDS: MULTIVITAMINS/MINERALS THERAP 1 TAB PO SCH (09:56)
[2021-09-30] MEDS: VENLAFAXINE **XR** 37.5 MG CAPSULE PO SCH (09:56)
[2021-09-30] MEDS: ACETAMINOPHEN TAB 650MG DOSE (2X325MG) PO PRN (16:35)
[2021-09-30 18:00] VITALS: BP 106/62
[2021-09-30] MEDS: MIRTAZAPINE 15 MG TAB PO SCH (20:30)
[2021-09-30] MEDS: ARIPiprazole 2 MG TAB PO SCH (20:30)
[2021-09-30] MEDS: traZODone 50 MG TAB PO PRN (20:30)
[2021-10-01 06:00] VITALS: BP 125/72
[2021-10-01 07:28] LABS: CHOLESTEROL RISK RATIO 2.469 (<5)
[2021-10-01] MEDS ORDERED: VENLAFAXINE **XR** 37.5 MG CAPSULE PO ONE (08:45)
[2021-10-01] MEDS: MULTIVITAMINS/MINERALS THERAP 1 TAB PO SCH (09:00)
[2021-10-01] MEDS: VITAMIN D 1,000 INTERNATIONAL UNITS TABLET PO SCH (09:00)
[2021-10-01] MEDS: VENLAFAXINE **XR** 75MG CAPSULE PO SCH (09:27)
[2021-10-01] MEDS: hydrOXYzine 50 MG TAB PO PRN (13:59)
[2021-10-01 19:00] VITALS: BP 140/88
[2021-10-01] MEDS: ARIPiprazole 2 MG TAB PO SCH (21:44)
[2021-10-01] MEDS: MIRTAZAPINE 15 MG TAB PO SCH (21:44)
[2021-10-02 06:00] VITALS: BP 130/78
[2021-10-02] MEDS: MULTIVITAMINS/MINERALS THERAP 1 TAB PO SCH (08:08)
[2021-10-02] MEDS: VITAMIN D 1,000 INTERNATIONAL UNITS TABLET PO SCH (08:08)
[2021-10-02] MEDS: VENLAFAXINE **XR** 75MG CAPSULE PO SCH (08:08)
[2021-10-02] MEDS ORDERED: ABIL1TAB13 PO (12:32)
[2021-10-02] MEDS ORDERED: MIRT1TAB16 PO (12:32)
[2021-10-02] MEDS: hydrOXYzine 50 MG TAB PO PRN (17:07)
[2021-10-02] MEDS ORDERED: OLANZapine ORAL DISINTEGRATING TAB 5MG PO ONE (17:15)
[2021-10-02 18:03] VITALS: BP 143/76
[2021-10-02] MEDS: ARIPiprazole 2 MG TAB PO SCH (20:08)
[2021-10-02] MEDS ORDERED: MIRTAZAPINE 15 MG TAB PO SCH (21:00)
[2021-10-03 06:55] VITALS: BP 121/82
[2021-10-03] MEDS ORDERED: VENLAFAXINE **XR** 37.5 MG CAPSULE PO SCH (09:00)
== END 2021-10-03 08:46 | disposition home or self-care (01) | DRG 757 ==
LOC: M ED 11:28 → M ED INP 16:08 → M PSY 17:12
PROVIDERS: ADMIT Student in an Organized Health Care Education/Training Program; ATTEND Student in an Organized Health Care Education/Training Program
DX: F53.0 Postpartum depression (principal); F33.1 Major depressive disorder, recurrent, moderate; F50.00 Anorexia nervosa, unspecified; Z68.1 Body mass index [BMI] 19.9 or less, adult; F43.10 Post-traumatic stress disorder, unspecified; Z20.822 Contact with and (suspected) exposure to COVID-19; Z79.899 Other long term (current) drug therapy; F41.1 Generalized anxiety disorder; F41.0 Panic disorder [episodic paroxysmal anxiety]

== ENCOUNTER 2021-11-04 17:02 | Emergency (ER) | payer BC, MEDICAID ==
[~2021-11-04] VITALS: Ht 177.8 cm; Wt 53.7 kg
[~2021-11-04 17:02] MED LIST changes: +ABIL1TAB13 PO; +MIRT-10 PO; +MIRT1TAB16 PO; +TRAZ-252 PO; +VENL37.598 PO; +VITAD1000T PO; +VITMTA PO
[2021-11-04] MEDS ORDERED: PRAZ2CAP (17:10)
[2021-11-04] MEDS ORDERED: MIRT1TAB17 (17:10)
[2021-11-04 20:03] LABS: HEMATOCRIT 38.2 % (36.0-47.0); HEMOGLOBIN 12.2 g/dl (12.0-15.5); MEAN CORPUSCULAR HEMOGLOBIN 29.3 pg (27.0-33.0); MEAN CORPUSCULAR HGB CONC 31.9 g/dl (32.0-36.5); MEAN CORPUSCULAR VOLUME 91.6 fl (80.0-96.0); PLATELET COUNT, AUTOMATED 251 10^3/uL (150-450); RED BLOOD COUNT 4.17 10^6/uL (4.00-5.40); WHITE BLOOD COUNT 7.7 10^3/uL (4.0-10.0)
[2021-11-04 20:39] LABS: AMPHETAMINES LEVEL URINE NEGATIVE (NEGATIVE); BARBITURATES URINE NEGATIVE (NEGATIVE); BENZODIAZEPINES URINE NEGATIVE (NEGATIVE); CANNABINOIDS URINE NEGATIVE (NEGATIVE); COCAINE METABOLITE URINE NEGATIVE (NEGATIVE); METHADONE URINE NEGATIVE (NEGATIVE); OPIATES URINE NEGATIVE (NEGATIVE); PHENCYCLIDINE URINE NEGATIVE (NEGATIVE)
[2021-11-04 20:48] LABS: BLOOD UREA NITROGEN 9 MG/DL (7-18); CALCIUM LEVEL 9.1 MG/DL (8.5-10.1); CARBON DIOXIDE LEVEL 24 MEQ/L (21-32); CHLORIDE LEVEL 109 MEQ/L (98-107); CREATININE FOR GFR 0.79 MG/DL (0.55-1.30); FREE THYROXINE INDEX 3.1 % (1.3-4.8); GLOMERULAR FILTRATION RATE > 60.0 (>60); GLUCOSE, FASTING 84 MG/DL (70-100); MAGNESIUM LEVEL 2.3 MG/DL (1.8-2.4); POTASSIUM SERUM 3.4 MEQ/L (3.5-5.1); SODIUM LEVEL 142 MEQ/L (136-145); T UPTAKE 37 % (30-39); THYROID STIMULATING HORMONE 0.975 uIU/ML (0.358-3.740); THYROXINE (T4) 8.3 UG/DL (4.5-12.0)
[2021-11-04 21:29] VITALS: BP 126/84
[2021-11-04 21:48] LABS: CK-MB VALUE MASS < 1.0 NG/ML (<3.6); CPK CREATINE PHOSPHOKINASE 89 U/L (26-192); MB/CK RELATIVE INDEX 1.12 (< OR =4)
[2021-11-05] MEDS ORDERED: ABIL1TAB13 PO (22:45)
[2021-11-05] MEDS ORDERED: PRAZ2CAP PO (22:45)
[2021-11-05] MEDS ORDERED: MIRT-62 PO (22:45)
== END 2021-11-04 22:48 | disposition home or self-care (01) ==
LOC: M ED 17:02
DX: R55 Syncope and collapse (principal); R01.1 Cardiac murmur, unspecified; F41.9 Anxiety disorder, unspecified; F32.A Depression, unspecified; Z79.811 Long term (current) use of aromatase inhibitors; Z79.83 Long term (current) use of bisphosphonates

== ENCOUNTER 2021-11-05 17:36 | Observation (INO) | payer BC, MEDICAID ==
[~2021-11-05] VITALS: Ht 177.8 cm; Wt 54.1 kg
[~2021-11-05 17:36] MED LIST changes: +MIRT1TAB17; +PRAZ2CAP
[2021-11-05 18:45] LABS: BASO % 0.6 % (0.0-1.0); EOS # 0.1 10^3/uL (0.0-0.5); EOS % 0.9 % (0.0-3.0); HEMATOCRIT 35.6 % (36.0-47.0); HEMOGLOBIN 11.7 g/dl (12.0-15.5); LYMPH # 2.1 10^3/uL (1.5-5.0); LYMPH % 30.8 % (24.0-44.0); MEAN CORPUSCULAR HEMOGLOBIN 29.8 pg (27.0-33.0); MEAN CORPUSCULAR HGB CONC 32.9 g/dl (32.0-36.5); MEAN CORPUSCULAR VOLUME 90.8 fl (80.0-96.0); MONO # 0.4 10^3/uL (0.0-0.8); MONO % 6.5 % (2.0-8.0); NEUTROPHILS # 4.1 10^3/uL (1.5-8.5); NEUTROPHILS % 61.1 % (36.0-66.0); PLATELET COUNT, AUTOMATED 239 10^3/uL (150-450); RED BLOOD COUNT 3.92 10^6/uL (4.00-5.40); WHITE BLOOD COUNT 6.7 10^3/uL (4.0-10.0)
[2021-11-05 19:05] LABS: PROTHROMBIN TIME 13.6 SECONDS (12.7-14.5)
[2021-11-05 19:06] LABS: PARTIAL THROMBOPLASTIN TIME 29.3 SECONDS (25.9-37.0)
[2021-11-05 19:15] LABS: D-DIMER QUANT < 270 ng/ml (<500)
[2021-11-05 19:16] LABS: BLOOD UREA NITROGEN 14 MG/DL (7-18); CALCIUM LEVEL 8.9 MG/DL (8.5-10.1); CARBON DIOXIDE LEVEL 28 MEQ/L (21-32); CHLORIDE LEVEL 108 MEQ/L (98-107); CREATININE FOR GFR 0.84 MG/DL (0.55-1.30); GLOMERULAR FILTRATION RATE > 60.0 (>60); GLUCOSE, FASTING 100 MG/DL (70-100); POTASSIUM SERUM 3.7 MEQ/L (3.5-5.1); SODIUM LEVEL 141 MEQ/L (136-145)
[2021-11-05 19:19] LABS: CK-MB VALUE MASS < 1.0 NG/ML (<3.6); CPK CREATINE PHOSPHOKINASE 95 U/L (26-192); MB/CK RELATIVE INDEX 1.05 (< OR =4)
[2021-11-05] MEDS ORDERED: PRAZ2CAP PO (22:45)
[2021-11-05] MEDS ORDERED: MIRT-62 PO (22:45)
[2021-11-05] MEDS ORDERED: ABIL1TAB13 PO (22:45)
[2021-11-05] MEDS ORDERED: HOME MED LIST COMPLETE! XX SCH (22:45)
[2021-11-06] MEDS ORDERED: ACETAMINOPHEN TAB 650MG DOSE (2X325MG) PO PRN (02:00)
[2021-11-06 06:34] LABS: HEMATOCRIT 37.9 % (36.0-47.0); HEMOGLOBIN 11.9 g/dl (12.0-15.5); MEAN CORPUSCULAR HEMOGLOBIN 28.7 pg (27.0-33.0); MEAN CORPUSCULAR HGB CONC 31.4 g/dl (32.0-36.5); MEAN CORPUSCULAR VOLUME 91.3 fl (80.0-96.0); PLATELET COUNT, AUTOMATED 223 10^3/uL (150-450); RED BLOOD COUNT 4.15 10^6/uL (4.00-5.40); WHITE BLOOD COUNT 5.3 10^3/uL (4.0-10.0)
[2021-11-06 06:35] VITALS: BP 138/80
[2021-11-06 07:05] LABS: BLOOD UREA NITROGEN 10 MG/DL (7-18); CARBON DIOXIDE LEVEL 25 MEQ/L (21-32); CHLORIDE LEVEL 111 MEQ/L (98-107); CREATININE FOR GFR 0.71 MG/DL (0.55-1.30); GLOMERULAR FILTRATION RATE > 60.0 (>60); GLUCOSE, FASTING 88 MG/DL (70-100); MAGNESIUM LEVEL 2.3 MG/DL (1.8-2.4); POTASSIUM SERUM 3.8 MEQ/L (3.5-5.1); SODIUM LEVEL 142 MEQ/L (136-145); THYROXINE (T4) 6.3 UG/DL (4.5-12.0)
[2021-11-06 07:49] LABS: HEMOGLOBIN A1c 4.8 %
[2021-11-06 09:20] LABS: PROLACTIN 9.9 NG/ML
[2021-11-06 12:00] VITALS: BP 123/82
[2021-11-06 18:47] VITALS: BP 125/81
[2021-11-06] MEDS ORDERED: KETOROLAC 30 MG/ML 1ML VIAL IV STA (19:06)
[2021-11-06 20:22] VITALS: BP 110/71
[2021-11-06 20:25] VITALS: BP 110/71
[2021-11-06] MEDS ORDERED: PROHANCE 279.3MG/ML 5ML VIAL As Ordered ONE (20:53)
[2021-11-06] MEDS ORDERED: PRAZOSIN 1 MG CAP PO SCH (21:00)
[2021-11-06] MEDS ORDERED: ARIPiprazole 2 MG TAB PO SCH (21:00)
[2021-11-06] MEDS ORDERED: MIRTAZAPINE 15 MG TAB PO SCH (21:00)
[2021-11-06] MEDS ORDERED: diazePAM 10MG/2ML SYRINGE (J3360 PER 5MG) IV ONE (22:00)
[2021-11-06 22:33] VITALS: BP 110/72
[2021-11-07 04:00] VITALS: BP 91/50
[2021-11-07 04:30] VITALS: BP 102/62
[2021-11-07 06:52] LABS: BLOOD UREA NITROGEN 10 MG/DL (7-18); CALCIUM LEVEL 9.1 MG/DL (8.5-10.1); CARBON DIOXIDE LEVEL 24 MEQ/L (21-32); CHLORIDE LEVEL 108 MEQ/L (98-107); CREATININE FOR GFR 0.74 MG/DL (0.55-1.30); GLOMERULAR FILTRATION RATE > 60.0 (>60); GLUCOSE, FASTING 88 MG/DL (70-100); POTASSIUM SERUM 3.6 MEQ/L (3.5-5.1); SODIUM LEVEL 139 MEQ/L (136-145)
[2021-11-07 12:00] VITALS: BP 100/65
== END 2021-11-07 14:46 | disposition home or self-care (01) ==
LOC: M ED 17:36 → M ED INP 11-06 01:59 → M 4MAIN 11-06 06:40
PROVIDERS: ADMIT Internal Medicine; ATTEND Student in an Organized Health Care Education/Training Program
DX: R55 Syncope and collapse (principal); M94.0 Chondrocostal junction syndrome [Tietze]; E34.8 Other specified endocrine disorders; F32.A Depression, unspecified; F41.9 Anxiety disorder, unspecified; Z79.899 Other long term (current) drug therapy
CPT/HCPCS: 36415; 70450; 70553; 80048; 82550; 82553; 83036; 83735; 84146; 84436; 84443; 85025; 85027; 85379; 85610; 85730; 87426; 93005; 93041; 93306; 94760; 96374; 96375; 99285; A9576; J1885; J3360

== ENCOUNTER 2021-11-08 13:00 | Emergency (ER) | payer BC, MEDICAID ==
[~2021-11-08] VITALS: Ht 177.8 cm; Wt 52.3 kg
[~2021-11-08 13:00] MED LIST changes: +MIRT-62 PO
[2021-11-08 14:01] LABS: HEMATOCRIT 38.9 % (36.0-47.0); HEMOGLOBIN 12.4 g/dl (12.0-15.5); MEAN CORPUSCULAR HEMOGLOBIN 29.2 pg (27.0-33.0); MEAN CORPUSCULAR HGB CONC 31.9 g/dl (32.0-36.5); MEAN CORPUSCULAR VOLUME 91.7 fl (80.0-96.0); PLATELET COUNT, AUTOMATED 249 10^3/uL (150-450); RED BLOOD COUNT 4.24 10^6/uL (4.00-5.40); WHITE BLOOD COUNT 6.7 10^3/uL (4.0-10.0)
[2021-11-08 14:24] LABS: HCG, SERUM QUALITATIVE NEGATIVE (NEGATIVE)
[2021-11-08 14:34] LABS: RSV AMPLIFICATION NEGATIVE (NEGATIVE)
[2021-11-08 14:47] LABS: ACETAMINOPHEN LEVEL < 2.0 UG/ML (10.0-30.0); ALBUMIN 3.7 GM/DL (3.2-5.2); ALT/SGPT 16 U/L (12-78); BILIRUBIN,DIRECT < 0.1 MG/DL (0.0-0.2); BILIRUBIN,TOTAL 0.2 MG/DL (0.2-1.0); BLOOD UREA NITROGEN 16 MG/DL (7-18); CALCIUM LEVEL 8.9 MG/DL (8.5-10.1); CARBON DIOXIDE LEVEL 28 MEQ/L (21-32); CHLORIDE LEVEL 107 MEQ/L (98-107); CREATININE FOR GFR 0.98 MG/DL (0.55-1.30); ETHYL ALCOHOL (ETHANOL) < 0.003 % (0.000-0.010); GLOMERULAR FILTRATION RATE > 60.0 (>60); GLUCOSE, FASTING 93 MG/DL (70-100); POTASSIUM SERUM 4.3 MEQ/L (3.5-5.1); SALICYLATE LEVEL < 1.7 MG/DL (5.0-30.0); SODIUM LEVEL 140 MEQ/L (136-145); TOTAL PROTEIN 6.7 GM/DL (6.4-8.2)
[2021-11-08 15:57] LABS: AMPHETAMINES LEVEL URINE NEGATIVE (NEGATIVE); BARBITURATES URINE NEGATIVE (NEGATIVE); BENZODIAZEPINES URINE NEGATIVE (NEGATIVE); CANNABINOIDS URINE POSITIVE (NEGATIVE); COCAINE METABOLITE URINE NEGATIVE (NEGATIVE); METHADONE URINE NEGATIVE (NEGATIVE); OPIATES URINE NEGATIVE (NEGATIVE); PHENCYCLIDINE URINE NEGATIVE (NEGATIVE)
[2021-11-08] MEDS ORDERED: HOME MED LIST COMPLETE! XX SCH (20:40)
[2021-11-08] MEDS: ARIPiprazole 2 MG TAB PO SCH (21:32)
[2021-11-08] MEDS: PRAZOSIN 1 MG CAP PO SCH (21:32)
[2021-11-08] MEDS: MIRTAZAPINE 15 MG TAB PO SCH (21:33)
[2021-11-09] MEDS ORDERED: ACETAMINOPHEN TAB 650MG DOSE (2X325MG) PO ONE (04:45)
[2021-11-09] MEDS ORDERED: ACETAMINOPHEN 500 MG TAB PO ONE (12:05)
[2021-11-09] MEDS ORDERED: ONDANSETRON 4MG ORAL DISINTEGRATING TAB PO ONE (17:00)
[2021-11-09] MEDS: MIRTAZAPINE 15 MG TAB PO SCH (20:51)
[2021-11-09] MEDS: ARIPiprazole 2 MG TAB PO SCH (20:51)
[2021-11-09] MEDS: PRAZOSIN 1 MG CAP PO SCH (20:51)
[2021-11-10] MEDS ORDERED: ACETAMINOPHEN TAB 650MG DOSE (2X325MG) PO ONE ×2 (02:05→16:55)
[2021-11-10] MEDS ORDERED: MOM 30ML SUSPENSION UDC PO ONE (19:45)
[2021-11-10] MEDS: PRAZOSIN 1 MG CAP PO SCH (20:38)
[2021-11-10] MEDS: MIRTAZAPINE 15 MG TAB PO SCH (20:38)
[2021-11-10] MEDS: ARIPiprazole 2 MG TAB PO SCH (20:39)
[2021-11-11] MEDS: ARIPiprazole 2 MG TAB PO SCH (22:01)
[2021-11-11] MEDS: MIRTAZAPINE 15 MG TAB PO SCH (22:02)
[2021-11-11 22:06] VITALS: BP 106/65
[2021-11-11] MEDS: PRAZOSIN 1 MG CAP PO SCH (22:06)
[2021-11-12 06:02] VITALS: BP 106/63
== END 2021-11-12 16:10 | disposition home or self-care (01) ==
LOC: M ED 13:00
DX: F43.0 Acute stress reaction (principal); F32.A Depression, unspecified; F60.3 Borderline personality disorder; D35.4 Benign neoplasm of pineal gland; G43.909 Migraine, unspecified, not intractable, without status migrainosus

== ENCOUNTER → 2024-01-21 | Outpatient (CLI) | payer OTHER ==
[~2024-01-21] MED LIST changes: -MIRT-62 PO; +MIRT-88 PO
== END ==
LOC: M PLARAD 15:23
PROVIDERS: ATTEND Physician Assistant
DX: M54.50 Low back pain, unspecified (principal)

== ENCOUNTER 2024-04-06 14:44 | Emergency (ER) | payer OTHER ==
[~2024-04-06] VITALS: Ht 177.8 cm; Wt 58.1 kg
[2024-04-06] MEDS ORDERED: VENL75CA47 (15:01)
[2024-04-06 15:49] LABS: BASO # 0.1 10^3/uL (0.0-0.2); BASO % 0.6 % (0.0-1.0); EOS # 0.1 10^3/uL (0.0-0.5); HEMATOCRIT 38.1 % (36.0-47.0); HEMOGLOBIN 12.6 g/dl (12.0-15.5); LYMPH # 1.7 10^3/uL (1.5-5.0); LYMPH % 21.5 % (24.0-44.0); MEAN CORPUSCULAR HEMOGLOBIN 30.1 pg (27.0-33.0); MEAN CORPUSCULAR HGB CONC 33.1 g/dl (32.0-36.5); MEAN CORPUSCULAR VOLUME 91.1 fl (80.0-96.0); MONO # 0.5 10^3/uL (0.0-0.8); MONO % 6.6 % (2.0-8.0); NEUTROPHILS # 5.5 10^3/uL (1.5-8.5); NEUTROPHILS % 70.2 % (36.0-66.0); PLATELET COUNT, AUTOMATED 252 10^3/uL (150-450); RED BLOOD COUNT 4.18 10^6/uL (4.00-5.40); WHITE BLOOD COUNT 7.8 10^3/uL (4.0-10.0)
[2024-04-06 16:19] LABS: BLOOD UREA NITROGEN 10 MG/DL (9-23); CALCIUM LEVEL 9.3 MG/DL (8.5-10.1); CARBON DIOXIDE LEVEL 26 MMOL/L (20-31); CHLORIDE LEVEL 105 MMOL/L (98-107); CREATININE FOR GFR 0.69 MG/DL (0.55-1.30); GLOMERULAR FILTRATION RATE > 60.0 (>60); GLUCOSE, FASTING 87 MG/DL (60-100); POTASSIUM SERUM 3.7 MMOL/L (3.5-5.1); SODIUM LEVEL 139 MMOL/L (136-145)
[2024-04-06 16:21] LABS: THYROID STIMULATING HORMONE 0.804 uIU/ML (0.55-4.78)
[2024-04-06 16:28] LABS: HCG, SERUM QUALITATIVE NEGATIVE (NEGATIVE)
[2024-04-06] MEDS ORDERED: TRIL1TAB PO (19:05)
[2024-04-06] MEDS: OXcarbazepine 300 MG TAB PO ONE (19:10)
[2024-04-06 20:28] VITALS: BP 127/80; TEMP 98.4; O2SAT 97
== END 2024-04-06 20:15 | disposition home or self-care (01) ==
LOC: M ED 14:44
DX: G40.209 Localization-related (focal) (partial) symptomatic epilepsy and epileptic syndromes with complex partial seizures, not intractable, without status epilepticus (principal); I45.10 Unspecified right bundle-branch block; G43.909 Migraine, unspecified, not intractable, without status migrainosus; F32.A Depression, unspecified; F43.10 Post-traumatic stress disorder, unspecified; F12.10 Cannabis abuse, uncomplicated; Z79.899 Other long term (current) drug therapy

== ENCOUNTER 2024-04-06 22:59 | Emergency (ER) | payer OTHER ==
[~2024-04-06] VITALS: Ht 177.8 cm; Wt 54.4 kg
[~2024-04-06 22:59] MED LIST changes: +TRIL1TAB PO; +VENL75CA47
[2024-04-07 02:11] LABS: AMPHETAMINES LEVEL URINE NEGATIVE (NEGATIVE); BENZODIAZEPINES URINE NEGATIVE (NEGATIVE); PHENCYCLIDINE URINE NEGATIVE (NEGATIVE)
[2024-04-07 02:12] LABS: BARBITURATES URINE NEGATIVE (NEGATIVE); COCAINE METABOLITE URINE NEGATIVE (NEGATIVE); METHADONE URINE NEGATIVE (NEGATIVE); OPIATES URINE NEGATIVE (NEGATIVE)
[2024-04-07 02:17] LABS: CANNABINOIDS URINE POSITIVE (NEGATIVE)
[2024-04-07 06:54] VITALS: BP 125/79; TEMP 97.4; O2SAT 98
== END 2024-04-07 06:56 | disposition short-term general hospital (02) ==
LOC: M ED 22:59
DX: G40.219 Localization-related (focal) (partial) symptomatic epilepsy and epileptic syndromes with complex partial seizures, intractable, without status epilepticus (principal); F32.A Depression, unspecified; F43.10 Post-traumatic stress disorder, unspecified; G43.909 Migraine, unspecified, not intractable, without status migrainosus; F17.200 Nicotine dependence, unspecified, uncomplicated; F12.10 Cannabis abuse, uncomplicated; Z79.899 Other long term (current) drug therapy

== ENCOUNTER 2024-05-10 18:03 | Inpatient (IN) | payer OTHER ==
[~2024-05-10] VITALS: Ht 177.8 cm; Wt 58.6 kg
[2024-05-10] MEDS ORDERED: VENL75TA2 PO (18:26)
[2024-05-10] MEDS ORDERED: DIAZ2TAB PO (18:26)
[2024-05-10] MEDS ORDERED: BUSP5TA PO (18:26)
[2024-05-10 18:57] LABS: HEMATOCRIT 40.1 % (36.0-47.0); MEAN CORPUSCULAR HEMOGLOBIN 30.4 pg (27.0-33.0); MEAN CORPUSCULAR HGB CONC 32.4 g/dl (32.0-36.5); MEAN CORPUSCULAR VOLUME 93.7 fl (80.0-96.0); PLATELET COUNT, AUTOMATED 283 10^3/uL (150-450); RED BLOOD COUNT 4.28 10^6/uL (4.00-5.40); WHITE BLOOD COUNT 12.1 10^3/uL (4.0-10.0)
[2024-05-10 19:19] LABS: AMPHETAMINES LEVEL URINE NEGATIVE (NEGATIVE); BARBITURATES URINE NEGATIVE (NEGATIVE); COCAINE METABOLITE URINE NEGATIVE (NEGATIVE); METHADONE URINE NEGATIVE (NEGATIVE); OPIATES URINE NEGATIVE (NEGATIVE); PHENCYCLIDINE URINE NEGATIVE (NEGATIVE)
[2024-05-10 19:22] LABS: BENZODIAZEPINES URINE POSITIVE (NEGATIVE); CANNABINOIDS URINE POSITIVE (NEGATIVE)
[2024-05-10 19:34] LABS: ETHYL ALCOHOL (ETHANOL) 0.004 % (0.000-0.010); SALICYLATE LEVEL < 3.0 MG/DL (<30)
[2024-05-10 19:35] LABS: ALBUMIN 4.2 G/DL (3.2-5.2); ALKALINE PHOSPHATASE 64 U/L (35-104); ALT/SGPT 12 U/L (7.0-40); AST/SGOT 13 U/L (<34); BILIRUBIN,DIRECT < 0.1 MG/DL (<0.4); BILIRUBIN,TOTAL 0.2 MG/DL (0.3-1.2); BLOOD UREA NITROGEN 10 MG/DL (9-23); CALCIUM LEVEL 8.9 MG/DL (8.5-10.1); CARBON DIOXIDE LEVEL 25 MMOL/L (20-31); CHLORIDE LEVEL 105 MMOL/L (98-107); CREATININE FOR GFR 0.58 MG/DL (0.55-1.30); GLOMERULAR FILTRATION RATE > 60.0 (>60); GLUCOSE, FASTING 92 MG/DL (60-100); POTASSIUM SERUM 3.8 MMOL/L (3.5-5.1); SODIUM LEVEL 140 MMOL/L (136-145); THYROID STIMULATING HORMONE 1.887 uIU/ML (0.55-4.78); TOTAL PROTEIN 7.2 G/DL (5.7-8.2)
[2024-05-10 20:03] LABS: HCG, SERUM QUALITATIVE NEGATIVE (NEGATIVE)
[2024-05-10] MEDS ORDERED: diphenhydrAMINE 25MG CAP PO PRN (21:25)
[2024-05-10] MEDS ORDERED: MOM 30ML SUSPENSION UDC PO PRN (21:25)
[2024-05-10] MEDS ORDERED: MAALOX 30 ML SUSP *UDC PO PRN (21:25)
[2024-05-10] MEDS ORDERED: traZODone 50 MG TAB PO PRN (21:25)
[2024-05-10] MEDS ORDERED: OLANZapine ORAL DISINTEGRATING TAB 5MG PO PRN (21:25)
[2024-05-10] MEDS ORDERED: LORazepam 1 MG TAB PO PRN (21:25)
[2024-05-10] MEDS ORDERED: VENL75CA47 PO (21:42)
[2024-05-10 21:59] VITALS: BP 119/59; TEMP 97.4; O2SAT 100
[2024-05-11 06:40] VITALS: BP 142/83; TEMP 97.9; O2SAT 100
[2024-05-11] MEDS: NICOTINE 14 MG/24 HR TRANSDERMAL TD SCH (09:08)
[2024-05-11] MEDS ORDERED: BUSP10TA PO (15:02)
[2024-05-11] MEDS ORDERED: HOME MED LIST COMPLETE! XX SCH (15:05)
[2024-05-11] MEDS: busPIRone 10 MG TAB PO SCH (15:16)
[2024-05-11] MEDS: VENLAFAXINE **XR** 37.5 MG CAPSULE PO SCH (15:16)
[2024-05-11] MEDS: LIDOCAINE 5% (LIDODERM) PATCH TD SCH (15:16)
[2024-05-11 15:29] VITALS: BP 135/88; TEMP 98.2; O2SAT 100
[2024-05-11] MEDS: IBUPROFEN 400MG TAB PO PRN (15:46)
[2024-05-11] MEDS: ACETAMINOPHEN 325 MG TAB PO PRN (17:10)
[2024-05-11] MEDS: diazePAM 2 MG TAB PO PRN (17:36)
[2024-05-12] MEDS ORDERED: VENLAFAXINE **XR** 75MG CAPSULE PO SCH (09:00)
[2024-05-12] MEDS: MELOXICAM (MOBIC) 7.5 MG TAB PO PRN (10:55)
[2024-05-12 14:48] VITALS: BP 144/87; TEMP 98.8; O2SAT 99
[2024-05-13 06:32] VITALS: BP 120/82; TEMP 97.6; O2SAT 100
[2024-05-13] MEDS ORDERED: MELO7.5T35 PO (08:40)
[2024-05-13] MEDS ORDERED: VENL37.598 PO (08:40)
[2024-05-13] MEDS ORDERED: LIDO5TD TD (08:40)
[2024-05-13] MEDS ORDERED: NICO14PA TD (08:40)
== END 2024-05-13 10:49 | disposition home or self-care (01) | DRG 751 ==
LOC: M ED 18:03 → M ED INP 21:23 → M PSY 21:58
PROVIDERS: ADMIT Psychiatry & Neurology Neurology; ATTEND Psychiatry & Neurology Neurology
DX: F33.9 Major depressive disorder, recurrent, unspecified (principal); F41.9 Anxiety disorder, unspecified; F43.10 Post-traumatic stress disorder, unspecified; F12.90 Cannabis use, unspecified, uncomplicated; F17.200 Nicotine dependence, unspecified, uncomplicated; M53.3 Sacrococcygeal disorders, not elsewhere classified; Z79.899 Other long term (current) drug therapy

== ENCOUNTER → 2024-07-05 | Outpatient (CLI) | payer OTHER ==
[~2024-07-05] MED LIST changes: +BUSP10TA PO; +BUSP5TA PO; +DIAZ2TAB PO; +LIDO5TD TD; +MELO7.5T35 PO; +NICO14PA TD; +VENL75CA47 PO; +VENL75TA2 PO
[2024-07-05 10:12] LABS: PLATELET COUNT, AUTOMATED 235 10^3/uL (150-450)
[2024-07-05 10:24] LABS: INR 1.03; PARTIAL THROMBOPLASTIN TIME 31.8 SECONDS (24.8-34.2); PROTHROMBIN TIME 13.8 SECONDS (12.5-14.5)
== END ==
LOC: M LAB 09:40
PROVIDERS: ATTEND Physician Assistant
DX: Z01.818 Encounter for other preprocedural examination (principal)